=== PATIENT | male | born 1950 | race Caucasian/White ===

== ENCOUNTER 2024-12-27 21:32 | Inpatient (IN) | payer MEDICARE ==
--- NOTE | 2024-12-27 21:40 | ED ---
Recheck HPI - General Stated Complaint: NStemi Time Seen by Provider: 12/27/24 21:34 Source: RN notes reviewed, old records reviewed Mode of arrival: EMS Limitations: no limitations - History of Present Illness Initial Comments: This is a 74 male to the ER for evaluation patient presents today for evaluation of chest pain, hypertension with elevated troponin at prior facility. MD Complaint: other (0) -: days(s) Returns Today for: Called Because of Abnormal Lab/Test (Elevated troponin), persistent/worsening pain related to initial visit Symptoms Since Prior Visit: worsening pain (Denying current chest pain) Context: called for abnormal lab result Associated Symptoms: none - Related Data Home Medications Medication Instructions Recorded Confirmed Dapagliflozin Propanediol 10 mg PO DAILY 12/28/24 12/28/24 [Dapagliflozin] Famotidine 20 mg PO W/SUPPER 12/28/24 12/28/24 Fluticasone Nasal [place] [Flonase 1 spray EA NOSTRIL HS 12/28/24 12/28/24 Nasal [place]] Gabapentin [Neurontin] 900 mg PO HS 12/28/24 12/28/24 Insulin Aspart [NovoLOG Flexpen] 10 units SQ W/LUNCH PRN 12/28/24 12/28/24 Insulin Aspart [NovoLOG Flexpen] 25 units SQ BID-W/MEALS 12/28/24 12/28/24 Insulin Glargine,Hum.rec.anlog 35 units SQ DAILY 12/28/24 12/28/24 [Toujeo Solostar] Latanoprost [Latanoprost 0.005%] 1 drop BOTH EYES DAILY 12/28/24 12/29/24 Losartan [Cozaar] 25 mg PO DAILY 12/28/24 12/29/24 Metoclopramide HCl [Reglan] 5 mg PO TID PRN 12/28/24 12/28/24 Multivit-Mins/Iron/Folic/Lycop 1 tab PO DAILY 12/28/24 12/28/24 [Centrum Men's Tablet] Niacin (Inositol Niacinate) 500 mg PO HS 12/28/24 12/28/24 [Niacin 500 mg Capsule] [place]-3/Dha/Epa/Fish Oil [[place]-3 1 cap PO HS 12/28/24 12/28/24 Fish Oil 1,000 mg Sfgl] Omeprazole 20 mg PO BID 12/28/24 12/28/24 Turmeric Root Extract [Turmeric] 500 mg PO BID 12/28/24 12/28/24 metHOTREXate sodium [Methotrexate] 25 mg PO FR 12/28/24 12/28/24 rOPINIRole HCL [Requip] 0.5 mg PO DAILY 12/29/24 12/29/24 rOPINIRole HCL [Requip] 1.5 mg PO HS 12/29/24 12/29/24 traZODone HCL [Desyrel] 100 mg PO HS 12/29/24 12/29/24 Allergies Allergy/AdvReac Type Severity Reaction Status Date / Time No Known Allergies Allergy Verified 12/28/24 09:33 Review of Systems ROS Statement: Those systems with pertinent positive or pertinent negative responses have been documented in the HPI. ROS Other: All systems not noted in ROS Statement are negative. Past Medical History - Past Family History Mother Family Medical History: Dementia, Hypertension Father Family Medical History: Diabetes Mellitus, Hypertension General Exam General appearance: alert, in no apparent distress Head exam: Present: atraumatic, normocephalic, normal inspection Eye exam: Present: normal appearance, PERRL, EOMI. Absent: scleral icterus, co njunctival injection, periorbital swelling ENT exam: Present: normal exam, mucous membranes moist Neck exam: Present: normal inspection. Absent: tenderness, meningismus, lymphadenopathy Respiratory exam: Present: normal lung sounds bilaterally. Absent: respiratory distress, wheezes, rales, rhonchi, stridor Cardiovascular Exam: Present: regular rate, normal rhythm, normal heart sounds. Absent: systolic murmur, diastolic murmur, rubs, gallop, clicks GI/Abdominal exam: Present: soft, normal bowel sounds. Absent: distended, tenderness, guarding, rebound, rigid Extremities exam: Present: normal inspection, full ROM, normal capillary refill. Absent: tenderness, pedal edema, joint swelling, calf tenderness Back exam: Present: normal inspection Neurological exam: Present: alert, oriented X3, CN II-XII intact Psychiatric exam: Present: normal affect, normal mood Skin exam: Present: warm, dry, intact, normal color. Absent: rash Course Vital Signs 12/27/24 12/27/24 21:41 23:22 Temperature 98.2 F 98.1 F Pulse Rate 58 L 61 Respiratory 18 14 Rate Blood Pressure 218/98 168/83 O2 Sat by Pulse 97 94 L Oximetry - Reevaluation(s) Reevaluation #1: 12/27/24 21:48 Medical records reviewed Transferring paperwork reviewed including elevated troponin Reevaluation #2: 12/27/24 21:49 Patient denies current chest pain Blood pressure is improving Reevaluation #3: 12/27/24 21:49 Patient informed of results questions answered Reevaluation #4: Was pt. sent in by a medical professional or institution (, AFTAB, BATCH STILL OPERATOR, urgent care, hospital, or senior living...) When possible be specific @ -no Did you speak to anyone other than the patient for history (EMS, parent, family, police, friend...)? What history was obtained from this source @ -no Did you review nursing and triage notes (agree or disagree)? Why? @ -agree Are old charts reviewed (outside hosp., previous admission, EMS record, old EKG, old radiological studies, urgent care reports/EKG's, senior living records)? Report findings @ -yes Differential Diagnosis (chest pain, altered mental status, abdominal pain women, abdominal pain men, vaginal bleeding, weakness, fever, dyspnea, syncope, hea dache, dizziness, GI bleed, back pain, seizure, CVA, palpatations, mental health, musculoskeletal)? @ -prior EKG interpreted by me (3pts min.). @ -yes X-rays interpreted by me (1pt min.). @ -yes negative for acute disease CT interpreted by me (1pt min.). @ -no U/S interpreted by me (1pt. min.). @ -no What testing was considered but not performed or refused? (CT, X-rays, U/S, labs)? Why? @ -none What meds were considered but not given or refused? Why? @ -none Did you discuss the management of the patient with other professionals (professionals i.e. AFTAB Gutierrez, BATCH STILL OPERATOR, lab, RT, psych nurse, social work supervisor, construction rep, teacher, student officer, caseworker protective services)? Give summary @ -no Was smoking cessation discussed for >3mins.? @ -no Was critical care preformed (if so, how long)? @ -yes31 Were there social determinants of health that impacted care today? How? (Homelessness, low income, unemployed, alcoholism, drug addiction, transportation, low edu. Level, literacy, decrease access to med. care, long term, rehab)? @ -none Was there de-escalation of care discussed even if they declined (Discuss DNR or withdrawal of care, Hospice)? DNR status @ -no What co-morbidities impacted this encounter? (DM, HTN, Smoking, COPD, CAD, Cancer, CVA, ARF, Chemo, Hep., AIDS, mental health diagnosis, sleep apnea, morbid obesity)? @ -none Was patient admitted / discharged? Hospital course, mention meds given and route, prescriptions, significant lab abnormalities, going to OR and other pertinent info. @ - 74 male will be admitted for chest pain observation, elevated troponin non- ST elevated VA Admitted Undiagnosed new problem with uncertain prognosis? @ -no Drug Therapy requiring intensive monitoring for toxicity (Heparin, Nitro, Insulin, Cardizem)? @ -no Were any procedures done? @ -no Diagnosis/symptom? @ -Chest pain non-STEMI Acute, or Chronic, or Acute on Chronic? @ -Acute Uncomplicated (without systemic symptoms) or Complicated (systemic symptoms)? @ -Complicated Side effects of treatment? @ -no Exacerbation, Progression, or Severe Exacerbation? @ -exacerbation Poses a threat to life or bodily function? How? (Chest pain, USA, VA, pneumonia, PE, COPD, DKA, ARF, appy, cholecystitis, CVA, Diverticulitis, Homicidal, Suicidal, threat to staff... and all critical care pts) @ -yes with acute chest pain Reevaluation #5: Differential Chest Pain: Stable Angina, Unstable Angina, STEMI, NSTEMI Aortic Dissection, Pneumothorax, Musculoskeletal, Esophageal Spasm GERD, Cholecystitis, Pancreatitis, Zoster, this is not meant to be an all-inclusive list. - Consultations Consultation #1: With [facility] who agrees to admit this patient Medical Decision Making - Medical Decision Making 74 male will be admitted for chest pain observation, elevated troponin non-ST elevated VA - Lab Data Result diagrams: 01/05/25 04:53 01/05/25 04:53 - EKG Data -: EKG Interpreted by Me (EKG sinus bradycardia 56 MD 198 QRS 79 QTc 424) - Radiology Data Radiology results: report reviewed (Chest x-ray is negative for acute disease) Critical Care Time Critical Care Time: Yes Total Critical Care Time: 31 Disposition Clinical Impression: NSTEMI (non-ST elevated myocardial infarction), Chest pain Disposition: ADMITTED IP TO THIS HOSP Condition: Fair Is patient prescribed a controlled substance at d/c from ED?: No Time of Disposition: 22:00
[2024-12-27] MEDS ORDERED: NITROGLYCERIN SL TABS 0.4 MG TAB SUBLINGUAL PRN (21:41)
[2024-12-27] MEDS ORDERED: MORPHINE SULFATE 4 MG/ML SYRINGE IV PRN (21:41)
[2024-12-27] MEDS ORDERED: NALOXONE 0.4 MG/ML 1 ML VIAL IV PRN (21:41)
[2024-12-27] MEDS: MORPHINE SULFATE 4 MG/ML SYRINGE IV STA (22:00)
[2024-12-27] MEDS: ONDANSETRON 4 MG/2 ML VIAL IVP STA (22:00)
[2024-12-27] MEDS: SODIUM CHLORIDE 0.9% 1,000 ML IV SCH (22:03)
[2024-12-27] MEDS: LABETALOL 5 MG/ML VIAL MDV IVP STA (22:04)
[2024-12-27] MEDS: hydrALAZINE HCL 20 MG/ML 1 ML VIAL IVP STA (22:06)
[2024-12-27] MEDS: ATORVASTATIN 80 MG TAB PO SCH (22:07)
--- NOTE | 2024-12-27 22:08 | XR ---
EXAMINATION TYPE: XR chest 1V portable DATE OF EXAM: 12/27/2024 10:01 PM COMPARISON: None. CLINICAL INDICATION: Male, 74 years old with history of cp; H TECHNIQUE: XR chest 1V portable Frontal view of the chest. FINDINGS: Lungs/Pleura: There is no evidence of pleural effusion, focal consolidation, or pneumothorax. Pulmonary vascularity: Unremarkable. Heart/mediastinum: Cardiomegaly. Musculoskeletal: No acute osseous pathology. Old left-sided fracture deformities. Other findings: None IMPRESSION: No acute cardiopulmonary disease/process. [facility], , 12/27/2024 10:06 PM
[2024-12-27 22:26] LABS: Basophils # (A) 0.09 10*3/uL (0.00-0.10); Basophils % (A) 1.3 %; Eosinophils # (A) 0.18 10*3/uL (0.04-0.35); Eosinophils % (A) 2.5 %; HCT 49.5 % (39.6-50.0); HGB 16.4 g/dL (13.0-17.0); Lymphocytes # (A) 1.59 10*3/uL (0.90-5.00); Lymphocytes % (A) 22.1 %; MCH 30.9 pg (27.0-32.0); MCHC 33.1 g/dL (32.0-37.0); MCV 93.2 fL (80.0-97.0); Mean Platelet Volume 9.7 fL (9.5-12.2); Monocytes # (A) 0.75 10*3/uL (0.20-1.00); Monocytes % (A) 10.4 %; Neutrophils # (A) 4.57 10*3/uL (1.80-7.70); Neutrophils % (A) 63.4 %; Platelet Count 209 10*3/uL (140-440); RBC 5.31 10*6/uL (4.40-5.60); RDW 13.8 % (11.5-14.5)
[2024-12-27] MEDS: HEPARIN SOD,PORK IN 0.45% NACL 25,000 UNIT in 0.45% NACL 1 250ML.BAG IV SCH (22:26)
[2024-12-27 22:40] LABS: Prothrombin Time 11.5 sec (10.0-12.5)
[2024-12-27 23:00] LABS: ALT 105 U/L (4-49); AST 67 U/L (17-59); African American GFR (CKD) >90 (>60 ml/min/1.73 sqM); Albumin 4.4 g/dL (3.5-5.0); Alkaline Phosphatase 75 U/L (38-126); Anion Gap 8 mmol/L; Blood Urea Nitrogen 14 mg/dL (9-20); Calcium 9.7 mg/dL (8.4-10.2); Carbon Dioxide 31 mmol/L (22-30); Chloride 102 mmol/L (98-107); Glucose 265 mg/dL (74-99); Magnesium 2.3 mg/dL (1.6-2.3); Non-African American GFR(CKD) 89 (>60 ml/min/1.73 sqM); Phosphorus 3.3 mg/dL (2.5-4.5); Potassium 3.7 mmol/L (3.5-5.1); Sodium 141 mmol/L (137-145); Total Bilirubin 0.9 mg/dL (0.2-1.3)
[2024-12-28 03:51] LABS: Basophils # (A) 0.07 10*3/uL (0.00-0.10); Eosinophils # (A) 0.19 10*3/uL (0.04-0.35); Eosinophils % (A) 2.6 %; HCT 47.8 % (39.6-50.0); HGB 15.9 g/dL (13.0-17.0); Lymphocytes # (A) 1.57 10*3/uL (0.90-5.00); Lymphocytes % (A) 21.6 %; MCH 30.8 pg (27.0-32.0); MCHC 33.3 g/dL (32.0-37.0); MCV 92.6 fL (80.0-97.0); Mean Platelet Volume 9.6 fL (9.5-12.2); Monocytes # (A) 0.91 10*3/uL (0.20-1.00); Monocytes % (A) 12.5 %; Neutrophils # (A) 4.52 10*3/uL (1.80-7.70); Neutrophils % (A) 62.2 %; Platelet Count 191 10*3/uL (140-440); RBC 5.16 10*6/uL (4.40-5.60); RDW 13.8 % (11.5-14.5); WBC 7.27 10*3/uL (4.50-10.00)
[2024-12-28 04:08] LABS: ALT 90 U/L (4-49); AST 50 U/L (17-59); African American GFR (CKD) >90 (>60 ml/min/1.73 sqM); Alkaline Phosphatase 60 U/L (38-126); Anion Gap 7 mmol/L; Blood Urea Nitrogen 14 mg/dL (9-20); Calcium 9.5 mg/dL (8.4-10.2); Carbon Dioxide 27 mmol/L (22-30); Chloride 106 mmol/L (98-107); Glucose 84 mg/dL (74-99); Magnesium 2.2 mg/dL (1.6-2.3); Non-African American GFR(CKD) >90 (>60 ml/min/1.73 sqM); Phosphorus 3.3 mg/dL (2.5-4.5); Potassium 3.5 mmol/L (3.5-5.1); Sodium 140 mmol/L (137-145); Total Bilirubin 0.9 mg/dL (0.2-1.3); Total Protein 6.3 g/dL (6.3-8.2)
[2024-12-28] MEDS: ASPIRIN 325 MG TAB PO SCH (08:58)
[2024-12-28] MEDS: METOPROLOL TARTRATE 25 MG TAB PO SCH (08:59)
[2024-12-28] MEDS: HEPARIN SODIUM 1,000 UN/ML (10ML VL) IV PRN (09:57)
[2024-12-28] MEDS ORDERED: DEXTROSE 50% SYRINGE 50 ML IVP PRN ×2 (10:16)
[2024-12-28 10:18] LABS: Chol/HDL Ratio 5.53 Ratio; LDL Cholesterol,Calculated 113.7 mg/dL (0.0-131.0)
[2024-12-28 11:43] LABS: Glucose,Whole Blood 209 mg/dL (70-110)
[2024-12-28] MEDS ORDERED: ALPRAZolam 0.25 MG TAB PO PRN (11:44)
[2024-12-28] MEDS ORDERED: NITROGLYCERIN SL TABS 0.4 MG TAB SUBLINGUAL PRN (11:44)
[2024-12-28] MEDS ORDERED: ASPIRIN 325 MG TAB PO STA (11:44)
[2024-12-28] MEDS: INSULIN GLARGINE (LANTUS) 100 UNIT/ML SYR SQ SCH (12:05)
[2024-12-28] MEDS: carvediloL 6.25 MG TAB PO SCH (12:05)
[2024-12-28] MEDS: LOSARTAN 50 MG TAB PO SCH (12:05)
[2024-12-28] MEDS: INSULIN LISPRO (HumaLOG) 100 UNIT/ML 10 mL VL SQ SCH (12:05)
[2024-12-28] MEDS: ASPIRIN 81 MG PO SCH (12:05)
[2024-12-28] MEDS: LOSARTAN 25 MG TAB PO SCH (12:20)
[2024-12-28] MEDS: ATORVASTATIN 80 MG TAB PO STA (12:21)
--- NOTE | 2024-12-28 12:51 | P.CRDCN ---
History of Present Illness Consult date: 12/28/24 Consult reason: chest pain Chief complaint: chest pain History of present illness: History of present illness: Pleasant 74-year-old male with significant past medical history of diabetes type 2, psoriatic arthritis, restless leg syndrome, hypertension, hyperlipidemia who presented with elevated blood pressure. He does not follow with a senior information systems architect. He does not smoke, drinks rare alcohol, no drug use. He states he has been having high blood pressure and intermittent shortness of breath, worse over the past few weeks. Went to a walk-in clinic and BP was elevated 200's/80's. and referred to ER in [place] and ultimately transferred to [facility] for elevated trop 0.08. Troponins here 0.085, 0.081, 0.085, creat 0.69, D-dimer negative. BNP was 801. He did have the flu 1 month ago and was coughing more at that time. He states over the past few months he has been having more chest tightness with walking the dog and this is a change for him. He does not use salt. No prior cardiac work up. EKG does show sinus bradycardia with ST deviation and moderate T wave abnormalities. He is feeling better this morning. Denies any chest pain or pressure. No shortness of breath. REVIEW OF SYSTEMS: No fever or chills. No cough or expectoration. No diaphoresis. Patient denies headache, dizziness, blurred vision, double vision. Patient denies any stomach discomfort. No nausea, vomiting. No hematochezia. No hematemesis. Denies any black stools or blood in his stools. Denies dysuria or hematuria. No muscle weakness or numbness. No chest pain or pressure. PHYSICAL EXAMINATION: This is a 74-year-old male in no apparent distress at the time of my examination. HEENT: Head is atraumatic, normocephalic. Pupils are equal, round. Sclerae anicteric. Conjunctivae are clear. Mucous membranes of the mouth are moist. Neck is supple. There is no jugular venous distention. No carotid bruit is heard. CHEST EXAMINATION: Lungs are clear to auscultation. No chest wall tenderness is noted on palpation or with deep breathing. HEART EXAMINATION: Heart regular rate and rhythm. S1, S2 heard. No murmurs, gallops or rub. ABDOMEN: Soft, nontender. Bowel sounds are heard. No organomegaly noted. EXTREMITIES: 2+ peripheral pulses with no evidence of peripheral edema and no calf tenderness noted. NEUROLOGIC EXAMINATION: Patient is awake, alert and oriented x3. IMPRESSION AND PLAN: Hypertension Hyperlipidemia Diabetes type 2 Chest tightness with exertion Dyspnea NSTEMI Abnormal EKG PLAN: Blood pressure needs to be better controlled. We will increase losartan to 100 mg. He did not do well with metoprolol in the past, therefore, will attempt Coreg 6.25 mg twice daily. He also states he does not tolerate a full aspirin and therefore we will order aspirin 81 mg. We discussed stress testing versus left heart catheterization. Recommend proceeding with left heart cath and possible intervention once blood pressures better controlled, likely tomorrow. Check ECHO. Other recommendations pending clinical course. I am dictating on behalf of Dr. Stepan Dewey's history/physical and assessment/plan. 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 Past Psychological History: Depression Smoking Status: Never smoker Past Alcohol Use History: Rare Past Drug Use History: None Reported Medications and Allergies Home Medications Medication Instructions Recorded Confirmed Type Dapagliflozin Propanediol 10 mg PO DAILY 12/28/24 12/28/24 History [Dapagliflozin] Famotidine 20 mg PO W/SUPPER 12/28/24 12/28/24 History Fluticasone Nasal [place] [Flonase 1 spray EA NOSTRIL HS 12/28/24 12/28/24 History Nasal [place]] Gabapentin [Neurontin] 900 mg PO HS 12/28/24 12/28/24 History Insulin Aspart [NovoLOG Flexpen] 10 units SQ W/LUNCH PRN 12/28/24 12/28/24 History Insulin Aspart [NovoLOG Flexpen] 25 units SQ BID-W/MEALS 12/28/24 12/28/24 History Insulin Glargine,Hum.rec.anlog 35 units SQ DAILY 12/28/24 12/28/24 History [Lorri Choudhury] Latanoprost [Latanoprost 0.005%] 1 drop BOTH EYES DIRECTED 12/28/24 12/28/24 History Losartan [Cozaar] 25 mg PO DIRECTED 12/28/24 12/28/24 History Metoclopramide HCl [Reglan] 5 mg PO TID PRN 12/28/24 12/28/24 History Multivit-Mins/Iron/Folic/Lycop 1 tab PO DAILY 12/28/24 12/28/24 History [Centrum Men's Tablet] Niacin (Inositol Niacinate) 500 mg PO HS 12/28/24 12/28/24 History [Niacin 500 mg Capsule] [place]-3/Dha/Epa/Fish Oil [[place]-3 1 cap PO HS 12/28/24 12/28/24 History Fish Oil 1,000 mg Sfgl] Omeprazole 20 mg PO BID 12/28/24 12/28/24 History Turmeric Root Extract [Turmeric] 500 mg PO BID 12/28/24 12/28/24 History metHOTREXate sodium [Methotrexate] 25 mg PO FR 12/28/24 12/28/24 History rOPINIRole HCL [Requip] 1 dose PO DIRECTED 12/28/24 12/28/24 History traZODone HCL [Desyrel] 50 mg PO DIRECTED 12/28/24 12/28/24 History Allergies Allergy/AdvReac Type Severity Reaction Status Date / Time No Known Allergies Allergy Verified 12/28/24 09:33 Physical Exam Vitals: Vital Signs Temp Pulse Pulse Resp BP BP Pulse Ox 12/28/24 08:50 98 F 66 17 175/74 96 12/28/24 05:16 69 14 170/76 98 12/28/24 02:00 65 14 12/28/24 00:01 97.1 F L 62 14 194/89 96 12/27/24 23:22 98.1 F 61 14 168/83 94 L 12/27/24 21:41 98.2 F 58 L 18 218/98 97 Intake and Output 12/27/24 12/28/24 12/28/24 22:59 06:59 14:59 Intake Total 706.667 Output Total 500 Balance -500 706.667 Intake: Intake, IV Titration 106.667 Amount Heparin Sod,Pork in 0.45% 106.667 NaCl 25,000 unit In 0.45 % NaCl 1 250ml.bag @ 11. 665 UNITS/KG/HR 10 mls/hr IV .Q24H [facility] Rx#: [id number] Oral 600 Output: Urine 500 Other: Voiding Method Toilet Toilet Bedside Commode Urinal # Voids 1 Weight 85.729 kg 88.5 kg Results 12/28/24 03:32 12/28/24 03:32 Cardiac Enzymes 12/27/24 12/27/24 12/28/24 Range/Units 21:50 21:50 01:10 AST 67 H (17-59) U/L Troponin I 0.085 H* 0.081 H* (0.000-0.034) ng/mL 12/28/24 12/28/24 Range/Units 03:32 03:32 AST 50 (17-59) U/L Troponin I 0.085 H* (0.000-0.034) ng/mL Coagulation 12/27/24 12/28/24 Range/Units 21:50 07:17 PT 11.5 (10.0-12.5) sec APTT 47.0 H 33.1 H (22.0-30.0) sec Lipids 12/28/24 Range/Units 03:32 Triglycerides 181.00 H (0.00-149.00) mg/dL Cholesterol 183.00 (0.00-200.00) mg/dL HDL Cholesterol 33.10 L (40.00-60.00) mg/dL Cholesterol/HDL Ratio 5.53 Ratio CBC 12/27/24 12/28/24 Range/Units 21:50 03:32 WBC 7.20 7.27 (4.50-10.00) 10*3/uL RBC 5.31 5.16 (4.40-5.60) 10*6/uL Hgb 16.4 15.9 (13.0-17.0) g/dL Hct 49.5 47.8 (39.6-50.0) % Plt Count 209 191 (140-440) 10*3/uL Comprehensive Metabolic Panel 12/27/24 12/28/24 Range/Units 21:50 03:32 Sodium 141 140 (137-145) mmol/L Potassium 3.7 3.5 (3.5-5.1) mmol/L Chloride 102 106 (98-107) mmol/L Carbon Dioxide 31 H 27 (22-30) mmol/L BUN 14 14 (9-20) mg/dL Creatinine 0.75 0.69 (0.66-1.25) mg/dL Glucose 265 H 84 (74-99) mg/dL Calcium 9.7 9.5 (8.4-10.2) mg/dL AST 67 H 50 (17-59) U/L ALT 105 H 90 H (4-49) U/L Alkaline Phosphatase 75 60 (38-126) U/L Total Protein 7.0 6.3 (6.3-8.2) g/dL Albumin 4.4 4.0 (3.5-5.0) g/dL Current Medications Generic Name Dose Route Start Last Admin Trade Name Freq PRN Reason Stop Dose Admin Aspirin 325 mg 12/28/24 09:00 12/28/24 08:58 Aspirin 325 Mg Tab PO Not Given DAILY EZEQUIEL Atorvastatin Calcium 80 mg 12/27/24 21:45 12/28/24 08:59 Atorvastatin 80 Mg Tab PO Not Given DAILY [facility] Dapagliflozin 10 mg 12/29/24 09:00 Dapagliflozin Propanediol 10 Mg Tablet PO DAILY [facility] Dextrose/Water 25 ml 12/28/24 10:16 Dextrose 50% Syringe 50 Ml IVP PER PROTOCOL PRN Hypoglycemia Protocol Dextrose/Water 50 ml 12/28/24 10:16 Dextrose 50% Syringe 50 Ml IVP PER PROTOCOL PRN Hypoglycemia Protocol Fluticasone Propionate 1 spray 12/28/24 21:00 Fluticasone Nasal 50mcg/[place] 16gm Btl EA NOSTRIL HS [facility] Gabapentin 900 mg 12/28/24 21:00 Gabapentin 300 Mg Cap PO HS [facility] Heparin Sodium (Porcine) 0 unit 12/28/24 09:03 12/28/24 09:57 Heparin Sodium 1,000 Un/Ml (10ml Vl) IV 2,200 unit PER PROTOCOL PRN Administration Low PTT Protocol Sodium Chloride 1,000 mls @ 130 mls/hr 12/27/24 21:45 12/28/24 06:14 Saline 0.9% IV Not Given .Q7H42M [facility] Heparin Sodium/Sodium Chloride 250 mls @ 10 mls/hr 12/27/24 21:45 12/28/24 09:06 25,000 unit/ Sodium Chloride IV 13.665 units/kg/hr .Q24H E[facility] 11.715 mls/hr Titration Protocol 11.665 UNITS/KG/HR Insulin Glargine 35 unit 12/28/24 10:15 Insulin Glargine (Lantus) 100 Unit/Ml Syr SQ DAILY [facility] Insulin Human Lispro 0 unit 12/28/24 12:30 Insulin Lispro (Humalog) 100 Unit/Ml 10 Ml Vl SQ ACHS [facility] Protocol Losartan Potassium 25 mg 12/28/24 10:15 Losartan 25 Mg Tab PO DAILY [facility] Metoprolol Tartrate 25 mg 12/28/24 09:00 12/28/24 08:59 Metoprolol Tartrate 25 Mg Tab PO Not Given BID [facility] Morphine Sulfate 4 mg 12/27/24 21:41 Morphine Sulfate 4 Mg/Ml Syringe IV Q4HR PRN Chest Pain Naloxone HCl 0.2 mg 12/27/24 21:41 Naloxone 0.4 Mg/Ml 1 Ml Vial IV Q2M PRN Opioid Reversal Nitroglycerin 0.4 mg 12/27/24 21:41 Nitroglycerin Sl Tabs 0.4 Mg Tab SUBLINGUAL Q5M PRN Chest Pain Pantoprazole Sodium 40 mg 12/28/24 21:00 Pantoprazole 40 Mg Tablet PO HS [facility] Ropinirole HCl 1 mg 12/28/24 10:15 Ropinirole Hcl 1 Mg Tab PO DAILY [facility] Ropinirole HCl 3 mg 12/28/24 21:00 Ropinirole Hcl 1 Mg Tab PO HS [facility] Trazodone HCl 50 mg 12/28/24 21:00 Trazodone Hcl 50 Mg Tab PO HS [facility] Intake and Output 12/27/24 12/28/24 12/28/24 22:59 06:59 14:59 Intake Total 706.667 Output Total 500 Balance -500 706.667 Intake: Intake, IV Titration 106.667 Amount Heparin Sod,Pork in 0.45% 106.667 NaCl 25,000 unit In 0.45 % NaCl 1 250ml.bag @ 11. 665 UNITS/KG/HR 10 mls/hr IV .Q24H [facility] Rx#: [id number] Oral 600 Output: Urine 500 Other: Voiding Method Toilet Toilet Bedside Commode Urinal # Voids 1 Weight 85.729 kg 88.5 kg 12/28/24 03:32 12/28/24 03:32
--- NOTE | 2024-12-28 13:46 | P.HPIM ---
History of Present Illness H&P Date: 12/28/24 History of present illness; patient 74-year-old gentleman past medical history significant for diabetes mellitus, hypertension who presented to the ER as a transfer from hospital in [place] for chest pain. Patient stated he was all right couple of weeks back when he started having intermittent shortness of breath and chest pressure, chest pressure was central location, nonradiating, no aggravating or relieving factor associated with chest pressure. Patient went to urgent care and was found to have elevated blood pressure and was referred to [facility] and was later transferred to [facility]. There is no complaint of shortness of breath. Patient denies any palpitation. There is no complaint of orthopnea or PND. Denies any nausea, vomiting abdominal pain. Patient denies any complaint of dizziness. There is no complaint of headache. Initial lab work done in the ER showed WBC 7.20, hemoglobin 16.4, D-dimer 0.24, sodium 141, potassium 3.7, BUN 14, creatinine 0.75, glucose 265, AST 67, ALT 105, troponin 0.085 EKG done in the ER showed heart rate of 56 , no ST segment elevation or depression seen, no T-wave inversions seen. Chest x-ray done in the ER showed no acute cardiopulmonary process Patient admitted to internal medicine service REVIEW OF SYSTEMS: CONSTITUTIONAL: No fever, no malaise, no fatigue. HEENT: No recent visual problems or hearing problems. Denied any sore throat. CARDIOVASCULAR: As mentioned above PULMONARY: As mentioned GASTROINTESTINAL: No diarrhea, no nausea, no vomiting, no abdominal pain. NEUROLOGICAL: No headaches, no weakness, no numbness. HEMATOLOGICAL: Denies any bleeding or petechiae. GENITOURINARY: Denies any burning micturition, frequency, or urgency. MUSCULOSKELETAL/RHEUMATOLOGICAL: Denies any joint pain, swelling, or any muscle pain. ENDOCRINE: Denies any polyuria or polydipsia. The rest of the 14-point review of systems is negative. PHYSICAL EXAMINATION: GENERAL: The patient is alert and oriented x3, not in any acute distress. Well developed, well nourished. HEENT: Pupils are round and equally reacting to light. EOMI. No scleral icterus. No conjunctival pallor. Normocephalic, atraumatic. No pharyngeal erythema. No thyromegaly. CARDIOVASCULAR: S1 and S2 present. No murmurs, rubs, or gallops. PULMONARY: Chest is clear to auscultation, no wheezing or crackles. ABDOMEN: Soft, nontender, nondistended, normoactive bowel sounds. No palpable organomegaly. MUSCULOSKELETAL: No joint swelling or deformity. EXTREMITIES: No cyanosis, clubbing, or pedal edema. NEUROLOGICAL: Gross neurological examination did not reveal any focal deficits. SKIN: No rashes. Assessment and plan Acute coronary syndrome Hypertension Diabetes mellitus restless leg syndrome Monitor vital signs Monitor CBC Monitor CMP Continue telemetry monitoring Trend troponin Ordered 2D echo Start pharmacy dose heparin Start Lopressor Ordered HbA1c Order lipid panel Cardiology consulted Labs and medication were reviewed.. Continue same treatment. Continue with symptomatic treatment. Resume home medication. Monitor labs and vitals. DVT and GI prophylaxis. Further recommendations as per clinical course of the p atient Dictation was produced using [employer] dictation software. please excuse any grammatical, word or spelling errors. Wes, 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 Past Psychological History: Depression Smoking Status: Never smoker Past Alcohol Use History: Rare Past Drug Use History: None Reported Medications and Allergies Home Medications Medication Instructions Recorded Confirmed Type Dapagliflozin Propanediol 10 mg PO DAILY 12/28/24 12/28/24 History [Dapagliflozin] Famotidine 20 mg PO W/SUPPER 12/28/24 12/28/24 History Fluticasone Nasal [place] [Flonase 1 spray EA NOSTRIL HS 12/28/24 12/28/24 History Nasal [place]] Gabapentin [Neurontin] 900 mg PO HS 12/28/24 12/28/24 History Insulin Aspart [NovoLOG Flexpen] 10 units SQ W/LUNCH PRN 12/28/24 12/28/24 History Insulin Aspart [NovoLOG Flexpen] 25 units SQ BID-W/MEALS 12/28/24 12/28/24 History Insulin Glargine,Hum.rec.anlog 35 units SQ DAILY 12/28/24 12/28/24 History [Toukhris Solostar] Latanoprost [Latanoprost 0.005%] 1 drop BOTH EYES DIRECTED 12/28/24 12/28/24 History Losartan [Cozaar] 25 mg PO DIRECTED 12/28/24 12/28/24 History Metoclopramide HCl [Reglan] 5 mg PO TID PRN 12/28/24 12/28/24 History Multivit-Mins/Iron/Folic/Lycop 1 tab PO DAILY 12/28/24 12/28/24 History [Centrum Men's Tablet] Niacin (Inositol Niacinate) 500 mg PO HS 12/28/24 12/28/24 History [Niacin 500 mg Capsule] [place]-3/Dha/Epa/Fish Oil [[place]-3 1 cap PO HS 12/28/24 12/28/24 History Fish Oil 1,000 mg Sfgl] Omeprazole 20 mg PO BID 12/28/24 12/28/24 History Turmeric Root Extract [Turmeric] 500 mg PO BID 12/28/24 12/28/24 History metHOTREXate sodium [Methotrexate] 25 mg PO FR 12/28/24 12/28/24 History rOPINIRole HCL [Requip] 1 dose PO DIRECTED 12/28/24 12/28/24 History traZODone HCL [Desyrel] 50 mg PO DIRECTED 12/28/24 12/28/24 History Allergies Allergy/AdvReac Type Severity Reaction Status Date / Time No Known Allergies Allergy Verified 12/28/24 09:33 Physical Exam Vitals: Vital Signs Temp Pulse Pulse Resp BP BP Pulse Ox 12/28/24 08:50 98 F 66 17 175/74 96 12/28/24 05:16 69 14 170/76 98 12/28/24 02:00 65 14 12/28/24 00:01 97.1 F L 62 14 194/89 96 12/27/24 23:22 98.1 F 61 14 168/83 94 L 12/27/24 21:41 98.2 F 58 L 18 218/98 97 Intake and Output 12/27/24 12/28/24 12/28/24 22:59 06:59 14:59 Intake Total 706.667 Output Total 500 Balance -500 706.667 Intake: Intake, IV Titration 106.667 Amount Heparin Sod,Pork in 0.45% 106.667 NaCl 25,000 unit In 0.45 % NaCl 1 250ml.bag @ 11. 665 UNITS/KG/HR 10 mls/hr IV .Q24H [facility] Rx#: [id number] Oral 600 Output: Urine 500 Other: Voiding Method Toilet Bedside Commode # Voids 1 Weight 85.729 kg 88.5 kg Results CBC & Chem 7: 12/28/24 03:32 12/28/24 03:32 Labs: Abnormal Lab Results - Last 24 Hours (Table) 12/27/24 12/27/24 12/27/24 Range/Units 21:50 21:50 21:50 APTT 47.0 H (22.0-30.0) sec Carbon Dioxide 31 H (22-30) mmol/L Glucose 265 H (74-99) mg/dL AST 67 H (17-59) U/L ALT 105 H (4-49) U/L Troponin I 0.085 H* (0.000-0.034) ng/mL 12/28/24 12/28/24 12/28/24 Range/Units 01:10 03:32 03:32 APTT (22.0-30.0) sec Carbon Dioxide (22-30) mmol/L Glucose (74-99) mg/dL AST (17-59) U/L ALT 90 H (4-49) U/L Troponin I 0.081 H* 0.085 H* (0.000-0.034) ng/mL 12/28/24 Range/Units 07:17 APTT 33.1 H (22.0-30.0) sec Carbon Dioxide (22-30) mmol/L Glucose (74-99) mg/dL AST (17-59) U/L ALT (4-49) U/L Troponin I (0.000-0.034) ng/mL Thrombosis Risk Factor Assmnt - Choose All That Apply Any of the Below Risk Factors Present?: No Other Risk Factors: No Other congenital or acquired thrombophilia - If yes, enter type in comment: No Thrombosis Risk Factor Assessment Level: Very Low Risk
[2024-12-28 17:07] LABS: Glucose,Whole Blood 178 mg/dL (70-110)
[2024-12-28] MEDS: ACETAMINOPHEN TAB 325 MG TAB PO PRN (17:41)
[2024-12-28 20:09] LABS: Glucose,Whole Blood 160 mg/dL (70-110)
[2024-12-28] MEDS: GABAPENTIN 300 MG CAP PO SCH (20:35)
[2024-12-28] MEDS: PANTOPRAZOLE 40 MG TABLET PO SCH (20:35)
[2024-12-28] MEDS: ALPRAZolam 0.5 MG TAB PO PRN (20:35)
[2024-12-28] MEDS: traZODone HCL 50 MG TAB PO SCH (20:35)
[2024-12-28] MEDS: FLUTICASONE NASAL 50MCG/SPRAY 16GM BTL EA NOSTRIL SCH (20:38)
[2024-12-28] MEDS ORDERED: PANTOPRAZOLE 40 MG TABLET PO SCH (21:00)
[2024-12-29] MEDS: EMPTY BAG 1 BAG with SODIUM CHLORIDE 0.9% 1,000 ML IV ONE (00:15)
[2024-12-29] MEDS: ASPIRIN 325 MG TAB PO ONE (05:38)
[2024-12-29] MEDS: ATORVASTATIN 80 MG TAB PO ONE (05:38)
[2024-12-29] MEDS: ATORVASTATIN 80 MG TAB PO STA (08:16)
[2024-12-29] MEDS: ASPIRIN 325 MG TAB PO STA (08:16)
[2024-12-29] MEDS: DAPAGLIFLOZIN PROPANEDIOL 10 MG TABLET PO SCH (08:16)
[2024-12-29] MEDS: carvediloL 6.25 MG TAB PO STA (11:36)
[2024-12-29 11:57] LABS: Glucose,Whole Blood 89 mg/dL (70-110)
[2024-12-29] MEDS: MIDAZOLAM 2 MG/2 ML VIAL IVP ONE (12:55)
[2024-12-29] MEDS: fentaNYL (PF) 50 MCG/ML 2 ML AMP IVP ONE (12:55)
[2024-12-29] MEDS: IV FLUID CONTINUATION 1,000 ML IV ONE (12:55)
[2024-12-29] MEDS: LIDOCAINE 1% INJ 10MG/ML (20 ML MDV) SQ ONE (12:57)
[2024-12-29] MEDS: VERAPAMIL SYRINGE (5 MG/10 ML) INTRAARTER ONE (12:58)
[2024-12-29] MEDS: HEPARIN SODIUM 1,000 UN/ML (10ML VL) IV ONE (13:02)
--- NOTE | 2024-12-29 13:04 | CA ---
Transthoracic Echo Report Name: Marek Hill Age: 74 Gender: M : 1950 Exam Date: 12/29/2024 07:26 Exam Location: [facility] Ht (in): 71 Wt (lb): 182 Ordering Physician: Sammy Booker DO Attending/Referring Phys: [id number], Jhony Admitting Supervisor Darrel Villafana RDCS Procedure CPT: Indications: UA Cardiac Hx: Technical Quality: Contrast 1: Definity Total Dose (mL): 2 Contrast 2: Total Dose (mL): MEASUREMENTS (Male / Female) Normal Values 2D ECHO LV Diastolic Diameter PLAX 4.5 cm 4.2 - 5.9 / 3.9 - 5.3 cm LV Systolic Diameter PLAX 3.1 cm IVS Diastolic Thickness 1.1 cm 0.6 - 1.0 / 0.6 - 0.9 cm LVPW Diastolic Thickness 1.1 cm 0.6 - 1.0 / 0.6 - 0.9 cm LV Relative Wall Thickness 0.5 RV Internal Dim ED PLAX 3.1 cm LVOT Diameter 1.9 cm LA Systolic Diameter LX 2.6 cm 3.0 - 4.0 / 2.7 - 3.8 cm LV Diastolic Volume MOD BP 158.0 cm??? 67 - 155 / 56 - 104 cm??? LV Systolic Volume MOD BP 64.0 cm??? 22 - 58 / 19 - 49 cm??? LV Ejection Fraction MOD BP 59.5 % >= 55 % LV Diastolic Volume MOD 4C 159.3 cm??? LV Systolic Volume MOD 4C 60.1 cm??? LV Ejection Fraction MOD 4C 62.3 % LV Diastolic Length 4C 9.9 cm LV Systolic Length 4C 8.4 cm LV Diastolic Volume MOD 2C 149.2 cm??? LV Systolic Volume MOD 2C 66.5 cm??? LV Ejection Fraction MOD 2C 55.4 % LV Diastolic Length 2C 9.4 cm LV Systolic Length 2C 8.0 cm LA Volume 44.8 cm??? 18 - 58 / 22 - 52 cm??? LA Volume Index 21.9 cm???/m??? 16 - 28 cm???/m??? DOPPLER MV Area PHT 3.5 cm??? Mitral E Point Velocity 59.7 cm/s Mitral A Point Velocity 81.8 cm/s Mitral E to A Ratio 0.7 MV Deceleration Time 219.1 ms TR Peak Velocity 239.0 cm/s TR Peak Gradient 22.9 mmHg Right Atrial Pressure 5.0 mmHg Pulmonary Artery Systolic Pressu 27.9 mmHg Right Ventricular Systolic Press 27.9 mmHg FINDINGS Left Ventricle Left ventricular ejection fraction is estimated at 50-55 %. Mildly increased left ventricular diastolic volume. Mildly increased left ventricular systolic volume. Mild anteroapical hypokinesis Right Ventricle Normal right ventricular size and function. Right ventricular systolic pressure within normal limits. Right Atrium Normal right atrial size. Left Atrium Normal left atrial size. Mitral Valve Mitral annular calcification. Mild thickening/calcification of the anterior mitral valve leaflet. No mitral stenosis. No mitral regurgitation. Aortic Valve Trileaflet aortic valve. No aortic stenosis. No aortic regurgitation. Tricuspid Valve Structurally normal tricuspid valve. No tricuspid stenosis. Mild tricuspid regurgitation. Pulmonic Valve Structurally normal pulmonic valve. No pulmonic stenosis. Trace pulmonic regurgitation. Pericardium No pericardial effusion. Aorta Normal size aortic root and proximal ascending aorta. CONCLUSIONS 1. Left ventricular systolic function borderline normal with mild anteroapical hypokinesis 2. Mild tricuspid regurgitation with no evidence of pulmonary hypertension Previewed by: Dr. Anna Cheng MD (Electronically Signed) Final Date: 29 December 2024 13:03
[2024-12-29] MEDS: HEPARIN SODIUM,PORCINE 10,000 UNIT in SODIUM CHLORIDE 0.9% 1,000 ML IRRIGATION PRN (13:05)
[2024-12-29] MEDS: HEPARIN SODIUM,PORCINE (1 ML) 2,500 UNIT in SODIUM CHLORIDE 0.9% 250 ML IRRIGATION PRN (13:05)
[2024-12-29] MEDS: IOPAMIDOL-370 100ML BTL INJ ONE (13:14)
--- NOTE | 2024-12-29 13:30 | P.CARDCATH ---
Description of Procedure: PROCEDURES PERFORMED: Left heart catheterization, bilateral coronary angiography, ultrasound guided arterial access INDICATION: Non-STEMI CONSENT:I have discussed the risks, benefits and alternative therapies for the above-mentioned procedure and for both sedation/analgesia as well as necessary blood product administration, if indicated, as they pertain to this patient. The patient has indicated understanding and acceptance of the risks and procedures discussed. PROCEDURE: After the risks, benefits and alternatives of the above mentioned procedure explained in detail with the patient, informed consent was obtained. Patient was taken to the catheterization lab and prepped and draped in usual fashion. Ultrasound guidance was used to assess for arterial access. 1% lidocaine was used to anesthetize the right radial artery. A 6-[place] sheath was placed in the right radial artery using modified Seldinger technique and ul trasound guidance. Left coronary angiography was performed with a 5-[place] JL 3.5 catheter and right coronary angiography was performed with a 5-[place] FR5 catheter in various views. A 5-[place] FR5 catheter was inserted into the left ventricle and pressure measurements were obtained. The right radial sheath was removed and a TR band was placed with hemostasis achieved. The patient tolerated the procedure well. Patient was transported back to the post catheterization holding area in stable condition. Conscious Sedation: Patient was monitored under the direct supervision of myself for conscious sedation using Versed and fentanyl for a total duration of 19 minutes HEMODYNAMICS: Aorta: 131/71 LV: 130/8, LVEDP 18 SELECTIVE CORONARY ARTERIOGRAPHY: LEFT MAIN: The left main is a large caliber vessel which bifurcates into the LAD and circumflex. There is no significant stenosis. LEFT ANTERIOR DESCENDING CORONARY ARTERY: LAD is a large caliber vessel which wraps around to the apex. There is diffuse heavy calcification of the entire proximal to mid LAD. Proximal LAD has diffuse 30 to 50% stenosis. Diagonal 1 appears moderate caliber with subtotal 100% stenosis proximally and left to left collaterals. Diagonal 2 is small caliber and has a ostial 80% stenosis. Just after diagonal 2 there is diffuse disease however more focal mid LAD 95% stenosis. The mid to apical LAD has diffuse 30 to 40% stenosis. LEFT CIRCUMFLEX CORONARY ARTERY: Left circumflex is a large caliber vessel which gives off the PDA and is codominant. There is a small caliber OM1 branch which has mild disease. OM 2 is moderate caliber and has ostial 99% stenosis. OM 3 and PDA have mild disease. RIGHT CORONARY ARTERY: The right coronary artery is a small caliber vessel which gives off a right PDA and is a co-dominant vessel. There is proximal RCA 90% stenosis. There are right to left collaterals to the apical LAD. FINAL IMPRESSION: 1. Multivessel CAD as described above including heavily calcified 30 to 50% proximal LAD, mid LAD 95%, diagonal 1 100%, diagonal 280%, OM 2 moderate caliber 99%, small caliber RCA 90% stenosis. 2. Mildly elevated left sided filling pressures PLAN: 1. Aggressive risk factor modification per most recent ACC/AHA guidelines. 2. Evaluate for CABG given multivessel CAD, ostial OM 2 and diffuse heavy calcified LAD. If deemed higher risk proceed with PCI.
--- NOTE | 2024-12-29 16:14 | P.GSCN ---
History of Present Illness Consult date: 12/29/24 Reason for Consult: Multivessel coronary artery disease, non-ST elevated myocardial infarction this admission. Evaluation for myocardial vascularization surgery. Requesting physician: Stepan Dewey History of present illness: This is a 74-year-old gentleman who follows on an outpatient basis with Joanna Jackson nurse practitioner for his primary care. He has a past medical history significant for hypertension, hyperlipidemia, diabetes mellitus type 2, psoriatic arthritis, benign prostatic hypertrophy, GERD, balance issues, fatigue since having COVID-19 infection, restless leg syndrome, hard of hearing, and is a lifetime non-smoker. On Sunday, December 27, 2024 the patient reports he presented to an urgent care center in [place] with complaints of shortness of breath, and chest tightness. He reports he has been having the symptoms over the last 1 or 2 months with exertion. He reports that the urgent care transferred him to the hospital in [place] for further evaluation and treatment recommendations. While at the hospital in [place] he was found to have elevated troponins and was subsequently transferred here to [facility] emergency department. He denies any recent fever, chills, nausea, vomiting, hemoptysis, hematemesis, constipation, diarrhea, headache, bleeding, petechiae, presyncope or syncope. Initial laboratory results in the emergency department showed a WBC count of 7.20, hemoglobin 16.4, hematocrit 49.5, platelets 209, PT 11.5, INR 1.0, PTT 47.0, D-dimer 0.24, sodium 141, potassium 3.7, chloride 102, CO2 31, BUN 14, creatinine 0.75, glucose 265, calcium 9.7, magnesium 2.3, AST 67, ALT 105, and elevated serial troponins as high as 0.085 ruling him in for a non-ST elevated myocardial infarction. A twelve-lead EKG was completed which showed sinus bradycardia with a heart rate of 56 bpm and nonspecific T wave abnormality. A chest x-ray was completed which showed no acute cardiopulmonary disease/process. He underwent a transthoracic 2D echocardiogram on December 27, 2024 which showed his left ventricular ejection fraction to be estimated at 50 to 55%, mild tricuspid valve regurgitation, trace pulmonic valve regurgitation, no pericardial effusion and a normal size aortic root and proximal ascending aorta. Due to the patient's elevated troponins and presenting symptoms a consult was placed to cardiology and Dr. Dewey recommended the patient undergo a cardiac catheterization which was completed today December 29, 2024. The cardiac catheterization revealed multivessel coronary artery disease with a 30 to 50% stenosis to his proximal left anterior descending coronary artery, a 95% stenosis to his mid left anterior descending coronary artery, a 100% stenosis to his diagonal 1 coronary artery, and 80% stenosis to his diagonal 2 coronary artery, a 99% stenosis to his obtuse marginal 2 coronary artery, and a 90% stenosis to his right coronary artery. Subsequently due to the findings on the cardiac catheterization a consult was placed to Dr. Amari Palacios from cardiothoracic surgery for further evaluation and treat recommendations including myocardial vascularization surgery. Review of Systems A review of systems was completed was negative except as mentioned in the HPI. Past Medical History Past Medical History: Chest Pain / Angina, Diabetes Mellitus, GERD/Reflux, Hyperlipidemia, Hypertension, Prostate Disorder Additional Past Medical History / Comment(s): Possible gastroparesis, psoriatic arthritis History of Any Multi-Drug Resistant Organisms: None Reported Past Surgical History: Adenoidectomy, Orthopedic Surgery (Rotator cuff tear to his left side.), Tonsillectomy Additional Past Surgical History / Comment(s): 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, history of vasectomy Past Psychological History: Depression Smoking Status: Never smoker Past Alcohol Use History: Rare Past Drug Use History: None Reported - Past Family History Mother Family Medical History: Dementia, Hypertension Father Family Medical History: Diabetes Mellitus, Hypertension Medications and Allergies Home Medications Medication Instructions Recorded Confirmed Type Dapagliflozin Propanediol 10 mg PO DAILY 12/28/24 12/28/24 History [Dapagliflozin] Famotidine 20 mg PO W/SUPPER 12/28/24 12/28/24 History Fluticasone Nasal [place] [Flonase 1 spray EA NOSTRIL HS 12/28/24 12/28/24 History Nasal [place]] Gabapentin [Neurontin] 900 mg PO HS 12/28/24 12/28/24 History Insulin Aspart [NovoLOG Flexpen] 10 units SQ W/LUNCH PRN 12/28/24 12/28/24 History Insulin Aspart [NovoLOG Flexpen] 25 units SQ BID-W/MEALS 12/28/24 12/28/24 H istory Insulin Glargine,Hum.rec.anlog 35 units SQ DAILY 12/28/24 12/28/24 History [Toujeo Solostglenn] Latanoprost [Latanoprost 0.005%] 1 drop BOTH EYES DAILY 12/28/24 12/29/24 History Losartan [Cozaar] 25 mg PO DAILY 12/28/24 12/29/24 History Metoclopramide HCl [Reglan] 5 mg PO TID PRN 12/28/24 12/28/24 History Multivit-Mins/Iron/Folic/Lycop 1 tab PO DAILY 12/28/24 12/28/24 History [Centrum Men's Tablet] Niacin (Inositol Niacinate) 500 mg PO HS 12/28/24 12/28/24 History [Niacin 500 mg Capsule] [place]-3/Dha/Epa/Fish Oil [[place]-3 1 cap PO HS 12/28/24 12/28/24 History Fish Oil 1,000 mg Sfgl] Omeprazole 20 mg PO BID 12/28/24 12/28/24 History Turmeric Root Extract [Turmeric] 500 mg PO BID 12/28/24 12/28/24 History metHOTREXate sodium [Methotrexate] 25 mg PO FR 12/28/24 12/28/24 History rOPINIRole HCL [Requip] 0.5 mg PO DAILY 12/29/24 12/29/24 History rOPINIRole HCL [Requip] 1.5 mg PO HS 12/29/24 12/29/24 History traZODone HCL [Desyrel] 100 mg PO HS 12/29/24 12/29/24 History Allergies Allergy/AdvReac Type Severity Reaction Status Date / Time No Known Allergies Allergy Verified 12/28/24 09:33 Surgical - Exam Vital Signs Temp Pulse Resp BP Pulse Ox 98.2 F 58 L 18 218/98 97 12/27/24 21:41 12/27/24 21:41 12/27/24 21:41 12/27/24 21:41 12/27/24 21:41 - General well developed, well nourished, no distress, no pain, chronically ill - Eyes PERRL, normal ocular movement, no pale, no icteric - ENT normal pinna, normal nares, normal mucosa, no congestion, decreased hearing - Neck Neck is supple, no lymphadenopathy. no masses, no bruits, trachea midline, no venous distension - Respiratory Lung sounds essentially clear throughout. No wheezes, rhonchi or crackles. Respirations are symmetrical and nonlabored. - Cardiovascular Regular rhythm and rate. S1 and S2 present, negative for S3, gallop or murmur. - Abdomen Abdomen is soft, nontender and nondistended. Active bowel sounds present all 4 abdominal quadrants. No guarding or rigidity. No organomegaly appreciated. - Genitourinary Deferred - Rectum Deferred - Integumentary Skin is warm and dry. No clubbing or cyanosis is present. no rash, no growths, no abnormal pigmentation - Neurologic No focal deficit. - Musculoskeletal Moves all 4 extremities with equal strength bilateral. - Psychiatric oriented to time, oriented to person, oriented to place, speech is normal, memory intact Results - Labs 12/28/24 03:32 12/28/24 03:32 Abnormal Lab Results - Last 24 Hours (Table) 12/28/24 12/28/24 12/28/24 Range/Units 03:32 15:10 16:59 APTT 50.1 H (22.0-30.0) sec POC Glucose (mg/dL) 178 H (70-110) mg/dL Hemoglobin A1c 7.4 H (<=6.0) % 12/28/24 12/29/24 12/29/24 Range/Units 20:08 05:52 14:16 APTT 32.6 H 55.2 H (22.0-30.0) sec POC Glucose (mg/dL) 160 H (70-110) mg/dL Hemoglobin A1c (<=6.0) % Diabetes panel 12/28/24 Range/Units 03:32 Hemoglobin A1c 7.4 H (<=6.0) % - Imaging Chest x-ray: report reviewed, image reviewed EKG: image reviewed Additional studies: Transthoracic 2D echocardiogram results and cardiac catheterization results reviewed. Assessment and Plan Assessment: Multivessel coronary artery disease Non-ST elevated myocardial infarction this admission Hypertension Hyperlipidemia Diabetes mellitus type 2, current hemoglobin A1c 7.4% Restless leg syndrome Psoriatic arthritis, on methotrexate Benign prostatic hypertrophy GERD Lifetime non-smoker Plan: The patient was seen and examined at his bedside on the third floor cardiac stepdown unit. His is currently present at the his bedside. His chart and diagnostics were reviewed. Discussed with the patient the usual course of myocardial vascularization surgery. Preoperative testing has been initiated as well as preoperative teaching. Once the patient is able to ambulate we will obtain a 5 m walk test. A clinical frailty score was calculated which equals 2. Once the patient's preoperative testing has been completed and results obtained an STS risk were will be calculated and discussed with the patient. Further recommendations to follow once the patient's preoperative testing has been completed and he has been evaluated by the cardiothoracic surgeon. Dr. Dewey did discussed with Dr. Palacios the findings on the patient's cardiac catheterization films. Continue to optimize medical management with aspirin, statin and beta-kailash. Medical management of other comorbidities per internal medicine and cardiology recommendations. More recommendations to follow based on patient's clinical course and once he has been evaluated by the cardiothoracic surgeon. Thank you Dr. Dewey for this consult and we look forward to working with you in the care of this patient. I have personally seen and examined the patient, performed the documentation and the assessment and plan as written. Number of minutes spent on the visit: 30. MILI Hale
[2024-12-29] MEDS: carvediloL 12.5 MG TAB PO SCH (16:55)
[2024-12-29 17:07] LABS: Glucose,Whole Blood 103 mg/dL (70-110)
[2024-12-29 17:14] LABS: Basophils # (A) 0.06 10*3/uL (0.00-0.10); Basophils % (A) 0.8 %; Eosinophils # (A) 0.26 10*3/uL (0.04-0.35); Eosinophils % (A) 3.5 %; HCT 45.8 % (39.6-50.0); HGB 15.5 g/dL (13.0-17.0); Lymphocytes # (A) 1.34 10*3/uL (0.90-5.00); Lymphocytes % (A) 18.1 %; MCH 31.5 pg (27.0-32.0); MCHC 33.8 g/dL (32.0-37.0); MCV 93.1 fL (80.0-97.0); Mean Platelet Volume 9.8 fL (9.5-12.2); Monocytes # (A) 0.68 10*3/uL (0.20-1.00); Monocytes % (A) 9.2 %; Neutrophils # (A) 5.06 10*3/uL (1.80-7.70); Neutrophils % (A) 68.1 %; Platelet Count 202 10*3/uL (140-440); RBC 4.92 10*6/uL (4.40-5.60); RDW 13.6 % (11.5-14.5); WBC 7.42 10*3/uL (4.50-10.00)
--- NOTE | 2024-12-29 17:20 | US ---
EXAMINATION TYPE: US carotid duplex BILAT DATE OF EXAM: 12/29/2024 COMPARISON: NONE CLINICAL INDICATION: Male, 74 years old with history of Pre-Op Cardiac Surgery,Ankle Brachial Index ( CAMRON) ; Pre Op. Hx hypertension, hyperlipidemia. Additional History: .... TECHNIQUE: Grayscale, color Doppler and spectral Doppler evaluation of the bilateral carotid systems and vertebral arteries. Indirect Doppler criteria was utilized. FINDINGS: EXAM MEASUREMENTS: RIGHT: Peak Systolic Velocity (PSV) cm/sec ----- Right CCA: 80.1 ----- Right ICA: 176.6 ----- Right ECA: 176.6 ICA/CCA ratio: 2.2 RIGHT: End Diastole cm/sec ----- Right CCA: 0.0 ----- Right ICA: 17.0 ----- Right ECA: 0.0 LEFT: Peak Systolic Velocity (PSV) cm/sec ----- Left CCA: 130.2 ----- Left ICA: 104.0 ----- Left ECA: 160.8 ICA/CCA ratio: 0.8 LEFT: End Diastole cm/sec ----- Left CCA: 0.0 ----- Left ICA: 16.0 ----- Left ECA: 0.0 VERTEBRALS (direction of flow): Right Vertebral: Antegrade Left Vertebral: Antegrade Rhythm: Normal EDUCATIONAL AIDE NOTES: *Plaque seen within bilateral bulbs and left proximal ECA. *Elevated velocities wi thin right distal ICA and bilateral ECA. Color Doppler imaging shows patency with blood flow throughout the carotid artery. IMPRESSION: Right: 50-69% stenosis of the carotid bifurcation. Left: Less than 50% stenosis of the carotid bifurcation. Criteria for Assigning % of Stenosis / Diameter reduction (Estimation based on the indirect measurements of the internal carotid artery velocities (ICA PSV). 1. Normal (no stenosis)=ICA PSV < 180 cm/s: ratio < 2.0: ICA EDV<40 cm/s. 2. Less than 50% stenosis=ICA PSV < 180 cm/s: ratio < 2.0: ICA EDV<40 cm/s. 3. 50 to 69% stenosis=ICA PSV of 180 to 230 cm/s: ration 2.0 ? 4.0: ICA EDV 40-100 cm/s. PSV 125-180 cm/sec and ICA/CCA PSV Ratio ? 2.0 is also consistent with 50-69% stenosis 4. Greater than 70% stenosis to near occlusion= ICA PSV > 230 cm/s: ratio > 4.0: ICA EDV > 100 cm/s. 5. Near occlusion= ICA PSV velocities may be low or undetectable: variable ratio and ICA EDV. 6. Total occlusion=unable to detect flow. [facility], , 12/29/2024 5:17 PM
[2024-12-29 17:26] LABS: ALT 58 U/L (4-49); AST 29 U/L (17-59); African American GFR (CKD) >90 (>60 ml/min/1.73 sqM); Albumin 3.6 g/dL (3.5-5.0); Alkaline Phosphatase 56 U/L (38-126); Anion Gap 7 mmol/L; Blood Urea Nitrogen 18 mg/dL (9-20); Calcium 9.2 mg/dL (8.4-10.2); Carbon Dioxide 24 mmol/L (22-30); Chloride 105 mmol/L (98-107); Glucose 112 mg/dL (74-99); Non-African American GFR(CKD) >90 (>60 ml/min/1.73 sqM); Sodium 136 mmol/L (137-145); Total Protein 5.9 g/dL (6.3-8.2)
[2024-12-29 17:27] LABS: INR 1.1 (<1.2); Partial Thromboplastin Time 25.1 sec (22.0-30.0); Prothrombin Time 12.3 sec (10.0-12.5)
--- NOTE | 2024-12-29 17:28 | US ---
EXAMINATION TYPE: Pre-Operative Non-Invasive Evaluation of the hand for Potential Radial Artery Tamara , Measurements only DATE OF EXAM: 12/29/2024 4:42 PM CLINICAL INDICATION: Male, 74 years old with history of Pre-Op Cardiac Surgery; Pre Op, Preop- Cardia c Surgery TECHNIQUE:Grayscale and color Doppler imaging of the radial artery(s) SIDE PERFORMED: Left FINDINGS: Dominant hand: Pt states he is mostly right-handed Duplex Findings: Radial Artery: Color flow seen Measurements in mm, transverse view: Left Radial: Proximal: 3.0 x 2.9 mm Mid: 3.0 x 2.8 mm Distal: 3.3 x 2.6 mm IMPRESSION: 1. No evidence for occlusion. 2. Radial measurements as described above. [facility], , 12/29/2024 5:26 PM
--- NOTE | 2024-12-29 17:29 | US ---
EXAMINATION TYPE: US vein mapping BIL DATE OF EXAM: 12/29/2024 4:42 PM COMPARISON: NONE CLINICAL INDICATION: Male, 74 years old with history of PreOp Cardiac Surgery; Pre Op, Preop- Cardiac Surgery TECHNIQUE: Grayscale and color Doppler imaging of the lower extremity venous system. SIDE PERFORMED: Bilateral FINDINGS: PATIENT HISTORY: Smoker: No Heart Disease: No Previous DVT: No Vascular Surgery: No Discoloration: No Hypertension: Y Diabetes: N Paralysis: N Varicosities: N Edema: N DUPLEX FINDINGS: Greater Saphenous: Color flow seen Some color defect seen Left GSV below knee and mid calf levels. *Question intimal wall thickening versus some internal thrombus. Vessel does not fully compress at these 2 levels. Measurements in mm: Right Greater Saphenous: Groin: 5.6 x 4.1 mm High Thigh: 5.2 x 4.2 mm Mid Thigh: 5.4 x 4.1 mm Above Knee: 4.9 x 4.0 mm Knee: 3.9 x 3.2 mm Below Knee: 2.8 x 2.9 mm Mid Calf: 2.7 x 1.8 mm At Ankle: 5.4 x 2.6 mm Left Greater Saphenous: Groin: 6.8 x 6.7 mm High Thigh: 3.4 x 2.1 mm Mid Thigh: 3.6 x 2.9 mm Above Knee: 3.1 x 2.2 mm Knee: 4.0 x 2.6 mm Below Knee: 2.8 x 2.2 mm. ?Some thrombus versus very thick pratt. Vessel appears to compress incomple tely. Mid Calf: 3.6 x 2.3 mm. ?Some thrombus versus very thick pratt. Vessel appears to compress incomplet iza. At Ankle: 1.8 x 1.3 mm *Intimal wall thickening seen throughout bilateral GSV. IMPRESSION: 1. Intimal thickening of the left saphenous vein below the knee/mid calf 2. Measurements as described above. [facility], , 12/29/2024 5:27 PM
[2024-12-29 17:48] LABS: Appearance,Urine Clear (Clear); Bilirubin,Urine Negative (Negative); Blood,Urine Negative (Negative); Color,Urine Colorless; Glucose,Urine (UA) 4+ (Negative); Ketones,Urine 1+ (Negative); Leukocyte Esterase,Urine Negative (Negative); Nitrite,Urine Negative (Negative); PH, Urine 6.5 (5.0-8.0); Protein,Urine Negative (Negative); Specific Gravity,Urine 1.041 (1.001-1.035); Urobilinogen,Urine <2.0 mg/dL (<2.0)
--- NOTE | 2024-12-29 18:12 | CT ---
EXAMINATION TYPE: CT chest wo con DATE OF EXAM: 12/29/2024 5:24 PM COMPARISON: 12/27/2024 CLINICAL INDICATION: Male, 74 years old with history of Preop CABG, evaluate aorta; PHH, PRE-OP CABG, EVALUATE AORTA TECHNIQUE: Multiple axial images were obtained through the chest. Sagittal and coronal reformats were created for review. MIP was performed on a separate workstation. Contrast used: mL of (None if empty) Oral contrast used: (None if empty) CT DLP: 357.7 mGycm, Automated exposure control for dose reduction was used. FINDINGS: LUNGS/ PLEURA: No focal consolidation, pneumothorax or pleural effusion. No suspicious pulmonary nodu les. 2 mm of the lobe pulmonary nodule series 202 image 67. AIRWAY: Patent and unremarkable. HEART: Size within normal limits. Severe coronary artery calcifications present. MEDIASTINUM: No gross evidence of adenopathy. VASCULATURE: No aortic aneurysm. Mild atherosclerotic calcified plaque of the aortic arch just past the major vessels. No evidence for intramural hematoma on noncontrast images. MUSCULOSKELETAL: No acute osseous abnormalities SOFT TISSUES/LYMPH NODES: Unremarkable. LOWER NECK: No significant findings. UPPER ABDOMEN: No significant findings. IMPRESSION: 1. Mild to moderate atherosclerotic plaque involving the aortic arch just past the major vessels. 2. No evidence for aortic aneurysm. No evidence for intramural hematoma. Severe coronary artery athe rosclerosis. Follow up recommendations for incidental pulmonary nodules, if there are any, are per [employer] or [employer]. https://radiopaedia.org/articles/gzqmlxjokf-bifwwsb-dpjmyjdgo-xmejol-[email or web address]-[email or web address]?lang=us [facility], , 12/29/2024 6:09 PM
[2024-12-29 19:42] LABS: Glucose,Whole Blood 151 mg/dL (70-110)
[2024-12-29] MEDS: traZODone HCL 100 MG TAB PO SCH (21:26)
[2024-12-29] MEDS: MUPIROCIN 2% OINT 22 GM TUBE NASAL SCH (21:28)
[2024-12-30 02:59] LABS: Chol/HDL Ratio 4.59 Ratio; LDL Cholesterol,Calculated 86.3 mg/dL (0.0-131.0)
[2024-12-30 03:07] LABS: Hepatitis A Antibody IgM Nonreactive (Nonreactive); Hepatitis B Core IgM Nonreactive (Nonreactive); Hepatitis B Surface Antigen Nonreactive (Nonreactive); Hepatitis C IgG Antibody Nonreactive (Nonreactive)
--- NOTE | 2024-12-30 06:18 | P.PN ---
Subjective Progress Note Date: 12/29/24 History of present illness; patient 74-year-old gentleman past medical history significant for diabetes mellitus, hypertension who presented to the ER as a transfer from hospital in [place] for chest pain. Patient stated he was all right couple of weeks back when he started having intermittent shortness of breath and chest pressure, chest pressure was central location, nonradiating, no aggravating or relieving factor associated with chest pressure. Patient went to urgent care and was found to have elevated blood pressure and was referred to [facility] and was later transferred to [facility]. There is no complaint of shortness of breath. Patient denies any palpitation. There is no complaint of orthopnea or PND. Denies any nausea, vomiting abdominal pain. Patient denies any complaint of dizziness. There is no complaint of headache. Initial lab work done in the ER showed WBC 7.20, hemoglobin 16.4, D-dimer 0.24, sodium 141, potassium 3.7, BUN 14, creatinine 0.75, glucose 265, AST 67, ALT 105, troponin 0.085 EKG done in the ER showed heart rate of 56 , no ST segment elevation or depression seen, no T-wave inversions seen. Chest x-ray done in the ER showed no acute cardiopulmonary process Patient admitted to internal medicine service 12/29/2024 Patient is seen in follow-up this morning currently n.p.o. as patient is being evaluated by cardiology and will undergo cardiac catheterization today. Will await official report. Patient is afebrile with no reported chest pain at this time and denies shortness of breath. A.m. labs pending I will follow-up. Repla ce electrolytes per protocol Review of systems: Constitutional: No reports of fatigue, fever, or chills Cardiovascular: No reports of chest pain or palpitations Respiratory: No reports of shortness of breath or cough GI: No reports of nausea, vomiting, or diarrhea : No reports of dysuria or retention Neurovascular: No reports of weakness or numbness All medications have been reviewed PHYSICAL EXAMINATION: GENERAL: The patient is alert and oriented x3, not in any acute distress. Well developed, elderly appearing, thin built HEENT: Pupils are round and equally reacting to light. EOMI. No scleral icterus. No conjunctival pallor. Normocephalic, atraumatic. No pharyngeal erythema. No thyromegaly. CARDIOVASCULAR: S1 and S2 muffled PULMONARY: Chest is clear to auscultation, no wheezing or crackles. ABDOMEN: Soft, nontender, nondistended, normoactive bowel sounds. No palpable organomegaly. MUSCULOSKELETAL: No joint swelling or deformity. EXTREMITIES: No cyanosis, clubbing, or pedal edema. NEUROLOGICAL: Gross neurological examination did not reveal any focal deficits. SKIN: No rashes. Assessment: Acute coronary syndrome, scheduled to undergo cardiac catheterization today 12/10 Hypertension Diabetes mellitus restless leg syndrome GI prophylaxis DVT prophylaxis Full code Plan: Patient is seen and evaluated this morning being followed by cardiology scheduled to undergo cardiac catheterization which is pending at this time. Will follow-up on report and discuss further with cardiology regarding treatment plan moving forward Recommend repeat labs in the a.m. and replace electrolytes per protocol Continue monitoring Accu-Cheks AC and at bedtime and will adjust insulins accordingly Continue on heparin per cardiology Appropriate home medications have been reviewed and resumed The impression and plan of care has been dictated by Adry Hernandez, Nurse Practitioner as directed. Dr. Chaitanya MD I have performed a history and examination and MDM of this patient, discussed the same with the dictator, and agree with the dictator's assessment and plan as written ,documented as a scribe. Based on total visit time, I have performed more than 50% of the visit. Objective - Vital Signs Vital signs: Vital Signs Temp 97.5 F L 12/29/24 08:10 Pulse 58 L 12/29/24 08:10 Resp 17 12/29/24 08:10 BP 172/81 12/29/24 08:10 Pulse Ox 98 12/29/24 08:10 FiO2 Intake & Output 12/28/24 12/29/24 12/29/24 18:59 06:59 18:59 Intake Total 1407.611 170.258 Output Total 775 300 Balance 632.611 -300 170.258 Weight 82.8 kg Intake: Intake, IV Titration 207.611 170.258 Amount Heparin Sod,Pork in 0.45% 207.611 170.258 NaCl 25,000 unit In 0.45 % NaCl 1 250ml.bag @ 11. 665 UNITS/KG/HR 10 mls/hr IV .Q24H [facility] Rx#: [id number] Oral 1200 Output: Urine 775 300 Other: Voiding Method Toilet Toilet Urinal Bedside Commode - Labs CBC & Chem 7: 12/29/24 17:01 12/29/24 17:01 Labs: Abnormal Lab Results - Last 24 Hours (Table) 12/28/24 12/28/24 12/28/24 Range/Units 03:32 03:32 11:33 APTT (22.0-30.0) sec POC Glucose (mg/dL) 209 H (70-110) mg/dL Hemoglobin A1c 7.4 H (<=6.0) % Triglycerides 181.00 H (0.00-149.00) mg/dL HDL Cholesterol 33.10 L (40.00-60.00) mg/dL 12/28/24 12/28/24 12/28/24 Range/Units 15:10 16:59 20:08 APTT 50.1 H (22.0-30.0) sec POC Glucose (mg/dL) 178 H 160 H (70-110) mg/dL Hemoglobin A1c (<=6.0) % Triglycerides (0.00-149.00) mg/dL HDL Cholesterol (40.00-60.00) mg/dL 12/29/24 Range/Units 05:52 APTT 32.6 H (22.0-30.0) sec POC Glucose (mg/dL) (70-110) mg/dL Hemoglobin A1c (<=6.0) % Triglycerides (0.00-149.00) mg/dL HDL Cholesterol (40.00-60.00) mg/dL
[2024-12-30 06:28] LABS: Glucose,Whole Blood 107 mg/dL (70-110)
--- NOTE | 2024-12-30 09:25 | P.PN ---
Subjective Progress Note Date: 12/30/24 Principal diagnosis: Multivessel coronary artery disease, non-ST elevated myocardial infarction this admission. History of hypertension, hyperlipidemia, diabetes mellitus type 2, right internal carotid artery stenosis, restless leg syndrome, psoriatic arthritis on methotrexate, benign prostatic hypertrophy, GERD, lifelong non- smoker The patient was seen and examined this morning with Dr. Palacios sitting up in bed on the cardiac stepdown unit in no acute distress. Currently denies any chest pain or shortness of breath. Remains in sinus bradycardia with heart rate in the 50s, hemodynamically stable. Currently on room air with oxygen saturation in the mid 90s. Dr. Palacios discussed our recommendation for coronary artery bypass surgery, risks and benefits reviewed, all questions were answered. The patient does consent and we will plan for surgery on . Objective - Vital Signs Vital signs: Vital Signs Temp 98.2 F 12/30/24 07:35 Pulse 59 L 12/30/24 07:35 Resp 16 12/30/24 07:35 BP 161/68 12/30/24 07:35 Pulse Ox 97 12/30/24 07:35 FiO2 Intake & Output 12/29/24 12/30/24 12/30/24 18:59 06:59 18:59 Intake Total 2076.212 380 Output Total 1100 Balance 2076.212 -720 Weight 86.5 kg Intake: IV 110 20 Invasive Line 2 10 20 Intake, IV Titration 226.212 Amount Heparin Sod,Pork in 0.45% 226.212 NaCl 25,000 unit In 0.45 % NaCl 1 250ml.bag @ 11. 665 UNITS/KG/HR 10 mls/hr IV .Q24H [facility] Rx#: [id number] Oral 1740 360 Output: Urine 1100 Other: Voiding Method Toilet Toilet Bedside Commode Bedside Commode # Voids 1 2 - Exam CONSTITUTIONAL: Appears comfortable, cooperative, no acute distress RESPIRATORY: Lungs sounds diminished bilaterally. Respirations even, nonlabored. Currently on room air with oxygen saturation 94%. Strong cough. CARDIOVASCULAR: S1, S2 present. Regular rate and rhythm, sinus bradycardia on telemetry. Palpable peripheral pulses bilaterally. No edema present GASTROINTESTINAL: Abdomen soft, nontender, nondistended. Active bowel sounds present 4 quadrants. Tolerating diet GENITOURINARY: Continues to void INTEGUMENTARY: Skin is warm and dry NEUROLOGIC: Cranial nerves II through XII intact MUSKULOSKELETAL: Able to move all extremities, strength equal bilaterally, gait normal PSYCHIATRIC: Alert and oriented to person place and time, appropriate affect, i ntact judgment and insight - Allied health notes Allied health notes reviewed: nursing - Labs CBC & Chem 7: 12/29/24 17:01 12/29/24 17:01 Labs: Abnormal Lab Results - Last 24 Hours (Table) 12/28/24 12/29/24 12/29/24 Range/Units 03:32 14:16 17:01 APTT 55.2 H (22.0-30.0) sec Sodium 136 L (137-145) mmol/L Glucose 112 H (74-99) mg/dL POC Glucose (mg/dL) (70-110) mg/dL Hemoglobin A1c 7.4 H (<=6.0) % ALT 58 H (4-49) U/L Total Protein 5.9 L (6.3-8.2) g/dL Triglycerides 155.00 H (0.00-149.00) mg/dL HDL Cholesterol 32.70 L (40.00-60.00) mg/dL Ur Specific [place] (1.001-1.035) Urine Glucose (UA) (Negative) Urine Ketones (Negative) 12/29/24 12/29/24 12/30/24 Range/Units 17:26 19:41 01:05 APTT 45.1 H (22.0-30.0) sec Sodium (137-145) mmol/L Glucose (74-99) mg/dL POC Glucose (mg/dL) 151 H (70-110) mg/dL Hemoglobin A1c (<=6.0) % ALT (4-49) U/L Total Protein (6.3-8.2) g/dL Triglycerides (0.00-149.00) mg/dL HDL Cholesterol (40.00-60.00) mg/dL Ur Specific [place] 1.041 H (1.001-1.035) Urine Glucose (UA) 4+ H (Negative) Urine Ketones 1+ H (Negative) Assessment and Plan Assessment: Multivessel coronary artery disease Non-ST elevated myocardial infarction this admission Hypertension Hyperlipidemia, treated, cholesterol 150, LDL 86, triglycerides 115 Right internal carotid artery stenosis 50 to 69% Diabetes mellitus type 2, current hemoglobin A1c 7.4% Restless leg syndrome Psoriatic arthritis, on methotrexate Benign prostatic hypertrophy GERD Lifetime non-smoker Plan: Continue to maximize medical therapy with aspirin, statin, beta-kailash Recommend discontinuation of ARB to prevent intra/postoperative vasoplegia, kidney failure Farxiga discontinued to reduce risk of DKA intra/postoperative Our plan is for off-pump myocardial revascularization with left internal mammary artery, left radial artery harvest, possible endoscopic vein harvest, ligation of the left atrial appendage by Dr. Palacios on December Continue preoperative teaching Increase activity as tolerated Medical management of other comorbidities per internal medicine, cardiology More recommendations to follow
[2024-12-30] MEDS: INSULIN GLARGINE (LANTUS) 100 UNIT/ML SYR SQ SCH (09:48)
[2024-12-30 12:04] LABS: Glucose,Whole Blood 157 mg/dL (70-110)
--- NOTE | 2024-12-30 14:59 | P.PN ---
Subjective Progress Note Date: 12/30/24 Consult reason: chest pain Chief complaint: chest pain History of present illness: History of present illness: Pleasant 74-year-old male with significant past medical history of diabetes type 2, psoriatic arthritis, restless leg syndrome, hypertension, hyperlipidemia who presented with elevated blood pressure. 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 He does not smoke, drinks rare alcohol, no drug use. He states he has been having high blood pressure and intermittent shortness of breath, worse over the past few weeks. Went to a walk-in clinic and BP was elevated 200's/80's. and referred to ER in [place] and ultimately transferred to [facility] for elevated trop 0.08. Troponins here 0.085, 0.081, 0.085, creat 0.69, D-dimer negative. BNP was 801. He did have the flu 1 month ago and was coughing more at that time. He states over the past few months he has been having more chest tightness with walking the dog and this is a change for him. He does not use salt. No prior cardiac work up. EKG does show sinus bradycardia with ST deviation and moderate T wave abnormalities. He is feeling better this morning. Denies any chest pain or pressure. No shortness of breath. 12/30 Patient seen and examined. Yesterday patient underwent cardiac catheterization which revealed multivessel CAD with heavily calcified 30 to 50% proximal LAD, mid LAD 95%, diagonal 1 100%, diagonal to 80%, OM 2 moderate caliber 99%, small caliber RCA 90% stenosis. Patient has been evaluated by cardiothoracic surgery and is scheduled for CABG on . Patient remains on a heparin drip. Blood pressure 153/74, heart rate 60, pulse ox 96% on room air. Echocardiogram reveals EF of 50 to 55% with mild anterior apical hypokinesis. Mild tricuspid regurgitation with no evidence of pulmonary hypertension. PHYSICAL EXAMINATION: This is a 74-year-old male in no apparent distress at the time of my examination. HEENT: Head is atraumatic, normocephalic. Pupils are equal, round. Sclerae anicteric. Conjunctivae are clear. Mucous membranes of the mouth are moist. Neck is supple. There is no jugular venous distention. No carotid bruit is heard. CHEST EXAMINATION: Lungs are clear to auscultation. No chest wall tenderness is noted on palpation or with deep breathing. HEART EXAMINATION: Heart regular rate and rhythm. S1, S2 heard. No murmurs, gallops or rub. ABDOMEN: Soft, nontender. Bowel sounds are heard. No organomegaly noted. EXTREMITIES: 2+ peripheral pulses with no evidence of peripheral edema and no calf tenderness noted. NEUROLOGIC EXAMINATION: Patient is awake, alert and oriented x3. IMPRESSION AND PLAN: Hypertension Hyperlipidemia Diabetes type 2 Chest tightness with exertion Dyspnea NSTEMI with multivessel CAD on cardiac catheterization, scheduled for CABG on 01/01 Abnormal EKG PLAN: Continue current cardiac medications Continue plan for cardiothoracic surgery Continue heparin drip Monitor blood pressure Further recommendations as patient progresses. Nurse practitioner note has been reviewed, I agree with documented findings and plan of care. Patient was seen and examined. Objective - Vital Signs Vital signs: Vital Signs Temp 98.2 F 12/30/24 07:35 Pulse 59 L 12/30/24 07:40 Resp 16 12/30/24 07:35 BP 161/68 12/30/24 07:35 Pulse Ox 97 12/30/24 07:35 FiO2 Intake & Output 12/29/24 12/30/24 12/30/24 18:59 06:59 18:59 Intake Total 2076.212 380 128 Output Total 1100 Balance 2076.212 -720 128 Weight 86.5 kg Intake: IV 110 20 10 Invasive Line 2 10 20 10 Intake, IV Titration 226.212 Amount Heparin Sod,Pork in 0.45% 226.212 NaCl 25,000 unit In 0.45 % NaCl 1 250ml.bag @ 11. 665 UNITS/KG/HR 10 mls/hr IV .Q24H [facility] Rx#: [id number] Oral 1740 360 118 Output: Urine 1100 Other: Voiding Method Toilet Toilet Bedside Commode Bedside Commode # Voids 1 2 - Labs CBC & Chem 7: 12/29/24 17:01 12/29/24 17:01 Labs: Abnormal Lab Results - Last 24 Hours (Table) 12/29/24 12/29/24 12/29/24 Range/Units 14:16 17:01 17:26 APTT 55.2 H (22.0-30.0) sec Sodium 136 L (137-145) mmol/L Glucose 112 H (74-99) mg/dL POC Glucose (mg/dL) (70-110) mg/dL ALT 58 H (4-49) U/L Total Protein 5.9 L (6.3-8.2) g/dL Triglycerides 155.00 H (0.00-149.00) mg/dL HDL Cholesterol 32.70 L (40.00-60.00) mg/dL Ur Specific [place] 1.041 H (1.001-1.035) Urine Glucose (UA) 4+ H (Negative) Urine Ketones 1+ H (Negative) 12/29/24 12/30/24 12/30/24 Range/Units 19:41 01:05 07:24 APTT 45.1 H 52.2 H (22.0-30.0) sec Sodium (137-145) mmol/L Glucose (74-99) mg/dL POC Glucose (mg/dL) 151 H (70-110) mg/dL ALT (4-49) U/L Total Protein (6.3-8.2) g/dL Triglycerides (0.00-149.00) mg/dL HDL Cholesterol (40.00-60.00) mg/dL Ur Specific [place] (1.001-1.035) Urine Glucose (UA) (Negative) Urine Ketones (Negative)
--- NOTE | 2024-12-30 16:06 | P.CNPUL ---
History of Present Illness Consult date: 12/30/24 Chief complaint: chest pain History of present illness: This is a 74-year-old male patient who presented to the emergency department with symptoms of exertional dyspnea and the patient was found to have elevated troponins. The patient ruled in for an acute non-ST segment elevation myocardial infarction. EKG showed sinus bradycardia with a heart rate of 56 and the patient had nonspecific T wave abnormalities. Chest x-ray showed no acute cardiopulmonary abnormalities. 2D echocardiogram showed a preserved LV function with an EF of around 50 to 55% without any significant valvular abnormalities. The patient underwent cardiac catheterization patient had a cath on 12/29/2024 and the cath showed a 30 to 50% stenosis of the proximal LAD, 95% stenosis of the mid LAD and 100% diagnosis to diagonal and 80% stenosis in a diagonal #2 and 99% stenosis of the obtuse marginal and 90% stenosis of the RCA. Subsequently, the patient was seen by cardiothoracic surgery and the patient is going to undergo cardiac bypass surgery. The patient is currently on IV heparin. Free of any chest pain. Resting comfortably in bed. On room air oxygen. The patient is known to have diabetes mellitus type 2, hypertension hyperlipidemia and BPH along with acid reflux and psoriatic arthritis. He also has chronic restless leg syndrome. He is a lifetime non-smoker. He has a good performance and functional status. CAT scan of the chest was done on 12/29/2024 and it showed mild to moderate atherosclerotic plaques involving the aortic arch. No evidence of any aneurysm. EKG from this morning is showing sinus bradycardia with a heart rate of 57. T wave inversions are still present over the anterolateral and inferior leads. No ST segment elevations. The patient has a white cell count of 7.4 with a heme of 15.7 and platelet count of 202. Normal coagulation profile. Normal electrolytes. Normal renal function. Troponins peaked at 0.08. LFTs are normal. UA showing plus for glucose, hepatitis profile has been negative. Thyroid function tests were normal. Carotid ultrasound showed 50 to 69% stenosis on the right carotid bifurcation and less than 50% on the left. Review of Systems Constitutional: Reports as per HPI Eyes: denies as per HPI, denies blurred vision, denies bulging eye, denies decreased vision, denies diplopia, denies discharge, denies dry eye, denies irritation, denies itching, denies pain, denies photophobia, denies loss of peripheral vision, denies loss of vision, denies tunnel vision/blind spots Ears: deny: decreased hearing, ear discharge, earache, tinnitus Ears, nose, mouth and throat: Reports as per HPI Breasts: absent: as per HPI, gynecomastia Cardiovascular: Reports as per HPI, Reports decreased exercise tolerance Respiratory: Reports dyspnea Gastrointestinal: Reports as per HPI Genitourinary: Reports as per HPI Musculoskeletal: Reports as per HPI Musculoskeletal: absent: ankle pain, ankle stiffness, ankle swelling, as per HPI, elbow pain, elbow stiffness, elbow swelling, foot pain, foot stiffness, wen t swelling, hand pain, hand stiffness, hand swelling, hip pain, hip stiffness, hip swelling, knee pain, knee stiffness, knee swelling, shoulder pain, shoulder stiffness, shoulder swelling, wrist pain, wrist stiffness, wrist swelling Integumentary: Reports as per HPI Neurological: Reports as per HPI Psychiatric: Reports as per HPI Endocrine: Reports as per HPI Hematologic/Lymphatic: Reports as per HPI Allergic/Immunologic: Reports as per HPI Past Medical History Past Medical History: Chest Pain / Angina, Diabetes Mellitus, GERD/Reflux, Hyperlipidemia, Hypertension, Prostate Disorder Additional Past Medical History / Comment(s): Possible gastroparesis, psoriatic arthritis History of Any Multi-Drug Resistant Organisms: None Reported Past Surgical History: Adenoidectomy, Orthopedic Surgery (Rotator cuff tear to his left side.), Tonsillectomy Additional Past Surgical History / Comment(s): 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, history of vasectomy Past Psychological History: Depression Smoking Status: Never smoker Past Alcohol Use History: Rare Past Drug Use History: None Reported - Past Family History Mother Family Medical History: Dementia, Hypertension Father Family Medical History: Diabetes Mellitus, Hypertension Medications and Allergies Home Medications Medication Instructions Recorded Confirmed Type Dapagliflozin Propanediol 10 mg PO DAILY 12/28/24 12/28/24 History [Dapagliflozin] Famotidine 20 mg PO W/SUPPER 12/28/24 12/28/24 History Fluticasone Nasal [place] [Flonase 1 spray EA NOSTRIL HS 12/28/24 12/28/24 History Nasal [place]] Gabapentin [Neurontin] 900 mg PO HS 12/28/24 12/28/24 History Insulin Aspart [NovoLOG Flexpen] 10 units SQ W/LUNCH PRN 12/28/24 12/28/24 History Insulin Aspart [NovoLOG Flexpen] 25 units SQ BID-W/MEALS 12/28/24 12/28/24 History Insulin Glargine,Hum.rec.anlog 35 units SQ DAILY 12/28/24 12/28/24 History [Lorri Choudhury] Latanoprost [Latanoprost 0.005%] 1 drop BOTH EYES DAILY 12/28/24 12/29/24 History Losartan [Cozaar] 25 mg PO DAILY 12/28/24 12/29/24 History Metoclopramide HCl [Reglan] 5 mg PO TID PRN 12/28/24 12/28/24 History Multivit-Mins/Iron/Folic/Lycop 1 tab PO DAILY 12/28/24 12/28/24 History [Centrum Men's Tablet] Niacin (Inositol Niacinate) 500 mg PO HS 12/28/24 12/28/24 History [Niacin 500 mg Capsule] Carey-3/Dha/Epa/Fish Oil [Carey-3 1 cap PO HS 12/28/24 12/28/24 History Fish Oil 1,000 mg Sfgl] Omeprazole 20 mg PO BID 12/28/24 12/28/24 History Turmeric Root Extract [Turmeric] 500 mg PO BID 12/28/24 12/28/24 History metHOTREXate sodium [Methotrexate] 25 mg PO FR 12/28/24 12/28/24 History rOPINIRole HCL [Requip] 0.5 mg PO DAILY 12/29/24 12/29/24 History rOPINIRole HCL [Requip] 1.5 mg PO HS 12/29/24 12/29/24 History traZODone HCL [Desyrel] 100 mg PO HS 12/29/24 12/29/24 History Allergies Allergy/AdvReac Type Severity Reaction Status Date / Time No Known Allergies Allergy Verified 12/28/24 09:33 Physical Exam Vitals: Vital Signs Temp Pulse Pulse Pulse Resp BP BP 12/30/24 07:40 59 L 12/30/24 07:35 98.2 F 59 L 16 161/68 12/30/24 04:19 58 L 14 155/70 12/30/24 01:45 65 66 14 144/70 12/29/24 20:17 12/29/24 20:00 97.1 F L 65 60 14 148/72 12/29/24 15:00 97.8 F 59 L 16 172/79 12/29/24 13:39 139/80 12/29/24 11:32 98.3 F 60 16 164/79 Pulse Ox 12/30/24 07:40 12/30/24 07:35 97 12/30/24 04:19 94 L 12/30/24 01:45 95 12/29/24 20:17 97 12/29/24 20:00 97 12/29/24 15:00 95 12/29/24 13:39 12/29/24 11:32 95 Intake and Output 12/29/24 12/30/24 12/30/24 22:59 06:59 14:59 Intake Total 620 370 128 Output Total 1100 Balance 620 -730 128 Intake: IV 20 10 10 Invasive Line 2 20 10 10 Intake, IV Titration 0 Amount Heparin Sod,Pork in 0.45% 0 NaCl 25,000 unit In 0.45 % NaCl 1 250ml.bag @ 11. 665 UNITS/KG/HR 10 mls/hr IV .Q24H [facility] Rx#: [id number] Oral 600 360 118 Output: Urine 1100 Other: Voiding Method Toilet Toilet Toilet Bedside Commode Bedside Commode Bedside Commode # Voids 2 Weight 86.5 kg The patient appeared well nourished and normally developed. Vital signs as documented. Head exam is unremarkable. No scleral icterus or corneal arcus noted. Neck is without jugular venous distension, thyromegaly, or carotid bruits. Carotid upstrokes are brisk bilaterally. Lungs are clear to auscultation and percussion. Cardiac exam reveals the PMI to be normally sized and situated. Rhythm is regular. First and second heart sounds normal. No murmurs, rubs or gallops. Abdominal exam reveals normal bowel sounds, no masses, no organomegaly and no aortic enlargement. Extremities are nonedematous and both femoral and pedal pulses are normal. Examination of the skin revealed no evidence of significant rashes, suspicious appearing nevi or other concerning lesions. Neurologically, the patient is awake and alert and the patient does not have any focal neurological deficit. Cranial nerves are essentially intact. Results - Laboratory Findings CBC and BMP: 12/29/24 17:01 12/29/24 17:01 PT/INR, D-dimer PT 12.3 sec (10.0-12.5) 12/29/24 17:01 INR 1.1 (<1.2) 12/29/24 17:01 D-Dimer 0.24 mg/L FEU (<0.60) 12/27/24 21:50 Abnormal lab findings: Abnormal Labs 12/27/24 12/27/24 12/27/24 21:50 21:50 21:50 APTT 47.0 H Sodium Carbon Dioxide 31 H Glucose 265 H POC Glucose (mg/dL) Hemoglobin A1c AST 67 H ALT 105 H Troponin I 0.085 H* Total Protein Triglycerides HDL Cholesterol Ur Specific [place] Urine Glucose (UA) Urine Ketones 12/28/24 12/28/24 12/28/24 01:10 03:32 03:32 APTT Sodium Carbon Dioxide Glucose POC Glucose (mg/dL) Hemoglobin A1c AST ALT 90 H Troponin I 0.081 H* 0.085 H* Total Protein Triglycerides 181.00 H HDL Cholesterol 33.10 L Ur Specific [place] Urine Glucose (UA) Urine Ketones 12/28/24 12/28/24 12/28/24 03:32 07:17 11:33 APTT 33.1 H Sodium Carbon Dioxide Glucose POC Glucose (mg/dL) 209 H Hemoglobin A1c 7.4 H AST ALT Troponin I Total Protein Triglycerides HDL Cholesterol Ur Specific [place] Urine Glucose (UA) Urine Ketones 12/28/24 12/28/24 12/28/24 15:10 16:59 20:08 APTT 50.1 H Sodium Carbon Dioxide Glucose POC Glucose (mg/dL) 178 H 160 H Hemoglobin A1c AST ALT Troponin I Total Protein Triglycerides HDL Cholesterol Ur Specific [place] Urine Glucose (UA) Urine Ketones 12/29/24 12/29/24 12/29/24 05:52 14:16 17:01 APTT 32.6 H 55.2 H Sodium 136 L Carbon Dioxide Glucose 112 H POC Glucose (mg/dL) Hemoglobin A1c AST ALT 58 H Troponin I Total Protein 5.9 L Triglycerides 155.00 H HDL Cholesterol 32.70 L Ur Specific [place] Urine Glucose (UA) Urine Ketones 12/29/24 12/29/24 12/30/24 17:26 19:41 01:05 APTT 45.1 H Sodium Carbon Dioxide Glucose POC Glucose (mg/dL) 151 H Hemoglobin A1c AST ALT Troponin I Total Protein Triglycerides HDL Cholesterol Ur Specific [place] 1.041 H Urine Glucose (UA) 4+ H Urine Ketones 1+ H 12/30/24 07:24 APTT 52.2 H Sodium Carbon Dioxide Glucose POC Glucose (mg/dL) Hemoglobin A1c AST ALT Troponin I Total Protein Triglycerides HDL Cholesterol Ur Specific [place] Urine Glucose (UA) Urine Ketones - Diagnostic Findings Chest x-ray: image reviewed CT scan - chest: image reviewed Assessment and Plan Plan: Multivessel coronary artery disease (multivessel CAD with heavily calcified 30 to 50% proximal LAD, mid LAD 95%, diagonal 1 100%, diagonal to 80%, OM 2 moderate caliber 99%, small caliber RCA 90% stenosis), symptomatic, awaiting bypass surgery. The patient is post acute non-ST segment elevation myocardial infarction. Echocardiogram shows preserved LV function and the patient is currently free of any chest pain. Sinus bradycardia with diffuse T wave inversions, free of any chest pain currently on IV heparin. Status post acute non-ST elevated myocardial infarction this admission Carotid artery stenosis, bifurcation in the order of 50 to 69% on the right Hypertension Hyperlipidemia Diabetes mellitus type 2, current hemoglobin A1c 7.4% Restless leg syndrome Psoriatic arthritis, on methotrexate Benign prostatic hypertrophy GERD Lifetime non-smoker Plan: Patient is clinically stable. Free of any chest pain. Patient is on room air oxygen. Lifetime non-smoker and a CAT scan of the chest shows no acute pulmonary abnormalities Anticipate no major postoperative pulmonary complications and his overall respiratory status is stable. Will establish a bedside spirometry and FEV1. Continue aspirin Continue IV heparin Hold beta-blockers as the patient is currently bradycardic Provide incentive spirometer Coronary bypass surgery and will be involved in the postoperative pulmonary care. Time with Patient: Greater than 30
[2024-12-30 16:20] LABS: Glucose,Whole Blood 211 mg/dL (70-110)
[2024-12-30] MEDS: MD COMMUNICATION TO PHARMACY 1 EACH MISC PO ONE (16:26)
[2024-12-30 20:17] LABS: Glucose,Whole Blood 112 mg/dL (70-110)
--- NOTE | 2024-12-31 06:16 | P.PN ---
Subjective Progress Note Date: 12/30/24 History of present illness; patient 74-year-old gentleman past medical history significant for diabetes mellitus, hypertension who presented to the ER as a transfer from hospital in [place] for chest pain. Patient stated he was all right couple of weeks back when he started having intermittent shortness of breath and chest pressure, chest pressure was central location, nonradiating, no aggravating or relieving factor associated with chest pressure. Patient went to urgent care and was found to have elevated blood pressure and was referred to [facility] and was later transferred to [facility]. There is no complaint of shortness of breath. Patient denies any palpitation. There is no complaint of orthopnea or PND. Denies any nausea, vomiting abdominal pain. Patient denies any complaint of dizziness. There is no complaint of headache. Initial lab work done in the ER showed WBC 7.20, hemoglobin 16.4, D-dimer 0.24, sodium 141, potassium 3.7, BUN 14, creatinine 0.75, glucose 265, AST 67, ALT 105, troponin 0.085 EKG done in the ER showed heart rate of 56 , no ST segment elevation or depression seen, no T-wave inversions seen. Chest x-ray done in the ER showed no acute cardiopulmonary process Patient admitted to internal medicine service 12/29/2024 Patient is seen in follow-up this morning currently n.p.o. as patient is being evaluated by cardiology and will undergo cardiac catheterization today. Will await official report. Patient is afebrile with no reported chest pain at this time and denies shortness of breath. A.m. labs pending I will follow-up. Repla ce electrolytes per protocol 12/30/2024 Patient is seen in follow-up no acute overnight issues noted. 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 Patient is continued on heparin drip and is tentatively scheduled for CABG on 01/01/2025. Patient will be continued on telemetry monitoring. Review of systems: Constitutional: No reports of fatigue, fever, or chills Cardiovascular: No reports of chest pain or palpitations Respiratory: No reports of shortness of breath or cough GI: No reports of nausea, vomiting, or diarrhea : No reports of dysuria or retention Neurovascular: No reports of weakness or numbness All medications have been reviewed PHYSICAL EXAMINATION: GENERAL: The patient is alert and oriented x3, not in any acute distress. Well developed, elderly appearing, thin built HEENT: Pupils are round and equally reacting to light. EOMI. No scleral icterus. No conjunctival pallor. Normocephalic, atraumatic. No pharyngeal erythema. No thyromegaly. CARDIOVASCULAR: S1 and S2 muffled PULMONARY: Chest is clear to auscultation, no wheezing or crackles. ABDOMEN: Soft, nontender, nondistended, normoactive bowel sounds. No palpable organomegaly. MUSCULOSKELETAL: No joint swelling or deformity. EXTREMITIES: No cyanosis, clubbing, or pedal edema. NEUROLOGICAL: Gross neurological examination did not reveal any focal deficits. SKIN: No rashes. Assessment: Acute coronary syndrome, status post cardiac catheterization 12/29/2024 revealing multivessel disease and scheduled for CABG 01/01/[address] surgery Hypertension Diabetes mellitus restless leg syndrome GI prophylaxis DVT prophylaxis Full code Plan: Patient is seen and evaluated this morning being followed by cardiology and underwent cardiac catheterization which was noted to have triple-vessel disease being scheduled for CABG with CT surgery on , 01/01/2025 Recommend repeat labs in the a.m. and replace electrolytes per protocol Continue monitoring Accu-Cheks AC and at bedtime and will adjust insulins accordingly Continue on heparin per cardiology Appropriate home medications have been reviewed and resumed The impression and plan of care has been dictated by Adry Hernandez, Nurse Practitioner as directed. Dr. Chaitanya MD I have performed a history and examination and MDM of this patient, discussed the same with the dictator, and agree with the dictator's assessment and plan as written ,documented as a scribe. Based on total visit time, I have performed more than 50% of the visit. Objective - Vital Signs Vital signs: Vital Signs Temp 97.1 F L 12/30/24 20:00 Pulse 57 L 12/31/24 02:00 Resp 16 12/31/24 02:00 BP 153/69 12/31/24 02:00 Pulse Ox 97 12/31/24 02:00 FiO2 Intake & Output 12/30/24 12/30/24 12/31/24 06:59 18:59 06:59 Intake Total 380 725.094 260 Output Total 1100 700 Balance -720 725.094 -440 Weight 86.5 kg Intake: IV 20 20 20 Invasive Line 2 20 20 20 Intake, IV Titration 247.094 Amount Heparin Sod,Pork in 0.45% 247.094 NaCl 25,000 unit In 0.45 % NaCl 1 250ml.bag @ 11. 665 UNITS/KG/HR 10 mls/hr IV .Q24H [facility] Rx#: [id number] Oral 360 458 240 Output: Urine 1100 700 Other: Voiding Method Toilet Toilet Toilet Bedside Commode Bedside Commode Bedside Commode # Voids 2 2 1 - Labs CBC & Chem 7: 12/29/24 17:01 12/29/24 17:01 Labs: Abnormal Lab Results - Last 24 Hours (Table) 12/30/24 12/30/24 12/30/24 Range/Units 07:24 12:02 16:18 APTT 52.2 H (22.0-30.0) sec POC Glucose (mg/dL) 157 H 211 H (70-110) mg/dL 12/30/24 Range/Units 20:16 APTT (22.0-30.0) sec POC Glucose (mg/dL) 112 H (70-110) mg/dL
[2024-12-31 06:30] LABS: Glucose,Whole Blood 112 mg/dL (70-110)
[2024-12-31 06:48] LABS: Basophils # (A) 0.07 10*3/uL (0.00-0.10); Basophils % (A) 0.7 %; Eosinophils # (A) 0.25 10*3/uL (0.04-0.35); Eosinophils % (A) 2.6 %; HCT 46.2 % (39.6-50.0); HGB 15.4 g/dL (13.0-17.0); Lymphocytes # (A) 1.54 10*3/uL (0.90-5.00); Lymphocytes % (A) 16.1 %; MCH 30.9 pg (27.0-32.0); MCHC 33.3 g/dL (32.0-37.0); MCV 92.8 fL (80.0-97.0); Mean Platelet Volume 10.5 fL (9.5-12.2); Monocytes # (A) 1.09 10*3/uL (0.20-1.00); Monocytes % (A) 11.4 %; Neutrophils # (A) 6.59 10*3/uL (1.80-7.70); Neutrophils % (A) 68.7 %; Platelet Count 220 10*3/uL (140-440); RBC 4.98 10*6/uL (4.40-5.60); RDW 13.6 % (11.5-14.5); WBC 9.59 10*3/uL (4.50-10.00)
[2024-12-31 07:22] LABS: ALT 43 U/L (4-49); AST 24 U/L (17-59); African American GFR (CKD) >90 (>60 ml/min/1.73 sqM); Albumin 3.7 g/dL (3.5-5.0); Alkaline Phosphatase 68 U/L (38-126); Anion Gap 10 mmol/L; Blood Urea Nitrogen 19 mg/dL (9-20); Calcium 9.5 mg/dL (8.4-10.2); Carbon Dioxide 25 mmol/L (22-30); Chloride 103 mmol/L (98-107); Glucose 97 mg/dL (74-99); Magnesium 2.1 mg/dL (1.6-2.3); Non-African American GFR(CKD) 87 (>60 ml/min/1.73 sqM); Potassium 3.4 mmol/L (3.5-5.1); Sodium 138 mmol/L (137-145); Total Bilirubin 0.6 mg/dL (0.2-1.3); Total Protein 5.9 g/dL (6.3-8.2)
[2024-12-31 07:50] LABS: INR 1.1 (<1.2)
[2024-12-31 07:51] LABS: Partial Thromboplastin Time 43.2 sec (22.0-30.0); Prothrombin Time 11.7 sec (10.0-12.5)
[2024-12-31] MEDS: POTASSIUM CHLORIDE ER 20 MEQ TAB.ER PO SCH (09:25)
[2024-12-31 11:22] LABS: Glucose,Whole Blood 167 mg/dL (70-110)
[2024-12-31] MEDS: amLODIPine 5 MG TAB PO SCH (12:13)
--- NOTE | 2024-12-31 12:30 | P.PN ---
Subjective Progress Note Date: 12/31/24 Consult reason: chest pain Chief complaint: chest pain History of present illness: History of present illness: Pleasant 74-year-old male with significant past medical history of diabetes type 2, psoriatic arthritis, restless leg syndrome, hypertension, hyperlipidemia who presented with elevated blood pressure. 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 He does not smoke, drinks rare alcohol, no drug use. He states he has been having high blood pressure and intermittent shortness of breath, worse over the past few weeks. Went to a walk-in clinic and BP was elevated 200's/80's. and referred to ER in [place] and ultimately transferred to [facility] for elevated trop 0.08. Troponins here 0.085, 0.081, 0.085, creat 0.69, D-dimer negative. BNP was 801. He did have the flu 1 month ago and was coughing more at that time. He states over the past few months he has been having more chest tightness with walking the dog and this is a change for him. He does not use salt. No prior cardiac work up. EKG does show sinus bradycardia with ST deviation and moderate T wave abnormalities. He is feeling better this morning. Denies any chest pain or pressure. No shortness of breath. 12/30 Patient seen and examined. Yesterday patient underwent cardiac catheterization which revealed multivessel CAD with heavily calcified 30 to 50% proximal LAD, mid LAD 95%, diagonal 1 100%, diagonal to 80%, OM 2 moderate caliber 99%, small caliber RCA 90% stenosis. Patient has been evaluated by cardiothoracic surgery and is scheduled for CABG on . Patient remains on a heparin drip. Blood pressure 153/74, heart rate 60, pulse ox 96% on room air. Echocardiogram reveals EF of 50 to 55% with mild anterior apical hypokinesis. Mild tricuspid regurgitation with no evidence of pulmonary hypertension. 12/31 Patient is scheduled for CABG tomorrow. Blood pressure readings are elevated with with blood pressure 167/76, heart rate is running in the 50s and 60s, pulse ox 96% on room air. PHYSICAL EXAMINATION: This is a 74-year-old male in no apparent distress at the time of my examination. HEENT: Head is atraumatic, normocephalic. Pupils are equal, round. Sclerae anicteric. Conjunctivae are clear. Mucous membranes of the mouth are moist. Neck is supple. There is no jugular venous distention. No carotid bruit is heard. CHEST EXAMINATION: Lungs are clear to auscultation. No chest wall tenderness is noted on palpation or with deep breathing. HEART EXAMINATION: Heart regular rate and rhythm. S1, S2 heard. No murmurs, gallops or rub. ABDOMEN: Soft, nontender. Bowel sounds are heard. No organomegaly noted. EXTREMITIES: 2+ peripheral pulses with no evidence of peripheral edema and no calf tenderness noted. NEUROLOGIC EXAMINATION: Patient is awake, alert and oriented x3. IMPRESSION AND PLAN: Hypertension Hyperlipidemia Diabetes type 2 Chest tightness with exertion Dyspnea NSTEMI with multivessel CAD on cardiac catheterization, scheduled for CABG on 01/01 Abnormal EKG PLAN: Continue current cardiac medications Add amlodipine 5 mg daily starting now Continue plan for cardiothoracic surgery Continue heparin drip Monitor blood pressure Further recommendations as patient progresses. Nurse practitioner note has been reviewed, I agree with documented findings and plan of care. Patient was seen and examined. Objective - Vital Signs Vital signs: Vital Signs Temp 98.1 F 12/31/24 07:55 Pulse 64 12/31/24 07:55 Resp 16 12/31/24 07:55 BP 167/76 12/31/24 07:55 Pulse Ox 96 12/31/24 07:55 FiO2 Intake & Output 12/30/24 12/31/24 12/31/24 18:59 06:59 18:59 Intake Total 725.094 260 Output Total 700 Balance 725.094 -440 Intake: IV 20 20 Invasive Line 2 20 20 Intake, IV Titration 247.094 Amount Heparin Sod,Pork in 0.45% 247.094 NaCl 25,000 unit In 0.45 % NaCl 1 250ml.bag @ 11. 665 UNITS/KG/HR 10 mls/hr IV .Q24H [facility] Rx#: [id number] Oral 458 240 Output: Urine 700 Other: Voiding Method Toilet Toilet Bedside Commode Bedside Commode # Voids 2 1 - Labs CBC & Chem 7: 12/31/24 05:32 12/31/24 05:32 Labs: Abnormal Lab Results - Last 24 Hours (Table) 12/30/24 12/30/24 12/30/24 Range/Units 12:02 16:18 20:16 Immature Gran # (0.00-0.04) 10*3/uL Monocytes # (0.20-1.00) 10*3/uL APTT (22.0-30.0) sec Potassium (3.5-5.1) mmol/L POC Glucose (mg/dL) 157 H 211 H 112 H (70-110) mg/dL Total Protein (6.3-8.2) g/dL 12/31/24 12/31/24 12/31/24 Range/Units 05:32 05:32 05:32 Immature Gran # 0.05 H (0.00-0.04) 10*3/uL Monocytes # 1.09 H (0.20-1.00) 10*3/uL APTT 43.2 H (22.0-30.0) sec Potassium 3.4 L (3.5-5.1) mmol/L POC Glucose (mg/dL) (70-110) mg/dL Total Protein 5.9 L (6.3-8.2) g/dL 12/31/24 Range/Units 06:28 Immature Gran # (0.00-0.04) 10*3/uL Monocytes # (0.20-1.00) 10*3/uL APTT (22.0-30.0) sec Potassium (3.5-5.1) mmol/L POC Glucose (mg/dL) 112 H (70-110) mg/dL Total Protein (6.3-8.2) g/dL
[2024-12-31 16:22] LABS: Glucose,Whole Blood 182 mg/dL (70-110)
--- NOTE | 2024-12-31 16:39 | P.PN ---
Subjective Progress Note Date: 12/31/24 This is a 74-year-old male patient who presented to the emergency department with symptoms of exertional dyspnea and the patient was found to have elevated troponins. The patient ruled in for an acute non-ST segment elevation myocardial infarction. EKG showed sinus bradycardia with a heart rate of 56 and the patient had nonspecific T wave abnormalities. Chest x-ray showed no acute cardiopulmonary abnormalities. 2D echocardiogram showed a preserved LV function with an EF of around 50 to 55% without any significant valvular abnormalities. The patient underwent cardiac catheterization patient had a cath on 12/29/2024 and the cath showed a 30 to 50% stenosis of the proximal LAD, 95% stenosis of the mid LAD and 100% diagnosis to diagonal and 80% stenosis in a diagonal #2 and 99% stenosis of the obtuse marginal and 90% stenosis of the RCA. Subsequently, the patient was seen by cardiothoracic surgery and the patient is going to undergo cardiac bypass surgery. The patient is currently on IV heparin. Free of any chest pain. Resting comfortably in bed. On room air oxygen. The patient is known to have diabetes mellitus type 2, hypertension hyperlipidemia and BPH along with acid reflux and psoriatic arthritis. He also has chronic restless leg syndrome. He is a lifetime non-smoker. He has a good performance and functional status. CAT scan of the chest was done on 12/29/2024 and it showed mild to moderate atherosclerotic plaques involving the aortic arch. No evidence of any aneurysm. EKG from this morning is showing sinus bradycardia with a heart rate of 57. T wave inversions are still present over the anterolateral and inferior leads. No ST segment elevations. The patient has a white cell count of 7.4 with a heme of 15.7 and platelet count of 202. Normal coagulation profile. Normal electrolytes. Normal renal function. Troponins peaked at 0.08. LFTs are normal. UA showing plus for glucose, hepatitis profile has been negative. Thyroid function tests were normal. Carotid ultrasound showed 50 to 69% stenosis on the right carotid bifurcation and less than 50% on the left. On 12/31/2024, the patient is resting comfortably in bed. No new complaints. Remains free of any chest pain. The patient remains on IV heparin. Hemodynamically stable. The plan is to proceed with coronary bypass surgery tomorrow. White cell is not 0.5 with a hemoglobin 15.4 and platelet count of 220. Electrolytes are within normal limits. BUN is 19 with creatinine 0.8. He remains on room air oxygen the patient using incentive spirometry. Pulse ox 94% on room air oxygen. No other significant events otherwise. Objective - Vital Signs Vital signs: Vital Signs Temp 98.1 F 12/31/24 07:55 Pulse 56 L 12/31/24 10:00 Resp 16 12/31/24 10:00 BP 167/76 12/31/24 07:55 Pulse Ox 96 12/31/24 07:55 FiO2 Intake & Output 12/30/24 12/31/24 12/31/24 18:59 06:59 18:59 Intake Total 725.094 260 490 Output Total 700 Balance 725.094 -440 490 Intake: IV 20 20 Invasive Line 2 20 20 Intake, IV Titration 247.094 250 Amount Heparin Sod,Pork in 0.45% 247.094 250 NaCl 25,000 unit In 0.45 % NaCl 1 250ml.bag @ 11. 665 UNITS/KG/HR 10 mls/hr IV .Q24H [facility] Rx#: [id number] Oral 458 240 240 Output: Urine 700 Other: Voiding Method Toilet Toilet Toilet Bedside Commode Bedside Commode Bedside Commode # Voids 2 1 - Exam The patient appeared well nourished and normally developed. Vital signs as documented. Head exam is unremarkable. No scleral icterus or corneal arcus noted. Neck is without jugular venous distension, thyromegaly, or carotid bruits. Carotid upstrokes are brisk bilaterally. Lungs are clear to auscultation and percussion. Cardiac exam reveals the PMI to be normally sized and situated. Rhythm is regular. First and second heart sounds normal. No murmurs, rubs or gallops. Abdominal exam reveals normal bowel sounds, no masses, no organomegaly and no aortic enlargement. Extremities are nonedematous and both femoral and pedal pulses are normal. Examination of the skin revealed no evidence of significant rashes, suspicious appearing nevi or other concerning lesions. Neurologically, the patient is awake and alert and the patient does not have any focal neurological deficit. Cranial nerves are essentially intact. - Labs CBC & Chem 7: 12/31/24 05:32 12/31/24 05:32 Labs: Abnormal Lab Results - Last 24 Hours (Table) 12/30/24 12/30/24 12/30/24 Range/Units 12:02 16:18 20:16 Immature Gran # (0.00-0.04) 10*3/uL Monocytes # (0.20-1.00) 10*3/uL APTT (22.0-30.0) sec Potassium (3.5-5.1) mmol/L POC Glucose (mg/dL) 157 H 211 H 112 H (70-110) mg/dL Total Protein (6.3-8.2) g/dL 12/31/24 12/31/24 12/31/24 Range/Units 05:32 05:32 05:32 Immature Gran # 0.05 H (0.00-0.04) 10*3/uL Monocytes # 1.09 H (0.20-1.00) 10*3/uL APTT 43.2 H (22.0-30.0) sec Potassium 3.4 L (3.5-5.1) mmol/L POC Glucose (mg/dL) (70-110) mg/dL Total Protein 5.9 L (6.3-8.2) g/dL 12/31/24 Range/Units 06:28 Immature Gran # (0.00-0.04) 10*3/uL Monocytes # (0.20-1.00) 10*3/uL APTT (22.0-30.0) sec Potassium (3.5-5.1) mmol/L POC Glucose (mg/dL) 112 H (70-110) mg/dL Total Protein (6.3-8.2) g/dL Microbiology - Last 24 Hours (Table) 12/29/24 17:15 Nasal Screen MRSA/MSSA - Final Nasal Swab Assessment and Plan Plan: Multivessel coronary artery disease (multivessel CAD with heavily calcified 30 to 50% proximal LAD, mid LAD 95%, diagonal 1 100%, diagonal to 80%, OM 2 moderate caliber 99%, small caliber RCA 90% stenosis), symptomatic, awaiting bypass surgery. The patient is post acute non-ST segment elevation myocardial infarction. Echocardiogram shows preserved LV function and the patient is currently free of any chest pain. Sinus bradycardia with diffuse T wave inversions, free of any chest pain currently on IV heparin. Status post acute non-ST elevated myocardial infarction this admission Carotid artery stenosis, bifurcation in the order of 50 to 69% on the right Hypertension Hyperlipidemia Diabetes mellitus type 2, current hemoglobin A1c 7.4% Restless leg syndrome Psoriatic arthritis, on methotrexate Benign prostatic hypertrophy GERD Lifetime non-smoker Plan: The plan is for coronary bypass surgery in the morning. Patient is clinically stable. Free of any chest pain. Patient is on room air oxygen. Lifetime non-smoker and a CAT scan of the chest shows no acute pulmonary abnormalities Anticipate no major postoperative pulmonary complications and his overall respiratory status is stable. Will establish a bedside spirometry and FEV1. Continue aspirin Continue IV heparin Hold beta-blockers as the patient is currently bradycardic Provide incentive spirometer Coronary bypass surgery and will be involved in the postoperative pulmonary care.
[2024-12-31 20:19] LABS: Glucose,Whole Blood 328 mg/dL (70-110)
[2025-01-01] MEDS ORDERED: CHLORHEXIDINE GLUCONATE 15 ML CUP MUCOUS MEM ONE (06:00)
[2025-01-01] MEDS ORDERED: LACTATED RINGERS 1,000 ML IV SCH (06:00)
[2025-01-01] MEDS ORDERED: CLEVIDIPINE BUTYRATE 25 MG in EMPTY BAG 1 BAG IV SCH (06:00)
[2025-01-01] MEDS ORDERED: MAGNESIUM SULFATE 16.24 MEQ in EMPTY SYRINGE 1 SYR IV ONE (06:00)
[2025-01-01] MEDS ORDERED: HEPARIN SODIUM 1,000 UN/ML (10ML VL) IV ONE (06:00)
[2025-01-01] MEDS ORDERED: METOPROLOL TARTRATE 12.5 MG TAB PO ONE (06:00)
[2025-01-01] MEDS ORDERED: PROTAMINE SULFATE 250 MG in EMPTY BAG 1 BAG IV ONE (06:00)
[2025-01-01] MEDS ORDERED: ALBUMIN HUMAN 5% 500 ML in EMPTY BAG 1 BAG IVPB ONE ×6 (06:00)
[2025-01-01] MEDS ORDERED: HEPARIN SODIUM,PORCINE (1 ML) 5,000 UNIT in SODIUM CHLORIDE 0.9% 500 ML 500 ML IV ONE (06:00)
[2025-01-01] MEDS ORDERED: PHENYLEPHRINE 10 MG/ML VIAL IV ONE (06:00)
[2025-01-01] MEDS ORDERED: SODIUM BICARB 8.4% 50 ML SYR (1 MEQ/ML) IV ONE (06:00)
[2025-01-01] MEDS ORDERED: DILTIAZEM 125 MG in DEXTROSE 5% IN WATER 100 ML IV SCH (06:00)
[2025-01-01] MEDS ORDERED: INSULIN REGULAR 100 UNIT in SODIUM CHLORIDE 0.9% 100 ML IV SCH (06:00)
[2025-01-01] MEDS ORDERED: PAPAVERINE 360 MG in SODIUM CHLORIDE 0.9% 90 ML IV ONE (06:00)
[2025-01-01] MEDS ORDERED: PROTAMINE SULFATE 10 MG/ML 25 ML VIAL IV ONE (06:00)
[2025-01-01] MEDS ORDERED: ASPIRIN 325 MG TAB PO ONE (06:00)
[2025-01-01] MEDS ORDERED: CALCIUM CHLORIDE 100 MG/ML 10 ML SYRINGE IVP ONE (06:00)
[2025-01-01] MEDS ORDERED: NOREPINEPHRINE 4 MG in SODIUM CHLORIDE 0.9% 250 ML IV SCH (06:00)
[2025-01-01] MEDS ORDERED: PHENYLEPHRINE 40 MG in SODIUM CHLORIDE 0.9% 250 ML IV ONE (06:00)
[2025-01-01] MEDS ORDERED: NITROGLYCERIN-D5W PMX 25 MG/250 ML BTL IV ONE (06:00)
[2025-01-01] MEDS ORDERED: NITROGLYCERIN-D5W PMX 50 MG in DEXTROSE/WATER 1 250ML.BAG IV SCH (06:00)
[2025-01-01] MEDS ORDERED: ceFAZolin 1,000 MG in SODIUM CHLORIDE 0.9% IRRIGATIO 1,000 ML IRRIGATION ONE (06:00)
[2025-01-01] MEDS ORDERED: ATORVASTATIN 10 MG TAB PO ONE (06:00)
[2025-01-01] MEDS ORDERED: ALBUMIN HUMAN 25% 50 ML in EMPTY BAG 1 BAG IVPB ONE (06:00)
[2025-01-01] MEDS ORDERED: MANNITOL 25% 12.5 GM/50 ML VIAL IV ONE ×2 (06:00)
[2025-01-01] MEDS ORDERED: TRANEXAMIC ACID 2,000 MG in SODIUM CHLORIDE 0.9% 80 ML IV ONE (06:00)
[2025-01-01 06:11] LABS: Glucose,Whole Blood 174 mg/dL (70-110)
--- NOTE | 2025-01-01 09:06 | P.PN ---
Subjective Progress Note Date: 01/01/25 Principal diagnosis: Multivessel coronary artery disease, non-ST elevated myocardial infarction this admission. Medical history significant for hypertension, hyperlipidemia, diabe toni mellitus type 2, right internal carotid artery stenosis, restless leg syndrome, psoriatic arthritis on methotrexate, benign prostatic hypertrophy, GERD, and is a lifelong non-smoker. The patient was seen and examined today January 01, 2025 at his bedside on the third floor cardiac stepdown unit. The patient is currently sitting up in bed, is awake, alert, oriented x 3 and is in no acute apparent distress. He denies any complaints of shortness of breath, chest pain/pressure. He was scheduled for off-pump myocardial vascularization surgery this a.m., although due to unforeseen circumstances and surgeon availability his surgery has been postponed. This was discussed with the patient and the patient's present at his bedside. Oxygen saturation is 97% on room air and he is achieving 1500 mL on his incentive spirometry with encouragement. Remote telemetry showing sinus bradycardia with a first-degree heart block heart rate 54 bpm. Preoperative teaching has been reinforced with the patient. Discussed with the patient the importance of increasing his activity as tolerated. Objective - Vital Signs Vital signs: Vital Signs Temp 97.8 F 01/01/25 07:56 Pulse 59 L 01/01/25 07:56 Resp 18 01/01/25 07:56 BP 135/72 01/01/25 07:56 Pulse Ox 97 01/01/25 07:56 FiO2 Intake & Output 12/31/24 01/01/25 01/01/25 18:59 06:59 18:59 Intake Total 1710 240 Balance 1710 240 Intake: Intake, IV Titration 250 Amount Heparin Sod,Pork in 0.45% 250 NaCl 25,000 unit In 0.45 % NaCl 1 250ml.bag @ 11. 665 UNITS/KG/HR 10 mls/hr IV .Q24H [facility] Rx#: [id number] Oral 1460 240 Other: Voiding Method Toilet Toilet Bedside Commode Bedside Commode # Voids 3 - Exam CONSTITUTIONAL: Appears comfortable, cooperative, no acute distress RESPIRATORY: Lungs sounds essentially clear throughout. Respirations symmetrical, nonlabored. Currently on room air with oxygen saturation 96%, achieving 1500 mL on his incentive spirometry with encouragement. Strong cough. CARDIOVASCULAR: S1, S2 present. Regular rate and rhythm, sinus bradycardia with a first-degree heart block on telemetry, heart rate 54 bpm. Palpable peripheral pulses bilaterally. No edema present GASTROINTESTINAL: Abdomen soft, nontender, nondistended. Active bowel sounds present 4 quadrants. Tolerating diet GENITOURINARY: Continues to void. INTEGUMENTARY: Skin is warm and dry, no clubbing or cyanosis is present. NEUROLOGIC: Cranial nerves II through XII intact. No focal deficits. MUSKULOSKELETAL: Able to move all extremities, strength equal bilaterally, gait normal. PSYCHIATRIC: Alert and oriented to person place and time, appropriate affect, intact judgment and insight. - Allied health notes Allied health notes reviewed: nursing - Labs CBC & Chem 7: 12/31/24 05:32 01/01/25 05:10 Labs: Abnormal Lab Results - Last 24 Hours (Table) 12/31/24 12/31/24 12/31/24 Range/Units 05:32 11:21 16:20 APTT (22.0-30.0) sec POC Glucose (mg/dL) 167 H 182 H (70-110) mg/dL Crossmatch See Detail 12/31/24 01/01/25 01/01/25 Range/Units 20:17 05:10 06:09 APTT 30.4 H (22.0-30.0) sec POC Glucose (mg/dL) 328 H 174 H (70-110) mg/dL Crossmatch Microbiology - Last 24 Hours (Table) 12/29/24 17:15 Nasal Screen MRSA/MSSA - Final Nasal Swab Assessment and Plan Assessment: Multivessel coronary artery disease Non-ST elevated myocardial infarction this admission Hypertension Hyperlipidemia Diabetes mellitus type 2, current hemoglobin A1c 7.4% Restless leg syndrome Psoriatic arthritis, on methotrexate Benign prostatic hypertrophy GERD Lifetime non-smoker Plan: Continue to maximize medical therapy with aspirin, statin, beta-kailash. Waiting for a plan of rescheduling of surgery, will discuss with Dr. Dewey. Continue preoperative teaching. Increase activity as tolerated. Medical management of other comorbidities per internal medicine, and cardiology. More recommendations to follow based on patient's clinical course. Time with Patient: Greater than 30
[2025-01-01] MEDS: POTASSIUM CHLORIDE ER 20 MEQ TAB.ER PO SCH (09:47)
[2025-01-01 11:28] LABS: Glucose,Whole Blood 237 mg/dL (70-110)
--- NOTE | 2025-01-01 14:12 | P.PN ---
Subjective Progress Note Date: 01/01/25 This is a 74-year-old male patient who presented to the emergency department with symptoms of exertional dyspnea and the patient was found to have elevated troponins. The patient ruled in for an acute non-ST segment elevation myocardial infarction. EKG showed sinus bradycardia with a heart rate of 56 and the patient had nonspecific T wave abnormalities. Chest x-ray showed no acute cardiopulmonary abnormalities. 2D echocardiogram showed a preserved LV function with an EF of around 50 to 55% without any significant valvular abnormalities. The patient underwent cardiac catheterization patient had a cath on 12/29/2024 and the cath showed a 30 to 50% stenosis of the proximal LAD, 95% stenosis of the mid LAD and 100% diagnosis to diagonal and 80% stenosis in a diagonal #2 and 99% stenosis of the obtuse marginal and 90% stenosis of the RCA. Subsequently, the patient was seen by cardiothoracic surgery and the patient is going to undergo cardiac bypass surgery. The patient is currently on IV heparin. Free of any chest pain. Resting comfortably in bed. On room air oxygen. The patient is known to have diabetes mellitus type 2, hypertension hyperlipidemia and BPH along with acid reflux and psoriatic arthritis. He also has chronic restless leg syndrome. He is a lifetime non-smoker. He has a good performance and functional status. CAT scan of the chest was done on 12/29/2024 and it showed mild to moderate atherosclerotic plaques involving the aortic arch. No evidence of any aneurysm. EKG from this morning is showing sinus bradycardia with a heart rate of 57. T wave inversions are still present over the anterolateral and inferior leads. No ST segment elevations. The patient has a white cell count of 7.4 with a heme of 15.7 and platelet count of 202. Normal coagulation profile. Normal electrolytes. Normal renal function. Troponins peaked at 0.08. LFTs are normal. UA showing plus for glucose, hepatitis profile has been negative. Thyroid function tests were normal. Carotid ultrasound showed 50 to 69% stenosis on the right carotid bifurcation and less than 50% on the left. On 12/31/2024, the patient is resting comfortably in bed. No new complaints. Remains free of any chest pain. The patient remains on IV heparin. Hemodynamically stable. The plan is to proceed with coronary bypass surgery tomorrow. White cell is not 0.5 with a hemoglobin 15.4 and platelet count of 220. Electrolytes are within normal limits. BUN is 19 with creatinine 0.8. He remains on room air oxygen the patient using incentive spirometry. Pulse ox 94% on room air oxygen. No other significant events otherwise. On today's evaluation of 01/01/2025, the patient is on the stepdown cardiac unit. Sitting up in bed without any complaints. Alert and oriented x 3. Free of any chest pain. Awaiting coronary artery bypass surgery and this will be done by Dr. Shah tomorrow. Remains on room air oxygen using the incentive spirometer. He remains in a first-degree AV block and heart rate remains bradycardic. As such, the patient is not receiving any form of beta-blockers for now. The patient has no specific complaints. Remains on IV heparin. Objective - Vital Signs Vital signs: Vital Signs Temp 97.6 F 01/01/25 11:41 Pulse 57 L 01/01/25 11:41 Resp 18 01/01/25 11:41 BP 146/76 01/01/25 11:41 Pulse Ox 95 01/01/25 11:41 FiO2 Intake & Output 12/31/24 01/01/25 01/01/25 18:59 06:59 18:59 Intake Total 1710 360 Balance 1710 360 Intake: Intake, IV Titration 250 Amount Heparin Sod,Pork in 0.45% 250 NaCl 25,000 unit In 0.45 % NaCl 1 250ml.bag @ 11. 665 UNITS/KG/HR 10 mls/hr IV .Q24H [facility] Rx#: [id number] Oral 1460 360 Other: Voiding Method Toilet Toilet Bedside Commode Bedside Commode # Voids 3 3 - Exam The patient appeared well nourished and normally developed. Vital signs as documented. Head exam is unremarkable. No scleral icterus or corneal arcus noted. Neck is without jugular venous distension, thyromegaly, or carotid bruits. Carotid upstrokes are brisk bilaterally. Lungs are clear to auscultation and percussion. Cardiac exam reveals the PMI to be normally sized and situated. Rhythm is regular. First and second heart sounds normal. No murmurs, rubs or gallops. Abdominal exam reveals normal bowel sounds, no masses, no organomegaly and no aortic enlargement. Extremities are nonedematous and both femoral and pedal pulses are normal. Examination of the skin revealed no evidence of significant rashes, suspicious appearing nevi or other concerning lesions. Neurologically, the patient is awake and alert and the patient does not have any focal neurological deficit. Cranial nerves are essentially intact. - Labs CBC & Chem 7: 12/31/24 05:32 01/01/25 05:10 Labs: Abnormal Lab Results - Last 24 Hours (Table) 12/31/24 12/31/24 12/31/24 Range/Units 05:32 16:20 20:17 APTT (22.0-30.0) sec POC Glucose (mg/dL) 182 H 328 H (70-110) mg/dL Crossmatch See Detail 01/01/25 01/01/25 01/01/25 Range/Units 05:10 06:09 11:27 APTT 30.4 H (22.0-30.0) sec POC Glucose (mg/dL) 174 H 237 H (70-110) mg/dL Crossmatch Microbiology - Last 24 Hours (Table) 12/29/24 17:15 Nasal Screen MRSA/MSSA - Final Nasal Swab Assessment and Plan Plan: Multivessel coronary artery disease (multivessel CAD with heavily calcified 30 to 50% proximal LAD, mid LAD 95%, diagonal 1 100%, diagonal to 80%, OM 2 moderate caliber 99%, small caliber RCA 90% stenosis), symptomatic, awaiting bypass surgery. The patient is post acute non-ST segment elevation myocardial infarction. Echocardiogram shows preserved LV function and the patient is curre ntly free of any chest pain. Clinically stable and is scheduled to have coronary bypass surgery on 01/02/2025. Sinus bradycardia with diffuse T wave inversions, free of any chest pain currently on IV heparin. Status post acute non-ST elevated myocardial infarction this admission Carotid artery stenosis, bifurcation in the order of 50 to 69% on the right Hypertension Hyperlipidemia Diabetes mellitus type 2, current hemoglobin A1c 7.4% Restless leg syndrome Psoriatic arthritis, on methotrexate Benign prostatic hypertrophy GERD Lifetime non-smoker Plan: The plan is for coronary bypass surgery in the morning. Patient is clinically stable. Free of any chest pain. Patient is on room air oxygen. Lifetime non-smoker and a CAT scan of the chest shows no acute pulmonary abnormalities Anticipate no major postoperative pulmonary complications and his overall respiratory status is stable. Will establish a bedside spirometry and FEV1. Continue aspirin Continue IV heparin Hold beta-blockers as the patient is currently bradycardic Provide incentive spirometer Coronary bypass surgery and will be involved in the postoperative pulmonary care.
--- NOTE | 2025-01-01 14:24 | P.PN ---
Subjective Progress Note Date: 01/01/25 Consult reason: chest pain Chief complaint: chest pain History of present illness: History of present illness: Pleasant 74-year-old male with significant past medical history of diabetes type 2, psoriatic arthritis, restless leg syndrome, hypertension, hyperlipidemia who presented with elevated blood pressure. 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 He does not smoke, drinks rare alcohol, no drug use. He states he has been having high blood pressure and intermittent shortness of breath, worse over the past few weeks. Went to a walk-in clinic and BP was elevated 200's/80's. and referred to ER in [place] and ultimately transferred to [facility] for elevated trop 0.08. Troponins here 0.085, 0.081, 0.085, creat 0.69, D-dimer negative. BNP was 801. He did have the flu 1 month ago and was coughing more at that time. He states over the past few months he has been having more chest tightness with walking the dog and this is a change for him. He does not use salt. No prior cardiac work up. EKG does show sinus bradycardia with ST deviation and moderate T wave abnormalities. He is feeling better this morning. Denies any chest pain or pressure. No shortness of breath. 12/30 Patient seen and examined. Yesterday patient underwent cardiac catheterization which revealed multivessel CAD with heavily calcified 30 to 50% proximal LAD, mid LAD 95%, diagonal 1 100%, diagonal to 80%, OM 2 moderate caliber 99%, small caliber RCA 90% stenosis. Patient has been evaluated by cardiothoracic surgery and is scheduled for CABG on . Patient remains on a heparin drip. Blood pressure 153/74, heart rate 60, pulse ox 96% on room air. Echocardiogram reveals EF of 50 to 55% with mild anterior apical hypokinesis. Mild tricuspid regurgitation with no evidence of pulmonary hypertension. 12/31 Patient is scheduled for CABG tomorrow. Blood pressure readings are elevated with with blood pressure 167/76, heart rate is running in the 50s and 60s, pulse ox 96% on room air. 01/01 Patient seen and examined. Patient denies chest pain or pressure, no shortness of breath, no lightheadedness or dizziness. Blood pressure 146/76, heart rate in the 50s. Yesterday we added amlodipine. Patient's surgery has been delayed until Sunday. Heparin drip has been discontinued and we will leave this off. PHYSICAL EXAMINATION: This is a 74-year-old male in no apparent distress at the time of my examination. HEENT: Head is atraumatic, normocephalic. Pupils are equal, round. Sclerae anicteric. Conjunctivae are clear. Mucous membranes of the mouth are moist. Neck is supple. There is no jugular venous distention. No carotid bruit is heard. CHEST EXAMINATION: Lungs are clear to auscultation. No chest wall tenderness is noted on palpation or with deep breathing. HEART EXAMINATION: Heart regular rate and rhythm. S1, S2 heard. No murmurs, gallops or rub. ABDOMEN: Soft, nontender. Bowel sounds are heard. No organomegaly noted. EXTREMITIES: 2+ peripheral pulses with no evidence of peripheral edema and no calf tenderness noted. NEUROLOGIC EXAMINATION: Patient is awake, alert and oriented x3. IMPRESSION AND PLAN: Hypertension Hyperlipidemia Diabetes type 2 Chest tightness with exertion Dyspnea NSTEMI with multivessel CAD on cardiac catheterization, scheduled for CABG on 01/01 Abnormal EKG PLAN: Continue current cardiac medications Add amlodipine 5 mg daily starting now Continue plan for cardiothoracic surgery Discontinue heparin drip Monitor blood pressure Further recommendations as patient progresses. Nurse practitioner note has been reviewed, I agree with documented findings and plan of care. Patient was seen and examined. Objective - Vital Signs Vital signs: Vital Signs Temp 97.6 F 01/01/25 11:41 Pulse 57 L 01/01/25 11:41 Resp 18 01/01/25 11:41 BP 146/76 01/01/25 11:41 Pulse Ox 95 01/01/25 11:41 FiO2 Intake & Output 12/31/24 01/01/25 01/01/25 18:59 06:59 18:59 Intake Total 1710 240 Balance 1710 240 Intake: Intake, IV Titration 250 Amount Heparin Sod,Pork in 0.45% 250 NaCl 25,000 unit In 0.45 % NaCl 1 250ml.bag @ 11. 665 UNITS/KG/HR 10 mls/hr IV .Q24H [facility] Rx#: [id number] Oral 1460 240 Other: Voiding Method Toilet Toilet Bedside Commode Bedside Commode # Voids 3 3 - Labs CBC & Chem 7: 12/31/24 05:32 04/24/25 05:10 Labs: Abnormal Lab Results - Last 24 Hours (Table) 12/31/24 12/31/24 12/31/24 Range/Units 05:32 16:20 20:17 APTT (22.0-30.0) sec POC Glucose (mg/dL) 182 H 328 H (70-110) mg/dL Crossmatch See Detail 01/01/25 01/01/25 01/01/25 Range/Units 05:10 06:09 11:27 APTT 30.4 H (22.0-30.0) sec POC Glucose (mg/dL) 174 H 237 H (70-110) mg/dL Crossmatch Microbiology - Last 24 Hours (Table) 12/29/24 17:15 Nasal Screen MRSA/MSSA - Final Nasal Swab
--- NOTE | 2025-01-01 15:37 | P.PN ---
Subjective Progress Note Date: 01/01/25 History of present illness; patient 74-year-old gentleman past medical history significant for diabetes mellitus, hypertension who presented to the ER as a transfer from hospital in [place] for chest pain. Patient stated he was all right couple of weeks back when he started having intermittent shortness of breath and chest pressure, chest pressure was central location, nonradiating, no aggravating or relieving factor associated with chest pressure. Patient went to urgent care and was found to have elevated blood pressure and was referred to [facility] and was later transferred to [facility]. There is no complaint of shortness of breath. Patient denies any palpitation. There is no complaint of orthopnea or PND. Denies any nausea, vomiting abdominal pain. Patient denies any complaint of dizziness. There is no complaint of headache. Initial lab work done in the ER showed WBC 7.20, hemoglobin 16.4, D-dimer 0.24, sodium 141, potassium 3.7, BUN 14, creatinine 0.75, glucose 265, AST 67, ALT 105, troponin 0.085 EKG done in the ER showed heart rate of 56 , no ST segment elevation or depression seen, no T-wave inversions seen. Chest x-ray done in the ER showed no acute cardiopulmonary process Patient admitted to internal medicine service 12/29/2024 Patient is seen in follow-up this morning currently n.p.o. as patient is being evaluated by cardiology and will undergo cardiac catheterization today. Will await official report. Patient is afebrile with no reported chest pain at this time and denies shortness of breath. A.m. labs pending I will follow-up. Repla ce electrolytes per protocol 12/30/2024 Patient is seen in follow-up no acute overnight issues noted. 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 Patient is continued on heparin drip and is tentatively scheduled for CABG on 01/01/2025. Patient will be continued on telemetry monitoring. 01/01/2025 Patient is evaluated in follow-up in the medical floor. He is rescheduled to undergo coronary artery bypass grafting tomorrow on 01/02/2025. His blood glucose has been elevated and he is concerned that he has not been getting his [place], did let the patient know that we do not carry this medication and he has been getting Lantus 35 units in the morning and we will add a dose in the evening to improve his glycemic control before going for open heart surgery. Additonally patient has only been on sliding scale insulin and he does take 25 units of fast acting with breakfast and dinner and 10 units with lunch. He has no acute complaints at this time. He is evaluated ambulating in the room with family at the bedside. Potassium is better at 3.7. Review of systems: Constitutional: No reports of fatigue, fever, or chills Cardiovascular: No reports of chest pain or palpitations Respiratory: No reports of shortness of breath or cough GI: No reports of nausea, vomiting, or diarrhea : No reports of dysuria or retention Neurovascular: No reports of weakness or numbness All medications have been reviewed PHYSICAL EXAMINATION: GENERAL: The patient is alert and oriented x3, not in any acute distress. Well developed, elderly appearing, thin built HEENT: Pupils are round and equally reacting to light. EOMI. No scleral icterus. No conjunctival pallor. Normocephalic, atraumatic. No pharyngeal erythema. No thyromegaly. CARDIOVASCULAR: S1 and S2 muffled PULMONARY: Chest is clear to auscultation, no wheezing or crackles. ABDOMEN: Soft, nontender, nondistended, normoactive bowel sounds. No palpable organomegaly. MUSCULOSKELETAL: No joint swelling or deformity. EXTREMITIES: No cyanosis, clubbing, or pedal edema. NEUROLOGICAL: Gross neurological examination did not reveal any focal deficits. SKIN: No rashes. Assessment: Acute coronary syndrome, status post cardiac catheterization 12/29/2024 revealing multivessel disease and scheduled for CABG 01/01/[address] surgery Hypertension Diabetes mellitus type 2 with hyperglycemia restless leg syndrome Hyperlipidemia Psoriatic arthritis Gastroesophageal reflux disease GI prophylaxis DVT prophylaxis Full code Plan: Patient underwent cardiac catheterization which was noted to have triple-vessel disease being scheduled for CABG with CT surgery on , 01/02/2025 Recommend repeat labs in the a.m. and replace electrolytes per protocol Continue monitoring Accu-Cheks AC and at bedtime and will adjust insulins accordingly. Will be on an insulin drip following surgery tomorrow. Appropriate home medications have been reviewed and resumed The impression and plan of care has been dictated by Marsha Monsalve Nurse Practitioner as directed. Dr. Chaitanya MD I have performed a history and physical examination and medical decision making of this patient, discussed the same with the dictator, and agree with the dictators assessment and plan as written, documented as a scribe. Based on total visit time, I have performed more than 50% of this visit. Objective - Vital Signs Vital signs: Vital Signs Temp 97.6 F 01/01/25 11:41 Pulse 57 L 01/01/25 11:41 Resp 18 01/01/25 11:41 BP 146/76 01/01/25 11:41 Pulse Ox 95 01/01/25 11:41 FiO2 Intake & Output 12/31/24 01/01/25 01/01/25 18:59 06:59 18:59 Intake Total 1710 360 Balance 1710 360 Intake: Intake, IV Titration 250 Amount Heparin Sod,Pork in 0.45% 250 NaCl 25,000 unit In 0.45 % NaCl 1 250ml.bag @ 11. 665 UNITS/KG/HR 10 mls/hr IV .Q24H EZEQUIEL Rx#: [id number] Oral 1460 360 Other: Voiding Method Toilet Toilet Bedside Commode Bedside Commode # Voids 3 3 # Bowel Movements 0 - Labs CBC & Chem 7: 12/31/24 05:32 01/01/25 05:10 Labs: Abnormal Lab Results - Last 24 Hours (Table) 12/31/24 12/31/24 12/31/24 Range/Units 05:32 16:20 20:17 APTT (22.0-30.0) sec POC Glucose (mg/dL) 182 H 328 H (70-110) mg/dL Crossmatch See Detail 01/01/25 01/01/25 01/01/25 Range/Units 05:10 06:09 11:27 APTT 30.4 H (22.0-30.0) sec POC Glucose (mg/dL) 174 H 237 H (70-110) mg/dL Crossmatch Assessment and Plan Time with Patient: Less than 30
[2025-01-01 16:14] LABS: Glucose,Whole Blood 211 mg/dL (70-110)
[2025-01-01] MEDS ORDERED: ceFAZolin 2 GM in DEXTROSE 5% IN WATER 50 ML IVPB ONE (16:15)
[2025-01-01] MEDS: INSULIN LISPRO (HumaLOG) 100 UNIT/ML 10 mL VL SQ SCH ×2 (17:15→17:16)
[2025-01-01 20:03] LABS: Glucose,Whole Blood 271 mg/dL (70-110)
[2025-01-01] MEDS: INSULIN GLARGINE (LANTUS) 100 UNIT/ML SYR SQ SCH (20:33)
[2025-01-02 02:15] LABS: Glucose,Whole Blood 145 mg/dL (70-110)
[2025-01-02] MEDS ORDERED: NOREPINEPHRINE 4 MG in SODIUM CHLORIDE 0.9% 250 ML IV SCH (05:00)
[2025-01-02] MEDS ORDERED: INSULIN REGULAR 100 UNIT in SODIUM CHLORIDE 0.9% 100 ML IV SCH (05:00)
[2025-01-02] MEDS: ASPIRIN 325 MG TAB PO ONE (05:36)
[2025-01-02] MEDS: ATORVASTATIN 10 MG TAB PO ONE (05:36)
[2025-01-02] MEDS: METOPROLOL TARTRATE 12.5 MG TAB PO ONE (05:36)
[2025-01-02 05:56] LABS: Glucose,Whole Blood 187 mg/dL (70-110)
[2025-01-02] MEDS: LACTATED RINGERS 1,000 ML BAG IV STA (06:25)
[2025-01-02] MEDS: LACTATED RINGERS 1,000 ML IV ONE (06:33)
[2025-01-02 06:42] LABS: Glucose,Whole Blood 168 mg/dL (70-110)
[2025-01-02 07:11] LABS: African American GFR (CKD) >90 (>60 ml/min/1.73 sqM); Anion Gap 6 mmol/L; Blood Urea Nitrogen 21 mg/dL (9-20); Calcium 9.4 mg/dL (8.4-10.2); Carbon Dioxide 28 mmol/L (22-30); Chloride 106 mmol/L (98-107); Glucose 199 mg/dL (74-99); Non-African American GFR(CKD) 85 (>60 ml/min/1.73 sqM); Potassium 4.2 mmol/L (3.5-5.1); Sodium 140 mmol/L (137-145)
[2025-01-02 07:22] LABS: Basophils # (A) 0.06 10*3/uL (0.00-0.10); Basophils % (A) 0.6 %; Eosinophils % (A) 3.7 %; HCT 46.2 % (39.6-50.0); HGB 15.6 g/dL (13.0-17.0); Lymphocytes # (A) 1.68 10*3/uL (0.90-5.00); Lymphocytes % (A) 15.5 %; MCH 31.5 pg (27.0-32.0); MCHC 33.8 g/dL (32.0-37.0); MCV 93.1 fL (80.0-97.0); Mean Platelet Volume 10.5 fL (9.5-12.2); Neutrophils # (A) 7.46 10*3/uL (1.80-7.70); Neutrophils % (A) 68.6 %; Platelet Count 238 10*3/uL (140-440); RBC 4.96 10*6/uL (4.40-5.60); RDW 13.8 % (11.5-14.5); WBC 10.87 10*3/uL (4.50-10.00)
[2025-01-02] MEDS ORDERED: ALBUMIN HUMAN 5% (25gm) 500 ML VIAL IVPB ONE (07:39)
[2025-01-02] MEDS ORDERED: LIDOCAINE 2% SYG (PF) 100 MG/5 ML ONE (07:39)
[2025-01-02] MEDS ORDERED: fentaNYL (PF) 50 MCG/ML 50 ML VIAL ONE (07:39)
[2025-01-02] MEDS ORDERED: PHENYLEPHRINE 10 MG/ML VIAL ONE (07:39)
[2025-01-02] MEDS ORDERED: PROPOFOL 10 MG/ML 20 ML VIAL IV ONE (07:39)
[2025-01-02] MEDS ORDERED: VECURONIUM 10 MG VIAL IV ONE (07:39)
[2025-01-02] MEDS ORDERED: TRANEXAMIC 1,000 MG/100ML-NACL PREMIX BAG ONE (07:39)
[2025-01-02] MEDS ORDERED: MIDAZOLAM HCL 10 MG/10 ML VIAL ONE (07:39)
[2025-01-02 08:32] LABS: ABG Glucose Whole Blood 168 mg/dL (75-99); ABG HCO3 25 mmol/L (21-25); ABG Hematocrit 39 % (34.0-46.0); ABG Ionized Calcium 4.8 mg/dL (4.5-5.3); ABG Lactic Acid Whole Blood 1.6 mmol/L (0.5-1.6); ABG Oxygen Saturation 99.3 % (94-97); ABG PCO2 42 mmHg (35-45); ABG PH 7.38 (7.35-7.45); ABG PO2 387 mmHg (83-108); ABG Potassium Whole Blood 4.3 mmol/L (3.4-4.5); ABG Sodium Whole Blood 140 mmol/L (135-146); ABG TCO2 23 mmol/L (19-24); Allen Test Performed? Yes
[2025-01-02] MEDS: SODIUM CHLORIDE 0.9% 500 ML 500 ML with HEPARIN SODIUM,PORCINE (1 ML) 5,000 UNIT IV ONE (09:29)
[2025-01-02] MEDS: DILTIAZEM 125 MG in DEXTROSE 5% IN WATER 100 ML IV SCH (09:29)
[2025-01-02] MEDS: PAPAVERINE 360 MG in SODIUM CHLORIDE 0.9% 90 ML IV ONE (09:30)
[2025-01-02 09:49] LABS: ABG Glucose Whole Blood 164 mg/dL (75-99); ABG HCO3 26 mmol/L (21-25); ABG Hematocrit 38 % (34.0-46.0); ABG Ionized Calcium 4.7 mg/dL (4.5-5.3); ABG Lactic Acid Whole Blood 1.4 mmol/L (0.5-1.6); ABG Oxygen Saturation 98.1 % (94-97); ABG PCO2 46 mmHg (35-45); ABG PH 7.36 (7.35-7.45); ABG PO2 127 mmHg (83-108); ABG Potassium Whole Blood 4.3 mmol/L (3.4-4.5); ABG Sodium Whole Blood 139 mmol/L (135-146); ABG TCO2 24 mmol/L (19-24); Allen Test Performed? Yes
[2025-01-02] MEDS ORDERED: CALCIUM GLUCONATE IN NACL 2 GM in SALINE 1 100ML.BAG IVPB PRN (10:26)
[2025-01-02] MEDS ORDERED: Magnesium Replacement Protocol 1 EACH MISC MISCELLANE PRN (10:26)
[2025-01-02] MEDS ORDERED: IPRATROPIUM-ALBUTEROL 3 ML NEB INHALATION PRN (10:26)
[2025-01-02] MEDS ORDERED: Potassium Replacement Protocol 1 EACH MISC MISCELLANE PRN (10:26)
[2025-01-02] MEDS ORDERED: ALBUMIN HUMAN 5% 250 ML in EMPTY BAG 1 BAG IVPB PRN (10:26)
[2025-01-02] MEDS ORDERED: ONDANSETRON 4 MG/2 ML VIAL IVP PRN (10:34)
[2025-01-02] MEDS ORDERED: METOCLOPRAMIDE 5 MG/ML 2 ML VIAL IVP PRN (10:34)
[2025-01-02] MEDS ORDERED: hydrALAZINE HCL 20 MG/ML 1 ML VIAL IVP PRN (10:34)
[2025-01-02 10:36] LABS: ABG Base Excess 3.2 mmol/L; ABG Glucose Whole Blood 154 mg/dL (75-99); ABG HCO3 28 mmol/L (21-25); ABG Hematocrit 30 % (34.0-46.0); ABG Lactic Acid Whole Blood 0.8 mmol/L (0.5-1.6); ABG Oxygen Saturation >99.4 % (94-97); ABG PCO2 42 mmHg (35-45); ABG PH 7.43 (7.35-7.45); ABG PO2 394 mmHg (83-108); ABG Potassium Whole Blood 4.6 mmol/L (3.4-4.5); ABG Sodium Whole Blood 141 mmol/L (135-146); Allen Test Performed? Yes
[2025-01-02 11:12] LABS: ABG Base Excess 1.4 mmol/L; ABG Glucose Whole Blood 157 mg/dL (75-99); ABG HCO3 27 mmol/L (21-25); ABG Hematocrit 29 % (34.0-46.0); ABG Ionized Calcium 4.1 mg/dL (4.5-5.3); ABG Lactic Acid Whole Blood 0.6 mmol/L (0.5-1.6); ABG Oxygen Saturation 99.4 % (94-97); ABG PCO2 44 mmHg (35-45); ABG PH 7.39 (7.35-7.45); ABG PO2 324 mmHg (83-108); ABG Potassium Whole Blood 4.4 mmol/L (3.4-4.5); ABG Sodium Whole Blood 136 mmol/L (135-146); ABG TCO2 25 mmol/L (19-24); Allen Test Performed? Yes
[2025-01-02 11:32] LABS: ABG Base Excess 1.9 mmol/L; ABG Glucose Whole Blood 152 mg/dL (75-99); ABG HCO3 27 mmol/L (21-25); ABG Hematocrit 30 % (34.0-46.0); ABG Ionized Calcium 4.2 mg/dL (4.5-5.3); ABG Lactic Acid Whole Blood 0.8 mmol/L (0.5-1.6); ABG Oxygen Saturation >99.4 % (94-97); ABG PCO2 44 mmHg (35-45); ABG PO2 347 mmHg (83-108); ABG Potassium Whole Blood 4.5 mmol/L (3.4-4.5); ABG Sodium Whole Blood 140 mmol/L (135-146); Allen Test Performed? Yes
[2025-01-02 11:46] LABS: ABG Base Excess 2.5 mmol/L; ABG Glucose Whole Blood 144 mg/dL (75-99); ABG HCO3 28 mmol/L (21-25); ABG Hematocrit 30 % (34.0-46.0); ABG Lactic Acid Whole Blood 0.9 mmol/L (0.5-1.6); ABG Oxygen Saturation >99.4 % (94-97); ABG PCO2 46 mmHg (35-45); ABG PH 7.39 (7.35-7.45); ABG PO2 363 mmHg (83-108); ABG Sodium Whole Blood 140 mmol/L (135-146); Allen Test Performed? Yes
[2025-01-02 11:55] LABS: ABG Base Excess -1.1 mmol/L; ABG Glucose Whole Blood 122 mg/dL (75-99); ABG HCO3 24 mmol/L (21-25); ABG Hematocrit 27 % (34.0-46.0); ABG Ionized Calcium 3.6 mg/dL (4.5-5.3); ABG Lactic Acid Whole Blood 1.1 mmol/L (0.5-1.6); ABG Oxygen Saturation 99.4 % (94-97); ABG PCO2 42 mmHg (35-45); ABG PH 7.37 (7.35-7.45); ABG PO2 340 mmHg (83-108); ABG Potassium Whole Blood 5.9 mmol/L (3.4-4.5); ABG Sodium Whole Blood 141 mmol/L (135-146); ABG TCO2 23 mmol/L (19-24); Allen Test Performed? Yes
[2025-01-02 12:01] LABS: ABG Glucose Whole Blood 124 mg/dL (75-99); ABG HCO3 25 mmol/L (21-25); ABG Hematocrit 29 % (34.0-46.0); ABG Ionized Calcium 3.7 mg/dL (4.5-5.3); ABG Lactic Acid Whole Blood 1.3 mmol/L (0.5-1.6); ABG Oxygen Saturation >99.4 % (94-97); ABG PCO2 44 mmHg (35-45); ABG PH 7.36 (7.35-7.45); ABG PO2 344 mmHg (83-108); ABG Potassium Whole Blood 5.7 mmol/L (3.4-4.5); ABG Sodium Whole Blood 141 mmol/L (135-146); Allen Test Performed? Yes
[2025-01-02 12:09] LABS: ABG Glucose Whole Blood 137 mg/dL (75-99); ABG HCO3 23 mmol/L (21-25); ABG Hematocrit 29 % (34.0-46.0); ABG Ionized Calcium 3.6 mg/dL (4.5-5.3); ABG Lactic Acid Whole Blood 1.4 mmol/L (0.5-1.6); ABG Oxygen Saturation >99.4 % (94-97); ABG PCO2 38 mmHg (35-45); ABG PH 7.39 (7.35-7.45); ABG PO2 408 mmHg (83-108); ABG Potassium Whole Blood 5.3 mmol/L (3.4-4.5); ABG Sodium Whole Blood 141 mmol/L (135-146); Allen Test Performed? Yes
[2025-01-02 12:15] LABS: ABG Potassium Whole Blood 7.5 mmol/L (3.4-4.5)
[2025-01-02 13:01] LABS: ABG TCO2 22 mmol/L (19-24)
[2025-01-02] MEDS: ceFAZolin 2 GM in DEXTROSE 5% IN WATER 50 ML IVPB ONE ×2 (13:27)
--- NOTE | 2025-01-02 13:33 | P.ANPRN ---
Procedure Note - Anesthesia - Invasive Line Right Central Line Time Out Performed: Yes ([id number]) Date of Procedure: 01/02/25 Time of Procedure: 07:24 Location of Patient: Phase I Preparation: Sterile Prep, Sterile Dressing Central Line Location: Internal Jugular (right IJ) Ultrasound Used: Yes Purpose - Visualization and Identification of Vasculature: Yes Needle Guage: 18g Image Stored and Saved: Yes Narrative: Invasive line placement per sterile protocol utilized. Anesthesia note Procedure: Right internal jugular central venous catheter insertion: 8.5-[place] Cordis Sterile protocol followed. Right neck prepped. Ultrasound used. Lidocaine 1% used. Using ultrasound local anesthetic was instilled site over right Internal Jugular vein. Angiocath was used to gain access via ultrasound. Once free flow non-pulsatile blood flow was confirmed, 12 inch extension tubing was then placed on Angiocath. Once central venous pressure was confirmed, J-wire was then placed through Angiocath. Angiocath was then withdrawn. Local was instilled at J-wire site. Small skin nicolette was then made with provided sterile scalpel. 8.5- [place] Cordis was then inserted over the wire while maintaining control of wire at all times. Uneventful insertion with dilation. Free flow nonpulsatile blood flow through Cordis. Hooked up to IV tubing. Secured with suture. Dressings applied. Drapes Removed. Attempts x1.
--- NOTE | 2025-01-02 13:34 | P.ANPRN ---
Procedure Note - Anesthesia - Invasive Line Right [place] Time Out Performed: Yes (0 [id number]) Date of Procedure: 01/02/25 Time of Procedure: 07:32 Location of Patient: PreOp Preparation: Sterile Prep, Sterile Dressing [place] Line Location: Internal Jugular (Right) Ultrasound Used: No Purpose - Visualization and Identification of Vasculature: No Image Stored and Saved: No Narrative: Invasive line placement per sterile protocol utilized. Anesthesia note Procedure right [place] catheter placed through central venous catheter Sterile protocol maintained from previous procedure. [place] catheter sterilely placed in sheath and flushed prior to insertion. After advancing 15 cm [place] catheter was then slowly inserted with balloon up. Advanced through CVP, RV to PA waveform. [place] catheter wedged around 51 cm. Balloon down. Catheter withdrawn 5 cm. . No wedge. Proximal and distal sites locked on sheath. Attempts x1. Sterile drapes removed and dressings applied.
--- NOTE | 2025-01-02 13:36 | P.ANPRN ---
Procedure Note - Anesthesia - ROBIN Intraop Pre Bypass ROBIN Intraop - Anesthesia Indication: Coronary artery disease Date of Procedure: 01/02/25 Pre-operative Diagnosis: Coronary artery disease Post-operative Diagnosis: Same status post open heart Surgeon: Mathieu Shah Left Ventricle: Within normal limits Ejection Fraction: Normal Regional Wall Motion Abnormalities: None Left Ventricle Hypertrophy: No R. Ventricle Function: Normal Anatomy: Trileaflet Aortic Stenosis: None Aortic Regurgitation: None Mitral Stenosis: None Mitral Regurgitation: None Tricuspid Stenosis: None Tricuspid Regurgitation: Trace Pulmonic Stenosis: None Pulmonic Regurgitation: None R. Atrial Dilation: No R. Atrial PFO: No Left Atrium: [place] clear L. Atrial Dilation: No Aortic Dissection: No Aortic Calcification: None Plural Effusion: None
--- NOTE | 2025-01-02 13:36 | P.ANPRN ---
Procedure Note - Anesthesia - ROBIN Intraop Post Bypass ROBIN Intraop Post Bypass Procedure Performed: On pump bypass Left Ventricle: Within normal limits Ejection Fraction: Normal Regional Wall Motion Abnormalities: None R. Ventricle Function: Normal Aortic Valve: Unchanged Mitral Valve: Unchanged Tricuspid: Unchanged Pulmonic: Unchanged Aortic Dissection: No
[2025-01-02 13:42] LABS: Glucose,Whole Blood 135 mg/dL (70-110)
[2025-01-02] MEDS: INSULIN REGULAR 100 UNIT in SODIUM CHLORIDE 0.9% 100 ML IV SCH (13:44)
[2025-01-02] MEDS: NITROGLYCERIN-D5W PMX 50 MG in DEXTROSE/WATER 1 250ML.BAG IV SCH (13:46)
[2025-01-02] MEDS: MILRINONE-D5W PMX 20 MG in DEXTROSE/WATER 1 100ML.BAG IV SCH (13:47)
[2025-01-02] MEDS: SODIUM CHLORIDE 0.9% 1,000 ML IV SCH (13:48)
[2025-01-02] MEDS: CLEVIDIPINE BUTYRATE 25 MG in EMPTY BAG 1 BAG IV PRN (13:55)
[2025-01-02 13:59] LABS: Basophils # (A) 0.05 10*3/uL (0.00-0.10); Basophils % (A) 0.4 %; Eosinophils # (A) 0.22 10*3/uL (0.04-0.35); HCT 32.7 % (39.6-50.0); Lymphocytes # (A) 1.27 10*3/uL (0.90-5.00); Lymphocytes % (A) 11.3 %; MCH 31.4 pg (27.0-32.0); MCHC 33.6 g/dL (32.0-37.0); MCV 93.4 fL (80.0-97.0); Mean Platelet Volume 9.9 fL (9.5-12.2); Monocytes % (A) 8.9 %; Neutrophils # (A) 8.62 10*3/uL (1.80-7.70); Neutrophils % (A) 76.6 %; Platelet Count 138 10*3/uL (140-440); RDW 13.9 % (11.5-14.5); WBC 11.25 10*3/uL (4.50-10.00)
[2025-01-02 14:10] LABS: Ionized Calcium 4.8 mg/dL (4.5-5.3)
[2025-01-02 14:11] LABS: INR 1.2 (<1.2); Partial Thromboplastin Time 24.6 sec (22.0-30.0); Prothrombin Time 12.7 sec (10.0-12.5)
[2025-01-02 14:12] LABS: ABG Base Excess -0.5 mmol/L; ABG HCO3 23 mmol/L (21-25); ABG Oxygen Saturation 98.5 % (94-97); ABG PCO2 33 mmHg (35-45); ABG PH 7.45 (7.35-7.45); ABG PO2 94 mmHg (83-108); ABG TCO2 24 mmol/L (19-24)
[2025-01-02 14:14] LABS: Allen Test Performed? no
--- NOTE | 2025-01-02 14:22 | P.PN ---
Subjective Progress Note Date: 01/02/25 This is a 74-year-old male patient who presented to the emergency department with symptoms of exertional dyspnea and the patient was found to have elevated troponins. The patient ruled in for an acute non-ST segment elevation myocardial infarction. EKG showed sinus bradycardia with a heart rate of 56 and the patient had nonspecific T wave abnormalities. Chest x-ray showed no acute cardiopulmonary abnormalities. 2D echocardiogram showed a preserved LV function with an EF of around 50 to 55% without any significant valvular abnormalities. The patient underwent cardiac catheterization patient had a cath on 12/29/2024 and the cath showed a 30 to 50% stenosis of the proximal LAD, 95% stenosis of the mid LAD and 100% diagnosis to diagonal and 80% stenosis in a diagonal #2 and 99% stenosis of the obtuse marginal and 90% stenosis of the RCA. Subsequently, the patient was seen by cardiothoracic surgery and the patient is going to undergo cardiac bypass surgery. The patient is currently on IV heparin. Free of any chest pain. Resting comfortably in bed. On room air oxygen. The patient is known to have diabetes mellitus type 2, hypertension hyperlipidemia and BPH along with acid reflux and psoriatic arthritis. He also has chronic restless leg syndrome. He is a lifetime non-smoker. He has a good performance and functional status. CAT scan of the chest was done on 12/29/2024 and it showed mild to moderate atherosclerotic plaques involving the aortic arch. No evidence of any aneurysm. EKG from this morning is showing sinus bradycardia with a heart rate of 57. T wave inversions are still present over the anterolateral and inferior leads. No ST segment elevations. The patient has a white cell count of 7.4 with a heme of 15.7 and platelet count of 202. Normal coagulation profile. Normal electrolytes. Normal renal function. Troponins peaked at 0.08. LFTs are normal. UA showing plus for glucose, hepatitis profile has been negative. Thyroid function tests were normal. Carotid ultrasound showed 50 to 69% stenosis on the right carotid bifurcation and less than 50% on the left. On 12/31/2024, the patient is resting comfortably in bed. No new complaints. Remains free of any chest pain. The patient remains on IV heparin. Hemodynamically stable. The plan is to proceed with coronary bypass surgery tomorrow. White cell is not 0.5 with a hemoglobin 15.4 and platelet count of 220. Electrolytes are within normal limits. BUN is 19 with creatinine 0.8. He remains on room air oxygen the patient using incentive spirometry. Pulse ox 94% on room air oxygen. No other significant events otherwise. On today's evaluation of 01/01/2025, the patient is on the stepdown cardiac unit. Sitting up in bed without any complaints. Alert and oriented x 3. Free of any chest pain. Awaiting coronary artery bypass surgery and this will be done by Dr. Shah tomorrow. Remains on room air oxygen using the incentive spirometer. He remains in a first-degree AV block and heart rate remains bradycardic. As such, the patient is not receiving any form of beta-blockers for now. The patient has no specific complaints. Remains on IV heparin. on 01/02/2025, the patient is being seen in the intensive care unit as the patient underwent four-vessel bypass surgery. Postop, the patient was brought in to the intensive care unit intubated on the mechanical ventilator. The patient currently sedated on propofol and patient is currently on 30 mcg/kg/min. The patient is assist-control mode of mechanical ventilation at rate of 12, tidal volume of 550, FiO2 of 100% with a PEEP of 5. Chest x-ray and blood gas are still pending for now. Meanwhile, immediately postop, the patient was found to have a cardiac index of 1.7 and the patient was started on Primacor and the most recent cardiac output is at 5 with an index of 2.6. Primacor is running at 0.3 mc /kg/min and the PA pressures are 39/17. The patient is currently on Primacor infusion augmented cardiac output and and the patient is on nitroglycerin drip at 5 mcg/min. Urine output is adequate. The patient is producing good urine output. Awaiting chest x-ray and blood gases. For now, the patient has a mediastinal and the left pleural chest tube and output is minimal and there is no evidence of any air leak from the chest tubes. Objective - Vital Signs Vital signs: Vital Signs Temp 97.5 F L 01/02/25 06:18 Pulse 52 L 01/02/25 06:18 Resp 16 01/02/25 06:18 BP 158/72 01/02/25 06:18 Pulse Ox 93 L 01/02/25 06:18 FiO2 100 01/02/25 13:41 Intake & Output 01/01/25 01/02/25 01/02/25 18:59 06:59 18:59 Intake Total 480 100 3 Output Total 1640 Balance 480 100 -1637 Weight 82.8 kg Intake: IV 100 3 Oral 480 Output: Urine 640 Estimated Blood Loss 1000 Other: Voiding Method Toilet Bedside Commode # Voids 3 # Bowel Movements 0 - Exam The patient appeared well nourished and normally developed. The patient is Sedated on propofol., Comfortable. Orogastric and orotracheal tube are both in place. Head exam is unremarkable. No scleral icterus or corneal arcus noted. Neck is without jugular venous distension, thyromegaly, or carotid bruits. Carotid upstrokes are brisk bilaterally. The patient has a right IJ cordis and [place]-David catheter in place. Lungs are clear to auscultation and percussion. Thoracotomy scar is dry clean and intact and the patient has a left pleural mediastinal chest tube. Evidence of an air leak and output is minimal at this point in time. Cardiac exam reveals the PMI to be normally sized and situated. Rhythm is regular. First and second heart sounds normal. No murmurs, rubs or gallops. Abdominal exam reveals normal bowel sounds, no masses, no organomegaly and no aortic enlargement. Extremities are nonedematous and both femoral and pedal pulses are normal. Examination of the skin revealed no evidence of significant rashes, suspicious appearing nevi or other concerning lesions. Neurologically, the patient is sedated postop. - Labs CBC & Chem 7: 01/02/25 13:40 01/02/25 06:00 Labs: Abnormal Lab Results - Last 24 Hours (Table) 12/31/24 01/01/25 01/01/25 Range/Units 05:32 16:13 20:01 WBC (4.50-10.00) 10*3/uL RBC (4.40-5.60) 10*6/uL Hgb (13.0-17.0) g/dL Hct (39.6-50.0) % Plt Count (140-440) 10*3/uL Immature Gran # (0.00-0.04) 10*3/uL Neutrophils # (1.80-7.70) 10*3/uL Monocytes # (0.20-1.00) 10*3/uL Eosinophils # (0.04-0.35) 10*3/uL PT (10.0-12.5) sec INR (<1.2) ABG pCO2 (35-45) mmHg ABG pO2 (83-108) mmHg ABG HCO3 (21-25) mmol/L ABG Total CO2 (19-24) mmol/L ABG O2 Saturation (94-97) % ABG Hematocrit (34.0-46.0) % ABG Potassium (3.4-4.5) mmol/L ABG Ionized Calcium (4.5-5.3) mg/dL ABG Glucose (75-99) mg/dL Hemoglobin (13.0-17.5) gm/dL BUN (9-20) mg/dL Glucose (74-99) mg/dL POC Glucose (mg/dL) 211 H 271 H (70-110) mg/dL Arterial Blood Potassium (3.4-4.5) mmol/L Arterial Blood Glucose (75-99) mg/dL Crossmatch See Detail 01/02/25 01/02/25 01/02/25 Range/Units 02:09 05:54 06:00 WBC 10.87 H (4.50-10.00) 10*3/uL RBC (4.40-5.60) 10*6/uL Hgb (13.0-17.0) g/dL Hct (39.6-50.0) % Plt Count (140-440) 10*3/uL Immature Gran # 0.07 H (0.00-0.04) 10*3/uL Neutrophils # (1.80-7.70) 10*3/uL Monocytes # 1.20 H (0.20-1.00) 10*3/uL Eosinophils # 0.40 H (0.04-0.35) 10*3/uL PT (10.0-12.5) sec INR (<1.2) ABG pCO2 (35-45) mmHg ABG pO2 (83-108) mmHg ABG HCO3 (21-25) mmol/L ABG Total CO2 (19-24) mmol/L ABG O2 Saturation (94-97) % ABG Hematocrit (34.0-46.0) % ABG Potassium (3.4-4.5) mmol/L ABG Ionized Calcium (4.5-5.3) mg/dL ABG Glucose (75-99) mg/dL Hemoglobin (13.0-17.5) gm/dL BUN (9-20) mg/dL Glucose (74-99) mg/dL POC Glucose (mg/dL) 145 H 187 H (70-110) mg/dL Arterial Blood Potassium (3.4-4.5) mmol/L Arterial Blood Glucose (75-99) mg/dL Crossmatch 01/02/25 01/02/25 01/02/25 Range/Units 06:00 06:39 08:32 WBC (4.50-10.00) 10*3/uL RBC (4.40-5.60) 10*6/uL Hgb (13.0-17.0) g/dL Hct (39.6-50.0) % Plt Count (140-440) 10*3/uL Immature Gran # (0.00-0.04) 10*3/uL Neutrophils # (1.80-7.70) 10*3/uL Monocytes # (0.20-1.00) 10*3/uL Eosinophils # (0.04-0.35) 10*3/uL PT (10.0-12.5) sec INR (<1.2) ABG pCO2 (35-45) mmHg ABG pO2 387 H (83-108) mmHg ABG HCO3 (21-25) mmol/L ABG Total CO2 (19-24) mmol/L ABG O2 Saturation 99.3 H (94-97) % ABG Hematocrit (34.0-46.0) % ABG Potassium (3.4-4.5) mmol/L ABG Ionized Calcium (4.5-5.3) mg/dL ABG Glucose 168 H (75-99) mg/dL Hemoglobin 12.7 L (13.0-17.5) gm/dL BUN 21 H (9-20) mg/dL Glucose 199 H (74-99) mg/dL POC Glucose (mg/dL) 168 H (70-110) mg/dL Arterial Blood Potassium (3.4-4.5) mmol/L Arterial Blood Glucose 168 H (75-99) mg/dL Crossmatch 01/02/25 01/02/25 01/02/25 Range/Units 09:49 10:40 11:12 WBC (4.50-10.00) 10*3/uL RBC (4.40-5.60) 10*6/uL Hgb (13.0-17.0) g/dL Hct (39.6-50.0) % Plt Count (140-440) 10*3/uL Immature Gran # (0.00-0.04) 10*3/uL Neutrophils # (1.80-7.70) 10*3/uL Monocytes # (0.20-1.00) 10*3/uL Eosinophils # (0.04-0.35) 10*3/uL PT (10.0-12.5) sec INR (<1.2) ABG pCO2 46 H (35-45) mmHg ABG pO2 127 H 394 H 324 H (83-108) mmHg ABG HCO3 26 H 28 H 27 H (21-25) mmol/L ABG Total CO2 25 H (19-24) mmol/L ABG O2 Saturation 98.1 H >99.4 H 99.4 H (94-97) % ABG Hematocrit 30 L 29 L (34.0-46.0) % ABG Potassium 4.6 H (3.4-4.5) mmol/L ABG Ionized Calcium 4.0 L 4.1 L (4.5-5.3) mg/dL ABG Glucose 164 H 154 H 157 H (75-99) mg/dL Hemoglobin 12.3 L 9.7 L 9.5 L (13.0-17.5) gm/dL BUN (9-20) mg/dL Glucose (74-99) mg/dL POC Glucose (mg/dL) (70-110) mg/dL Arterial Blood Potassium 4.6 H (3.4-4.5) mmol/L Arterial Blood Glucose 164 H 154 H 157 H (75-99) mg/dL Crossmatch 01/02/25 01/02/25 01/02/25 Range/Units 11:32 11:46 11:55 WBC (4.50-10.00) 10*3/uL RBC (4.40-5.60) 10*6/uL Hgb (13.0-17.0) g/dL Hct (39.6-50.0) % Plt Count (140-440) 10*3/uL Immature Gran # (0.00-0.04) 10*3/uL Neutrophils # (1.80-7.70) 10*3/uL Monocytes # (0.20-1.00) 10*3/uL Eosinophils # (0.04-0.35) 10*3/uL PT (10.0-12.5) sec INR (<1.2) ABG pCO2 46 H (35-45) mmHg ABG pO2 347 H 363 H 340 H (83-108) mmHg ABG HCO3 27 H 28 H (21-25) mmol/L ABG Total CO2 (19-24) mmol/L ABG O2 Saturation >99.4 H >99.4 H 99.4 H (94-97) % ABG Hematocrit 30 L 30 L 27 L (34.0-46.0) % ABG Potassium 7.5 H* 5.9 H (3.4-4.5) mmol/L ABG Ionized Calcium 4.2 L 4.0 L 3.6 L (4.5-5.3) mg/dL ABG Glucose 152 H 144 H 122 H (75-99) mg/dL Hemoglobin 9.8 L 9.9 L 8.8 L (13.0-17.5) gm/dL BUN (9-20) mg/dL Glucose (74-99) mg/dL POC Glucose (mg/dL) (70-110) mg/dL Arterial Blood Potassium 7.5 H* 5.9 H (3.4-4.5) mmol/L Arterial Blood Glucose 152 H 144 H 122 H (75-99) mg/dL Crossmatch 01/02/25 01/02/25 01/02/25 Range/Units 12:01 12:09 13:40 WBC (4.50-10.00) 10*3/uL RBC (4.40-5.60) 10*6/uL Hgb (13.0-17.0) g/dL Hct (39.6-50.0) % Plt Count (140-440) 10*3/uL Immature Gran # (0.00-0.04) 10*3/uL Neutrophils # (1.80-7.70) 10*3/uL Monocytes # (0.20-1.00) 10*3/uL Eosinophils # (0.04-0.35) 10*3/uL PT (10.0-12.5) sec INR (<1.2) ABG pCO2 (35-45) mmHg ABG pO2 344 H 408 H (83-108) mmHg ABG HCO3 (21-25) mmol/L ABG Total CO2 (19-24) mmol/L ABG O2 Saturation >99.4 H >99.4 H (94-97) % ABG Hematocrit 29 L 29 L (34.0-46.0) % ABG Potassium 5.7 H 5.3 H (3.4-4.5) mmol/L ABG Ionized Calcium 3.7 L 3.6 L (4.5-5.3) mg/dL ABG Glucose 124 H 137 H (75-99) mg/dL Hemoglobin 9.4 L 9.4 L (13.0-17.5) gm/dL BUN (9-20) mg/dL Glucose (74-99) mg/dL POC Glucose (mg/dL) 135 H (70-110) mg/dL Arterial Blood Potassium 5.7 H 5.3 H (3.4-4.5) mmol/L Arterial Blood Glucose 124 H 137 H (75-99) mg/dL Crossmatch 01/02/25 01/02/25 01/02/25 Range/Units 13:40 13:40 14:07 WBC 11.25 H (4.50-10.00) 10*3/uL RBC 3.50 L (4.40-5.60) 10*6/uL Hgb 11.0 L D (13.0-17.0) g/dL Hct 32.7 L (39.6-50.0) % Plt Count 138 L (140-440) 10*3/uL Immature Gran # 0.09 H (0.00-0.04) 10*3/uL Neutrophils # 8.62 H (1.80-7.70) 10*3/uL Monocytes # (0.20-1.00) 10*3/uL Eosinophils # (0.04-0.35) 10*3/uL PT 12.7 H (10.0-12.5) sec INR 1.2 H (<1.2) ABG pCO2 33 L (35-45) mmHg ABG pO2 (83-108) mmHg ABG HCO3 (21-25) mmol/L ABG Total CO2 (19-24) mmol/L ABG O2 Saturation 98.5 H (94-97) % ABG Hematocrit (34.0-46.0) % ABG Potassium (3.4-4.5) mmol/L ABG Ionized Calcium (4.5-5.3) mg/dL ABG Glucose (75-99) mg/dL Hemoglobin 12.2 L (13.0-17.5) gm/dL BUN (9-20) mg/dL Glucose (74-99) mg/dL POC Glucose (mg/dL) (70-110) mg/dL Arterial Blood Potassium (3.4-4.5) mmol/L Arterial Blood Glucose (75-99) mg/dL Crossmatch Assessment and Plan Plan: Multivessel coronary artery disease (multivessel CAD with heavily calcified 30 to 50% proximal LAD, mid LAD 95%, diagonal 1 100%, diagonal to 80%, OM 2 moderate caliber 99%, small caliber RCA 90% stenosis), symptomatic, awaiting bypass surgery. The patient is post acute non-ST segment elevation myocardial infarction. Echocardiogram shows preserved LV function and the patient is currently free of any chest pain. The patient is status post four-vessel coronary artery bypass surgery and the patient is currently postop day #0. Hemodynamically running the lower cardiac output and the patient is currently on Primacor running at 0.3 mcg/kg/min. Also on nitroglycerin drip at 5 mcg/min. Adequate urine output. Adequate cardiac output and index. Postthoracotomy, currently intubated on mechanical ventilator. Awaiting chest x-ray and blood gases. Chest tubes are in place and the patient has a mediastinal left pleural chest tube and output is minimal at this point in time. Status post acute non-ST elevated myocardial infarction this admission Carotid artery stenosis, bifurcation in the order of 50 to 69% on the right Hypertension Hyperlipidemia Diabetes mellitus type 2, current hemoglobin A1c 7.4%, currently on insulin drip for blood sugar control Restless leg syndrome Psoriatic arthritis, on methotrexate Benign prostatic hypertrophy GERD Lifetime non-smoker Plan: Continue ventilator support Obtain a blood gas and a chest x-ray and perform the necessary ventilator changes accordingly. Continue Primacor Continue nitroglycerin drip Insulin drip for blood sugar control Monitor cardiac output and index Monitor urine output Monitor output from the chest tubes Keep the patient on propofol for now The patient will be monitored very closely. Anticipate extubation within the next 2 to 6 hours window. Critical care evaluation this is working progress and will continue to follow and make further recommendation based on the patient's progression in the intensive care unit. This evaluation was done 35 minutes. Time with Patient: Greater than 30
[2025-01-02 14:26] LABS: ALT 25 U/L (4-49); AST 30 U/L (17-59); African American GFR (CKD) >90 (>60 ml/min/1.73 sqM); Albumin 3.1 g/dL (3.5-5.0); Alkaline Phosphatase 35 U/L (38-126); Anion Gap 7 mmol/L; Blood Urea Nitrogen 15 mg/dL (9-20); Calcium 8.5 mg/dL (8.4-10.2); Carbon Dioxide 22 mmol/L (22-30); Chloride 111 mmol/L (98-107); Glucose 131 mg/dL (74-99); Magnesium 2.8 mg/dL (1.6-2.3); Non-African American GFR(CKD) >90 (>60 ml/min/1.73 sqM); Potassium 4.6 mmol/L (3.5-5.1); Sodium 140 mmol/L (137-145); Total Bilirubin 0.7 mg/dL (0.2-1.3); Total Protein 4.9 g/dL (6.3-8.2)
--- NOTE | 2025-01-02 14:48 | XR ---
EXAMINATION TYPE: XR chest 1V portable DATE OF EXAM: 01/02/2025 2:03 PM COMPARISON: None. CLINICAL INDICATION: Male, 74 years old with history of Post Operative Cardiac Surgery, TECHNIQUE: XR chest 1V portable view(s) obtained. FINDINGS: The heart size is normal. The pulmonary vasculature is upper limits for normal. Mild subsegmental atelectasis may be in the lateral left lung base. Endotracheal tube tip is 1.7 cm above the [place]. Nasogastric tube transverses the thorax. [place]-David catheter is present with tip in the main pulmonary artery region. Left-sided chest tube is present. N o pneumothorax is evident. Mediastinal tube is present. IMPRESSION: 1. Minimal subsegmental atelectasis lateral left lung base. 2. Mild vascular prominence. Correlate for volume overload. 3. Multiple lines and catheters discussed above [facility], Workstation: [facility], 01/02/2025 2:46 PM
[2025-01-02 15:04] LABS: Glucose,Whole Blood 170 mg/dL (70-110)
[2025-01-02] MEDS: DEXMEDETOMIDINE/0.9% NACL(PMX) 400 MCG in EMPTY BAG 1 BAG IV SCH (15:29)
[2025-01-02 16:02] LABS: Glucose,Whole Blood 167 mg/dL (70-110)
[2025-01-02] MEDS: HEPARIN SODIUM,PORCINE 5,000 UNIT/ML 1 ML VIAL SQ SCH (16:13)
[2025-01-02] MEDS: ceFAZolin 2 GM in DEXTROSE 5% IN WATER 50 ML IVPB SCH (16:14)
[2025-01-02 16:31] LABS: Basophils # (A) 0.05 10*3/uL (0.00-0.10); Basophils % (A) 0.4 %; Eosinophils # (A) 0.07 10*3/uL (0.04-0.35); Eosinophils % (A) 0.6 %; HGB 11.9 g/dL (13.0-17.0); Lymphocytes # (A) 0.91 10*3/uL (0.90-5.00); Lymphocytes % (A) 7.4 %; MCH 31.4 pg (27.0-32.0); MCV 92.3 fL (80.0-97.0); Mean Platelet Volume 9.8 fL (9.5-12.2); Monocytes % (A) 10.6 %; Neutrophils # (A) 9.91 10*3/uL (1.80-7.70); Neutrophils % (A) 80.4 %; Platelet Count 185 10*3/uL (140-440); RBC 3.79 10*6/uL (4.40-5.60); RDW 13.7 % (11.5-14.5); WBC 12.32 10*3/uL (4.50-10.00)
[2025-01-02] MEDS: IPRATROPIUM-ALBUTEROL 3 ML NEB INHALATION SCH (16:36)
[2025-01-02 17:03] LABS: Glucose,Whole Blood 167 mg/dL (70-110)
[2025-01-02 17:37] LABS: ABG Base Excess -1.8 mmol/L; ABG HCO3 24 mmol/L (21-25); ABG Oxygen Saturation 95.7 % (94-97); ABG PCO2 43 mmHg (35-45); ABG PH 7.35 (7.35-7.45); ABG PO2 77 mmHg (83-108); ABG TCO2 25 mmol/L (19-24)
[2025-01-02 17:44] LABS: Allen Test Performed? no
[2025-01-02 17:55] LABS: Glucose,Whole Blood 163 mg/dL (70-110)
[2025-01-02] MEDS: ACETAMINOPHEN IV (For NPO) 1,000 MG in EMPTY BAG 1 BAG IVPB SCH (18:00)
[2025-01-02] MEDS: fentaNYL (PF) 50 MCG/ML 2 ML AMP IVP PRN (18:19)
[2025-01-02 19:00] LABS: Glucose,Whole Blood 151 mg/dL (70-110)
[2025-01-02] MEDS ORDERED: AMIODARONE 450 MG in DEXTROSE 5% IN WATER 250 ML IV SCH (19:15)
[2025-01-02 19:50] LABS: Basophils # (A) 0.05 10*3/uL (0.00-0.10); Basophils % (A) 0.4 %; Eosinophils # (A) 0.02 10*3/uL (0.04-0.35); Eosinophils % (A) 0.2 %; HCT 34.7 % (39.6-50.0); HGB 11.7 g/dL (13.0-17.0); Lymphocytes # (A) 0.56 10*3/uL (0.90-5.00); Lymphocytes % (A) 4.8 %; MCH 31.4 pg (27.0-32.0); MCHC 33.7 g/dL (32.0-37.0); Mean Platelet Volume 9.6 fL (9.5-12.2); Monocytes # (A) 1.08 10*3/uL (0.20-1.00); Monocytes % (A) 9.2 %; Neutrophils # (A) 9.95 10*3/uL (1.80-7.70); Neutrophils % (A) 84.8 %; Platelet Count 177 10*3/uL (140-440); RBC 3.73 10*6/uL (4.40-5.60); RDW 13.8 % (11.5-14.5); WBC 11.73 10*3/uL (4.50-10.00)
[2025-01-02 20:21] LABS: Glucose,Whole Blood 130 mg/dL (70-110)
[2025-01-02] MEDS ORDERED: MUPIROCIN 2% OINT 22 GM TUBE NASAL SCH (21:00)
[2025-01-02] MEDS: SENNOSIDES-DOCUSATE SODIUM 1 EACH TAB PO SCH (21:41)
[2025-01-02 22:01] LABS: Glucose,Whole Blood 107 mg/dL (70-110)
[2025-01-02] MEDS ORDERED: ACETAMINOPHEN TAB 325 MG TAB PO PRN (22:35)
[2025-01-02 23:09] LABS: Glucose,Whole Blood 141 mg/dL (70-110)
[2025-01-03 00:43] LABS: Glucose,Whole Blood 136 mg/dL (70-110)
[2025-01-03 02:05] LABS: Glucose,Whole Blood 129 mg/dL (70-110)
--- NOTE | 2025-01-03 02:33 | P.PN ---
Subjective Progress Note Date: 12/31/24 History of present illness; patient 74-year-old gentleman past medical history significant for diabetes mellitus, hypertension who presented to the ER as a transfer from hospital in [place] for chest pain. Patient stated he was all right couple of weeks back when he started having intermittent shortness of breath and chest pressure, chest pressure was central location, nonradiating, no aggravating or relieving factor associated with chest pressure. Patient went to urgent care and was found to have elevated blood pressure and was referred to [facility] and was later transferred to [facility]. There is no complaint of shortness of breath. Patient denies any palpitation. There is no complaint of orthopnea or PND. Denies any nausea, vomiting abdominal pain. Patient denies any complaint of dizziness. There is no complaint of headache. Initial lab work done in the ER showed WBC 7.20, hemoglobin 16.4, D-dimer 0.24, sodium 141, potassium 3.7, BUN 14, creatinine 0.75, glucose 265, AST 67, ALT 105, troponin 0.085 EKG done in the ER showed heart rate of 56 , no ST segment elevation or depression seen, no T-wave inversions seen. Chest x-ray done in the ER showed no acute cardiopulmonary process Patient admitted to internal medicine service 12/29/2024 Patient is seen in follow-up this morning currently n.p.o. as patient is being evaluated by cardiology and will undergo cardiac catheterization today. Will await official report. Patient is afebrile with no reported chest pain at this time and denies shortness of breath. A.m. labs pending I will follow-up. Repla ce electrolytes per protocol 12/30/2024 Patient is seen in follow-up no acute overnight issues noted. 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 Patient is continued on heparin drip and is tentatively scheduled for CABG on 01/01/2025. Patient will be continued on telemetry monitoring. 12/31/2024 Patient is seen in follow-up today currently resting although easily arousable. Plan is for n.p.o. at midnight and tentatively scheduled for CABG on 01/01/2025. Patient will be brought to the ICU per cardio thoracic services postprocedure. Patient reports he takes Requip twice daily and requesting this to be resumed. Patient is afebrile denies chest pain or shortness of breath. Patient reports has been tolerating diet with no reported nausea or vomiting. Review of systems: Constitutional: reports of fatigue, no fever, or chills Cardiovascular: No reports of chest pain or palpitations Respiratory: No reports of shortness of breath or cough GI: No reports of nausea, vomiting, or diarrhea : No reports of dysuria or retention Neurovascular: No reports of weakness or numbness All medications have been reviewed PHYSICAL EXAMINATION: GENERAL: The patient is asleep although easily arousable, alert and oriented x3, not in any acute distress. Well developed, elderly appearing, thin built HEENT: Pupils are round and equally reacting to light. EOMI. No scleral icterus. No conjunctival pallor. Normocephalic, atraumatic. No pharyngeal erythema. No thyromegaly. CARDIOVASCULAR: S1 and S2 muffled PULMONARY: Chest is clear to auscultation, no wheezing or crackles. ABDOMEN: Soft, nontender, nondistended, normoactive bowel sounds. No palpable organomegaly. MUSCULOSKELETAL: No joint swelling or deformity. EXTREMITIES: No cyanosis, clubbing, or pedal edema. NEUROLOGICAL: Gross neurological examination did not reveal any focal deficits. SKIN: No rashes. Assessment: Acute coronary syndrome, status post cardiac catheterization 12/29/2024 revealing multivessel disease and scheduled for CABG 01/01/[address] surgery Hypertension Diabetes mellitus restless leg syndrome GI prophylaxis DVT prophylaxis Full code Plan: Patient is seen and evaluated this morning being followed by cardiology and underwent cardiac catheterization which was noted to have triple-vessel disease being scheduled for CABG with CT surgery on , 01/01/2025 Recommend repeat labs in the a.m. and replace electrolytes per protocol Continue monitoring Accu-Cheks AC and at bedtime and will adjust insulins accordingly Continue on heparin per cardiology Appropriate home medications have been reviewed and resumed The impression and plan of care has been dictated by Adry Hernandez, Nurse Practitioner as directed. Dr. Chaitanya MD I have performed a history and examination and MDM of this patient, discussed the same with the dictator, and agree with the dictator's assessment and plan as written ,documented as a scribe. Based on total visit time, I have performed more than 50% of the visit. Objective - Vital Signs Vital signs: Vital Signs Temp 98.1 F 12/31/24 07:55 Pulse 56 L 12/31/24 10:00 Resp 16 12/31/24 10:00 BP 167/76 12/31/24 07:55 Pulse Ox 96 12/31/24 07:55 FiO2 Intake & Output 12/30/24 12/31/24 12/31/24 18:59 06:59 18:59 Intake Total 725.094 260 490 Output Total 700 Balance 725.094 -440 490 Intake: IV 20 20 Invasive Line 2 20 20 Intake, IV Titration 247.094 250 Amount Heparin Sod,Pork in 0.45% 247.094 250 NaCl 25,000 unit In 0.45 % NaCl 1 250ml.bag @ 11. 665 UNITS/KG/HR 10 mls/hr IV .Q24H [facility] Rx#: [id number] Oral 458 240 240 Output: Urine 700 Other: Voiding Method Toilet Toilet Toilet Bedside Commode Bedside Commode Bedside Commode # Voids 2 1 - Labs CBC & Chem 7: 12/31/24 05:32 12/31/24 05:32 Labs: Abnormal Lab Results - Last 24 Hours (Table) 12/30/24 12/30/24 12/30/24 Range/Units 12:02 16:18 20:16 Immature Gran # (0.00-0.04) 10*3/uL Monocytes # (0.20-1.00) 10*3/uL APTT (22.0-30.0) sec Potassium (3.5-5.1) mmol/L POC Glucose (mg/dL) 157 H 211 H 112 H (70-110) mg/dL Total Protein (6.3-8.2) g/dL 12/31/24 12/31/24 12/31/24 Range/Units 05:32 05:32 05:32 Immature Gran # 0.05 H (0.00-0.04) 10*3/uL Monocytes # 1.09 H (0.20-1.00) 10*3/uL APTT 43.2 H (22.0-30.0) sec Potassium 3.4 L (3.5-5.1) mmol/L POC Glucose (mg/dL) (70-110) mg/dL Total Protein 5.9 L (6.3-8.2) g/dL 12/31/24 Range/Units 06:28 Immature Gran # (0.00-0.04) 10*3/uL Monocytes # (0.20-1.00) 10*3/uL APTT (22.0-30.0) sec Potassium (3.5-5.1) mmol/L POC Glucose (mg/dL) 112 H (70-110) mg/dL Total Protein (6.3-8.2) g/dL Microbiology - Last 24 Hours (Table) 12/29/24 17:15 Nasal Screen MRSA/MSSA - Final Nasal Swab
--- NOTE | 2025-01-03 02:33 | P.PN ---
Subjective Progress Note Date: 01/02/25 History of present illness; patient 74-year-old gentleman past medical history significant for diabetes mellitus, hypertension who presented to the ER as a transfer from hospital in [place] for chest pain. Patient stated he was all right couple of weeks back when he started having intermittent shortness of breath and chest pressure, chest pressure was central location, nonradiating, no aggravating or relieving factor associated with chest pressure. Patient went to urgent care and was found to have elevated blood pressure and was referred to [facility] and was later transferred to [facility]. There is no complaint of shortness of breath. Patient denies any palpitation. There is no complaint of orthopnea or PND. Denies any nausea, vomiting abdominal pain. Patient denies any complaint of dizziness. There is no complaint of headache. Initial lab work done in the ER showed WBC 7.20, hemoglobin 16.4, D-dimer 0.24, sodium 141, potassium 3.7, BUN 14, creatinine 0.75, glucose 265, AST 67, ALT 105, troponin 0.085 EKG done in the ER showed heart rate of 56 , no ST segment elevation or depression seen, no T-wave inversions seen. Chest x-ray done in the ER showed no acute cardiopulmonary process Patient admitted to internal medicine service 12/29/2024 Patient is seen in follow-up this morning currently n.p.o. as patient is being evaluated by cardiology and will undergo cardiac catheterization today. Will await official report. Patient is afebrile with no reported chest pain at this time and denies shortness of breath. A.m. labs pending I will follow-up. Repla ce electrolytes per protocol 12/30/2024 Patient is seen in follow-up no acute overnight issues noted. 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 Patient is continued on heparin drip and is tentatively scheduled for CABG on 01/01/2025. Patient will be continued on telemetry monitoring. 01/01/2025 Patient is evaluated in follow-up in the medical floor. He is rescheduled to undergo coronary artery bypass grafting tomorrow on 01/02/2025. His blood glucose has been elevated and he is concerned that he has not been getting his Tuojeo, did let the patient know that we do not carry this medication and he has been getting Lantus 35 units in the morning and we will add a dose in the evening to improve his glycemic control before going for open heart surgery. Additonally patient has only been on sliding scale insulin and he does take 25 units of fast acting with breakfast and dinner and 10 units with lunch. He has no acute complaints at this time. He is evaluated ambulating in the room with family at the bedside. Potassium is better at 3.7. 01/02/2025 Patient currently n.p.o. in OR awaiting to undergo CABG. Will await official report and follow-up with the patient. Review of systems: Constitutional: No reports of fatigue, fever, or chills Cardiovascular: No reports of chest pain or palpitations Respiratory: No reports of shortness of breath or cough GI: No reports of nausea, vomiting, or diarrhea : No reports of dysuria or retention Neurovascular: No reports of weakness or numbness All medications have been reviewed PHYSICAL EXAMINATION: GENERAL: The patient is alert and oriented x3, not in any acute distress. Well developed, elderly appearing, thin built HEENT: Pupils are round and equally reacting to light. EOMI. No scleral icterus. No conjunctival pallor. Normocephalic, atraumatic. No pharyngeal erythema. No th yromegaly. CARDIOVASCULAR: S1 and S2 muffled PULMONARY: Chest is clear to auscultation, no wheezing or crackles. ABDOMEN: Soft, nontender, nondistended, normoactive bowel sounds. No palpable organomegaly. MUSCULOSKELETAL: No joint swelling or deformity. EXTREMITIES: No cyanosis, clubbing, or pedal edema. NEUROLOGICAL: Gross neurological examination did not reveal any focal deficits. SKIN: No rashes. Assessment: Acute coronary syndrome, status post cardiac catheterization 12/29/2024 revealing multivessel disease and scheduled for CABG today 01/02/[address] surgery Hypertension Diabetes mellitus type 2 uncontrolled with hyperglycemia restless leg syndrome Hyperlipidemia Psoriatic arthritis Gastroesophageal reflux disease GI prophylaxis DVT prophylaxis Full code Plan: Patient underwent cardiac catheterization which was noted to have triple-vessel disease being scheduled for CABG with CT surgery today 01/02/2025 will await official report Recommend repeat labs in the a.m. and replace electrolytes per protocol Continue monitoring Accu-Cheks AC and at bedtime and will adjust insulins accordingly. Will be on an insulin drip following surgery tomorrow. Appropriate home medications have been reviewed and resumed We will continue to follow with CT surgery during hospitalization. The impression and plan of care has been dictated by Adry Hernandez, Nurse Practitioner as directed. Dr. Chaitanya MD I have performed a history and physical examination and medical decision making of this patient, discussed the same with the dictator, and agree with the dictators assessment and plan as written, documented as a scribe. Based on total visit time, I have performed more than 50% of this visit. Objective - Vital Signs Vital signs: Vital Signs Temp 97.5 F L 01/02/25 06:18 Pulse 52 L 01/02/25 06:18 Resp 16 01/02/25 06:18 BP 158/72 01/02/25 06:18 Pulse Ox 93 L 01/02/25 06:18 FiO2 Intake & Output 01/01/25 01/02/25 01/02/25 18:59 06:59 18:59 Intake Total 480 100 Balance 480 100 Weight 82.8 kg Intake: IV 100 Oral 480 Other: Voiding Method Toilet Bedside Commode # Voids 3 # Bowel Movements 0 - Labs CBC & Chem 7: 01/02/25 19:32 01/02/25 13:40 Labs: Abnormal Lab Results - Last 24 Hours (Table) 12/31/24 01/01/25 01/01/25 Range/Units 05:32 11:27 16:13 WBC (4.50-10.00) 10*3/uL Immature Gran # (0.00-0.04) 10*3/uL Monocytes # (0.20-1.00) 10*3/uL Eosinophils # (0.04-0.35) 10*3/uL BUN (9-20) mg/dL Glucose (74-99) mg/dL POC Glucose (mg/dL) 237 H 211 H (70-110) mg/dL Crossmatch See Detail 01/01/25 01/02/25 01/02/25 Range/Units 20:01 02:09 05:54 WBC (4.50-10.00) 10*3/uL Immature Gran # (0.00-0.04) 10*3/uL Monocytes # (0.20-1.00) 10*3/uL Eosinophils # (0.04-0.35) 10*3/uL BUN (9-20) mg/dL Glucose (74-99) mg/dL POC Glucose (mg/dL) 271 H 145 H 187 H (70-110) mg/dL Crossmatch 01/02/25 01/02/25 01/02/25 Range/Units 06:00 06:00 06:39 WBC 10.87 H (4.50-10.00) 10*3/uL Immature Gran # 0.07 H (0.00-0.04) 10*3/uL Monocytes # 1.20 H (0.20-1.00) 10*3/uL Eosinophils # 0.40 H (0.04-0.35) 10*3/uL BUN 21 H (9-20) mg/dL Glucose 199 H (74-99) mg/dL POC Glucose (mg/dL) 168 H (70-110) mg/dL Crossmatch
[2025-01-03 04:15] LABS: Glucose,Whole Blood 105 mg/dL (70-110)
[2025-01-03 04:35] LABS: Basophils # (A) 0.05 10*3/uL (0.00-0.10); Basophils % (A) 0.3 %; HCT 36.6 % (39.6-50.0); Lymphocytes # (A) 1.02 10*3/uL (0.90-5.00); Lymphocytes % (A) 6.9 %; MCH 30.7 pg (27.0-32.0); MCHC 32.8 g/dL (32.0-37.0); MCV 93.6 fL (80.0-97.0); Mean Platelet Volume 10.1 fL (9.5-12.2); Monocytes # (A) 1.38 10*3/uL (0.20-1.00); Monocytes % (A) 9.3 %; Neutrophils % (A) 83.1 %; Platelet Count 205 10*3/uL (140-440); RBC 3.91 10*6/uL (4.40-5.60); RDW 13.8 % (11.5-14.5); WBC 14.81 10*3/uL (4.50-10.00)
[2025-01-03 05:32] LABS: Ionized Calcium 4.7 mg/dL (4.5-5.3)
[2025-01-03 05:41] LABS: ALT 26 U/L (4-49); AST 42 U/L (17-59); African American GFR (CKD) >90 (>60 ml/min/1.73 sqM); Albumin 3.3 g/dL (3.5-5.0); Alkaline Phosphatase 41 U/L (38-126); Anion Gap 9 mmol/L; Blood Urea Nitrogen 15 mg/dL (9-20); Calcium 8.6 mg/dL (8.4-10.2); Carbon Dioxide 23 mmol/L (22-30); Chloride 106 mmol/L (98-107); Glucose 102 mg/dL (74-99); Magnesium 2.2 mg/dL (1.6-2.3); Non-African American GFR(CKD) >90 (>60 ml/min/1.73 sqM); Sodium 138 mmol/L (137-145); Total Bilirubin 0.6 mg/dL (0.2-1.3); Total Protein 5.3 g/dL (6.3-8.2)
[2025-01-03 06:09] LABS: Glucose,Whole Blood 144 mg/dL (70-110)
[2025-01-03] MEDS: IPRATROPIUM-ALBUTEROL 3 ML NEB INHALATION SCH (06:20)
[2025-01-03] MEDS: KETOROLAC 15 MG/ML 1 ML VIAL IVP SCH (06:36)
[2025-01-03 07:09] LABS: Glucose,Whole Blood 133 mg/dL (70-110)
--- NOTE | 2025-01-03 07:32 | P.PN ---
Subjective Progress Note Date: 01/03/25 Principal diagnosis: Multivessel coronary artery disease, non-ST elevated myocardial infarction this admission. History of hypertension, hyperlipidemia, diabetes mellitus type 2, right internal carotid artery stenosis, restless leg syndrome, psoriatic arthritis on methotrexate, benign prostatic hypertrophy, GERD, lifelong non- smoker POD #1 coronary artery bypass surgery, left internal mammary artery to the left anterior descending artery, left radial artery to the right coronary artery, saphenous vein graft to the first obtuse marginal branch, endoscopic left radial artery harvest, endoscopic right greater saphenous vein harvest, exclusion of the left atrial appendage with a 35 mm AtriClip, intraoperative transesophageal echocardiogram performed by anesthesia The patient was seen and examined this morning sitting up in recliner in the intensive care unit in no acute distress. He was successfully extubated yesterday 17:48. Remains in sinus rhythm, hemodynamically stable although a bit hypertensive. Currently on IV Cleviprex for hypertension, IV Primacor and nitro which were just shut off. Patient complains of expected postsurgical pain, denies shortness of breath, states he really needs to get sleep. Chest x-ray, labs reviewed. Right internal jugular [place]/Cordis, right radial arterial line, mediastinal/left/right pleural chest tubes all remain. No other new concerns. Objective - Vital Signs Vital signs: Vital Signs Temp 99.3 F 01/03/25 04:00 Pulse 72 01/03/25 07:00 Resp 21 01/03/25 07:00 BP 130/58 01/03/25 07:00 Pulse Ox 96 01/03/25 07:00 FiO2 50 01/02/25 16:39 Intake & Output 01/02/25 01/03/25 01/03/25 18:59 06:59 18:59 Intake Total 614.362 8300.084 75.385 Output Total 2695 1490 80 Balance -2001.648 218.084 -4.615 Weight 85.4 kg Intake: IV 598 968 59 ACETAMINOPHEN IV (For NPO 100 ) 1,000 mg In Empty Bag 1 bag @ 400 mls/hr IVPB Q6HR [facility] Rx#:[id number] Sodium Chloride 0.9% 1, 250 600 50 000 ml @ 30 mls/hr IV . Q24H EZEQUIEL Rx#:[id number] cardiac output 300 110 ceFAZolin 2 gm In 50 Dextrose 5% in Water 50 ml @ 100 mls/hr IVPB ONCE ONE Rx#:[id number] pressure bag 45 108 9 Intake, IV Titration 95.352 260.084 16.385 Amount Clevidipine Butyrate 25 30.867 147.833 11.167 mg In Empty Bag 1 bag @ 1 MG/HR 2 mls/hr IV .Q24H PRN Rx#:[id number] Dexmedetomidine/0.9% NaCl 10.074 (Pmx) 400 mcg In Empty Bag 1 bag @ Titrate IV . Q0M EZEQU[facility]EL Rx#:[id number] Insulin Regular 100 unit 11.934 37.800 5.218 In Sodium Chloride 0.9% 100 ml @ Per Protocol IV .Q0M E[facility]QU[facility]EL Rx#:[id number] Milrinone-D5w Pmx 20 mg 14.656 49.101 In Dextrose/Water 1 100ml .bag @ 0.3 MCG/KG/MIN 7. 452 mls/hr IV .[id number] E[facility]QU[facility] Rx#:[id number] Nitroglycerin-D5w Pmx 50 25.35 mg In Dextrose/Water 1 250ml.bag @ 5 MCG/MIN 1.5 mls/hr IV .Q24H EZEQU[facility]EL Rx#: [id number] propofoL 1,000 mg In 27.821 Empty Bag 1 bag @ Titrate IV .Q0M EZEQUIEL Rx#: [id number] Oral 480 Output: Chest Tube Drainage 320 470 10 Chest Tube Left Pleural 70 130 0 Chest Tube Mediastinal 110 320 10 Chest Tube Right Pleural 140 20 0 Urine 1375 1020 70 Estimated Blood Loss 1000 Other: Voiding Method Indwelling Catheter Indwelling Catheter ABP, PAP, CO, CI - Last Documented Arterial Blood Pressure 125/37 Pulmonary Artery Pressure 21/2 Cardiac Output 6.3 Cardiac Index 3.2 - Exam CONSTITUTIONAL: Appears mostly comfortable, cooperative, no acute distress RESPIRATORY: Lungs sounds diminished bilaterally. Respirations even, nonlabored. Currently on 3 L nasal cannula with oxygen saturation 96%. Able to achieve 2124-5774 mL on incentive spirometry. Strong cough. CARDIOVASCULAR: S1, S2 present. Regular rate and rhythm, sinus rhythm on telemetry. Sternum stable. Palpable peripheral pulses bilaterally. No edema present. No calf pain or tenderness noted. Heart hugger in place with patient demonstrating appropriate use. Antiembolism stockings, SCDs present. GASTROINTESTINAL: Abdomen soft, nontender, nondistended. Hypoactive bowel sounds present 4 quadrants. Tolerating minimal clear liquids. Denies flatus GENITOURINARY: Cole present draining clear, yellow urine. Output overnight 60-100 mL per hour INTEGUMENTARY: Skin is warm and dry with evidence of good perfusion. Anterior chest incision well approximated and covered with dry intact dressing. Left radial artery harvest site as well as right lower extremity EVH site well approximated without redness or drainage. NEUROLOGIC: Cranial nerves II through XII intact MUSKULOSKELETAL: Able to move all extremities, strength equal bilaterally, gait normal PSYCHIATRIC: Alert and oriented to person place and time, appropriate affect, intact judgment and insight INVASIVE LINES AND TUBES: Mediastinal/left/right pleural chest tubes present and connected to wall suction, no air leaks present. Mediastinal tube with 190 mL serosanguineous drainage overnight, 500 mL since surgery. Left pleural chest tube with 50 mL serosanguineous drainage overnight, 270 mL since surgery. Right pleural chest tube with 10 mL serosanguineous drainage overnight, 160 mL since surgery. A/V epicardial pacemaker wires present, connected to generator, backup rate 50 bpm. Right internal jugular [place]/Cordis, right radial arterial line present. Last CO/CI 6.3/3.2, PA 25/5, CVP 5. - Allied health notes Allied health notes reviewed: nursing - Labs CBC & Chem 7: 01/03/25 04:13 01/03/25 04:13 Labs: Abnormal Lab Results - Last 24 Hours (Table) 12/31/24 01/02/25 01/02/25 Range/Units 05:32 06:00 06:00 WBC 10.87 H (4.50-10.00) 10*3/uL RBC (4.40-5.60) 10*6/uL Hgb (13.0-17.0) g/dL Hct (39.6-50.0) % Plt Count (140-440) 10*3/uL Immature Gran # 0.07 H (0.00-0.04) 10*3/uL Neutrophils # (1.80-7.70) 10*3/uL Lymphocytes # (0.90-5.00) 10*3/uL Monocytes # 1.20 H (0.20-1.00) 10*3/uL Eosinophils # 0.40 H (0.04-0.35) 10*3/uL PT (10.0-12.5) sec INR (<1.2) ABG pCO2 (35-45) mmHg ABG pO2 (83-108) mmHg ABG HCO3 (21-25) mmol/L ABG Total CO2 (19-24) mmol/L ABG O2 Saturation (94-97) % ABG Hematocrit (34.0-46.0) % ABG Potassium (3.4-4.5) mmol/L ABG Ionized Calcium (4.5-5.3) mg/dL ABG Glucose (75-99) mg/dL Hemoglobin (13.0-17.5) gm/dL Chloride (98-107) mmol/L BUN 21 H (9-20) mg/dL Creatinine (0.66-1.25) mg/dL Glucose 199 H (74-99) mg/dL POC Glucose (mg/dL) (70-110) mg/dL Magnesium (1.6-2.3) mg/dL Alkaline Phosphatase (38-126) U/L Total Protein (6.3-8.2) g/dL Albumin (3.5-5.0) g/dL Arterial Blood Potassium (3.4-4.5) mmol/L Arterial Blood Glucose (75-99) mg/dL Crossmatch See Detail 01/02/25 01/02/25 01/02/25 Range/Units 08:32 09:49 10:40 WBC (4.50-10.00) 10*3/uL RBC (4.40-5.60) 10*6/uL Hgb (13.0-17.0) g/dL Hct (39.6-50.0) % Plt Count (140-440) 10*3/uL Immature Gran # (0.00-0.04) 10*3/uL Neutrophils # (1.80-7.70) 10*3/uL Lymphocytes # (0.90-5.00) 10*3/uL Monocytes # (0.20-1.00) 10*3/uL Eosinophils # (0.04-0.35) 10*3/uL PT (10.0-12.5) sec INR (<1.2) ABG pCO2 46 H (35-45) mmHg ABG pO2 387 H 127 H 394 H (83-108) mmHg ABG HCO3 26 H 28 H (21-25) mmol/L ABG Total CO2 (19-24) mmol/L ABG O2 Saturation 99.3 H 98.1 H >99.4 H (94-97) % ABG Hematocrit 30 L (34.0-46.0) % ABG Potassium 4.6 H (3.4-4.5) mmol/L ABG Ionized Calcium 4.0 L (4.5-5.3) mg/dL ABG Glucose 168 H 164 H 154 H (75-99) mg/dL Hemoglobin 12.7 L 12.3 L 9.7 L (13.0-17.5) gm/dL Chloride (98-107) mmol/L BUN (9-20) mg/dL Creatinine (0.66-1.25) mg/dL Glucose (74-99) mg/dL POC Glucose (mg/dL) (70-110) mg/dL Magnesium (1.6-2.3) mg/dL Alkaline Phosphatase (38-126) U/L Total Protein (6.3-8.2) g/dL Albumin (3.5-5.0) g/dL Arterial Blood Potassium 4.6 H (3.4-4.5) mmol/L Arterial Blood Glucose 168 H 164 H 154 H (75-99) mg/dL Crossmatch 01/02/25 01/02/25 01/02/25 Range/Units 11:12 11:32 11:46 WBC (4.50-10.00) 10*3/uL RBC (4.40-5.60) 10*6/uL Hgb (13.0-17.0) g/dL Hct (39.6-50.0) % Plt Count (140-440) 10*3/uL Immature Gran # (0.00-0.04) 10*3/uL Neutrophils # (1.80-7.70) 10*3/uL Lymphocytes # (0.90-5.00) 10*3/uL Monocytes # (0.20-1.00) 10*3/uL Eosinophils # (0.04-0.35) 10*3/uL PT (10.0-12.5) sec INR (<1.2) ABG pCO2 46 H (35-45) mmHg ABG pO2 324 H 347 H 363 H (83-108) mmHg ABG HCO3 27 H 27 H 28 H (21-25) mmol/L ABG Total CO2 25 H (19-24) mmol/L ABG O2 Saturation 99.4 H >99.4 H >99.4 H (94-97) % ABG Hematocrit 29 L 30 L 30 L (34.0-46.0) % ABG Potassium 7.5 H* (3.4-4.5) mmol/L ABG Ionized Calcium 4.1 L 4.2 L 4.0 L (4.5-5.3) mg/dL ABG Glucose 157 H 152 H 144 H (75-99) mg/dL Hemoglobin 9.5 L 9.8 L 9.9 L (13.0-17.5) gm/dL Chloride (98-107) mmol/L BUN (9-20) mg/dL Creatinine (0.66-1.25) mg/dL Glucose (74-99) mg/dL POC Glucose (mg/dL) (70-110) mg/dL Magnesium (1.6-2.3) mg/dL Alkaline Phosphatase (38-126) U/L Total Protein (6.3-8.2) g/dL Albumin (3.5-5.0) g/dL Arterial Blood Potassium 7.5 H* (3.4-4.5) mmol/L Arterial Blood Glucose 157 H 152 H 144 H (75-99) mg/dL Crossmatch 01/02/25 01/02/25 01/02/25 Range/Units 11:55 12:01 12:09 WBC (4.50-10.00) 10*3/uL RBC (4.40-5.60) 10*6/uL Hgb (13.0-17.0) g/dL Hct (39.6-50.0) % Plt Count (140-440) 10*3/uL Immature Gran # (0.00-0.04) 10*3/uL Neutrophils # (1.80-7.70) 10*3/uL Lymphocytes # (0.90-5.00) 10*3/uL Monocytes # (0.20-1.00) 10*3/uL Eosinophils # (0.04-0.35) 10*3/uL PT (10.0-12.5) sec INR (<1.2) ABG pCO2 (35-45) mmHg ABG pO2 340 H 344 H 408 H (83-108) mmHg ABG HCO3 (21-25) mmol/L ABG Total CO2 (19-24) mmol/L ABG O2 Saturation 99.4 H >99.4 H >99.4 H (94-97) % ABG Hematocrit 27 L 29 L 29 L (34.0-46.0) % ABG Potassium 5.9 H 5.7 H 5.3 H (3.4-4.5) mmol/L ABG Ionized Calcium 3.6 L 3.7 L 3.6 L (4.5-5.3) mg/dL ABG Glucose 122 H 124 H 137 H (75-99) mg/dL Hemoglobin 8.8 L 9.4 L 9.4 L (13.0-17.5) gm/dL Chloride (98-107) mmol/L BUN (9-20) mg/dL Creatinine (0.66-1.25) mg/dL Glucose (74-99) mg/dL POC Glucose (mg/dL) (70-110) mg/dL Magnesium (1.6-2.3) mg/dL Alkaline Phosphatase (38-126) U/L Total Protein (6.3-8.2) g/dL Albumin (3.5-5.0) g/dL Arterial Blood Potassium 5.9 H 5.7 H 5.3 H (3.4-4.5) mmol/L Arterial Blood Glucose 122 H 124 H 137 H (75-99) mg/dL Crossmatch 01/02/25 01/02/25 01/02/25 Range/Units 13:40 13:40 13:40 WBC 11.25 H (4.50-10.00) 10*3/uL RBC 3.50 L (4.40-5.60) 10*6/uL Hgb 11.0 L D (13.0-17.0) g/dL Hct 32.7 L (39.6-50.0) % Plt Count 138 L (140-440) 10*3/uL Immature Gran # 0.09 H (0.00-0.04) 10*3/uL Neutrophils # 8.62 H (1.80-7.70) 10*3/uL Lymphocytes # (0.90-5.00) 10*3/uL Monocytes # (0.20-1.00) 10*3/uL Eosinophils # (0.04-0.35) 10*3/uL PT 12.7 H (10.0-12.5) sec INR 1.2 H (<1.2) ABG pCO2 (35-45) mmHg ABG pO2 (83-108) mmHg ABG HCO3 (21-25) mmol/L ABG Total CO2 (19-24) mmol/L ABG O2 Saturation (94-97) % ABG Hematocrit (34.0-46.0) % ABG Potassium (3.4-4.5) mmol/L ABG Ionized Calcium (4.5-5.3) mg/dL ABG Glucose (75-99) mg/dL Hemoglobin (13.0-17.5) gm/dL Chloride (98-107) mmol/L BUN (9-20) mg/dL Creatinine (0.66-1.25) mg/dL Glucose (74-99) mg/dL POC Glucose (mg/dL) 135 H (70-110) mg/dL Magnesium (1.6-2.3) mg/dL Alkaline Phosphatase (38-126) U/L Total Protein (6.3-8.2) g/dL Albumin (3.5-5.0) g/dL Arterial Blood Potassium (3.4-4.5) mmol/L Arterial Blood Glucose (75-99) mg/dL Crossmatch 01/02/25 01/02/25 01/02/25 Range/Units 13:40 14:07 15:02 WBC (4.50-10.00) 10*3/uL RBC (4.40-5.60) 10*6/uL Hgb (13.0-17.0) g/dL Hct (39.6-50.0) % Plt Count (140-440) 10*3/uL Immature Gran # (0.00-0.04) 10*3/uL Neutrophils # (1.80-7.70) 10*3/uL Lymphocytes # (0.90-5.00) 10*3/uL Monocytes # (0.20-1.00) 10*3/uL Eosinophils # (0.04-0.35) 10*3/uL PT (10.0-12.5) sec INR (<1.2) ABG pCO2 33 L (35-45) mmHg ABG pO2 (83-108) mmHg ABG HCO3 (21-25) mmol/L ABG Total CO2 (19-24) mmol/L ABG O2 Saturation 98.5 H (94-97) % ABG Hematocrit (34.0-46.0) % ABG Potassium (3.4-4.5) mmol/L ABG Ionized Calcium (4.5-5.3) mg/dL ABG Glucose (75-99) mg/dL Hemoglobin 12.2 L (13.0-17.5) gm/dL Chloride 111 H (98-107) mmol/L BUN (9-20) mg/dL Creatinine 0.64 L (0.66-1.25) mg/dL Glucose 131 H (74-99) mg/dL POC Glucose (mg/dL) 170 H (70-110) mg/dL Magnesium 2.8 H (1.6-2.3) mg/dL Alkaline Phosphatase 35 L (38-126) U/L Total Protein 4.9 L (6.3-8.2) g/dL Albumin 3.1 L (3.5-5.0) g/dL Arterial Blood Potassium (3.4-4.5) mmol/L Arterial Blood Glucose (75-99) mg/dL Crossmatch 01/02/25 01/02/25 01/02/25 Range/Units 16:00 16:20 17:02 WBC 12.32 H (4.50-10.00) 10*3/uL RBC 3.79 L (4.40-5.60) 10*6/uL Hgb 11.9 L (13.0-17.0) g/dL Hct 35.0 L (39.6-50.0) % Plt Count (140-440) 10*3/uL Immature Gran # 0.08 H (0.00-0.04) 10*3/uL Neutrophils # 9.91 H (1.80-7.70) 10*3/uL Lymphocytes # (0.90-5.00) 10*3/uL Monocytes # 1.30 H (0.20-1.00) 10*3/uL Eosinophils # (0.04-0.35) 10*3/uL PT (10.0-12.5) sec INR (<1.2) ABG pCO2 (35-45) mmHg ABG pO2 (83-108) mmHg ABG HCO3 (21-25) mmol/L ABG Total CO2 (19-24) mmol/L ABG O2 Saturation (94-97) % ABG Hematocrit (34.0-46.0) % ABG Potassium (3.4-4.5) mmol/L ABG Ionized Calcium (4.5-5.3) mg/dL ABG Glucose (75-99) mg/dL Hemoglobin (13.0-17.5) gm/dL Chloride (98-107) mmol/L BUN (9-20) mg/dL Creatinine (0.66-1.25) mg/dL Glucose (74-99) mg/dL POC Glucose (mg/dL) 167 H 167 H (70-110) mg/dL Magnesium (1.6-2.3) mg/dL Alkaline Phosphatase (38-126) U/L Total Protein (6.3-8.2) g/dL Albumin (3.5-5.0) g/dL Arterial Blood Potassium (3.4-4.5) mmol/L Arterial Blood Glucose (75-99) mg/dL Crossmatch 01/02/25 01/02/25 01/02/25 Range/Units 17:36 17:53 18:58 WBC (4.50-10.00) 10*3/uL RBC (4.40-5.60) 10*6/uL Hgb (13.0-17.0) g/dL Hct (39.6-50.0) % Plt Count (140-440) 10*3/uL Immature Gran # (0.00-0.04) 10*3/uL Neutrophils # (1.80-7.70) 10*3/uL Lymphocytes # (0.90-5.00) 10*3/uL Monocytes # (0.20-1.00) 10*3/uL Eosinophils # (0.04-0.35) 10*3/uL PT (10.0-12.5) sec INR (<1.2) ABG pCO2 (35-45) mmHg ABG pO2 77 L (83-108) mmHg ABG HCO3 (21-25) mmol/L ABG Total CO2 25 H (19-24) mmol/L ABG O2 Saturation (94-97) % ABG Hematocrit (34.0-46.0) % ABG Potassium (3.4-4.5) mmol/L ABG Ionized Calcium (4.5-5.3) mg/dL ABG Glucose (75-99) mg/dL Hemoglobin 12.6 L (13.0-17.5) gm/dL Chloride (98-107) mmol/L BUN (9-20) mg/dL Creatinine (0.66-1.25) mg/dL Glucose (74-99) mg/dL POC Glucose (mg/dL) 163 H 151 H (70-110) mg/dL Magnesium (1.6-2.3) mg/dL Alkaline Phosphatase (38-126) U/L Total Protein (6.3-8.2) g/dL Albumin (3.5-5.0) g/dL Arterial Blood Potassium (3.4-4.5) mmol/L Arterial Blood Glucose (75-99) mg/dL Crossmatch 01/02/25 01/02/25 01/02/25 Range/Units 19:32 20:19 23:08 WBC 11.73 H (4.50-10.00) 10*3/uL RBC 3.73 L (4.40-5.60) 10*6/uL Hgb 11.7 L (13.0-17.0) g/dL Hct 34.7 L (39.6-50.0) % Plt Count (140-440) 10*3/uL Immature Gran # 0.07 H (0.00-0.04) 10*3/uL Neutrophils # 9.95 H (1.80-7.70) 10*3/uL Lymphocytes # 0.56 L (0.90-5.00) 10*3/uL Monocytes # 1.08 H (0.20-1.00) 10*3/uL Eosinophils # 0.02 L (0.04-0.35) 10*3/uL PT (10.0-12.5) sec INR (<1.2) ABG pCO2 (35-45) mmHg ABG pO2 (83-108) mmHg ABG HCO3 (21-25) mmol/L ABG Total CO2 (19-24) mmol/L ABG O2 Saturation (94-97) % ABG Hematocrit (34.0-46.0) % ABG Potassium (3.4-4.5) mmol/L ABG Ionized Calcium (4.5-5.3) mg/dL ABG Glucose (75-99) mg/dL Hemoglobin (13.0-17.5) gm/dL Chloride (98-107) mmol/L BUN (9-20) mg/dL Creatinine (0.66-1.25) mg/dL Glucose (74-99) mg/dL POC Glucose (mg/dL) 130 H 141 H (70-110) mg/dL Magnesium (1.6-2.3) mg/dL Alkaline Phosphatase (38-126) U/L Total Protein (6.3-8.2) g/dL Albumin (3.5-5.0) g/dL Arterial Blood Potassium (3.4-4.5) mmol/L Arterial Blood Glucose (75-99) mg/dL Crossmatch 01/03/25 01/03/25 01/03/25 Range/Units 00:41 02:03 04:13 WBC 14.81 H (4.50-10.00) 10*3/uL RBC 3.91 L (4.40-5.60) 10*6/uL Hgb 12.0 L (13.0-17.0) g/dL Hct 36.6 L (39.6-50.0) % Plt Count (140-440) 10*3/uL Immature Gran # 0.06 H (0.00-0.04) 10*3/uL Neutrophils # 12.30 H (1.80-7.70) 10*3/uL Lymphocytes # (0.90-5.00) 10*3/uL Monocytes # 1.38 H (0.20-1.00) 10*3/uL Eosinophils # 0.00 L (0.04-0.35) 10*3/uL PT (10.0-12.5) sec INR (<1.2) ABG pCO2 (35-45) mmHg ABG pO2 (83-108) mmHg ABG HCO3 (21-25) mmol/L ABG Total CO2 (19-24) mmol/L ABG O2 Saturation (94-97) % ABG Hematocrit (34.0-46.0) % ABG Potassium (3.4-4.5) mmol/L ABG Ionized Calcium (4.5-5.3) mg/dL ABG Glucose (75-99) mg/dL Hemoglobin (13.0-17.5) gm/dL Chloride (98-107) mmol/L BUN (9-20) mg/dL Creatinine (0.66-1.25) mg/dL Glucose (74-99) mg/dL POC Glucose (mg/dL) 136 H 129 H (70-110) mg/dL Magnesium (1.6-2.3) mg/dL Alkaline Phosphatase (38-126) U/L Total Protein (6.3-8.2) g/dL Albumin (3.5-5.0) g/dL Arterial Blood Potassium (3.4-4.5) mmol/L Arterial Blood Glucose (75-99) mg/dL Crossmatch 01/03/25 01/03/25 01/03/25 Range/Units 04:13 06:08 07:07 WBC (4.50-10.00) 10*3/uL RBC (4.40-5.60) 10*6/uL Hgb (13.0-17.0) g/dL Hct (39.6-50.0) % Plt Count (140-440) 10*3/uL Immature Gran # (0.00-0.04) 10*3/uL Neutrophils # (1.80-7.70) 10*3/uL Lymphocytes # (0.90-5.00) 10*3/uL Monocytes # (0.20-1.00) 10*3/uL Eosinophils # (0.04-0.35) 10*3/uL PT (10.0-12.5) sec INR (<1.2) ABG pCO2 (35-45) mmHg ABG pO2 (83-108) mmHg ABG HCO3 (21-25) mmol/L ABG Total CO2 (19-24) mmol/L ABG O2 Saturation (94-97) % ABG Hematocrit (34.0-46.0) % ABG Potassium (3.4-4.5) mmol/L ABG Ionized Calcium (4.5-5.3) mg/dL ABG Glucose (75-99) mg/dL Hemoglobin (13.0-17.5) gm/dL Chloride (98-107) mmol/L BUN (9-20) mg/dL Creatinine (0.66-1.25) mg/dL Glucose 102 H (74-99) mg/dL POC Glucose (mg/dL) 144 H 133 H (70-110) mg/dL Magnesium (1.6-2.3) mg/dL Alkaline Phosphatase (38-126) U/L Total Protein 5.3 L (6.3-8.2) g/dL Albumin 3.3 L (3.5-5.0) g/dL Arterial Blood Potassium (3.4-4.5) mmol/L Arterial Blood Glucose (75-99) mg/dL Crossmatch - Imaging and Cardiology Chest x-ray: image reviewed Assessment and Plan Assessment: Multivessel coronary artery disease, status post three-vessel CABG Non-ST elevated myocardial infarction this admission Hypertension Hyperlipidemia, treated, cholesterol 150, LDL 86, triglycerides 115 Right internal carotid artery stenosis 50 to 69% Diabetes mellitus type 2, current hemoglobin A1c 7.4% Restless leg syndrome Psoriatic arthritis, on methotrexate Benign prostatic hypertrophy GERD Lifetime non-smoker Plan: Continue to maximize medical therapy with aspirin, statin, Plavix, beta-kailash. Will increase beta-kailash therapy as tolerated IV nitro and Primacor discontinued Will add oral calcium channel kailash for radial artery spasm prophylaxis, wean Cleviprex as tolerated Wean oxygen as tolerated. Encourage incentive spirometry use 10 times every hour while awake. Bronchodilators per pulmonology Will monitor daily labs and x-rays. Electrolyte replacement per protocol. No Lasix today Increase activity, ambulate as tolerated. PT/OT/cardiac rehab consulted GI/DVT prophylaxis Pain control per current medication regimen. Toradol and Robaxin added for better pain control Insulin management per internal medicine. Patient needs to remain on continuous IV insulin for 48 hours, then may transition to subcutaneous per protocol, may restart Farxiga at that point Discontinue [place], connect Cordis to continuous CVP monitoring Continue chest tubes for another 24 hours, monitor and record output Continue Cole catheter for another 24 hours. Continue to monitor and record strict accurate intake and output Will add back in trazodone for sleep although at half dose per patient's request More recommendations to follow
[2025-01-03 08:09] LABS: Glucose,Whole Blood 119 mg/dL (70-110)
[2025-01-03] MEDS: amLODIPine 5 MG TAB PO SCH (08:23)
[2025-01-03] MEDS: METOPROLOL TARTRATE 25 MG TAB PO SCH (08:23)
[2025-01-03] MEDS: ASPIRIN 325 MG TAB PO SCH (08:23)
[2025-01-03] MEDS: CLOPIDOGREL 75 MG TAB PO SCH (08:23)
[2025-01-03] MEDS: ATORVASTATIN 40 MG TAB PO SCH (08:23)
[2025-01-03] MEDS: methocarbamoL 500 MG TAB PO SCH (08:24)
[2025-01-03] MEDS: PANTOPRAZOLE 40 MG/10 ML VIAL IVP SCH (08:24)
--- NOTE | 2025-01-03 08:44 | XR ---
EXAMINATION TYPE: XR chest 1V portable DATE OF EXAM: 01/03/2025 5:35 AM COMPARISON: Chest radiographs from 01/02/2025 TECHNIQUE: XR chest 1V portable Portable AP radiograph of the chest. CLINICAL INDICATION:Male, 74 years old with history of Post Operative Cardiac Surgery; FINDINGS: Lungs/Pleura: There is no evidence of pleural effusion, focal consolidation, or pneumothorax. Pulmonary vascularity: Unremarkable. Heart/mediastinum: Cardiomediastinal silhouette is enlarged and stable. Postoperative changes are pr esent in the mediastinum. Left atrial appendage occlusion devices present. Musculoskeletal: No acute osseous pathology. Other findings: None Lines/Tubes: Bilateral thoracotomy tubes are in stable position. Right IJ approach [place] catheter is in stable position. Interval removal NG and enteric tubes. Stable position of mediastinal drainage catheter. IMPRESSION: Postoperative cardiac surgical changes with interval removal of NG and enteric tubes. Remaining suppo rt lines and tubes are stable. No discrete pneumothorax. [facility], , 01/03/2025 8:42 AM
[2025-01-03] MEDS ORDERED: METOPROLOL TARTRATE 12.5 MG TAB PO SCH (09:00)
[2025-01-03] MEDS ORDERED: MAGNESIUM HYDROXIDE 2,400 MG/30 ML CUP PO PRN (09:00)
[2025-01-03 09:32] LABS: Glucose,Whole Blood 97 mg/dL (70-110)
--- NOTE | 2025-01-03 09:46 | P.PN ---
Subjective Progress Note Date: 01/03/25 patient 74-year-old gentleman past medical history significant for diabetes mellitus, hypertension who presented to the ER as a transfer from hospital in [place] for chest pain. Patient stated he was all right couple of weeks back when he started having intermittent shortness of breath and chest pressure, chest pressure was central location, nonradiating, no aggravating or relieving factor associated with chest pressure. Patient went to urgent care and was found to have elevated blood pressure and was referred to [facility] and was later transferred to [facility]. There is no complaint of shortness of breath. Patient denies any palpitation. There is no complaint of orthopnea or PND. Denies any nausea, vomiting abdominal pain. Patient denies any complaint of dizziness. There is no complaint of headache. Initial lab work done in the ER showed WBC 7.20, hemoglobin 16.4, D-dimer 0.24, sodium 141, potassium 3.7, BUN 14, creatinine 0.75, glucose 265, AST 67, ALT 105, troponin 0.085 EKG done in the ER showed heart rate of 56 , no ST segment elevation or depression seen, no T-wave inversions seen. Chest x-ray done in the ER showed no acute cardiopulmonary process Patient admitted to internal medicine service 12/29/2024 Patient is seen in follow-up this morning currently n.p.o. as patient is being evaluated by cardiology and will undergo cardiac catheterization today. Will await official report. Patient is afebrile with no reported chest pain at this time and denies shortness of breath. A.m. labs pending I will follow-up. Replace electrolytes per protocol 12/30/2024 Patient is seen in follow-up no acute overnight issues noted. 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 Patient is continued on heparin drip and is tentatively scheduled for CABG on 01/01/2025. Patient will be continued on telemetry mo nitoring. 01/01/2025 Patient is evaluated in follow-up in the medical floor. He is rescheduled to undergo coronary artery bypass grafting tomorrow on 01/02/2025. His blood glucose has been elevated and he is concerned that he has not been getting his Tuojeo, did let the patient know that we do not carry this medication and he has been getting Lantus 35 units in the morning and we will add a dose in the evening to improve his glycemic control before going for open heart surgery. Additonally patient has only been on sliding scale insulin and he does take 25 units of fast acting with breakfast and dinner and 10 units with lunch. He has no acute complaints at this time. He is evaluated ambulating in the room with family at the bedside. Potassium is better at 3.7. 01/02/2025 Patient currently n.p.o. in OR awaiting to undergo CABG. Will await official report and follow-up with the patient. 01/03. Patient seen and examined. Sitting upright in the chair. Patient still has chest tubes in. Stated he feels better. REVIEW OF SYSTEMS: CONSTITUTIONAL: No fever, no malaise,. CARDIOVASCULAR: No chest pain, no palpitations, no syncope. PULMONARY: No shortness of breath, no cough, GASTROINTESTINAL: No diarrhea, no nausea, no vomiting, no abdominal pain. NEUROLOGICAL: No headaches, no weakness, PHYSICAL EXAMINATION: GENERAL: The patient is alert and oriented x3, not in any acute distress. Well developed, well nourished. HEENT: Pupils are round and equally reacting to light. EOMI. CARDIOVASCULAR: S1 and S2 present. No murmurs, rubs, or gallops. Sternotomy surgical incision seen, chest tubes in place PULMONARY: Chest is clear to auscultation, no wheezing or crackles. ABDOMEN: Soft, nontender, nondistended, normoactive bowel sounds. No palpable organomegaly. MUSCULOSKELETAL: No joint swelling or deformity. EXTREMITIES: No cyanosis, clubbing, or pedal edema. NEUROLOGICAL: Gross neurological examination did not reveal any focal deficits. SKIN: No rashes. Assessment and plan Acute coronary syndrome, status post cardiac catheterization 12/29/2024 revealing multivessel disease and scheduled for CABG today 01/02/[address] surgery Hypertension Diabetes mellitus type 2 uncontrolled with hyperglycemia restless leg syndrome Hyperlipidemia Psoriatic arthritis Gastroesophageal reflux disease Monitor vital signs Monitor CBC Monitor CMP Continue telemetry monitoring status post four-vessel coronary artery bypass surgery Continue oxygen supplementation Aggressive bronchopulmonary hygiene continue chest tube management per CT surgery Continue insulin drip Continue Primacor Continue Amio drip Cardiac surgery following Pulmonology following Labs and medication were reviewed.. Continue same treatment. Continue with symptomatic treatment. Resume home medication. Monitor labs and vitals. DVT and GI prophylaxis. Further recommendations as per clinical course of the patient Dictation was produced using [employer] dictation software. please excuse any gramm atical, word or spelling errors. Objective - Vital Signs Vital signs: Vital Signs Temp 99.3 F 01/03/25 04:00 Pulse 74 01/03/25 06:00 Resp 37 H 01/03/25 06:00 BP 139/60 01/03/25 06:00 Pulse Ox 96 01/03/25 06:00 FiO2 50 01/02/25 16:39 Intake & Output 01/02/25 01/02/25 01/03/25 06:59 18:59 06:59 Intake Total 100 859.052 0327.901 Output Total 2695 1490 Balance 100 -2001.648 155.901 Weight 82.8 kg 85.4 kg Intake: IV 100 598 948 ACETAMINOPHEN IV (For NPO 100 ) 1,000 mg In Empty Bag 1 bag @ 400 mls/hr IVPB Q6HR EZEQUIEL Rx#:[id number] Sodium Chloride 0.9% 1, 250 600 000 ml @ 50 mls/hr IV . Q20H EZEQIUEL Rx#:[id number] cardiac output 300 90 ceFAZolin 2 gm In 50 Dextrose 5% in Water 50 ml @ 100 mls/hr IVPB ONCE ONE Rx#:[id number] pressure bag 45 108 Intake, IV Titration 95.352 217.901 Amount Clevidipine Butyrate 25 30.867 131.000 mg In Empty Bag 1 bag @ 1 MG/HR 2 mls/hr IV .Q24H PRN Rx#:[id number] Dexmedetomidine/0.9% NaCl 10.074 (Pmx) 400 mcg In Empty Bag 1 bag @ Titrate IV . Q0M EZEQUIEL Rx#:[id number] Insulin Regular 100 unit 11.934 37.800 In Sodium Chloride 0.9% 100 ml @ Per Protocol IV .Q0M EZEQUIEL Rx#:[id number] Milrinone-D5w Pmx 20 mg 14.656 49.101 In Dextrose/Water 1 100ml .bag @ 0.3 MCG/KG/MIN 7. 452 mls/hr IV .[id number] EZEQUIEL Rx#:[id number] propofoL 1,000 mg In 27.821 Empty Bag 1 bag @ Titrate IV .Q0M EZEQUIEL Rx#: [id number] Oral 480 Output: Chest Tube Drainage 320 470 Chest Tube Left Pleural 70 130 Chest Tube Mediastinal 110 320 Chest Tube Right Pleural 140 20 Urine 1375 1020 Estimated Blood Loss 1000 Other: Voiding Method Toilet Indwelling Catheter Indwelling Catheter Bedside Commode ABP, PAP, CO, CI - Last Documented Arterial Blood Pressure 132/30 Pulmonary Artery Pressure 31/10 Cardiac Output 5.8 Cardiac Index 3 - Labs CBC & Chem 7: 01/03/25 04:13 01/03/25 04:13 Labs: Abnormal Lab Results - Last 24 Hours (Table) 12/31/24 01/02/25 01/02/25 Range/Units 05:32 06:00 06:00 WBC 10.87 H (4.50-10.00) 10*3/uL RBC (4.40-5.60) 10*6/uL Hgb (13.0-17.0) g/dL Hct (39.6-50.0) % Plt Count (140-440) 10*3/uL Immature Gran # 0.07 H (0.00-0.04) 10*3/uL Neutrophils # (1.80-7.70) 10*3/uL Lymphocytes # (0.90-5.00) 10*3/uL Monocytes # 1.20 H (0.20-1.00) 10*3/uL Eosinophils # 0.40 H (0.04-0.35) 10*3/uL PT (10.0-12.5) sec INR (<1.2) ABG pCO2 (35-45) mmHg ABG pO2 (83-108) mmHg ABG HCO3 (21-25) mmol/L ABG Total CO2 (19-24) mmol/L ABG O2 Saturation (94-97) % ABG Hematocrit (34.0-46.0) % ABG Potassium (3.4-4.5) mmol/L ABG Ionized Calcium (4.5-5.3) mg/dL ABG Glucose (75-99) mg/dL Hemoglobin (13.0-17.5) gm/dL Chloride (98-107) mmol/L BUN 21 H (9-20) mg/dL Creatinine (0.66-1.25) mg/dL Glucose 199 H (74-99) mg/dL POC Glucose (mg/dL) (70-110) mg/dL Magnesium (1.6-2.3) mg/dL Alkaline Phosphatase (38-126) U/L Total Protein (6.3-8.2) g/dL Albumin (3.5-5.0) g/dL Arterial Blood Potassium (3.4-4.5) mmol/L Arterial Blood Glucose (75-99) mg/dL Crossmatch See Detail 01/02/25 01/02/25 01/02/25 Range/Units 06:39 08:32 09:49 WBC (4.50-10.00) 10*3/uL RBC (4.40-5.60) 10*6/uL Hgb (13.0-17.0) g/dL Hct (39.6-50.0) % Plt Count (140-440) 10*3/uL Immature Gran # (0.00-0.04) 10*3/uL Neutrophils # (1.80-7.70) 10*3/uL Lymphocytes # (0.90-5.00) 10*3/uL Monocytes # (0.20-1.00) 10*3/uL Eosinophils # (0.04-0.35) 10*3/uL PT (10.0-12.5) sec INR (<1.2) ABG pCO2 46 H (35-45) mmHg ABG pO2 387 H 127 H (83-108) mmHg ABG HCO3 26 H (21-25) mmol/L ABG Total CO2 (19-24) mmol/L ABG O2 Saturation 99.3 H 98.1 H (94-97) % ABG Hematocrit (34.0-46.0) % ABG Potassium (3.4-4.5) mmol/L ABG Ionized Calcium (4.5-5.3) mg/dL ABG Glucose 168 H 164 H (75-99) mg/dL Hemoglobin 12.7 L 12.3 L (13.0-17.5) gm/dL Chloride (98-107) mmol/L BUN (9-20) mg/dL Creatinine (0.66-1.25) mg/dL Glucose (74-99) mg/dL POC Glucose (mg/dL) 168 H (70-110) mg/dL Magnesium (1.6-2.3) mg/dL Alkaline Phosphatase (38-126) U/L Total Protein (6.3-8.2) g/dL Albumin (3.5-5.0) g/dL Arterial Blood Potassium (3.4-4.5) mmol/L Arterial Blood Glucose 168 H 164 H (75-99) mg/dL Crossmatch 01/02/25 01/02/25 01/02/25 Range/Units 10:40 11:12 11:32 WBC (4.50-10.00) 10*3/uL RBC (4.40-5.60) 10*6/uL Hgb (13.0-17.0) g/dL Hct (39.6-50.0) % Plt Count (140-440) 10*3/uL Immature Gran # (0.00-0.04) 10*3/uL Neutrophils # (1.80-7.70) 10*3/uL Lymphocytes # (0.90-5.00) 10*3/uL Monocytes # (0.20-1.00) 10*3/uL Eosinophils # (0.04-0.35) 10*3/uL PT (10.0-12.5) sec INR (<1.2) ABG pCO2 (35-45) mmHg ABG pO2 394 H 324 H 347 H (83-108) mmHg ABG HCO3 28 H 27 H 27 H (21-25) mmol/L ABG Total CO2 25 H (19-24) mmol/L ABG O2 Saturation >99.4 H 99.4 H >99.4 H (94-97) % ABG Hematocrit 30 L 29 L 30 L (34.0-46.0) % ABG Potassium 4.6 H (3.4-4.5) mmol/L ABG Ionized Calcium 4.0 L 4.1 L 4.2 L (4.5-5.3) mg/dL ABG Glucose 154 H 157 H 152 H (75-99) mg/dL Hemoglobin 9.7 L 9.5 L 9.8 L (13.0-17.5) gm/dL Chloride (98-107) mmol/L BUN (9-20) mg/dL Creatinine (0.66-1.25) mg/dL Glucose (74-99) mg/dL POC Glucose (mg/dL) (70-110) mg/dL Magnesium (1.6-2.3) mg/dL Alkaline Phosphatase (38-126) U/L Total Protein (6.3-8.2) g/dL Albumin (3.5-5.0) g/dL Arterial Blood Potassium 4.6 H (3.4-4.5) mmol/L Arterial Blood Glucose 154 H 157 H 152 H (75-99) mg/dL Crossmatch 01/02/25 01/02/25 01/02/25 Range/Units 11:46 11:55 12:01 WBC (4.50-10.00) 10*3/uL RBC (4.40-5.60) 10*6/uL Hgb (13.0-17.0) g/dL Hct (39.6-50.0) % Plt Count (140-440) 10*3/uL Immature Gran # (0.00-0.04) 10*3/uL Neutrophils # (1.80-7.70) 10*3/uL Lymphocytes # (0.90-5.00) 10*3/uL Monocytes # (0.20-1.00) 10*3/uL Eosinophils # (0.04-0.35) 10*3/uL PT (10.0-12.5) sec INR (<1.2) ABG pCO2 46 H (35-45) mmHg ABG pO2 363 H 340 H 344 H (83-108) mmHg ABG HCO3 28 H (21-25) mmol/L ABG Total CO2 (19-24) mmol/L ABG O2 Saturation >99.4 H 99.4 H >99.4 H (94-97) % ABG Hematocrit 30 L 27 L 29 L (34.0-46.0) % ABG Potassium 7.5 H* 5.9 H 5.7 H (3.4-4.5) mmol/L ABG Ionized Calcium 4.0 L 3.6 L 3.7 L (4.5-5.3) mg/dL ABG Glucose 144 H 122 H 124 H (75-99) mg/dL Hemoglobin 9.9 L 8.8 L 9.4 L (13.0-17.5) gm/dL Chloride (98-107) mmol/L BUN (9-20) mg/dL Creatinine (0.66-1.25) mg/dL Glucose (74-99) mg/dL POC Glucose (mg/dL) (70-110) mg/dL Magnesium (1.6-2.3) mg/dL Alkaline Phosphatase (38-126) U/L Total Protein (6.3-8.2) g/dL Albumin (3.5-5.0) g/dL Arterial Blood Potassium 7.5 H* 5.9 H 5.7 H (3.4-4.5) mmol/L Arterial Blood Glucose 144 H 122 H 124 H (75-99) mg/dL Crossmatch 01/02/25 01/02/25 01/02/25 Range/Units 12:09 13:40 13:40 WBC 11.25 H (4.50-10.00) 10*3/uL RBC 3.50 L (4.40-5.60) 10*6/uL Hgb 11.0 L D (13.0-17.0) g/dL Hct 32.7 L (39.6-50.0) % Plt Count 138 L (140-440) 10*3/uL Immature Gran # 0.09 H (0.00-0.04) 10*3/uL Neutrophils # 8.62 H (1.80-7.70) 10*3/uL Lymphocytes # (0.90-5.00) 10*3/uL Monocytes # (0.20-1.00) 10*3/uL Eosinophils # (0.04-0.35) 10*3/uL PT (10.0-12.5) sec INR (<1.2) ABG pCO2 (35-45) mmHg ABG pO2 408 H (83-108) mmHg ABG HCO3 (21-25) mmol/L ABG Total CO2 (19-24) mmol/L ABG O2 Saturation >99.4 H (94-97) % ABG Hematocrit 29 L (34.0-46.0) % ABG Potassium 5.3 H (3.4-4.5) mmol/L ABG Ionized Calcium 3.6 L (4.5-5.3) mg/dL ABG Glucose 137 H (75-99) mg/dL Hemoglobin 9.4 L (13.0-17.5) gm/dL Chloride (98-107) mmol/L BUN (9-20) mg/dL Creatinine (0.66-1.25) mg/dL Glucose (74-99) mg/dL POC Glucose (mg/dL) 135 H (70-110) mg/dL Magnesium (1.6-2.3) mg/dL Alkaline Phosphatase (38-126) U/L Total Protein (6.3-8.2) g/dL Albumin (3.5-5.0) g/dL Arterial Blood Potassium 5.3 H (3.4-4.5) mmol/L Arterial Blood Glucose 137 H (75-99) mg/dL Crossmatch 01/02/25 01/02/25 01/02/25 Range/Units 13:40 13:40 14:07 WBC (4.50-10.00) 10*3/uL RBC (4.40-5.60) 10*6/uL Hgb (13.0-17.0) g/dL Hct (39.6-50.0) % Plt Count (140-440) 10*3/uL Immature Gran # (0.00-0.04) 10*3/uL Neutrophils # (1.80-7.70) 10*3/uL Lymphocytes # (0.90-5.00) 10*3/uL Monocytes # (0.20-1.00) 10*3/uL Eosinophils # (0.04-0.35) 10*3/uL PT 12.7 H (10.0-12.5) sec INR 1.2 H (<1.2) ABG pCO2 33 L (35-45) mmHg ABG pO2 (83-108) mmHg ABG HCO3 (21-25) mmol/L ABG Total CO2 (19-24) mmol/L ABG O2 Saturation 98.5 H (94-97) % ABG Hematocrit (34.0-46.0) % ABG Potassium (3.4-4.5) mmol/L ABG Ionized Calcium (4.5-5.3) mg/dL ABG Glucose (75-99) mg/dL Hemoglobin 12.2 L (13.0-17.5) gm/dL Chloride 111 H (98-107) mmol/L BUN (9-20) mg/dL Creatinine 0.64 L (0.66-1.25) mg/dL Glucose 131 H (74-99) mg/dL POC Glucose (mg/dL) (70-110) mg/dL Magnesium 2.8 H (1.6-2.3) mg/dL Alkaline Phosphatase 35 L (38-126) U/L Total Protein 4.9 L (6.3-8.2) g/dL Albumin 3.1 L (3.5-5.0) g/dL Arterial Blood Potassium (3.4-4.5) mmol/L Arterial Blood Glucose (75-99) mg/dL Crossmatch 01/02/25 01/02/25 01/02/25 Range/Units 15:02 16:00 16:20 WBC 12.32 H (4.50-10.00) 10*3/uL RBC 3.79 L (4.40-5.60) 10*6/uL Hgb 11.9 L (13.0-17.0) g/dL Hct 35.0 L (39.6-50.0) % Plt Count (140-440) 10*3/uL Immature Gran # 0.08 H (0.00-0.04) 10*3/uL Neutrophils # 9.91 H (1.80-7.70) 10*3/uL Lymphocytes # (0.90-5.00) 10*3/uL Monocytes # 1.30 H (0.20-1.00) 10*3/uL Eosinophils # (0.04-0.35) 10*3/uL PT (10.0-12.5) sec INR (<1.2) ABG pCO2 (35-45) mmHg ABG pO2 (83-108) mmHg ABG HCO3 (21-25) mmol/L ABG Total CO2 (19-24) mmol/L ABG O2 Saturation (94-97) % ABG Hematocrit (34.0-46.0) % ABG Potassium (3.4-4.5) mmol/L ABG Ionized Calcium (4.5-5.3) mg/dL ABG Glucose (75-99) mg/dL Hemoglobin (13.0-17.5) gm/dL Chloride (98-107) mmol/L BUN (9-20) mg/dL Creatinine (0.66-1.25) mg/dL Glucose (74-99) mg/dL POC Glucose (mg/dL) 170 H 167 H (70-110) mg/dL Magnesium (1.6-2.3) mg/dL Alkaline Phosphatase (38-126) U/L Total Protein (6.3-8.2) g/dL Albumin (3.5-5.0) g/dL Arterial Blood Potassium (3.4-4.5) mmol/L Arterial Blood Glucose (75-99) mg/dL Crossmatch 01/02/25 01/02/25 01/02/25 Range/Units 17:02 17:36 17:53 WBC (4.50-10.00) 10*3/uL RBC (4.40-5.60) 10*6/uL Hgb (13.0-17.0) g/dL Hct (39.6-50.0) % Plt Count (140-440) 10*3/uL Immature Gran # (0.00-0.04) 10*3/uL Neutrophils # (1.80-7.70) 10*3/uL Lymphocytes # (0.90-5.00) 10*3/uL Monocytes # (0.20-1.00) 10*3/uL Eosinophils # (0.04-0.35) 10*3/uL PT (10.0-12.5) sec INR (<1.2) ABG pCO2 (35-45) mmHg ABG pO2 77 L (83-108) mmHg ABG HCO3 (21-25) mmol/L ABG Total CO2 25 H (19-24) mmol/L ABG O2 Saturation (94-97) % ABG Hematocrit (34.0-46.0) % ABG Potassium (3.4-4.5) mmol/L ABG Ionized Calcium (4.5-5.3) mg/dL ABG Glucose (75-99) mg/dL Hemoglobin 12.6 L (13.0-17.5) gm/dL Chloride (98-107) mmol/L BUN (9-20) mg/dL Creatinine (0.66-1.25) mg/dL Glucose (74-99) mg/dL POC Glucose (mg/dL) 167 H 163 H (70-110) mg/dL Magnesium (1.6-2.3) mg/dL Alkaline Phosphatase (38-126) U/L Total Protein (6.3-8.2) g/dL Albumin (3.5-5.0) g/dL Arterial Blood Potassium (3.4-4.5) mmol/L Arterial Blood Glucose (75-99) mg/dL Crossmatch 01/02/25 01/02/25 01/02/25 Range/Units 18:58 19:32 20:19 WBC 11.73 H (4.50-10.00) 10*3/uL RBC 3.73 L (4.40-5.60) 10*6/uL Hgb 11.7 L (13.0-17.0) g/dL Hct 34.7 L (39.6-50.0) % Plt Count (140-440) 10*3/uL Immature Gran # 0.07 H (0.00-0.04) 10*3/uL Neutrophils # 9.95 H (1.80-7.70) 10*3/uL Lymphocytes # 0.56 L (0.90-5.00) 10*3/uL Monocytes # 1.08 H (0.20-1.00) 10*3/uL Eosinophils # 0.02 L (0.04-0.35) 10*3/uL PT (10.0-12.5) sec INR (<1.2) ABG pCO2 (35-45) mmHg ABG pO2 (83-108) mmHg ABG HCO3 (21-25) mmol/L ABG Total CO2 (19-24) mmol/L ABG O2 Saturation (94-97) % ABG Hematocrit (34.0-46.0) % ABG Potassium (3.4-4.5) mmol/L ABG Ionized Calcium (4.5-5.3) mg/dL ABG Glucose (75-99) mg/dL Hemoglobin (13.0-17.5) gm/dL Chloride (98-107) mmol/L BUN (9-20) mg/dL Creatinine (0.66-1.25) mg/dL Glucose (74-99) mg/dL POC Glucose (mg/dL) 151 H 130 H (70-110) mg/dL Magnesium (1.6-2.3) mg/dL Alkaline Phosphatase (38-126) U/L Total Protein (6.3-8.2) g/dL Albumin (3.5-5.0) g/dL Arterial Blood Potassium (3.4-4.5) mmol/L Arterial Blood Glucose (75-99) mg/dL Crossmatch 01/02/25 01/03/25 01/03/25 Range/Units 23:08 00:41 02:03 WBC (4.50-10.00) 10*3/uL RBC (4.40-5.60) 10*6/uL Hgb (13.0-17.0) g/dL Hct (39.6-50.0) % Plt Count (140-440) 10*3/uL Immature Gran # (0.00-0.04) 10*3/uL Neutrophils # (1.80-7.70) 10*3/uL Lymphocytes # (0.90-5.00) 10*3/uL Monocytes # (0.20-1.00) 10*3/uL Eosinophils # (0.04-0.35) 10*3/uL PT (10.0-12.5) sec INR (<1.2) ABG pCO2 (35-45) mmHg ABG pO2 (83-108) mmHg ABG HCO3 (21-25) mmol/L ABG Total CO2 (19-24) mmol/L ABG O2 Saturation (94-97) % ABG Hematocrit (34.0-46.0) % ABG Potassium (3.4-4.5) mmol/L ABG Ionized Calcium (4.5-5.3) mg/dL ABG Glucose (75-99) mg/dL Hemoglobin (13.0-17.5) gm/dL Chloride (98-107) mmol/L BUN (9-20) mg/dL Creatinine (0.66-1.25) mg/dL Glucose (74-99) mg/dL POC Glucose (mg/dL) 141 H 136 H 129 H (70-110) mg/dL Magnesium (1.6-2.3) mg/dL Alkaline Phosphatase (38-126) U/L Total Protein (6.3-8.2) g/dL Albumin (3.5-5.0) g/dL Arterial Blood Potassium (3.4-4.5) mmol/L Arterial Blood Glucose (75-99) mg/dL Crossmatch 01/03/25 01/03/25 01/03/25 Range/Units 04:13 04:13 06:08 WBC 14.81 H (4.50-10.00) 10*3/uL RBC 3.91 L (4.40-5.60) 10*6/uL Hgb 12.0 L (13.0-17.0) g/dL Hct 36.6 L (39.6-50.0) % Plt Count (140-440) 10*3/uL Immature Gran # 0.06 H (0.00-0.04) 10*3/uL Neutrophils # 12.30 H (1.80-7.70) 10*3/uL Lymphocytes # (0.90-5.00) 10*3/uL Monocytes # 1.38 H (0.20-1.00) 10*3/uL Eosinophils # 0.00 L (0.04-0.35) 10*3/uL PT (10.0-12.5) sec INR (<1.2) ABG pCO2 (35-45) mmHg ABG pO2 (83-108) mmHg ABG HCO3 (21-25) mmol/L ABG Total CO2 (19-24) mmol/L ABG O2 Saturation (94-97) % ABG Hematocrit (34.0-46.0) % ABG Potassium (3.4-4.5) mmol/L ABG Ionized Calcium (4.5-5.3) mg/dL ABG Glucose (75-99) mg/dL Hemoglobin (13.0-17.5) gm/dL Chloride (98-107) mmol/L BUN (9-20) mg/dL Creatinine (0.66-1.25) mg/dL Glucose 102 H (74-99) mg/dL POC Glucose (mg/dL) 144 H (70-110) mg/dL Magnesium (1.6-2.3) mg/dL Alkaline Phosphatase (38-126) U/L Total Protein 5.3 L (6.3-8.2) g/dL Albumin 3.3 L (3.5-5.0) g/dL Arterial Blood Potassium (3.4-4.5) mmol/L Arterial Blood Glucose (75-99) mg/dL Crossmatch
[2025-01-03 10:10] LABS: Glucose,Whole Blood 114 mg/dL (70-110)
[2025-01-03 11:17] LABS: Glucose,Whole Blood 126 mg/dL (70-110)
[2025-01-03] MEDS: METOPROLOL TARTRATE 25 MG TAB PO STA (11:42)
[2025-01-03 12:10] LABS: Glucose,Whole Blood 150 mg/dL (70-110)
[2025-01-03 13:11] LABS: Glucose,Whole Blood 138 mg/dL (70-110)
--- NOTE | 2025-01-03 13:38 | P.PN ---
Subjective Progress Note Date: 01/03/25 This is a 74-year-old male patient who presented to the emergency department with symptoms of exertional dyspnea and the patient was found to have elevated troponins. The patient ruled in for an acute non-ST segment elevation myocardial infarction. EKG showed sinus bradycardia with a heart rate of 56 and the patient had nonspecific T wave abnormalities. Chest x-ray showed no acute cardiopulmonary abnormalities. 2D echocardiogram showed a preserved LV function with an EF of around 50 to 55% without any significant valvular abnormalities. The patient underwent cardiac catheterization patient had a cath on 12/29/2024 and the cath showed a 30 to 50% stenosis of the proximal LAD, 95% stenosis of the mid LAD and 100% diagnosis to diagonal and 80% stenosis in a diagonal #2 and 99% stenosis of the obtuse marginal and 90% stenosis of the RCA. Subsequently, the patient was seen by cardiothoracic surgery and the patient is going to undergo cardiac bypass surgery. The patient is currently on IV heparin. Free of any chest pain. Resting comfortably in bed. On room air oxygen. The patient is known to have diabetes mellitus type 2, hypertension hyperlipidemia and BPH along with acid reflux and psoriatic arthritis. He also has chronic restless leg syndrome. He is a lifetime non-smoker. He has a good performance and functional status. CAT scan of the chest was done on 12/29/2024 and it showed mild to moderate atherosclerotic plaques involving the aortic arch. No evidence of any aneurysm. EKG from this morning is showing sinus bradycardia with a heart rate of 57. T wave inversions are still present over the anterolateral and inferior leads. No ST segment elevations. The patient has a white cell count of 7.4 with a heme of 15.7 and platelet count of 202. Normal coagulation profile. Normal electrolytes. Normal renal function. Troponins peaked at 0.08. LFTs are normal. UA showing plus for glucose, hepatitis profile has been negative. Thyroid function tests were normal. Carotid ultrasound showed 50 to 69% stenosis on the right carotid bifurcation and less than 50% on the left. On 12/31/2024, the patient is resting comfortably in bed. No new complaints. Remains free of any chest pain. The patient remains on IV heparin. Hemodynamically stable. The plan is to proceed with coronary bypass surgery tomorrow. White cell is not 0.5 with a hemoglobin 15.4 and platelet count of 220. Electrolytes are within normal limits. BUN is 19 with creatinine 0.8. He remains on room air oxygen the patient using incentive spirometry. Pulse ox 94% on room air oxygen. No other significant events otherwise. On today's evaluation of 01/01/2025, the patient is on the stepdown cardiac unit. Sitting up in bed without any complaints. Alert and oriented x 3. Free of any chest pain. Awaiting coronary artery bypass surgery and this will be done by Dr. Shah tomorrow. Remains on room air oxygen using the incentive spirometer. He remains in a first-degree AV block and heart rate remains bradycardic. As such, the patient is not receiving any form of beta-blockers for now. The patient has no specific complaints. Remains on IV heparin. on 01/02/2025, the patient is being seen in the intensive care unit as the patient underwent four-vessel bypass surgery. Postop, the patient was brought in to the intensive care unit intubated on the mechanical ventilator. The patient currently sedated on propofol and patient is currently on 30 mcg/kg/min. The patient is assist-control mode of mechanical ventilation at rate of 12, tidal volume of 550, FiO2 of 100% with a PEEP of 5. Chest x-ray and blood gas are still pending for now. Meanwhile, immediately postop, the patient was found to have a cardiac index of 1.7 and the patient was started on Primacor and the most recent cardiac output is at 5 with an index of 2.6. Primacor is running at 0.3 mc /kg/min and the PA pressures are 39/17. The patient is currently on Primacor infusion augmented cardiac output and and the patient is on nitroglycerin drip at 5 mcg/min. Urine output is adequate. The patient is producing good urine output. Awaiting chest x-ray and blood gases. For now, the patient has a mediastinal and the left pleural chest tube and output is minimal and there is no evidence of any air leak from the chest tubes. 01/03/2025, the patient is postop day #1. The patient was weaned off the mechanical ventilator and the patient was extubated without any major difficulties. The patient was also taken off the Primacor and nitroglycerin drip. The patient is doing well for now. Hemodynamically stable. Urine output is being monitored. Using incentive spirometer. Chest x-ray shows no acute abnormalities. The patient continues to have a right pleural, mediastinal left pleural chest tube. Chest x-ray shows some atelectatic changes in the lung bases. NG tube has been removed. Orotracheal tubes were removed. [place] catheter has been removed. Blood work shows a white cell count of 14 with a hemoglobin of 12 and a platelet count of 205. The sodium is at 138, potassium is at 4, BUN is 50 with a creatinine of 0.66. LFTs are normal. Awake alert and communicating. No other significant events overnight. No focal neurological deficits. Objective - Vital Signs Vital signs: Vital Signs Temp 99.3 F 01/03/25 08:00 Pulse 73 01/03/25 09:15 Resp 21 01/03/25 09:15 BP 130/58 01/03/25 07:00 Pulse Ox 99 01/03/25 09:15 FiO2 50 01/02/25 16:39 Intake & Output 01/02/25 01/03/25 01/03/25 18:59 06:59 18:59 Intake Total 277.293 5122.084 183.368 Output Total 2695 1490 135 Balance -2001.648 218.084 48.368 Weight 85.4 kg Intake: IV 598 968 157 ACETAMINOPHEN IV (For NPO 100 ) 1,000 mg In Empty Bag 1 bag @ 400 mls/hr IVPB Q6HR [facility] Rx#:[id number] Sodium Chloride 0.9% 1, 250 600 110 000 ml @ 30 mls/hr IV . Q24H E[facility]QU[facility] Rx#:[id number] cardiac output 300 110 20 ceFAZolin 2 gm In 50 Dextrose 5% in Water 50 ml @ 100 mls/hr IVPB ONCE ONE Rx#:[id number] pressure bag 45 108 27 Intake, IV Titration 95.352 260.084 26.368 Amount Clevidipine Butyrate 25 30.867 147.833 11.167 mg In Empty Bag 1 bag @ 1 MG/HR 2 mls/hr IV .Q24H PRN Rx#:[id number] Dexmedetomidine/0.9% NaCl 10.074 (Pmx) 400 mcg In Empty Bag 1 bag @ Titrate IV . Q0M [facility] Rx#:[id number] Insulin Regular 100 unit 11.934 37.800 15.201 In Sodium Chloride 0.9% 100 ml @ Per Protocol IV .Q0M [facility] Rx#:[id number] Milrinone-D5w Pmx 20 mg 14.656 49.101 In Dextrose/Water 1 100ml .bag @ 0.3 MCG/KG/MIN 7. 452 mls/hr IV .[id number] [facility] Rx#:[id number] Nitroglycerin-D5w Pmx 50 25.35 mg In Dextrose/Water 1 250ml.bag @ 5 MCG/MIN 1.5 mls/hr IV .Q24H [facility] Rx#: [id number] propofoL 1,000 mg In 27.821 Empty Bag 1 bag @ Titrate IV .Q0M E[facility]QU[facility]EL Rx#: [id number] Oral 480 Output: Chest Tube Drainage 320 470 40 Chest Tube Left Pleural 70 130 20 Chest Tube Mediastinal 110 320 20 Chest Tube Right Pleural 140 20 0 Urine 1375 1020 95 Estimated Blood Loss 1000 Other: Voiding Method Indwelling Catheter Indwelling Catheter Indwelling Catheter ABP, PAP, CO, CI - Last Documented Arterial Blood Pressure 148/52 Pulmonary Artery Pressure 33/13 Cardiac Output 4.2 Cardiac Index 2.2 - Exam CONSTITUTIONAL: Appears mostly comfortable, cooperative, no acute distress RESPIRATORY: Lungs sounds diminished bilaterally. Respirations even, nonlabored. Currently on 3 L nasal cannula with oxygen saturation 96%. Able to achieve 5451-9733 mL on incentive spirometry. Strong cough. CARDIOVASCULAR: S1, S2 present. Regular rate and rhythm, sinus rhythm on telemetry. Sternum stable. Palpable peripheral pulses bilaterally. No edema present. No calf pain or tenderness noted. Heart hugger in place with patient demonstrating appropriate use. Antiembolism stockings, SCDs present. GASTROINTESTINAL: Abdomen soft, nontender, nondistended. Hypoactive bowel sounds present 4 quadrants. Tolerating minimal clear liquids. Denies flatus GENITOURINARY: Cole present draining clear, yellow urine. Output overnight 60-100 mL per hour INTEGUMENTARY: Skin is warm and dry with evidence of good perfusion. Anterior chest incision well approximated and covered with dry intact dressing. Left radial artery harvest site as well as right lower extremity EVH site well approximated without redness or drainage. NEUROLOGIC: Cranial nerves II through XII intact MUSKULOSKELETAL: Able to move all extremities, strength equal bilaterally, gait normal PSYCHIATRIC: Alert and oriented to person place and time, appropriate affect, intact judgment and insight INVASIVE LINES AND TUBES: Mediastinal/left/right pleural chest tubes present and connected to wall suction, no air leaks present. Mediastinal tube with 190 mL serosanguineous drainage overnight, 500 mL since surgery. Left pleural chest tube with 50 mL serosanguineous drainage overnight, 270 mL since surgery. Right pleural chest tube with 10 mL serosanguineous drainage overnight, 160 mL since surgery. A/V epicardial pacemaker wires present, connected to generator, backup rate 50 bpm. Right internal jugular [place], right radial arterial line present. Last CO/CI 6.3/3.2, PA 25/5, CVP 5. - Labs CBC & Chem 7: 01/03/25 04:13 01/03/25 04:13 Labs: Abnormal Lab Results - Last 24 Hours (Table) 12/31/24 01/02/25 01/02/25 Range/Units 05:32 08:32 09:49 WBC (4.50-10.00) 10*3/uL RBC (4.40-5.60) 10*6/uL Hgb (13.0-17.0) g/dL Hct (39.6-50.0) % Plt Count (140-440) 10*3/uL Immature Gran # (0.00-0.04) 10*3/uL Neutrophils # (1.80-7.70) 10*3/uL Lymphocytes # (0.90-5.00) 10*3/uL Monocytes # (0.20-1.00) 10*3/uL Eosinophils # (0.04-0.35) 10*3/uL PT (10.0-12.5) sec INR (<1.2) ABG pCO2 46 H (35-45) mmHg ABG pO2 387 H 127 H (83-108) mmHg ABG HCO3 26 H (21-25) mmol/L ABG Total CO2 (19-24) mmol/L ABG O2 Saturation 99.3 H 98.1 H (94-97) % ABG Hematocrit (34.0-46.0) % ABG Potassium (3.4-4.5) mmol/L ABG Ionized Calcium (4.5-5.3) mg/dL ABG Glucose 168 H 164 H (75-99) mg/dL Hemoglobin 12.7 L 12.3 L (13.0-17.5) gm/dL Chloride (98-107) mmol/L Creatinine (0.66-1.25) mg/dL Glucose (74-99) mg/dL POC Glucose (mg/dL) (70-110) mg/dL Magnesium (1.6-2.3) mg/dL Alkaline Phosphatase (38-126) U/L Total Protein (6.3-8.2) g/dL Albumin (3.5-5.0) g/dL Arterial Blood Potassium (3.4-4.5) mmol/L Arterial Blood Glucose 168 H 164 H (75-99) mg/dL Crossmatch See Detail 01/02/25 01/02/25 01/02/25 Range/Units 10:40 11:12 11:32 WBC (4.50-10.00) 10*3/uL RBC (4.40-5.60) 10*6/uL Hgb (13.0-17.0) g/dL Hct (39.6-50.0) % Plt Count (140-440) 10*3/uL Immature Gran # (0.00-0.04) 10*3/uL Neutrophils # (1.80-7.70) 10*3/uL Lymphocytes # (0.90-5.00) 10*3/uL Monocytes # (0.20-1.00) 10*3/uL Eosinophils # (0.04-0.35) 10*3/uL PT (10.0-12.5) sec INR (<1.2) ABG pCO2 (35-45) mmHg ABG pO2 394 H 324 H 347 H (83-108) mmHg ABG HCO3 28 H 27 H 27 H (21-25) mmol/L ABG Total CO2 25 H (19-24) mmol/L ABG O2 Saturation >99.4 H 99.4 H >99.4 H (94-97) % ABG Hematocrit 30 L 29 L 30 L (34.0-46.0) % ABG Potassium 4.6 H (3.4-4.5) mmol/L ABG Ionized Calcium 4.0 L 4.1 L 4.2 L (4.5-5.3) mg/dL ABG Glucose 154 H 157 H 152 H (75-99) mg/dL Hemoglobin 9.7 L 9.5 L 9.8 L (13.0-17.5) gm/dL Chloride (98-107) mmol/L Creatinine (0.66-1.25) mg/dL Glucose (74-99) mg/dL POC Glucose (mg/dL) (70-110) mg/dL Magnesium (1.6-2.3) mg/dL Alkaline Phosphatase (38-126) U/L Total Protein (6.3-8.2) g/dL Albumin (3.5-5.0) g/dL Arterial Blood Potassium 4.6 H (3.4-4.5) mmol/L Arterial Blood Glucose 154 H 157 H 152 H (75-99) mg/dL Crossmatch 01/02/25 01/02/25 01/02/25 Range/Units 11:46 11:55 12:01 WBC (4.50-10.00) 10*3/uL RBC (4.40-5.60) 10*6/uL Hgb (13.0-17.0) g/dL Hct (39.6-50.0) % Plt Count (140-440) 10*3/uL Immature Gran # (0.00-0.04) 10*3/uL Neutrophils # (1.80-7.70) 10*3/uL Lymphocytes # (0.90-5.00) 10*3/uL Monocytes # (0.20-1.00) 10*3/uL Eosinophils # (0.04-0.35) 10*3/uL PT (10.0-12.5) sec INR (<1.2) ABG pCO2 46 H (35-45) mmHg ABG pO2 363 H 340 H 344 H (83-108) mmHg ABG HCO3 28 H (21-25) mmol/L ABG Total CO2 (19-24) mmol/L ABG O2 Saturation >99.4 H 99.4 H >99.4 H (94-97) % ABG Hematocrit 30 L 27 L 29 L (34.0-46.0) % ABG Potassium 7.5 H* 5.9 H 5.7 H (3.4-4.5) mmol/L ABG Ionized Calcium 4.0 L 3.6 L 3.7 L (4.5-5.3) mg/dL ABG Glucose 144 H 122 H 124 H (75-99) mg/dL Hemoglobin 9.9 L 8.8 L 9.4 L (13.0-17.5) gm/dL Chloride (98-107) mmol/L Creatinine (0.66-1.25) mg/dL Glucose (74-99) mg/dL POC Glucose (mg/dL) (70-110) mg/dL Magnesium (1.6-2.3) mg/dL Alkaline Phosphatase (38-126) U/L Total Protein (6.3-8.2) g/dL Albumin (3.5-5.0) g/dL Arterial Blood Potassium 7.5 H* 5.9 H 5.7 H (3.4-4.5) mmol/L Arterial Blood Glucose 144 H 122 H 124 H (75-99) mg/dL Crossmatch 01/02/25 01/02/25 01/02/25 Range/Units 12:09 13:40 13:40 WBC 11.25 H (4.50-10.00) 10*3/uL RBC 3.50 L (4.40-5.60) 10*6/uL Hgb 11.0 L D (13.0-17.0) g/dL Hct 32.7 L (39.6-50.0) % Plt Count 138 L (140-440) 10*3/uL Immature Gran # 0.09 H (0.00-0.04) 10*3/uL Neutrophils # 8.62 H (1.80-7.70) 10*3/uL Lymphocytes # (0.90-5.00) 10*3/uL Monocytes # (0.20-1.00) 10*3/uL Eosinophils # (0.04-0.35) 10*3/uL PT (10.0-12.5) sec INR (<1.2) ABG pCO2 (35-45) mmHg ABG pO2 408 H (83-108) mmHg ABG HCO3 (21-25) mmol/L ABG Total CO2 (19-24) mmol/L ABG O2 Saturation >99.4 H (94-97) % ABG Hematocrit 29 L (34.0-46.0) % ABG Potassium 5.3 H (3.4-4.5) mmol/L ABG Ionized Calcium 3.6 L (4.5-5.3) mg/dL ABG Glucose 137 H (75-99) mg/dL Hemoglobin 9.4 L (13.0-17.5) gm/dL Chloride (98-107) mmol/L Creatinine (0.66-1.25) mg/dL Glucose (74-99) mg/dL POC Glucose (mg/dL) 135 H (70-110) mg/dL Magnesium (1.6-2.3) mg/dL Alkaline Phosphatase (38-126) U/L Total Protein (6.3-8.2) g/dL Albumin (3.5-5.0) g/dL Arterial Blood Potassium 5.3 H (3.4-4.5) mmol/L Arterial Blood Glucose 137 H (75-99) mg/dL Crossmatch 01/02/25 01/02/25 01/02/25 Range/Units 13:40 13:40 14:07 WBC (4.50-10.00) 10*3/uL RBC (4.40-5.60) 10*6/uL Hgb (13.0-17.0) g/dL Hct (39.6-50.0) % Plt Count (140-440) 10*3/uL Immature Gran # (0.00-0.04) 10*3/uL Neutrophils # (1.80-7.70) 10*3/uL Lymphocytes # (0.90-5.00) 10*3/uL Monocytes # (0.20-1.00) 10*3/uL Eosinophils # (0.04-0.35) 10*3/uL PT 12.7 H (10.0-12.5) sec INR 1.2 H (<1.2) ABG pCO2 33 L (35-45) mmHg ABG pO2 (83-108) mmHg ABG HCO3 (21-25) mmol/L ABG Total CO2 (19-24) mmol/L ABG O2 Saturation 98.5 H (94-97) % ABG Hematocrit (34.0-46.0) % ABG Potassium (3.4-4.5) mmol/L ABG Ionized Calcium (4.5-5.3) mg/dL ABG Glucose (75-99) mg/dL Hemoglobin 12.2 L (13.0-17.5) gm/dL Chloride 111 H (98-107) mmol/L Creatinine 0.64 L (0.66-1.25) mg/dL Glucose 131 H (74-99) mg/dL POC Glucose (mg/dL) (70-110) mg/dL Magnesium 2.8 H (1.6-2.3) mg/dL Alkaline Phosphatase 35 L (38-126) U/L Total Protein 4.9 L (6.3-8.2) g/dL Albumin 3.1 L (3.5-5.0) g/dL Arterial Blood Potassium (3.4-4.5) mmol/L Arterial Blood Glucose (75-99) mg/dL Crossmatch 01/02/25 01/02/25 01/02/25 Range/Units 15:02 16:00 16:20 WBC 12.32 H (4.50-10.00) 10*3/uL RBC 3.79 L (4.40-5.60) 10*6/uL Hgb 11.9 L (13.0-17.0) g/dL Hct 35.0 L (39.6-50.0) % Plt Count (140-440) 10*3/uL Immature Gran # 0.08 H (0.00-0.04) 10*3/uL Neutrophils # 9.91 H (1.80-7.70) 10*3/uL Lymphocytes # (0.90-5.00) 10*3/uL Monocytes # 1.30 H (0.20-1.00) 10*3/uL Eosinophils # (0.04-0.35) 10*3/uL PT (10.0-12.5) sec INR (<1.2) ABG pCO2 (35-45) mmHg ABG pO2 (83-108) mmHg ABG HCO3 (21-25) mmol/L ABG Total CO2 (19-24) mmol/L ABG O2 Saturation (94-97) % ABG Hematocrit (34.0-46.0) % ABG Potassium (3.4-4.5) mmol/L ABG Ionized Calcium (4.5-5.3) mg/dL ABG Glucose (75-99) mg/dL Hemoglobin (13.0-17.5) gm/dL Chloride (98-107) mmol/L Creatinine (0.66-1.25) mg/dL Glucose (74-99) mg/dL POC Glucose (mg/dL) 170 H 167 H (70-110) mg/dL Magnesium (1.6-2.3) mg/dL Alkaline Phosphatase (38-126) U/L Total Protein (6.3-8.2) g/dL Albumin (3.5-5.0) g/dL Arterial Blood Potassium (3.4-4.5) mmol/L Arterial Blood Glucose (75-99) mg/dL Crossmatch 01/02/25 01/02/25 01/02/25 Range/Units 17:02 17:36 17:53 WBC (4.50-10.00) 10*3/uL RBC (4.40-5.60) 10*6/uL Hgb (13.0-17.0) g/dL Hct (39.6-50.0) % Plt Count (140-440) 10*3/uL Immature Gran # (0.00-0.04) 10*3/uL Neutrophils # (1.80-7.70) 10*3/uL Lymphocytes # (0.90-5.00) 10*3/uL Monocytes # (0.20-1.00) 10*3/uL Eosinophils # (0.04-0.35) 10*3/uL PT (10.0-12.5) sec INR (<1.2) ABG pCO2 (35-45) mmHg ABG pO2 77 L (83-108) mmHg ABG HCO3 (21-25) mmol/L ABG Total CO2 25 H (19-24) mmol/L ABG O2 Saturation (94-97) % ABG Hematocrit (34.0-46.0) % ABG Potassium (3.4-4.5) mmol/L ABG Ionized Calcium (4.5-5.3) mg/dL ABG Glucose (75-99) mg/dL Hemoglobin 12.6 L (13.0-17.5) gm/dL Chloride (98-107) mmol/L Creatinine (0.66-1.25) mg/dL Glucose (74-99) mg/dL POC Glucose (mg/dL) 167 H 163 H (70-110) mg/dL Magnesium (1.6-2.3) mg/dL Alkaline Phosphatase (38-126) U/L Total Protein (6.3-8.2) g/dL Albumin (3.5-5.0) g/dL Arterial Blood Potassium (3.4-4.5) mmol/L Arterial Blood Glucose (75-99) mg/dL Crossmatch 01/02/25 01/02/25 01/02/25 Range/Units 18:58 19:32 20:19 WBC 11.73 H (4.50-10.00) 10*3/uL RBC 3.73 L (4.40-5.60) 10*6/uL Hgb 11.7 L (13.0-17.0) g/dL Hct 34.7 L (39.6-50.0) % Plt Count (140-440) 10*3/uL Immature Gran # 0.07 H (0.00-0.04) 10*3/uL Neutrophils # 9.95 H (1.80-7.70) 10*3/uL Lymphocytes # 0.56 L (0.90-5.00) 10*3/uL Monocytes # 1.08 H (0.20-1.00) 10*3/uL Eosinophils # 0.02 L (0.04-0.35) 10*3/uL PT (10.0-12.5) sec INR (<1.2) ABG pCO2 (35-45) mmHg ABG pO2 (83-108) mmHg ABG HCO3 (21-25) mmol/L ABG Total CO2 (19-24) mmol/L ABG O2 Saturation (94-97) % ABG Hematocrit (34.0-46.0) % ABG Potassium (3.4-4.5) mmol/L ABG Ionized Calcium (4.5-5.3) mg/dL ABG Glucose (75-99) mg/dL Hemoglobin (13.0-17.5) gm/dL Chloride (98-107) mmol/L Creatinine (0.66-1.25) mg/dL Glucose (74-99) mg/dL POC Glucose (mg/dL) 151 H 130 H (70-110) mg/dL Magnesium (1.6-2.3) mg/dL Alkaline Phosphatase (38-126) U/L Total Protein (6.3-8.2) g/dL Albumin (3.5-5.0) g/dL Arterial Blood Potassium (3.4-4.5) mmol/L Arterial Blood Glucose (75-99) mg/dL Crossmatch 01/02/25 01/03/25 01/03/25 Range/Units 23:08 00:41 02:03 WBC (4.50-10.00) 10*3/uL RBC (4.40-5.60) 10*6/uL Hgb (13.0-17.0) g/dL Hct (39.6-50.0) % Plt Count (140-440) 10*3/uL Immature Gran # (0.00-0.04) 10*3/uL Neutrophils # (1.80-7.70) 10*3/uL Lymphocytes # (0.90-5.00) 10*3/uL Monocytes # (0.20-1.00) 10*3/uL Eosinophils # (0.04-0.35) 10*3/uL PT (10.0-12.5) sec INR (<1.2) ABG pCO2 (35-45) mmHg ABG pO2 (83-108) mmHg ABG HCO3 (21-25) mmol/L ABG Total CO2 (19-24) mmol/L ABG O2 Saturation (94-97) % ABG Hematocrit (34.0-46.0) % ABG Potassium (3.4-4.5) mmol/L ABG Ionized Calcium (4.5-5.3) mg/dL ABG Glucose (75-99) mg/dL Hemoglobin (13.0-17.5) gm/dL Chloride (98-107) mmol/L Creatinine (0.66-1.25) mg/dL Glucose (74-99) mg/dL POC Glucose (mg/dL) 141 H 136 H 129 H (70-110) mg/dL Magnesium (1.6-2.3) mg/dL Alkaline Phosphatase (38-126) U/L Total Protein (6.3-8.2) g/dL Albumin (3.5-5.0) g/dL Arterial Blood Potassium (3.4-4.5) mmol/L Arterial Blood Glucose (75-99) mg/dL Crossmatch 01/03/25 01/03/25 01/03/25 Range/Units 04:13 04:13 06:08 WBC 14.81 H (4.50-10.00) 10*3/uL RBC 3.91 L (4.40-5.60) 10*6/uL Hgb 12.0 L (13.0-17.0) g/dL Hct 36.6 L (39.6-50.0) % Plt Count (140-440) 10*3/uL Immature Gran # 0.06 H (0.00-0.04) 10*3/uL Neutrophils # 12.30 H (1.80-7.70) 10*3/uL Lymphocytes # (0.90-5.00) 10*3/uL Monocytes # 1.38 H (0.20-1.00) 10*3/uL Eosinophils # 0.00 L (0.04-0.35) 10*3/uL PT (10.0-12.5) sec INR (<1.2) ABG pCO2 (35-45) mmHg ABG pO2 (83-108) mmHg ABG HCO3 (21-25) mmol/L ABG Total CO2 (19-24) mmol/L ABG O2 Saturation (94-97) % ABG Hematocrit (34.0-46.0) % ABG Potassium (3.4-4.5) mmol/L ABG Ionized Calcium (4.5-5.3) mg/dL ABG Glucose (75-99) mg/dL Hemoglobin (13.0-17.5) gm/dL Chloride (98-107) mmol/L Creatinine (0.66-1.25) mg/dL Glucose 102 H (74-99) mg/dL POC Glucose (mg/dL) 144 H (70-110) mg/dL Magnesium (1.6-2.3) mg/dL Alkaline Phosphatase (38-126) U/L Total Protein 5.3 L (6.3-8.2) g/dL Albumin 3.3 L (3.5-5.0) g/dL Arterial Blood Potassium (3.4-4.5) mmol/L Arterial Blood Glucose (75-99) mg/dL Crossmatch 04/26/25 04/26/25 Range/Units 07:07 08:08 WBC (4.50-10.00) 10*3/uL RBC (4.40-5.60) 10*6/uL Hgb (13.0-17.0) g/dL Hct (39.6-50.0) % Plt Count (140-440) 10*3/uL Immature Gran # (0.00-0.04) 10*3/uL Neutrophils # (1.80-7.70) 10*3/uL Lymphocytes # (0.90-5.00) 10*3/uL Monocytes # (0.20-1.00) 10*3/uL Eosinophils # (0.04-0.35) 10*3/uL PT (10.0-12.5) sec INR (<1.2) ABG pCO2 (35-45) mmHg ABG pO2 (83-108) mmHg ABG HCO3 (21-25) mmol/L ABG Total CO2 (19-24) mmol/L ABG O2 Saturation (94-97) % ABG Hematocrit (34.0-46.0) % ABG Potassium (3.4-4.5) mmol/L ABG Ionized Calcium (4.5-5.3) mg/dL ABG Glucose (75-99) mg/dL Hemoglobin (13.0-17.5) gm/dL Chloride (98-107) mmol/L Creatinine (0.66-1.25) mg/dL Glucose (74-99) mg/dL POC Glucose (mg/dL) 133 H 119 H (70-110) mg/dL Magnesium (1.6-2.3) mg/dL Alkaline Phosphatase (38-126) U/L Total Protein (6.3-8.2) g/dL Albumin (3.5-5.0) g/dL Arterial Blood Potassium (3.4-4.5) mmol/L Arterial Blood Glucose (75-99) mg/dL Crossmatch Assessment and Plan Plan: Multivessel coronary artery disease (multivessel CAD with heavily calcified 30 to 50% proximal LAD, mid LAD 95%, diagonal 1 100%, diagonal to 80%, OM 2 moderate caliber 99%, small caliber RCA 90% stenosis), symptomatic, awaiting bypass surgery. The patient is post acute non-ST segment elevation myocardial infarction. Echocardiogram shows preserved LV function and the patient is currently free of any chest pain. The patient is status post four-vessel coronary artery bypass surgery and the patient is currently postop day # 1. Hemodynamically stable and the patient is currently off Primacor and the patient is also off nitroglycerin drip. Postthoracotomy, extubated to nasal cannula the patient has a right pleural, left pleural and mediastinal chest tube. Status post acute non-ST elevated myocardial infarction this admission Carotid artery stenosis, bifurcation in the order of 50 to 69% on the right Hypertension Hyperlipidemia Diabetes mellitus type 2, current hemoglobin A1c 7.4%, currently off insulin drip Restless leg syndrome Psoriatic arthritis, on methotrexate Benign prostatic hypertrophy GERD Lifetime non-smoker Plan: Incentive spirometer Monitor oxygenation and the patient is currently on 2 L of O2 nasal cannula Primacor and nitroglycerin drip has been discontinued Insulin drip has been discontinued and the patient is on sliding scale insulin coverage Monitor urine output Monitor output from the chest tubes Continue aspirin and Plavix Continue metoprolol Continue Lipitor Continue Norvasc Ambulate Keep the patient ICU for another 24 hours. Cardiac rhythm is sinus. Monitor output from the chest tube. [place] catheter has been removed Keep the chest tube for another 24 hours Will continue to follow in the ICU for another 24 hours. Time with Patient: Greater than 30
[2025-01-03 14:09] VITALS: BMI 26.2
--- NOTE | 2025-01-03 14:52 | P.PN ---
Subjective Progress Note Date: 01/03/25 History of present illness: Pleasant 74-year-old male with significant past medical history of diabetes type 2, psoriatic arthritis, restless leg syndrome, hypertension, hyperlipidemia who presented with elevated blood pressure. He does not follow with a evaluation manager. He does not smoke, drinks rare alcohol, no drug use. He states he has been having high blood pressure and intermittent shortness of breath, worse over the past few weeks. Went to a walk-in clinic and BP was elevated 200's/80's. and r eferred to ER in [place] and ultimately transferred to [facility] for elevated trop 0.08. Troponins here 0.085, 0.081, 0.085, creat 0.69, D-dimer negative. BNP was 801. He did have the flu 1 month ago and was coughing more at that time. He states over the past few months he has been having more chest tightness with walking the dog and this is a change for him. He does not use salt. No prior cardiac work up. EKG does show sinus bradycardia with ST deviation and moderate T wave abnormalities. He is feeling better this morning. Denies any chest pain or pressure. No shortness of breath. 12/30 Patient seen and examined. Yesterday patient underwent cardiac catheterization which revealed multivessel CAD with heavily calcified 30 to 50% proximal LAD, mid LAD 95%, diagonal 1 100%, diagonal to 80%, OM 2 moderate caliber 99%, small caliber RCA 90% stenosis. Patient has been evaluated by cardiothoracic surgery and is scheduled for CABG on . Patient remains on a heparin drip. B lood pressure 153/74, heart rate 60, pulse ox 96% on room air. Echocardiogram reveals EF of 50 to 55% with mild anterior apical hypokinesis. Mild tricuspid regurgitation with no evidence of pulmonary hypertension. 12/31 Patient is scheduled for CABG tomorrow. Blood pressure readings are elevated w ith with blood pressure 167/76, heart rate is running in the 50s and 60s, pulse ox 96% on room air. 01/01 Patient seen and examined. Patient denies chest pain or pressure, no shortness of breath, no lightheadedness or dizziness. Blood pressure 146/76, heart rate in the 50s. Yesterday we added amlodipine. Patient's surgery has been delayed until Sunday. Heparin drip has been discontinued and we will leave this off. 01/03/2025 Patient underwent CABG yesterday. Uneventful postoperative course so far., Doing well, coming along well, blood pressure borderline elevated, telemetry shows sinus rhythm no concerns of any arrhythmias at this time, continue to be on IV insulin drip On exam S1-S2 is audible, no significant murmurs appreciated, surgical dressing in place, chest tube in place Lungs are clear to auscultate Minimal swelling about the lower extremity Alert oriented, no focal neurological deficits, detailed neuroexam not performed IMPRESSION AND PLAN: NSTEMI status post three-vessel CABG Atrial clip ligation Hypertension Hyperlipidemia Diabetes type 2 PLAN: Continue aspirin Plavix statin beta-kailash Wean down Cleviprex and start p.o. amlodipine Continue to monitor [place]-David catheter was discontinued, chest tube is in place. Monitor urine output electrolytes telemetry Supportive care, we will continue to monitor Objective - Vital Signs Vital signs: Vital Signs Temp 99.0 F 01/03/25 12:00 Pulse 76 01/03/25 14:00 Resp 19 01/03/25 14:00 BP 130/59 01/03/25 11:45 Pulse Ox 98 01/03/25 14:00 FiO2 50 01/02/25 16:39 Intake & Output 01/02/25 01/03/25 01/03/25 18:59 06:59 18:59 Intake Total 647.258 6655.084 445.199 Output Total 2695 1490 330 Balance -2001.648 218.084 115.199 Weight 85.4 kg 85.4 kg Intake: IV 598 968 390 ACETAMINOPHEN IV (For NPO 100 ) 1,000 mg In Empty Bag 1 bag @ 400 mls/hr IVPB Q6HR [facility] Rx#:[id number] Sodium Chloride 0.9% 1, 250 600 260 000 ml @ 30 mls/hr IV . Q24H [facility] Rx#:[id number] cardiac output 300 110 20 ceFAZolin 2 gm In 50 Dextrose 5% in Water 50 ml @ 100 mls/hr IVPB ONCE ONE Rx#:[id number] ceFAZolin 2 gm In 50 Dextrose 5% in Water 50 ml @ 100 mls/hr IVPB Q8HR [facility] Rx#:[id number] pressure bag 45 108 60 Intake, IV Titration 95.352 260.084 55.199 Amount Clevidipine Butyrate 25 30.867 147.833 30.335 mg In Empty Bag 1 bag @ 1 MG/HR 2 mls/hr IV .Q24H [facility] Rx#:[id number] Dexmedetomidine/0.9% NaCl 10.074 (Pmx) 400 mcg In Empty Bag 1 bag @ Titrate IV . Q0M [facility] Rx#:[id number] Insulin Regular 100 unit 11.934 37.800 24.864 In Sodium Chloride 0.9% 100 ml @ Per Protocol IV .Q0M [facility] Rx#:[id number] Milrinone-D5w Pmx 20 mg 14.656 49.101 In Dextrose/Water 1 100ml .bag @ 0.3 MCG/KG/MIN 7. 452 mls/hr IV .[id number] [facility] Rx#:[id number] Nitroglycerin-D5w Pmx 50 25.35 mg In Dextrose/Water 1 250ml.bag @ 5 MCG/MIN 1.5 mls/hr IV .Q24H [facility] Rx#: [id number] propofoL 1,000 mg In 27.821 Empty Bag 1 bag @ Titrate IV .Q0M [facility] Rx#: [id number] Oral 480 Output: Chest Tube Drainage 320 470 90 Chest Tube Left Pleural 70 130 50 Chest Tube Mediastinal 110 320 40 Chest Tube Right Pleural 140 20 0 Urine 1375 1020 240 Estimated Blood Loss 1000 Other: Voiding Method Indwelling Catheter Indwelling Catheter Indwelling Catheter ABP, PAP, CO, CI - Last Documented Arterial Blood Pressure 154/53 Pulmonary Artery Pressure 33/13 Cardiac Output 4.2 Cardiac Index 2.2 - Labs CBC & Chem 7: 01/03/25 04:13 01/03/25 04:13 Labs: Abnormal Lab Results - Last 24 Hours (Table) 12/31/24 01/02/25 01/02/25 Range/Units 05:32 15:02 16:00 WBC (4.50-10.00) 10*3/uL RBC (4.40-5.60) 10*6/uL Hgb (13.0-17.0) g/dL Hct (39.6-50.0) % Immature Gran # (0.00-0.04) 10*3/uL Neutrophils # (1.80-7.70) 10*3/uL Lymphocytes # (0.90-5.00) 10*3/uL Monocytes # (0.20-1.00) 10*3/uL Eosinophils # (0.04-0.35) 10*3/uL ABG pO2 (83-108) mmHg ABG Total CO2 (19-24) mmol/L Hemoglobin (13.0-17.5) gm/dL Glucose (74-99) mg/dL POC Glucose (mg/dL) 170 H 167 H (70-110) mg/dL Total Protein (6.3-8.2) g/dL Albumin (3.5-5.0) g/dL Crossmatch See Detail 01/02/25 01/02/25 01/02/25 Range/Units 16:20 17:02 17:36 WBC 12.32 H (4.50-10.00) 10*3/uL RBC 3.79 L (4.40-5.60) 10*6/uL Hgb 11.9 L (13.0-17.0) g/dL Hct 35.0 L (39.6-50.0) % Immature Gran # 0.08 H (0.00-0.04) 10*3/uL Neutrophils # 9.91 H (1.80-7.70) 10*3/uL Lymphocytes # (0.90-5.00) 10*3/uL Monocytes # 1.30 H (0.20-1.00) 10*3/uL Eosinophils # (0.04-0.35) 10*3/uL ABG pO2 77 L (83-108) mmHg ABG Total CO2 25 H (19-24) mmol/L Hemoglobin 12.6 L (13.0-17.5) gm/dL Glucose (74-99) mg/dL POC Glucose (mg/dL) 167 H (70-110) mg/dL Total Protein (6.3-8.2) g/dL Albumin (3.5-5.0) g/dL Crossmatch 01/02/25 01/02/25 01/02/25 Range/Units 17:53 18:58 19:32 WBC 11.73 H (4.50-10.00) 10*3/uL RBC 3.73 L (4.40-5.60) 10*6/uL Hgb 11.7 L (13.0-17.0) g/dL Hct 34.7 L (39.6-50.0) % Immature Gran # 0.07 H (0.00-0.04) 10*3/uL Neutrophils # 9.95 H (1.80-7.70) 10*3/uL Lymphocytes # 0.56 L (0.90-5.00) 10*3/uL Monocytes # 1.08 H (0.20-1.00) 10*3/uL Eosinophils # 0.02 L (0.04-0.35) 10*3/uL ABG pO2 (83-108) mmHg ABG Total CO2 (19-24) mmol/L Hemoglobin (13.0-17.5) gm/dL Glucose (74-99) mg/dL POC Glucose (mg/dL) 163 H 151 H (70-110) mg/dL Total Protein (6.3-8.2) g/dL Albumin (3.5-5.0) g/dL Crossmatch 01/02/25 01/02/25 01/03/25 Range/Units 20:19 23:08 00:41 WBC (4.50-10.00) 10*3/uL RBC (4.40-5.60) 10*6/uL Hgb (13.0-17.0) g/dL Hct (39.6-50.0) % Immature Gran # (0.00-0.04) 10*3/uL Neutrophils # (1.80-7.70) 10*3/uL Lymphocytes # (0.90-5.00) 10*3/uL Monocytes # (0.20-1.00) 10*3/uL Eosinophils # (0.04-0.35) 10*3/uL ABG pO2 (83-108) mmHg ABG Total CO2 (19-24) mmol/L Hemoglobin (13.0-17.5) gm/dL Glucose (74-99) mg/dL POC Glucose (mg/dL) 130 H 141 H 136 H (70-110) mg/dL Total Protein (6.3-8.2) g/dL Albumin (3.5-5.0) g/dL Crossmatch 01/03/25 01/03/25 01/03/25 Range/Units 02:03 04:13 04:13 WBC 14.81 H (4.50-10.00) 10*3/uL RBC 3.91 L (4.40-5.60) 10*6/uL Hgb 12.0 L (13.0-17.0) g/dL Hct 36.6 L (39.6-50.0) % Immature Gran # 0.06 H (0.00-0.04) 10*3/uL Neutrophils # 12.30 H (1.80-7.70) 10*3/uL Lymphocytes # (0.90-5.00) 10*3/uL Monocytes # 1.38 H (0.20-1.00) 10*3/uL Eosinophils # 0.00 L (0.04-0.35) 10*3/uL ABG pO2 (83-108) mmHg ABG Total CO2 (19-24) mmol/L Hemoglobin (13.0-17.5) gm/dL Glucose 102 H (74-99) mg/dL POC Glucose (mg/dL) 129 H (70-110) mg/dL Total Protein 5.3 L (6.3-8.2) g/dL Albumin 3.3 L (3.5-5.0) g/dL Crossmatch 01/03/25 01/03/25 01/03/25 Range/Units 06:08 07:07 08:08 WBC (4.50-10.00) 10*3/uL RBC (4.40-5.60) 10*6/uL Hgb (13.0-17.0) g/dL Hct (39.6-50.0) % Immature Gran # (0.00-0.04) 10*3/uL Neutrophils # (1.80-7.70) 10*3/uL Lymphocytes # (0.90-5.00) 10*3/uL Monocytes # (0.20-1.00) 10*3/uL Eosinophils # (0.04-0.35) 10*3/uL ABG pO2 (83-108) mmHg ABG Total CO2 (19-24) mmol/L Hemoglobin (13.0-17.5) gm/dL Glucose (74-99) mg/dL POC Glucose (mg/dL) 144 H 133 H 119 H (70-110) mg/dL Total Protein (6.3-8.2) g/dL Albumin (3.5-5.0) g/dL Crossmatch 01/03/25 01/03/25 01/03/25 Range/Units 10:08 11:16 12:08 WBC (4.50-10.00) 10*3/uL RBC (4.40-5.60) 10*6/uL Hgb (13.0-17.0) g/dL Hct (39.6-50.0) % Immature Gran # (0.00-0.04) 10*3/uL Neutrophils # (1.80-7.70) 10*3/uL Lymphocytes # (0.90-5.00) 10*3/uL Monocytes # (0.20-1.00) 10*3/uL Eosinophils # (0.04-0.35) 10*3/uL ABG pO2 (83-108) mmHg ABG Total CO2 (19-24) mmol/L Hemoglobin (13.0-17.5) gm/dL Glucose (74-99) mg/dL POC Glucose (mg/dL) 114 H 126 H 150 H (70-110) mg/dL Total Protein (6.3-8.2) g/dL Albumin (3.5-5.0) g/dL Crossmatch 01/03/25 Range/Units 13:09 WBC (4.50-10.00) 10*3/uL RBC (4.40-5.60) 10*6/uL Hgb (13.0-17.0) g/dL Hct (39.6-50.0) % Immature Gran # (0.00-0.04) 10*3/uL Neutrophils # (1.80-7.70) 10*3/uL Lymphocytes # (0.90-5.00) 10*3/uL Monocytes # (0.20-1.00) 10*3/uL Eosinophils # (0.04-0.35) 10*3/uL ABG pO2 (83-108) mmHg ABG Total CO2 (19-24) mmol/L Hemoglobin (13.0-17.5) gm/dL Glucose (74-99) mg/dL POC Glucose (mg/dL) 138 H (70-110) mg/dL Total Protein (6.3-8.2) g/dL Albumin (3.5-5.0) g/dL Crossmatch
[2025-01-03 15:19] LABS: Glucose,Whole Blood 114 mg/dL (70-110)
[2025-01-03 16:39] LABS: Glucose,Whole Blood 137 mg/dL (70-110)
[2025-01-03 18:11] LABS: Glucose,Whole Blood 198 mg/dL (70-110)
[2025-01-03 19:02] LABS: Glucose,Whole Blood 191 mg/dL (70-110)
[2025-01-03 20:09] LABS: Glucose,Whole Blood 203 mg/dL (70-110)
[2025-01-03] MEDS: METOPROLOL TARTRATE 50 MG TAB PO SCH (20:44)
[2025-01-03] MEDS ORDERED: SENNOSIDES-DOCUSATE SODIUM 1 EACH TAB PO SCH (21:00)
[2025-01-03] MEDS ORDERED: AMIODARONE 200 MG TAB PO SCH (21:00)
[2025-01-03 21:13] LABS: Glucose,Whole Blood 159 mg/dL (70-110)
[2025-01-03] MEDS: traZODone HCL 50 MG TAB PO SCH (21:23)
[2025-01-03 22:34] LABS: Glucose,Whole Blood 113 mg/dL (70-110)
[2025-01-04 00:12] LABS: Glucose,Whole Blood 125 mg/dL (70-110)
[2025-01-04 01:11] LABS: Glucose,Whole Blood 137 mg/dL (70-110)
[2025-01-04 02:03] LABS: Glucose,Whole Blood 137 mg/dL (70-110)
[2025-01-04 04:00] LABS: Glucose,Whole Blood 110 mg/dL (70-110)
[2025-01-04 04:19] LABS: Basophils # (A) 0.07 10*3/uL (0.00-0.10); Basophils % (A) 0.4 %; Eosinophils # (A) 0.09 10*3/uL (0.04-0.35); Eosinophils % (A) 0.5 %; HCT 34.2 % (39.6-50.0); HGB 11.5 g/dL (13.0-17.0); Lymphocytes # (A) 1.16 10*3/uL (0.90-5.00); Lymphocytes % (A) 6.9 %; MCH 31.4 pg (27.0-32.0); MCHC 33.6 g/dL (32.0-37.0); MCV 93.4 fL (80.0-97.0); Mean Platelet Volume 10.2 fL (9.5-12.2); Monocytes # (A) 1.67 10*3/uL (0.20-1.00); Neutrophils # (A) 13.63 10*3/uL (1.80-7.70); Neutrophils % (A) 81.6 %; Platelet Count 203 10*3/uL (140-440); RBC 3.66 10*6/uL (4.40-5.60); RDW 13.9 % (11.5-14.5); WBC 16.72 10*3/uL (4.50-10.00)
[2025-01-04 04:23] LABS: Ionized Calcium 4.8 mg/dL (4.5-5.3)
[2025-01-04 04:31] LABS: ALT 19 U/L (4-49); AST 27 U/L (17-59); African American GFR (CKD) >90 (>60 ml/min/1.73 sqM); Alkaline Phosphatase 47 U/L (38-126); Anion Gap 8 mmol/L; Blood Urea Nitrogen 20 mg/dL (9-20); Carbon Dioxide 24 mmol/L (22-30); Chloride 105 mmol/L (98-107); Glucose 102 mg/dL (74-99); Non-African American GFR(CKD) 90 (>60 ml/min/1.73 sqM); Potassium 3.9 mmol/L (3.5-5.1); Sodium 137 mmol/L (137-145); Total Bilirubin 0.9 mg/dL (0.2-1.3)
[2025-01-04 05:09] LABS: Glucose,Whole Blood 116 mg/dL (70-110)
[2025-01-04 06:49] LABS: Glucose,Whole Blood 134 mg/dL (70-110)
[2025-01-04] MEDS: POTASSIUM CHLORIDE ER 20 MEQ TAB.ER PO SCH (07:25)
[2025-01-04] MEDS: PANTOPRAZOLE 40 MG TABLET PO SCH (07:25)
--- NOTE | 2025-01-04 07:41 | P.PN ---
Subjective Progress Note Date: 01/04/25 Principal diagnosis: Multivessel coronary artery disease, non-ST elevated myocardial infarction this admission. History of hypertension, hyperlipidemia, diabetes mellitus type 2, right internal carotid artery stenosis, restless leg syndrome, psoriatic arthritis on methotrexate, benign prostatic hypertrophy, GERD, lifelong non- smoker POD #2 coronary artery bypass surgery, left internal mammary artery to the left anterior descending artery, left radial artery to the right coronary artery, saphenous vein graft to the first obtuse marginal branch, endoscopic left radial artery harvest, endoscopic right greater saphenous vein harvest, exclusion of the left atrial appendage with a 35 mm AtriClip, intraoperative transesophageal echocardiogram performed by anesthesia The patient was seen and examined this morning sitting up in recliner in the intensive care unit in no acute distress. Remains in sinus rhythm, hemodynamically stable. Patient complains of expected postsurgical pain, denies shortness of breath. Chest x-ray, labs reviewed. Right internal jugular cordis, right radial arterial line, mediastinal/left/right pleural chest tubes all remain. Patient was a bit loopy this morning per nursing, required multiple reminders 1 getting up to ambulate, did reorient well and ambulated all the way around the ICU hallway. No other new concerns. Objective - Vital Signs Vital signs: Vital Signs Temp 98.4 F 01/04/25 04:00 Pulse 76 01/04/25 06:00 Resp 34 H 01/04/25 06:00 BP 124/54 01/04/25 06:00 Pulse Ox 95 01/04/25 05:00 FiO2 50 01/02/25 16:39 Intake & Output 01/03/25 01/04/25 01/04/25 18:59 06:59 18:59 Intake Total 602.464 479.571 36 Output Total 530 720 70 Balance 72.464 -240.429 -34 Weight 85.4 kg 87.9 kg Intake: IV 534 432 36 Sodium Chloride 0.9% 1, 380 360 30 000 ml @ 30 mls/hr IV . Q24H [facility] Rx#:[id number] cardiac output 20 ceFAZolin 2 gm In 50 Dextrose 5% in Water 50 ml @ 100 mls/hr IVPB Q8HR [facility] Rx#:[id number] pressure bag 84 72 6 Intake, IV Titration 68.464 47.571 Amount Clevidipine Butyrate 25 30.335 mg In Empty Bag 1 bag @ 1 MG/HR 2 mls/hr IV .Q24H PRN Rx#:[id number] Insulin Regular 100 unit 38.129 47.571 In Sodium Chloride 0.9% 100 ml @ Per Protocol IV .Q0M [facility] Rx#:[id number] Output: Chest Tube Drainage 150 270 40 Chest Tube Left Pleural 80 150 20 Chest Tube Mediastinal 40 120 20 Chest Tube Right Pleural 30 0 0 Urine 380 450 30 Other: Voiding Method Indwelling Catheter Indwelling Catheter ABP, PAP, CO, CI - Last Documented Arterial Blood Pressure 145/40 Pulmonary Artery Pressure 33/13 Cardiac Output 4.2 Cardiac Index 2.2 - Exam CONSTITUTIONAL: Appears comfortable, cooperative, no acute distress RESPIRATORY: Lungs sounds diminished bilaterally. Respirations even, nonl abored. Currently on 2 L nasal cannula with oxygen saturation 93%. Able to achieve 1250 mL on incentive spirometry. Strong cough. CARDIOVASCULAR: S1, S2 present. Regular rate and rhythm, sinus rhythm on telemetry. Sternum stable. Palpable peripheral pulses bilaterally. No edema present. No calf pain or tenderness noted. Heart hugger in place with patient demonstrating appropriate use. Antiembolism stockings, SCDs present. GASTROINTESTINAL: Abdomen soft, nontender, nondistended. Active bowel sounds present 4 quadrants. Tolerating diet. Positive flatus GENITOURINARY: Cole present draining clear, yellow urine. Output overnight 30-60 mL per hour, 830 mL in the last 24 hours INTEGUMENTARY: Skin is warm and dry with evidence of good perfusion. Anterior chest incision well approximated and covered with dry intact dressing. Left radial artery harvest site as well as right lower extremity EVH site well approximated without redness or drainage. NEUROLOGIC: Cranial nerves II through XII intact MUSKULOSKELETAL: Able to move all extremities, strength equal bilaterally, gait normal PSYCHIATRIC: Alert and oriented to person place and time, appropriate affect, intact judgment and insight INVASIVE LINES AND TUBES: Mediastinal/left/right pleural chest tubes present and connected to wall suction, no air leaks present. Mediastinal tube with 50 mL serosanguineous drainage overnight, 150 mL in the last 24 hours. Left pleural chest tube with 120 mL serosanguineous drainage overnight, 150 mL in the last 24 hours. Right pleural chest tube with 10 mL serosanguineous drainage in the last 24 hours. A/V epicardial pacemaker wires present, connected to generator, backup rate 50 bpm. Right internal jugular cordis, right radial arterial line present. CVP 12 - Allied health notes Allied health notes reviewed: nursing - Labs CBC & Chem 7: 01/04/25 03:55 01/04/25 03:55 Labs: Abnormal Lab Results - Last 24 Hours (Table) 01/03/25 01/03/25 01/03/25 Range/Units 08:08 10:08 11:16 WBC (4.50-10.00) 10*3/uL RBC (4.40-5.60) 10*6/uL Hgb (13.0-17.0) g/dL Hct (39.6-50.0) % Immature Gran # (0.00-0.04) 10*3/uL Neutrophils # (1.80-7.70) 10*3/uL Monocytes # (0.20-1.00) 10*3/uL Glucose (74-99) mg/dL POC Glucose (mg/dL) 119 H 114 H 126 H (70-110) mg/dL Total Protein (6.3-8.2) g/dL Albumin (3.5-5.0) g/dL 01/03/25 01/03/25 01/03/25 Range/Units 12:08 13:09 15:17 WBC (4.50-10.00) 10*3/uL RBC (4.40-5.60) 10*6/uL Hgb (13.0-17.0) g/dL Hct (39.6-50.0) % Immature Gran # (0.00-0.04) 10*3/uL Neutrophils # (1.80-7.70) 10*3/uL Monocytes # (0.20-1.00) 10*3/uL Glucose (74-99) mg/dL POC Glucose (mg/dL) 150 H 138 H 114 H (70-110) mg/dL Total Protein (6.3-8.2) g/dL Albumin (3.5-5.0) g/dL 01/03/25 01/03/25 01/03/25 Range/Units 16:39 18:10 19:01 WBC (4.50-10.00) 10*3/uL RBC (4.40-5.60) 10*6/uL Hgb (13.0-17.0) g/dL Hct (39.6-50.0) % Immature Gran # (0.00-0.04) 10*3/uL Neutrophils # (1.80-7.70) 10*3/uL Monocytes # (0.20-1.00) 10*3/uL Glucose (74-99) mg/dL POC Glucose (mg/dL) 137 H 198 H 191 H (70-110) mg/dL Total Protein (6.3-8.2) g/dL Albumin (3.5-5.0) g/dL 01/03/25 01/03/25 01/03/25 Range/Units 20:08 21:12 22:33 WBC (4.50-10.00) 10*3/uL RBC (4.40-5.60) 10*6/uL Hgb (13.0-17.0) g/dL Hct (39.6-50.0) % Immature Gran # (0.00-0.04) 10*3/uL Neutrophils # (1.80-7.70) 10*3/uL Monocytes # (0.20-1.00) 10*3/uL Glucose (74-99) mg/dL POC Glucose (mg/dL) 203 H 159 H 113 H (70-110) mg/dL Total Protein (6.3-8.2) g/dL Albumin (3.5-5.0) g/dL 01/04/25 01/04/25 01/04/25 Range/Units 00:10 01:09 02:01 WBC (4.50-10.00) 10*3/uL RBC (4.40-5.60) 10*6/uL Hgb (13.0-17.0) g/dL Hct (39.6-50.0) % Immature Gran # (0.00-0.04) 10*3/uL Neutrophils # (1.80-7.70) 10*3/uL Monocytes # (0.20-1.00) 10*3/uL Glucose (74-99) mg/dL POC Glucose (mg/dL) 125 H 137 H 137 H (70-110) mg/dL Total Protein (6.3-8.2) g/dL Albumin (3.5-5.0) g/dL 01/04/25 01/04/25 01/04/25 Range/Units 03:55 03:55 05:06 WBC 16.72 H (4.50-10.00) 10*3/uL RBC 3.66 L (4.40-5.60) 10*6/uL Hgb 11.5 L (13.0-17.0) g/dL Hct 34.2 L (39.6-50.0) % Immature Gran # 0.10 H (0.00-0.04) 10*3/uL Neutrophils # 13.63 H (1.80-7.70) 10*3/uL Monocytes # 1.67 H (0.20-1.00) 10*3/uL Glucose 102 H (74-99) mg/dL POC Glucose (mg/dL) 116 H (70-110) mg/dL Total Protein 5.0 L (6.3-8.2) g/dL Albumin 3.0 L (3.5-5.0) g/dL 01/04/25 Range/Units 06:47 WBC (4.50-10.00) 10*3/uL RBC (4.40-5.60) 10*6/uL Hgb (13.0-17.0) g/dL Hct (39.6-50.0) % Immature Gran # (0.00-0.04) 10*3/uL Neutrophils # (1.80-7.70) 10*3/uL Monocytes # (0.20-1.00) 10*3/uL Glucose (74-99) mg/dL POC Glucose (mg/dL) 134 H (70-110) mg/dL Total Protein (6.3-8.2) g/dL Albumin (3.5-5.0) g/dL - Imaging and Cardiology Chest x-ray: image reviewed Assessment and Plan Assessment: Multivessel coronary artery disease, status post three-vessel CABG Non-ST elevated myocardial infarction this admission Hypertension Hyperlipidemia, treated, cholesterol 150, LDL 86, triglycerides 115 Right internal carotid artery stenosis 50 to 69% Diabetes mellitus type 2, current hemoglobin A1c 7.4% Restless leg syndrome Psoriatic arthritis, on methotrexate Benign prostatic hypertrophy GERD Lifetime non-smoker Plan: Continue to maximize medical therapy with aspirin, statin, Plavix, beta-kailash. Will increase beta-kailash therapy as tolerated, increased to 50 mg twice daily yesterday Continue oral calcium channel kailash for radial artery spasm prophylaxis Wean oxygen as tolerated. Encourage incentive spirometry use 10 times every hour while awake. Bronchodilators per pulmonology Will monitor daily labs and x-rays. Electrolyte replacement per protocol. Will give 20 mg IV push Lasix today Increase activity, ambulate as tolerated. PT/OT/cardiac rehab consulted GI/DVT prophylaxis Pain control per current medication regimen. Discontinue IV fentanyl Insulin management per internal medicine Discontinue cordis, arterial line Will discontinue mediastinal and right chest tubes, continue left chest tube for another 24 hours, monitor and record output Discontinue Cole catheter after diuresis from Lasix, may bladder scan and straight cath for greater than 300 mL residual Continue to monitor and record strict accurate intake and output Daily weights Will place transfer orders for 3 S. cardiac stepdown unit, may transfer when bed available More recommendations to follow
[2025-01-04 08:09] LABS: Glucose,Whole Blood 141 mg/dL (70-110)
--- NOTE | 2025-01-04 08:14 | XR ---
EXAMINATION TYPE: XR chest 1V portable DATE OF EXAM: 01/04/2025 5:58 AM COMPARISON: Chest radiographs from 01/03/2025 TECHNIQUE: XR chest 1V portable Portable AP radiograph of the chest. CLINICAL INDICATION:Male, 74 years old with history of Post Operative Cardiac Surgery; FINDINGS: Lungs/Pleura: Trace bilateral pleural effusions. No pneumothorax. Increased bibasilar patchy airspace opacities. Heart/mediastinum: Cardiomediastinal silhouette is enlarged and stable. Postsurgical changes. Left a trial appendage occlusion devices present. Musculoskeletal: No acute osseous pathology. Midline sternotomy wires are noted and stable. Other findings: None Lines/Tubes: Right thoracotomy tube is now directed more towards the right perihilum. Stable position of left thoracotomy tube. Stable mediastinal drainage catheter. Interval removal of right IJ approach [place]-David catheter with sheath in place. IMPRESSION: 1. Increasing bibasilar opacities suggesting pulmonary edema versus infiltrates with trace bilateral pleural effusions. 2. Postsurgical cardiac surgical changes. 3. Support lines and tubes as described above. [facility], , 01/04/2025 8:12 AM
[2025-01-04 09:03] LABS: Glucose,Whole Blood 218 mg/dL (70-110)
[2025-01-04] MEDS: FUROSEMIDE 10 MG/ML 2 ML VIAL IV ONE (09:10)
[2025-01-04 10:07] LABS: Glucose,Whole Blood 212 mg/dL (70-110)
[2025-01-04] MEDS: INSULIN GLARGINE (LANTUS) 100 UNIT/ML SYR SQ SCH (10:58)
[2025-01-04 12:14] LABS: Glucose,Whole Blood 226 mg/dL (70-110)
[2025-01-04] MEDS: INSULIN LISPRO (HumaLOG) 100 UNIT/ML 10 mL VL SQ SCH (12:55)
--- NOTE | 2025-01-04 14:06 | P.PN ---
Subjective Progress Note Date: 01/04/25 patient 74-year-old gentleman past medical history significant for diabetes mellitus, hypertension who presented to the ER as a transfer from hospital in [place] for chest pain. Patient stated he was all right couple of weeks back when he started having intermittent shortness of breath and chest pressure, chest pressure was central location, nonradiating, no aggravating or relieving factor associated with chest pressure. Patient went to urgent care and was found to have elevated blood pressure and was referred to [facility] and was later transferred to [facility]. There is no complaint of shortness of breath. Patient denies any palpitation. There is no complaint of orthopnea or PND. Denies any nausea, vomiting abdominal pain. Patient denies any complaint of dizziness. There is no complaint of headache. Initial lab work done in the ER showed WBC 7.20, hemoglobin 16.4, D-dimer 0.24, sodium 141, potassium 3.7, BUN 14, creatinine 0.75, glucose 265, AST 67, ALT 105, troponin 0.085 EKG done in the ER showed heart rate of 56 , no ST segment elevation or depression seen, no T-wave inversions seen. Chest x-ray done in the ER showed no acute cardiopulmonary process Patient admitted to internal medicine service 12/29/2024 Patient is seen in follow-up this morning currently n.p.o. as patient is being evaluated by cardiology and will undergo cardiac catheterization today. Will await official report. Patient is afebrile with no reported chest pain at this time and denies shortness of breath. A.m. labs pending I will follow-up. Replace electrolytes per protocol 12/30/2024 Patient is seen in follow-up no acute overnight issues noted. 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 Patient is continued on heparin drip and is tentatively scheduled for CABG on 01/01/2025. Patient will be continued on telemetry mo nitoring. 01/01/2025 Patient is evaluated in follow-up in the medical floor. He is rescheduled to undergo coronary artery bypass grafting tomorrow on 01/02/2025. His blood glucose has been elevated and he is concerned that he has not been getting his Tuojeo, did let the patient know that we do not carry this medication and he has been getting Lantus 35 units in the morning and we will add a dose in the evening to improve his glycemic control before going for open heart surgery. Additonally patient has only been on sliding scale insulin and he does take 25 units of fast acting with breakfast and dinner and 10 units with lunch. He has no acute complaints at this time. He is evaluated ambulating in the room with family at the bedside. Potassium is better at 3.7. 01/02/2025 Patient currently n.p.o. in OR awaiting to undergo CABG. Will await official report and follow-up with the patient. 01/03. Patient seen and examined. Sitting upright in the chair. Patient still has chest tubes in. Stated he feels better. 01/04. Patient seen and examined. Patient had 2 chest tubes removed, still has 1 chest tube remaining. Blood sugars range between 100s to 200s. Patient still has some postsurgical pain at the surgery site REVIEW OF SYSTEMS: CONSTITUTIONAL: No fever, no malaise,. CARDIOVASCULAR: No chest pain, no palpitations, no syncope. PULMONARY: No shortness of breath, no cough, GASTROINTESTINAL: No diarrhea, no nausea, no vomiting, no abdominal pain. NEUROLOGICAL: No headaches, no weakness, PHYSICAL EXAMINATION: GENERAL: The patient is alert and oriented x3, not in any acute distress. Well developed, well nourished. HEENT: Pupils are round and equally reacting to light. EOMI. CARDIOVASCULAR: S1 and S2 present. No murmurs, rubs, or gallops. Sternotomy surgical incision seen, chest tubes in place PULMONARY: Chest is clear to auscultation, no wheezing or crackles. ABDOMEN: Soft, nontender, nondistended, normoactive bowel sounds. No palpable organomegaly. MUSCULOSKELETAL: No joint swelling or deformity. EXTREMITIES: No cyanosis, clubbing, or pedal edema. NEUROLOGICAL: Gross neurological examination did not reveal any focal deficits. SKIN: No rashes. Assessment and plan Acute coronary syndrome, status post cardiac catheterization 12/29/2024 revealing multivessel disease and scheduled for CABG today 01/02/[address] surgery Hypertension Diabetes mellitus type 2 uncontrolled with hyperglycemia restless leg syndrome Hyperlipidemia Psoriatic arthritis Gastroesophageal reflux disease Monitor vital signs Monitor CBC Monitor CMP Continue telemetry monitoring status post four-vessel coronary artery bypass surgery Continue oxygen supplementation Aggressive bronchopulmonary hygiene continue chest tube management per CT surgery Continue aspirin, Plavix, Lipitor Monitor blood sugar levels, start Lantus 15 units, continue sliding scale insulin Continue Primacor Continue Amio drip Cardiac surgery following Pulmonology following Labs and medication were reviewed.. Continue same treatment. Continue with symptomatic treatment. Resume home medication. Monitor labs and vitals. DVT and GI prophylaxis. Further recommendations as per clinical course of the patient Dictation was produced using [employer] dictation software. please excuse any gra mmatical, word or spelling errors. Objective - Vital Signs Vital signs: Vital Signs Temp 98.0 F 01/04/25 08:00 Pulse 64 01/04/25 11:00 Resp 13 01/04/25 11:00 BP 121/62 01/04/25 11:00 Pulse Ox 93 L 01/04/25 11:00 FiO2 50 01/02/25 16:39 Intake & Output 01/03/25 01/04/25 01/04/25 18:59 06:59 18:59 Intake Total 602.464 479.571 588.945 Output Total 530 720 725 Balance 72.464 -240.429 -136.055 Weight 85.4 kg 87.9 kg Intake: IV 534 432 216 Sodium Chloride 0.9% 1, 380 360 180 000 ml @ 30 mls/hr IV . Q24H EZEQUIEL Rx#:[id number] cardiac output 20 ceFAZolin 2 gm In 50 Dextrose 5% in Water 50 ml @ 100 mls/hr IVPB Q8HR EZEQUIEL Rx#:[id number] pressure bag 84 72 36 Intake, IV Titration 68.464 47.571 12.945 Amount Clevidipine Butyrate 25 30.335 mg In Empty Bag 1 bag @ 1 MG/HR 2 mls/hr IV .Q24H PRN Rx#:[id number] Insulin Regular 100 unit 38.129 47.571 12.945 In Sodium Chloride 0.9% 100 ml @ Per Protocol IV .Q0M EZEQUIEL Rx#:[id number] Oral 360 Output: Chest Tube Drainage 150 270 100 Chest Tube Left Pleural 80 150 70 Chest Tube Mediastinal 40 120 30 Chest Tube Right Pleural 30 0 0 Urine 380 450 625 Other: Voiding Method Indwelling Catheter Indwelling Catheter Indwelling Catheter ABP, PAP, CO, CI - Last Documented Arterial Blood Pressure 129/40 Pulmonary Artery Pressure 33/13 Cardiac Output 4.2 Cardiac Index 2.2 - Labs CBC & Chem 7: 01/04/25 03:55 01/04/25 03:55 Labs: Abnormal Lab Results - Last 24 Hours (Table) 01/03/25 01/03/25 01/03/25 Range/Units 15:17 16:39 18:10 WBC (4.50-10.00) 10*3/uL RBC (4.40-5.60) 10*6/uL Hgb (13.0-17.0) g/dL Hct (39.6-50.0) % Immature Gran # (0.00-0.04) 10*3/uL Neutrophils # (1.80-7.70) 10*3/uL Monocytes # (0.20-1.00) 10*3/uL Glucose (74-99) mg/dL POC Glucose (mg/dL) 114 H 137 H 198 H (70-110) mg/dL Total Protein (6.3-8.2) g/dL Albumin (3.5-5.0) g/dL 01/03/25 01/03/25 01/03/25 Range/Units 19:01 20:08 21:12 WBC (4.50-10.00) 10*3/uL RBC (4.40-5.60) 10*6/uL Hgb (13.0-17.0) g/dL Hct (39.6-50.0) % Immature Gran # (0.00-0.04) 10*3/uL Neutrophils # (1.80-7.70) 10*3/uL Monocytes # (0.20-1.00) 10*3/uL Glucose (74-99) mg/dL POC Glucose (mg/dL) 191 H 203 H 159 H (70-110) mg/dL Total Protein (6.3-8.2) g/dL Albumin (3.5-5.0) g/dL 01/03/25 01/04/25 01/04/25 Range/Units 22:33 00:10 01:09 WBC (4.50-10.00) 10*3/uL RBC (4.40-5.60) 10*6/uL Hgb (13.0-17.0) g/dL Hct (39.6-50.0) % Immature Gran # (0.00-0.04) 10*3/uL Neutrophils # (1.80-7.70) 10*3/uL Monocytes # (0.20-1.00) 10*3/uL Glucose (74-99) mg/dL POC Glucose (mg/dL) 113 H 125 H 137 H (70-110) mg/dL Total Protein (6.3-8.2) g/dL Albumin (3.5-5.0) g/dL 01/04/25 01/04/25 01/04/25 Range/Units 02:01 03:55 03:55 WBC 16.72 H (4.50-10.00) 10*3/uL RBC 3.66 L (4.40-5.60) 10*6/uL Hgb 11.5 L (13.0-17.0) g/dL Hct 34.2 L (39.6-50.0) % Immature Gran # 0.10 H (0.00-0.04) 10*3/uL Neutrophils # 13.63 H (1.80-7.70) 10*3/uL Monocytes # 1.67 H (0.20-1.00) 10*3/uL Glucose 102 H (74-99) mg/dL POC Glucose (mg/dL) 137 H (70-110) mg/dL Total Protein 5.0 L (6.3-8.2) g/dL Albumin 3.0 L (3.5-5.0) g/dL 01/04/25 01/04/25 01/04/25 Range/Units 05:06 06:47 08:04 WBC (4.50-10.00) 10*3/uL RBC (4.40-5.60) 10*6/uL Hgb (13.0-17.0) g/dL Hct (39.6-50.0) % Immature Gran # (0.00-0.04) 10*3/uL Neutrophils # (1.80-7.70) 10*3/uL Monocytes # (0.20-1.00) 10*3/uL Glucose (74-99) mg/dL POC Glucose (mg/dL) 116 H 134 H 141 H (70-110) mg/dL Total Protein (6.3-8.2) g/dL Albumin (3.5-5.0) g/dL 01/04/25 01/04/25 01/04/25 Range/Units 09:01 10:05 12:12 WBC (4.50-10.00) 10*3/uL RBC (4.40-5.60) 10*6/uL Hgb (13.0-17.0) g/dL Hct (39.6-50.0) % Immature Gran # (0.00-0.04) 10*3/uL Neutrophils # (1.80-7.70) 10*3/uL Monocytes # (0.20-1.00) 10*3/uL Glucose (74-99) mg/dL POC Glucose (mg/dL) 218 H 212 H 226 H (70-110) mg/dL Total Protein (6.3-8.2) g/dL Albumin (3.5-5.0) g/dL
--- NOTE | 2025-01-04 16:40 | P.PN ---
Subjective Progress Note Date: 01/04/25 History of present illness: Pleasant 74-year-old male with significant past medical history of diabetes type 2, psoriatic arthritis, restless leg syndrome, hypertension, hyperlipidemia who presented with elevated blood pressure. 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 He does not smoke, drinks rare alcohol, no drug use. He states he has been having high blood pressure and intermittent shortness of breath, worse over the past few weeks. Went to a walk-in clinic and BP was elevated 200's/80's. and r eferred to ER in [place] and ultimately transferred to [facility] for elevated trop 0.08. Troponins here 0.085, 0.081, 0.085, creat 0.69, D-dimer negative. BNP was 801. He did have the flu 1 month ago and was coughing more at that time. He states over the past few months he has been having more chest tightness with walking the dog and this is a change for him. He does not use salt. No prior cardiac work up. EKG does show sinus bradycardia with ST deviation and moderate T wave abnormalities. He is feeling better this morning. Denies any chest pain or pressure. No shortness of breath. 12/30 Patient seen and examined. Yesterday patient underwent cardiac catheterization which revealed multivessel CAD with heavily calcified 30 to 50% proximal LAD, mid LAD 95%, diagonal 1 100%, diagonal to 80%, OM 2 moderate caliber 99%, small caliber RCA 90% stenosis. Patient has been evaluated by cardiothoracic surgery and is scheduled for CABG on . Patient remains on a heparin drip. B lood pressure 153/74, heart rate 60, pulse ox 96% on room air. Echocardiogram reveals EF of 50 to 55% with mild anterior apical hypokinesis. Mild tricuspid regurgitation with no evidence of pulmonary hypertension. 12/31 Patient is scheduled for CABG tomorrow. Blood pressure readings are elevated w ith with blood pressure 167/76, heart rate is running in the 50s and 60s, pulse ox 96% on room air. 01/01 Patient seen and examined. Patient denies chest pain or pressure, no shortness of breath, no lightheadedness or dizziness. Blood pressure 146/76, heart rate in the 50s. Yesterday we added amlodipine. Patient's surgery has been delayed until Sunday. Heparin drip has been discontinued and we will leave this off. 01/03/2025 Patient underwent CABG yesterday. Uneventful postoperative course so far., Doing well, coming along well, blood pressure borderline elevated, telemetry shows sinus rhythm no concerns of any arrhythmias at this time, continue to be on IV insulin drip 01/04/2025 Patient is seen and examined at bedside. He is coming along well Hemodynamically stable Appears euvolemic [place] catheter is out, chest tubes are out, ambulating in the unit, sinus rhythm telemetry, no reported arrhythmias. On exam S1-S2 is audible, no significant murmurs appreciated, surgical dressing in place, chest tube in place Lungs are clear to auscultate Minimal swelling about the lower extremity Alert oriented, no focal neurological deficits, detailed neuroexam not performed IMPRESSION AND PLAN: NSTEMI status post three-vessel CABG Atrial clip ligation Hypertension Hyperlipidemia Diabetes type 2 PLAN: Continue aspirin Plavix statin beta-kailash Wean down Cleviprex and start p.o. amlodipine Continue to monitor [place] catheter was discontinued, chest tube is in place. Monitor urine output electrolytes telemetry Supportive care, we will continue to monitor Objective - Vital Signs Vital signs: Vital Signs Temp 98.7 F 01/04/25 12:00 Pulse 64 01/04/25 15:00 Resp 13 01/04/25 11:00 BP 125/62 01/04/25 15:00 Pulse Ox 96 01/04/25 15:00 FiO2 50 01/02/25 16:39 Intake & Output 01/03/25 01/04/25 01/04/25 18:59 06:59 18:59 Intake Total 602.464 479.571 594.945 Output Total 530 720 805 Balance 72.464 -240.429 -210.055 Weight 85.4 kg 87.9 kg Intake: IV 534 432 222 Sodium Chloride 0.9% 1, 380 360 180 000 ml @ 30 mls/hr IV . Q24H EZEQUIEL Rx#:[id number] cardiac output 20 ceFAZolin 2 gm In 50 Dextrose 5% in Water 50 ml @ 100 mls/hr IVPB Q8HR EZEQUIEL Rx#:[id number] pressure bag 84 72 42 Intake, IV Titration 68.464 47.571 12.945 Amount Clevidipine Butyrate 25 30.335 mg In Empty Bag 1 bag @ 1 MG/HR 2 mls/hr IV .Q24H PRN Rx#:[id number] Insulin Regular 100 unit 38.129 47.571 12.945 In Sodium Chloride 0.9% 100 ml @ Per Protocol IV .Q0M EZEQUIEL Rx#:[id number] Oral 360 Output: Chest Tube Drainage 150 270 100 Chest Tube Left Pleural 80 150 70 Chest Tube Mediastinal 40 120 30 Chest Tube Right Pleural 30 0 0 Urine 380 450 705 Other: Voiding Method Indwelling Catheter Indwelling Catheter Indwelling Catheter ABP, PAP, CO, CI - Last Documented Arterial Blood Pressure 129/40 Pulmonary Artery Pressure 33/13 Cardiac Output 4.2 Cardiac Index 2.2 - Labs CBC & Chem 7: 01/04/25 03:55 01/04/25 03:55 Labs: Abnormal Lab Results - Last 24 Hours (Table) 01/03/25 01/03/25 01/03/25 Range/Units 18:10 19:01 20:08 WBC (4.50-10.00) 10*3/uL RBC (4.40-5.60) 10*6/uL Hgb (13.0-17.0) g/dL Hct (39.6-50.0) % Immature Gran # (0.00-0.04) 10*3/uL Neutrophils # (1.80-7.70) 10*3/uL Monocytes # (0.20-1.00) 10*3/uL Glucose (74-99) mg/dL POC Glucose (mg/dL) 198 H 191 H 203 H (70-110) mg/dL Total Protein (6.3-8.2) g/dL Albumin (3.5-5.0) g/dL 01/03/25 01/03/25 01/04/25 Range/Units 21:12 22:33 00:10 WBC (4.50-10.00) 10*3/uL RBC (4.40-5.60) 10*6/uL Hgb (13.0-17.0) g/dL Hct (39.6-50.0) % Immature Gran # (0.00-0.04) 10*3/uL Neutrophils # (1.80-7.70) 10*3/uL Monocytes # (0.20-1.00) 10*3/uL Glucose (74-99) mg/dL POC Glucose (mg/dL) 159 H 113 H 125 H (70-110) mg/dL Total Protein (6.3-8.2) g/dL Albumin (3.5-5.0) g/dL 01/04/25 01/04/25 01/04/25 Range/Units 01:09 02:01 03:55 WBC 16.72 H (4.50-10.00) 10*3/uL RBC 3.66 L (4.40-5.60) 10*6/uL Hgb 11.5 L (13.0-17.0) g/dL Hct 34.2 L (39.6-50.0) % Immature Gran # 0.10 H (0.00-0.04) 10*3/uL Neutrophils # 13.63 H (1.80-7.70) 10*3/uL Monocytes # 1.67 H (0.20-1.00) 10*3/uL Glucose (74-99) mg/dL POC Glucose (mg/dL) 137 H 137 H (70-110) mg/dL Total Protein (6.3-8.2) g/dL Albumin (3.5-5.0) g/dL 01/04/25 01/04/25 01/04/25 Range/Units 03:55 05:06 06:47 WBC (4.50-10.00) 10*3/uL RBC (4.40-5.60) 10*6/uL Hgb (13.0-17.0) g/dL Hct (39.6-50.0) % Immature Gran # (0.00-0.04) 10*3/uL Neutrophils # (1.80-7.70) 10*3/uL Monocytes # (0.20-1.00) 10*3/uL Glucose 102 H (74-99) mg/dL POC Glucose (mg/dL) 116 H 134 H (70-110) mg/dL Total Protein 5.0 L (6.3-8.2) g/dL Albumin 3.0 L (3.5-5.0) g/dL 01/04/25 01/04/25 01/04/25 Range/Units 08:04 09:01 10:05 WBC (4.50-10.00) 10*3/uL RBC (4.40-5.60) 10*6/uL Hgb (13.0-17.0) g/dL Hct (39.6-50.0) % Immature Gran # (0.00-0.04) 10*3/uL Neutrophils # (1.80-7.70) 10*3/uL Monocytes # (0.20-1.00) 10*3/uL Glucose (74-99) mg/dL POC Glucose (mg/dL) 141 H 218 H 212 H (70-110) mg/dL Total Protein (6.3-8.2) g/dL Albumin (3.5-5.0) g/dL 01/04/25 Range/Units 12:12 WBC (4.50-10.00) 10*3/uL RBC (4.40-5.60) 10*6/uL Hgb (13.0-17.0) g/dL Hct (39.6-50.0) % Immature Gran # (0.00-0.04) 10*3/uL Neutrophils # (1.80-7.70) 10*3/uL Monocytes # (0.20-1.00) 10*3/uL Glucose (74-99) mg/dL POC Glucose (mg/dL) 226 H (70-110) mg/dL Total Protein (6.3-8.2) g/dL Albumin (3.5-5.0) g/dL
[2025-01-04 17:28] LABS: Glucose,Whole Blood 336 mg/dL (70-110)
--- NOTE | 2025-01-04 18:42 | P.PN ---
Subjective Progress Note Date: 01/04/25 This is a 74-year-old male patient who presented to the emergency department with symptoms of exertional dyspnea and the patient was found to have elevated troponins. The patient ruled in for an acute non-ST segment elevation myocardial infarction. EKG showed sinus bradycardia with a heart rate of 56 and the patient had nonspecific T wave abnormalities. Chest x-ray showed no acute cardiopulmonary abnormalities. 2D echocardiogram showed a preserved LV function with an EF of around 50 to 55% without any significant valvular abnormalities. The patient underwent cardiac catheterization patient had a cath on 12/29/2024 and the cath showed a 30 to 50% stenosis of the proximal LAD, 95% stenosis of the mid LAD and 100% diagnosis to diagonal and 80% stenosis in a diagonal #2 and 99% stenosis of the obtuse marginal and 90% stenosis of the RCA. Subsequently, the patient was seen by cardiothoracic surgery and the patient is going to undergo cardiac bypass surgery. The patient is currently on IV heparin. Free of any chest pain. Resting comfortably in bed. On room air oxygen. The patient is known to have diabetes mellitus type 2, hypertension hyperlipidemia and BPH along with acid reflux and psoriatic arthritis. He also has chronic restless leg syndrome. He is a lifetime non-smoker. He has a good performance and functional status. CAT scan of the chest was done on 12/29/2024 and it showed mild to moderate atherosclerotic plaques involving the aortic arch. No evidence of any aneurysm. EKG from this morning is showing sinus bradycardia with a heart rate of 57. T wave inversions are still present over the anterolateral and inferior leads. No ST segment elevations. The patient has a white cell count of 7.4 with a heme of 15.7 and platelet count of 202. Normal coagulation profile. Normal electrolytes. Normal renal function. Troponins peaked at 0.08. LFTs are normal. UA showing plus for glucose, hepatitis profile has been negative. Thyroid function tests were normal. Carotid ultrasound showed 50 to 69% stenosis on the right carotid bifurcation and less than 50% on the left. On 12/31/2024, the patient is resting comfortably in bed. No new complaints. Remains free of any chest pain. The patient remains on IV heparin. Hemodynamically stable. The plan is to proceed with coronary bypass surgery tomorrow. White cell is not 0.5 with a hemoglobin 15.4 and platelet count of 220. Electrolytes are within normal limits. BUN is 19 with creatinine 0.8. He remains on room air oxygen the patient using incentive spirometry. Pulse ox 94% on room air oxygen. No other significant events otherwise. On today's evaluation of 01/01/2025, the patient is on the stepdown cardiac unit. Sitting up in bed without any complaints. Alert and oriented x 3. Free of any chest pain. Awaiting coronary artery bypass surgery and this will be done by Dr. Shah tomorrow. Remains on room air oxygen using the incentive spirometer. He remains in a first-degree AV block and heart rate remains bradycardic. As such, the patient is not receiving any form of beta-blockers for now. The patient has no specific complaints. Remains on IV heparin. on 01/02/2025, the patient is being seen in the intensive care unit as the patient underwent four-vessel bypass surgery. Postop, the patient was brought in to the intensive care unit intubated on the mechanical ventilator. The patient currently sedated on propofol and patient is currently on 30 mcg/kg/min. The patient is assist-control mode of mechanical ventilation at rate of 12, tidal volume of 550, FiO2 of 100% with a PEEP of 5. Chest x-ray and blood gas are still pending for now. Meanwhile, immediately postop, the patient was found to have a cardiac index of 1.7 and the patient was started on Primacor and the most recent cardiac output is at 5 with an index of 2.6. Primacor is running at 0.3 mc /kg/min and the PA pressures are 39/17. The patient is currently on Primacor infusion augmented cardiac output and and the patient is on nitroglycerin drip at 5 mcg/min. Urine output is adequate. The patient is producing good urine output. Awaiting chest x-ray and blood gases. For now, the patient has a mediastinal and the left pleural chest tube and output is minimal and there is no evidence of any air leak from the chest tubes. 01/03/2025, the patient is postop day #1. The patient was weaned off the mechanical ventilator and the patient was extubated without any major difficulties. The patient was also taken off the Primacor and nitroglycerin drip. The patient is doing well for now. Hemodynamically stable. Urine output is being monitored. Using incentive spirometer. Chest x-ray shows no acute abnormalities. The patient continues to have a right pleural, mediastinal left pleural chest tube. Chest x-ray shows some atelectatic changes in the lung bases. NG tube has been removed. Orotracheal tubes were removed. Chiloquin-David catheter has been removed. Blood work shows a white cell count of 14 with a hemoglobin of 12 and a platelet count of 205. The sodium is at 138, potassium is at 4, BUN is 50 with a creatinine of 0.66. LFTs are normal. Awake alert and communicating. No other significant events overnight. No focal neurological deficits. On 01/04/2025, the patient is being seen for a follow-up. The patient is sitting up in a chair and the patient is calm and comfortable. Cardiac rhythm remains sinus. Hemodynamically stable. Denies having any chest pain. The mediastinal and the right pleural chest tube removed. Left chest tube chest tube is still in place. Chest x-ray shows no evidence of any pneumothorax and shows postoperative atelectatic changes bilaterally. The patient remains on aspirin and Plavix. The patient is also on Lopressor 50 mg p.o. twice daily, and Norvasc 5 mg p.o. daily. The patient remains on insulin drip and the patient will be transitioned to long-acting insulin utilizing Lantus. The blood work from today shows a white cell count of 16.7, hemoglobin of 11.5 and a platelet count of 203. The sodium is at 137, potassium 3.9, BUN is 20 with a creatinine of 0.7. LFTs are within normal limits. Blood sugars are being monitored. The patient is postop day #2. Objective - Vital Signs Vital signs: Vital Signs Temp 98.0 F 01/04/25 08:00 Pulse 70 01/04/25 09:00 Resp 22 01/04/25 09:00 BP 137/62 01/04/25 09:00 Pulse Ox 93 L 01/04/25 07:00 FiO2 50 01/02/25 16:39 Intake & Output 01/03/25 01/04/25 01/04/25 18:59 06:59 18:59 Intake Total 602.464 479.571 480.945 Output Total 530 720 115 Balance 72.464 -240.429 365.945 Weight 85.4 kg 87.9 kg Intake: IV 534 432 108 Sodium Chloride 0.9% 1, 380 360 90 000 ml @ 30 mls/hr IV . Q24H [facility] Rx#:[id number] cardiac output 20 ceFAZolin 2 gm In 50 Dextrose 5% in Water 50 ml @ 100 mls/hr IVPB Q8HR [facility] Rx#:[id number] pressure bag 84 72 18 Intake, IV Titration 68.464 47.571 12.945 Amount Clevidipine Butyrate 25 30.335 mg In Empty Bag 1 bag @ 1 MG/HR 2 mls/hr IV .Q24H PRN Rx#:[id number] Insulin Regular 100 unit 38.129 47.571 12.945 In Sodium Chloride 0.9% 100 ml @ Per Protocol IV .Q0M [facility] Rx#:[id number] Oral 360 Output: Chest Tube Drainage 150 270 50 Chest Tube Left Pleural 80 150 20 Chest Tube Mediastinal 40 120 30 Chest Tube Right Pleural 30 0 0 Urine 380 450 65 Other: Voiding Method Indwelling Catheter Indwelling Catheter ABP, PAP, CO, CI - Last Documented Arterial Blood Pressure 141/43 Pulmonary Artery Pressure 33/13 Cardiac Output 4.2 Cardiac Index 2.2 - Exam CONSTITUTIONAL: Appears comfortable, cooperative, no acute distress RESPIRATORY: Lungs sounds diminished bilaterally. Respirations even, nonlabored. Currently on 2 L nasal cannula with oxygen saturation 93%. Able to achieve 1250 mL on incentive spirometry. Strong cough. CARDIOVASCULAR: S1, S2 present. Regular rate and rhythm, sinus rhythm on telemetry. Sternum stable. Palpable peripheral pulses bilaterally. No edema present. No calf pain or tenderness noted. Heart hugger in place with patient demonstrating appropriate use. Antiembolism stockings, SCDs present. GASTROINTESTINAL: Abdomen soft, nontender, nondistended. Active bowel sounds present 4 quadrants. Tolerating diet. Positive flatus GENITOURINARY: Cole present draining clear, yellow urine. Output overnight 30-60 mL per hour, 830 mL in the last 24 hours INTEGUMENTARY: Skin is warm and dry with evidence of good perfusion. Anterior chest incision well approximated and covered with dry intact dressing. Left radial artery harvest site as well as right lower extremity EVH site well approximated without redness or drainage. NEUROLOGIC: Cranial nerves II through XII intact MUSKULOSKELETAL: Able to move all extremities, strength equal bilaterally, gait normal PSYCHIATRIC: Alert and oriented to person place and time, appropriate affect, intact judgment and insight INVASIVE LINES AND TUBES: Mediastinal/left/right pleural chest tubes present and connected to wall suction, no air leaks present. Mediastinal tube with 50 mL serosanguineous drainage overnight, 150 mL in the last 24 hours. Left pleural chest tube with 120 mL serosanguineous drainage overnight, 150 mL in the last 24 hours. Right pleural chest tube with 10 mL serosanguineous drainage in the last 24 hours. A/V epicardial pacemaker wires present, connected to generator, backup rate 50 bpm. Right internal jugular cordis, right radial arterial line present. CVP 12 - Labs CBC & Chem 7: 01/04/25 03:55 01/04/25 03:55 Labs: Abnormal Lab Results - Last 24 Hours (Table) 01/03/25 01/03/25 01/03/25 Range/Units 11:16 12:08 13:09 WBC (4.50-10.00) 10*3/uL RBC (4.40-5.60) 10*6/uL Hgb (13.0-17.0) g/dL Hct (39.6-50.0) % Immature Gran # (0.00-0.04) 10*3/uL Neutrophils # (1.80-7.70) 10*3/uL Monocytes # (0.20-1.00) 10*3/uL Glucose (74-99) mg/dL POC Glucose (mg/dL) 126 H 150 H 138 H (70-110) mg/dL Total Protein (6.3-8.2) g/dL Albumin (3.5-5.0) g/dL 01/03/25 01/03/25 01/03/25 Range/Units 15:17 16:39 18:10 WBC (4.50-10.00) 10*3/uL RBC (4.40-5.60) 10*6/uL Hgb (13.0-17.0) g/dL Hct (39.6-50.0) % Immature Gran # (0.00-0.04) 10*3/uL Neutrophils # (1.80-7.70) 10*3/uL Monocytes # (0.20-1.00) 10*3/uL Glucose (74-99) mg/dL POC Glucose (mg/dL) 114 H 137 H 198 H (70-110) mg/dL Total Protein (6.3-8.2) g/dL Albumin (3.5-5.0) g/dL 01/03/25 01/03/25 01/03/25 Range/Units 19:01 20:08 21:12 WBC (4.50-10.00) 10*3/uL RBC (4.40-5.60) 10*6/uL Hgb (13.0-17.0) g/dL Hct (39.6-50.0) % Immature Gran # (0.00-0.04) 10*3/uL Neutrophils # (1.80-7.70) 10*3/uL Monocytes # (0.20-1.00) 10*3/uL Glucose (74-99) mg/dL POC Glucose (mg/dL) 191 H 203 H 159 H (70-110) mg/dL Total Protein (6.3-8.2) g/dL Albumin (3.5-5.0) g/dL 01/03/25 01/04/25 01/04/25 Range/Units 22:33 00:10 01:09 WBC (4.50-10.00) 10*3/uL RBC (4.40-5.60) 10*6/uL Hgb (13.0-17.0) g/dL Hct (39.6-50.0) % Immature Gran # (0.00-0.04) 10*3/uL Neutrophils # (1.80-7.70) 10*3/uL Monocytes # (0.20-1.00) 10*3/uL Glucose (74-99) mg/dL POC Glucose (mg/dL) 113 H 125 H 137 H (70-110) mg/dL Total Protein (6.3-8.2) g/dL Albumin (3.5-5.0) g/dL 01/04/25 01/04/25 01/04/25 Range/Units 02:01 03:55 03:55 WBC 16.72 H (4.50-10.00) 10*3/uL RBC 3.66 L (4.40-5.60) 10*6/uL Hgb 11.5 L (13.0-17.0) g/dL Hct 34.2 L (39.6-50.0) % Immature Gran # 0.10 H (0.00-0.04) 10*3/uL Neutrophils # 13.63 H (1.80-7.70) 10*3/uL Monocytes # 1.67 H (0.20-1.00) 10*3/uL Glucose 102 H (74-99) mg/dL POC Glucose (mg/dL) 137 H (70-110) mg/dL Total Protein 5.0 L (6.3-8.2) g/dL Albumin 3.0 L (3.5-5.0) g/dL 01/04/25 01/04/25 01/04/25 Range/Units 05:06 06:47 08:04 WBC (4.50-10.00) 10*3/uL RBC (4.40-5.60) 10*6/uL Hgb (13.0-17.0) g/dL Hct (39.6-50.0) % Immature Gran # (0.00-0.04) 10*3/uL Neutrophils # (1.80-7.70) 10*3/uL Monocytes # (0.20-1.00) 10*3/uL Glucose (74-99) mg/dL POC Glucose (mg/dL) 116 H 134 H 141 H (70-110) mg/dL Total Protein (6.3-8.2) g/dL Albumin (3.5-5.0) g/dL 01/04/25 01/04/25 Range/Units 09:01 10:05 WBC (4.50-10.00) 10*3/uL RBC (4.40-5.60) 10*6/uL Hgb (13.0-17.0) g/dL Hct (39.6-50.0) % Immature Gran # (0.00-0.04) 10*3/uL Neutrophils # (1.80-7.70) 10*3/uL Monocytes # (0.20-1.00) 10*3/uL Glucose (74-99) mg/dL POC Glucose (mg/dL) 218 H 212 H (70-110) mg/dL Total Protein (6.3-8.2) g/dL Albumin (3.5-5.0) g/dL Assessment and Plan Plan: Multivessel coronary artery disease (multivessel CAD with heavily calcified 30 to 50% proximal LAD, mid LAD 95%, diagonal 1 100%, diagonal to 80%, OM 2 moderate caliber 99%, small caliber RCA 90% stenosis), symptomatic, awaiting bypass surgery. The patient is post acute non-ST segment elevation myocardial infarction. Echocardiogram shows preserved LV function and the patient is currently free of any chest pain. The patient is status post four-vessel coronary artery bypass surgery and the patient is currently postop day # 2. Hemodynamically stable and the patient is currently off Primacor and the patient is also off nitroglycerin drip. Postthoracotomy, extubated to nasal cannula the patient has a right pleural, left pleural and mediastinal chest tube. The patient's chest x-ray shows no evidence of pneumothorax. Output from the chest tube has been noted in the patient's right pleural and recent chest result to be removed and we will maintain the left sided chest tube in place. The patient remains on nasal cannula at 2 L/min. Status post acute non-ST elevated myocardial infarction this admission Carotid artery stenosis, bifurcation in the order of 50 to 69% on the right Hypertension Hyperlipidemia Diabetes mellitus type 2, current hemoglobin A1c 7.4%, currently on insulin drip. Restless leg syndrome Psoriatic arthritis, on methotrexate Benign prostatic hypertrophy GERD Lifetime non-smoker Plan: Incentive spirometer Monitor oxygenation and the patient is currently on 2 L of O2 nasal cannula Insulin drip has been discontinued and the patient is on sliding scale insulin coverage in addition to Lantus insulinDoes will be at 15 units in addition to her//coverage. Monitor urine output Monitor output from the chest tubes, the right pleural and mediastinal chest is virtually removed. Will keep the left pleural catheter in place for another 24 hours. Continue aspirin and Plavix Continue metoprolol Continue Lipitor Continue Norvasc Ambulate Keep the patient ICU for another 24 hours. Cardiac rhythm is sinus. Monitor output from the chest tube on the left Chiloquin-David catheter has been removed Keep the chest tube for another 24 hours Will continue to follow in the ICU for another 24 hours.
[2025-01-04] MEDS: ALBUMIN HUMAN 25% 50 ML in EMPTY BAG 1 BAG IVPB ONE ×2 (20:06→20:07)
[2025-01-04] MEDS: ALBUMIN HUMAN 5% 500 ML in EMPTY BAG 1 BAG IVPB ONE ×6 (20:07→20:08)
[2025-01-04] MEDS: ceFAZolin 1,000 MG in SODIUM CHLORIDE 0.9% IRRIGATIO 1,000 ML IRRIGATION ONE (20:08)
[2025-01-04] MEDS: ELECTROLYTE-A SOLUTION 1,000 ML with POTASSIUM CHLORIDE 40 MEQ, MAGNESIUM SULFATE 16 ME... IV ONE (20:08)
[2025-01-04] MEDS: ELECTROLYTE-A SOLUTION 1,000 ML with POTASSIUM CHLORIDE 100 MEQ, MAGNESIUM SULFATE 16 M... IV ONE (20:08)
[2025-01-04] MEDS: CHLORHEXIDINE GLUCONATE 15 ML CUP MUCOUS MEM ONE (20:08)
[2025-01-04] MEDS: CLEVIDIPINE BUTYRATE 25 MG in EMPTY BAG 1 BAG IV SCH ×2 (20:08→20:12)
[2025-01-04] MEDS: CALCIUM CHLORIDE 100 MG/ML 10 ML SYRINGE IVP ONE (20:08)
[2025-01-04] MEDS: HEPARIN SODIUM 1,000 UN/ML (10ML VL) IV ONE (20:09)
[2025-01-04] MEDS: HEPARIN SODIUM,PORCINE (1 ML) 5,000 UNIT in SODIUM CHLORIDE 0.9% 500 ML 500 ML IV ONE (20:09)
[2025-01-04] MEDS: NITROGLYCERIN-D5W PMX 50 MG in DEXTROSE/WATER 1 250ML.BAG IV SCH (20:10)
[2025-01-04] MEDS: PAPAVERINE 360 MG in SODIUM CHLORIDE 0.9% 90 ML IV ONE (20:10)
[2025-01-04] MEDS: NITROGLYCERIN-D5W PMX 25 MG/250 ML BTL IV ONE (20:10)
[2025-01-04] MEDS: MANNITOL 25% 12.5 GM/50 ML VIAL IV ONE ×2 (20:10)
[2025-01-04] MEDS: MAGNESIUM SULFATE 16.24 MEQ in EMPTY SYRINGE 1 SYR IV ONE (20:10)
[2025-01-04] MEDS: PHENYLEPHRINE 10 MG/ML VIAL IV ONE (20:10)
[2025-01-04] MEDS: SODIUM BICARB 8.4% 50 ML SYR (1 MEQ/ML) IV ONE (20:11)
[2025-01-04] MEDS: PROTAMINE SULFATE 10 MG/ML 25 ML VIAL IV ONE (20:11)
[2025-01-04] MEDS: TRANEXAMIC ACID 2,000 MG in SODIUM CHLORIDE 0.9% 80 ML IV ONE (20:11)
[2025-01-04] MEDS: PHENYLEPHRINE 40 MG in SODIUM CHLORIDE 0.9% 250 ML IV ONE (20:11)
[2025-01-04] MEDS: PROTAMINE SULFATE 250 MG in EMPTY BAG 1 BAG IV ONE (20:11)
[2025-01-04] MEDS: AMIODARONE 360 MG in DEXTROSE 5% IN WATER 200 ML IV ONE (20:12)
[2025-01-04] MEDS: DILTIAZEM 125 MG in SODIUM CHLORIDE 0.9% 100 ML IV SCH (20:12)
[2025-01-04] MEDS: MD COMMUNICATION TO PHARMACY 1 EACH MISC PO ONE ×4 (20:13)
[2025-01-04 20:19] LABS: Glucose,Whole Blood 322 mg/dL (70-110)
[2025-01-05 05:09] LABS: Basophils # (A) 0.05 10*3/uL (0.00-0.10); Basophils % (A) 0.4 %; Eosinophils # (A) 0.33 10*3/uL (0.04-0.35); Eosinophils % (A) 2.4 %; HCT 34.9 % (39.6-50.0); HGB 11.5 g/dL (13.0-17.0); Lymphocytes # (A) 1.19 10*3/uL (0.90-5.00); Lymphocytes % (A) 8.6 %; MCH 31.3 pg (27.0-32.0); MCV 94.8 fL (80.0-97.0); Mean Platelet Volume 10.6 fL (9.5-12.2); Monocytes # (A) 1.22 10*3/uL (0.20-1.00); Monocytes % (A) 8.8 %; Neutrophils # (A) 11.03 10*3/uL (1.80-7.70); Neutrophils % (A) 79.4 %; Platelet Count 201 10*3/uL (140-440); RBC 3.68 10*6/uL (4.40-5.60); RDW 13.7 % (11.5-14.5); WBC 13.88 10*3/uL (4.50-10.00)
--- NOTE | 2025-01-05 05:25 | OP ---
OPERATIVE REPORT DATE OF SERVICE : 01/02/2025 PREOPERATIVE DIAGNOSIS: Coronary artery disease. POSTOPERATIVE DIAGNOSIS: Coronary artery disease. PROCEDURES: 1. Coronary artery bypass surgery x3 vessels (left internal mammary artery to left anterior descending artery, radial artery to right coronary artery, saphenous vein graft to obtuse marginal artery). 2. Endoscopic vein harvest, right greater saphenous vein. 3. Endoscopic harvest, left radial artery. 4. Ligation of left atrial appendage using a 35 mm AtriClip. 5. Epiaortic ultrasound. 6. Transesophageal echocardiogram. 7. Graft flow measurements using [employer] system. ASSISTANTS: 1. . 2. AMELIA Patricio. ANESTHESIA: General (Dr. Brown). SPECIMEN: None. COMPLICATION: None. INDICATION: The patient is a 74-year-old male with a past medical history significant for diabetes mellitus, GERD, hyperlipidemia, hypertension, and benign prostatic hypertrophy, who presented to an urgent care center several days ago with shortness of breath and chest tightness which has been present for the past 1 to 2 months. He was transferred to the hospital in [place] for further evaluation. He was noted to have elevated troponins and was then transferred to [facility]. Workup revealed a non-ST elevation myocardial infarction. Cardiac catheterization revealed multivessel coronary artery disease. Coronary artery bypass was recommended. The risks, benefits, alternatives of procedure were discussed with the patient. All his questions were answered. Consent was obtained. FINDINGS: The left internal mammary artery was a good conduit with brisk flow. The saphenous vein was good conduit. The radial artery was good conduit. The LAD was heavily calcified and measured 1.3 mm. The obtuse marginal artery measured 1.3 mm. The PDA was extremely small and not amenable for bypass. The distal right coronary artery measured 1.3 mm. PROCEDURE IN DETAIL: The patient was taken to the operating room and placed supine on the operating table. After the induction of general anesthesia, he was prepped and draped in the usual sterile fashion. Preoperative transesophageal echocardiogram confirmed preserved ejection fraction with no significant valvular pathology. A median sternotomy was performed. The left internal mammary artery was harvested in a standard fashion taking care to clip all branches. Intravenous heparin was administered. The vessel was transected distally revealing brisk flow. Simultaneously, greater saphenous vein was harvested from the right lower extremity using endoscopic technique. All branches were tied. In addition, radial artery was harvested from the left upper extremity, again using endoscopic technique. A pericardial cradle was created. The ascending aorta was palpated. There was no significant calcific plaque noted. Epiaortic ultrasound was then performed on the ascending aorta. Again, no calcific plaque or atheromatous disease was identified. An arterial cannula was placed in the distal ascending aorta. A venous cannula was placed through the right atrial appendage directed into the IVC. Both antegrade and retrograde catheters were placed as well. The patient was then placed on cardiopulmonary bypass with good decompression of the heart. The aortic cross-clamp was applied. Cold blood potassium cardioplegia was delivered in both antegrade and retrograde fashion to achieve arrest of the heart. Of note, cardioplegia was delivered every 15 to 20 minutes with the patient remaining under cross-clamp. We began by identifying the left atrial appendage. A 35 mm AtriClip was placed across its base to ensure ligation. Next, attention was turned to the inferior wall. The posterior descending artery was identified, dissected free. It was extremely small in diameter and not amenable for bypass. I traced it back proximally and the distal right coronary artery was then dissected free. A small arteriotomy was created in this location. Using the radial artery, an end-to-side anastomosis was created. This was performed using running 7-0 Prolene suture. The graft was hemostatic and had great flow. Next, the proximal anastomosis was performed on the ascending aorta using a running 6-0 Prolene suture. The radial graft was without tension. Attention was then turned to the lateral wall. There were multiple obtuse marginal artery branches identified. These were dissected free. An arteriotomy was then created in the largest of the 3. Using greater saphenous vein in a reverse fashion, an end-to-side anastomosis was created. This was performed using a running 7-0 Prolene suture. The graft was hemostatic and had great flow. Finally, attention was turned to the anterior wall. The left anterior descending was identified. It was heavily calcified throughout its course. A relative soft spot was noted in its mid to distal region. A small arteriotomy was created. Using the left internal mammary artery, an end-to-side anastomosis was created. This was performed using running 8-0 Prolene suture. The graft was hemostatic. The mammary pedicle was then tacked down to the anterior surface of the heart. The remaining proximal anastomosis was then performed to the ascending aorta in an end- to-side fashion using running 6-0 Prolene suture. 1 L of warm blood was delivered in retrograde fashion. Both lidocaine and magnesium were administered as well. Of note, I elected to place a radial artery to the right coronary artery because I did not think it would reach the distal obtuse marginal artery branch. Again it was without tension at all. The vein graft was de-aired in the standard fashion. Distal anastomoses were inspected and appeared to be hemostatic. Temporary atrial and ventricular pacing wires were placed and brought through skin. The patient was then weaned off cardiopulmonary bypass. He was supplemented with addition of low-dose Levophed . Followup transesophageal echocardiogram confirmed good left ventricular ejection fraction with good movement of all pratt. There was no change in valvular pathology. Graft flow measurements were then performed using the [employer] system. The MCMILLAN to LAD graft had a flow of . The vein graft to the obtuse marginal artery had a flow of . The radial artery to RCA had a flow of . Protamine was administered. There were no adverse reactions. The remaining cannulas were removed. The mediastinum was copiously irrigated with warm saline solution. Again, all surgical sites were inspected. They appeared to be hemostatic. Soft tissues reapproximated over the ascending aorta as well as over the majority of the heart. Chest tubes were placed in both the left pleural space and mediastinum. A Cameron drain was placed into the right pleural space. These were all secured to the skin using sutures. The wound was then reapproximated using the [employer] cable system. The cables were placed in a figure-of- eight fashion. At the completion of the closure, the sternum was well aligned. The remainder of the wound was closed in layers. A sterile dressing was applied. The patient appeared to tolerate the procedure well. There were no immediate complications. He returned to the ICU in critical but stable condition. He did not receive any blood transfusions. Epiaortic ultrasound had been performed on the ascending aorta at the beginning of the case. There was no evidence of calcific plaque or atheromatous disease. MMODL / IJN: [id number] /
[2025-01-05 05:48] LABS: Glucose,Whole Blood 278 mg/dL (70-110)
[2025-01-05 05:57] LABS: ALT 24 U/L (4-49); AST 31 U/L (17-59); African American GFR (CKD) >90 (>60 ml/min/1.73 sqM); Albumin 2.8 g/dL (3.5-5.0); Alkaline Phosphatase 76 U/L (38-126); Anion Gap 7 mmol/L; Blood Urea Nitrogen 26 mg/dL (9-20); Calcium 8.6 mg/dL (8.4-10.2); Carbon Dioxide 26 mmol/L (22-30); Chloride 102 mmol/L (98-107); Glucose 220 mg/dL (74-99); Non-African American GFR(CKD) 89 (>60 ml/min/1.73 sqM); Potassium 4.3 mmol/L (3.5-5.1); Sodium 135 mmol/L (137-145); Total Bilirubin 0.9 mg/dL (0.2-1.3); Total Protein 5.1 g/dL (6.3-8.2)
[2025-01-05] MEDS: bisacodyL 10 MG SUPP RECTAL PRN (06:49)
--- NOTE | 2025-01-05 07:19 | XR ---
EXAMINATION TYPE: XR chest 1V portable DATE OF EXAM: 01/05/2025 5:28 AM COMPARISON: 01/04/2025 CLINICAL INDICATION: Male, 74 years old with history of Postcardiac surgery, TECHNIQUE: XR chest 1V portable views of the chest are obtained. FINDINGS: Demonstrated are scattered senescent parenchymal change. Left-sided chest tube remains in place. No sizable pneumothorax present. Right-sided chest tube and mediastinal drains have been removed. Scattered pleural parenchymal opacities persist throughout both lung amador. Postsurgical changes of CABG. Cardiomegaly. Hilar and mediastinal structures are within normal limits. Degenerative changes are seen of the dorsal spine. IMPRESSION: 1. Post cardiac surgery changes. [facility], , 01/05/2025 7:17 AM
--- NOTE | 2025-01-05 07:58 | P.PN ---
Subjective Progress Note Date: 01/05/25 Principal diagnosis: Multivessel coronary artery disease, non-ST elevated myocardial infarction this admission. Medical history significant for hypertension, hyperlipidemia, diabe toni mellitus type 2, right internal carotid artery stenosis, restless leg syndrome, psoriatic arthritis on methotrexate, hard of hearing, benign prostatic hypertrophy, GERD, and is a lifelong non-smoker. POD #3 coronary artery bypass surgery, left internal mammary artery to the left anterior descending artery, left radial artery to the right coronary artery, saphenous vein graft to the first obtuse marginal branch, endoscopic left radial artery harvest, endoscopic right greater saphenous vein harvest, exclusion of the left atrial appendage with a 35 mm AtriClip, intraoperative transesophageal echocardiogram performed by anesthesia The patient was seen and examined in follow-up this morning January 05, 2025 at his bedside in the intensive care unit. He is currently sitting up to the bedside chair, is awake, alert, oriented x 3 and is in no acute apparent distress. He denies any complaints of pain or shortness of breath at this time. Oxygen saturations are 98% on 2 L nasal cannula and he is achieving 1850 mL on his incentive spirometry with encouragement. Bedside telemetry is showing normal sinus rhythm heart rate 69 bpm. He remains afebrile in the last 24 hours. He remains hemodynamically stable and is on no inotropic or pressor support. Left pleural chest tube remains in place to low continuous wall suction -20 cm H2O. No airleak is present. Draining thin serosanguineous drainage. 40 mL output of the left pleural chest tube in the last 8 hours and 150 mL output in the last 24 hours. Laboratory and chest x-ray results reviewed. The patient reports he has been up ambulating in the intensive care unit [facility] with standby assistance from nursing and therapy staff and tolerating well. Objective - Vital Signs Vital signs: Vital Signs Temp 98.3 F 01/05/25 04:00 Pulse 68 01/05/25 04:00 Resp 22 01/05/25 04:00 BP 150/68 01/05/25 04:00 Pulse Ox 98 01/05/25 04:00 FiO2 50 01/02/25 16:39 Intake & Output 01/04/25 01/05/25 01/05/25 18:59 06:59 18:59 Intake Total 594.945 200 Output Total 1000 620 Balance -405.055 -420 Weight 86.3 kg Intake: IV 222 Sodium Chloride 0.9% 1, 180 000 ml @ 30 mls/hr IV . Q24H EZEQUIEL Rx#:[id number] pressure bag 42 Intake, IV Titration 12.945 Amount Insulin Regular 100 unit 12.945 In Sodium Chloride 0.9% 100 ml @ Per Protocol IV .Q0M EZEQUIEL Rx#:[id number] Oral 360 200 Output: Chest Tube Drainage 120 70 Chest Tube Left Pleural 90 70 Chest Tube Mediastinal 30 Chest Tube Right Pleural 0 Urine 880 550 Other: Voiding Method Urinal ABP, PAP, CO, CI - Last Documented Arterial Blood Pressure 129/40 Pulmonary Artery Pressure 33/13 Cardiac Output 4.2 Cardiac Index 2.2 - Exam CONSTITUTIONAL: Appears comfortable, cooperative, no acute distress RESPIRATORY: Lungs sounds diminished bilaterally. Respirations symmetrical, nonlabored. Currently on 2 L nasal cannula with oxygen saturation 98%. Able to achieve 1850 mL on his incentive spirometry. Strong cough. CARDIOVASCULAR: S1, S2 present. Regular rate and rhythm, sinus rhythm on telemetry, heart rate 69 bpm. Sternum stable. Palpable peripheral pulses bilaterally. No edema present. No calf pain or tenderness noted. Heart hugger in place with patient demonstrating appropriate use. Antiembolism stockings, SCDs present. GASTROINTESTINAL: Abdomen soft, nontender, nondistended. Active bowel sounds present 4 quadrants. Tolerating diet. Passing flatus. GENITOURINARY: Continues to void. Urine output 550 mL in the last 8 hours. INTEGUMENTARY: Skin is warm and dry with no clubbing or cyanosis present. Midline sternal incision well approximated and covered with dry intact dressing. Left radial artery harvest site as well as right lower extremity EVH sites well approximated without redness or drainage. NEUROLOGIC: Cranial nerves II through XII intact. No focal deficits. MUSKULOSKELETAL: Able to move all extremities, strength equal bilaterally, gait normal. PSYCHIATRIC: Alert and oriented to person place and time, appropriate affect, intact judgment and insight. INVASIVE LINES AND TUBES: Left pleural chest tube present and connected to low continuous wall suction, no air leak present. Left pleural chest tube with 150 mL serosanguineous drainage in the last 24 hours. A/V epicardial pacemaker wires present, connected to backup bedside pacemaker generator, backup rate 50 bpm. - Allied health notes Allied health notes reviewed: nursing - Labs CBC & Chem 7: 01/05/25 04:53 01/05/25 04:53 Labs: Abnormal Lab Results - Last 24 Hours (Table) 01/04/25 01/04/25 01/04/25 Range/Units 08:04 09:01 10:05 WBC (4.50-10.00) 10*3/uL RBC (4.40-5.60) 10*6/uL Hgb (13.0-17.0) g/dL Hct (39.6-50.0) % Immature Gran # (0.00-0.04) 10*3/uL Neutrophils # (1.80-7.70) 10*3/uL Monocytes # (0.20-1.00) 10*3/uL Sodium (137-145) mmol/L BUN (9-20) mg/dL Glucose (74-99) mg/dL POC Glucose (mg/dL) 141 H 218 H 212 H (70-110) mg/dL Total Protein (6.3-8.2) g/dL Albumin (3.5-5.0) g/dL 01/04/25 01/04/25 01/04/25 Range/Units 12:12 17:27 20:18 WBC (4.50-10.00) 10*3/uL RBC (4.40-5.60) 10*6/uL Hgb (13.0-17.0) g/dL Hct (39.6-50.0) % Immature Gran # (0.00-0.04) 10*3/uL Neutrophils # (1.80-7.70) 10*3/uL Monocytes # (0.20-1.00) 10*3/uL Sodium (137-145) mmol/L BUN (9-20) mg/dL Glucose (74-99) mg/dL POC Glucose (mg/dL) 226 H 336 H 322 H (70-110) mg/dL Total Protein (6.3-8.2) g/dL Albumin (3.5-5.0) g/dL 01/05/25 01/05/25 01/05/25 Range/Units 04:53 04:53 05:47 WBC 13.88 H (4.50-10.00) 10*3/uL RBC 3.68 L (4.40-5.60) 10*6/uL Hgb 11.5 L (13.0-17.0) g/dL Hct 34.9 L (39.6-50.0) % Immature Gran # 0.06 H (0.00-0.04) 10*3/uL Neutrophils # 11.03 H (1.80-7.70) 10*3/uL Monocytes # 1.22 H (0.20-1.00) 10*3/uL Sodium 135 L (137-145) mmol/L BUN 26 H (9-20) mg/dL Glucose 220 H (74-99) mg/dL POC Glucose (mg/dL) 278 H (70-110) mg/dL Total Protein 5.1 L (6.3-8.2) g/dL Albumin 2.8 L (3.5-5.0) g/dL - Imaging and Cardiology Chest x-ray: report reviewed, image reviewed Assessment and Plan Assessment: Multivessel coronary artery disease, status post three-vessel CABG Non-ST elevated myocardial infarction this admission Hypertension Hyperlipidemia, treated, cholesterol 150, LDL 86, triglycerides 115 Right internal carotid artery stenosis 50 to 69% Diabetes mellitus type 2, current hemoglobin A1c 7.4% Restless leg syndrome Psoriatic arthritis, on methotrexate Benign prostatic hypertrophy GERD Lifetime non-smoker Plan: Continue to maximize medical therapy with aspirin, statin, Plavix, and beta- kailash. Will increase beta-kailash as tolerated. Continue oral amlodipine 5 mg p.o. daily for radial artery spasm prophylaxis. Wean oxygen as tolerated. Encourage incentive spirometry use 10 times every hour while awake. Bronchodilators per pulmonology. Lasix 20 mg IV x 1 now. Will monitor daily labs and chest x-rays. Electrolyte replacement per protocol. Increase activity, ambulate as tolerated. PT/OT/cardiac rehab following. GI/DVT prophylaxis. Pain control per current medication regimen. Insulin management per internal medicine. Preoperative hemoglobin A1c 7.4%. Will discontinue left pleural chest tube. May bladder scan and straight cath for greater than 300 mL residual. Continue to monitor and record strict accurate intake and output. Daily weights. Shower daily starting tomorrow January 06, 2025. Transfer orders for 3 S. cardiac stepdown unit, may transfer when bed available. More recommendations to follow based on patient's clinical course. Time with Patient: Greater than 30
[2025-01-05] MEDS: FUROSEMIDE 10 MG/ML 2 ML VIAL IV ONE (09:25)
--- NOTE | 2025-01-05 11:29 | P.PN ---
Subjective Progress Note Date: 01/05/25 Principal diagnosis: Hospital course: Pleasant 74-year-old male with significant past medical history of diabetes type 2, psoriatic arthritis, restless leg syndrome, hypertension, hyperlipidemia who presented with elevated blood pressure. 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 He does not smoke, drinks rare alcohol, no drug use. He states he has been having high blood pressure and intermittent shortness of breath, worse over the past few weeks. Went to a walk-in clinic and BP was elevated 200's/80's. and referred to ER in [place] and ultimately transferred to [facility] for elevated trop 0.08. Troponins here 0.085, 0.081, 0.085, creat 0.69, D-dimer negative. BNP was 801. He did have the flu 1 month ago and was coughing more at that time. He states over the past few months he has been having more chest tightness with walking the dog and this is a change for him. He does not use salt. No prior cardiac work up. EKG does show sinus bradycardia with ST deviation and moderate T wave abnormalities. He is feeling better this morning. Denies any chest pain or pressure. No shortness of breath. 12/30 Patient seen and examined. Yesterday patient underwent cardiac catheterization which revealed multivessel CAD with heavily calcified 30 to 50% proximal LAD, mid LAD 95%, diagonal 1 100%, diagonal to 80%, OM 2 moderate caliber 99%, small caliber RCA 90% stenosis. Patient has been evaluated by cardiothoracic surgery and is scheduled for CABG on . Patient remains on a heparin drip. Blood pressure 153/74, heart rate 60, pulse ox 96% on room air. Echocardiogram reveals EF of 50 to 55% with mild anterior apical hypokinesis. Mild tricuspid regurgitation with no evidence of pulmonary hypertension. 12/31 Patient is scheduled for CABG tomorrow. Blood pressure readings are elevated with with blood pressure 167/76, heart rate is running in the 50s and 60s, pulse ox 96% on room air. 01/01 Patient seen and examined. Patient denies chest pain or pressure, no shortness of breath, no lightheadedness or dizziness. Blood pressure 146/76, heart rate in the 50s. Yesterday we added amlodipine. Patient's surgery has been delayed until [place]. Heparin drip has been discontinued and we will leave this off. 01/03/2025 Patient underwent CABG yesterday. Uneventful postoperative course so far., Doing well, coming along well, blood pressure borderline elevated, telemetry shows sinus rhythm no concerns of any arrhythmias at this time, continue to be on IV insulin drip 01/04/2025 Patient is seen and examined at bedside. He is coming along well Hemodynamically stable Appears euvolemic Eldred-David catheter is out, chest tubes are out, ambulating in the unit, sinus rhythm telemetry, no reported arrhythmias. 01/05/25: Patient seen and examined at bedside today. He continues to be in the ICU. No new complaints today. Pulse 68 bpm, BP 150/68, SpO2 98% on 2 L oxygen via nasal cannula WBC 13.88, hemoglobin 11.5, sodium 135, potassium 4.3, BUN 26, creatinine 0.75 Chest x-ray obtained today shows scattered pleural-parenchymal opacities present throughout both lung amador, postsurgical changes of CABG, cardiomegaly Review of systems: Pertinent positives and negatives as discussed in HPI, a complete review of systems was performed and all other systems are negative. Physical examination: Vital signs reviewed GENERAL: This is a 74-year-old male, not in acute distress HEENT: Head is atraumatic, normocephalic. LUNGS: CTA bilaterally, no wheezes, no rhonchi, chest tube in place HEART: S1-S2 audible ABDOMEN: Soft, nontender EXTREMITIES: Trace edema Neuro: Alert, oritented, no focal deficits. Detailed neuro exam was not performed. Assessment: NSTEMI status post three-vessel CABG Atrial clip ligation Hypertension Hyperlipidemia Diabetes type 2 Plan: Continue aspirin Plavix statin beta-kailash Continue p.o. amlodipine Chest tube is in place. Monitor urine output electrolytes telemetry Supportive care, we will continue to monitor Dictation was produced using [employer] dictation software. please excuse any grammatical, word or spelling errors. Traci Calderon MD PGY-1 IM Objective - Vital Signs Vital signs: Vital Signs Temp 98.3 F 01/05/25 04:00 Pulse 68 01/05/25 04:00 Resp 22 01/05/25 04:00 BP 150/68 01/05/25 04:00 Pulse Ox 98 01/05/25 04:00 FiO2 50 01/02/25 16:39 Intake & Output 01/04/25 01/05/25 01/05/25 18:59 06:59 18:59 Intake Total 594.945 200 Output Total 1000 620 Balance -405.055 -420 Weight 86.3 kg Intake: IV 222 Sodium Chloride 0.9% 1, 180 000 ml @ 30 mls/hr IV . Q24H EZEQUIEL Rx#:[id number] pressure bag 42 Intake, IV Titration 12.945 Amount Insulin Regular 100 unit 12.945 In Sodium Chloride 0.9% 100 ml @ Per Protocol IV .Q0M EZEQUIEL Rx#:[id number] Oral 360 200 Output: Chest Tube Drainage 120 70 Chest Tube Left Pleural 90 70 Chest Tube Mediastinal 30 Chest Tube Right Pleural 0 Urine 880 550 Other: Voiding Method Urinal ABP, PAP, CO, CI - Last Documented Arterial Blood Pressure 129/40 Pulmonary Artery Pressure 33/13 Cardiac Output 4.2 Cardiac Index 2.2 - Labs CBC & Chem 7: 01/05/25 04:53 01/05/25 04:53 Labs: Abnormal Lab Results - Last 24 Hours (Table) 01/04/25 01/04/25 01/04/25 Range/Units 12:12 17:27 20:18 WBC (4.50-10.00) 10*3/uL RBC (4.40-5.60) 10*6/uL Hgb (13.0-17.0) g/dL Hct (39.6-50.0) % Immature Gran # (0.00-0.04) 10*3/uL Neutrophils # (1.80-7.70) 10*3/uL Monocytes # (0.20-1.00) 10*3/uL Sodium (137-145) mmol/L BUN (9-20) mg/dL Glucose (74-99) mg/dL POC Glucose (mg/dL) 226 H 336 H 322 H (70-110) mg/dL Total Protein (6.3-8.2) g/dL Albumin (3.5-5.0) g/dL 01/05/25 01/05/25 01/05/25 Range/Units 04:53 04:53 05:47 WBC 13.88 H (4.50-10.00) 10*3/uL RBC 3.68 L (4.40-5.60) 10*6/uL Hgb 11.5 L (13.0-17.0) g/dL Hct 34.9 L (39.6-50.0) % Immature Gran # 0.06 H (0.00-0.04) 10*3/uL Neutrophils # 11.03 H (1.80-7.70) 10*3/uL Monocytes # 1.22 H (0.20-1.00) 10*3/uL Sodium 135 L (137-145) mmol/L BUN 26 H (9-20) mg/dL Glucose 220 H (74-99) mg/dL POC Glucose (mg/dL) 278 H (70-110) mg/dL Total Protein 5.1 L (6.3-8.2) g/dL Albumin 2.8 L (3.5-5.0) g/dL
[2025-01-05 11:30] LABS: Glucose,Whole Blood 340 mg/dL (70-110)
[2025-01-05] MEDS: AMIODARONE 360 MG in DEXTROSE 5% IN WATER 200 ML IV PRN (11:50)
[2025-01-05] MEDS: DEXTROSE 5% IN WATER 100 ML with AMIODARONE 150 MG IV PRN (12:00)
--- NOTE | 2025-01-05 13:04 | P.PN ---
Subjective Progress Note Date: 01/05/25 patient 74-year-old gentleman past medical history significant for diabetes mellitus, hypertension who presented to the ER as a transfer from hospital in [place] for chest pain. Patient stated he was all right couple of weeks back when he started having intermittent shortness of breath and chest pressure, chest pressure was central location, nonradiating, no aggravating or relieving factor associated with chest pressure. Patient went to urgent care and was found to have elevated blood pressure and was referred to [facility] and was later transferred to [facility]. There is no complaint of shortness of breath. Patient denies any palpitation. There is no complaint of orthopnea or PND. Denies any nausea, vomiting abdominal pain. Patient denies any complaint of dizziness. There is no complaint of headache. Initial lab work done in the ER showed WBC 7.20, hemoglobin 16.4, D-dimer 0.24, sodium 141, potassium 3.7, BUN 14, creatinine 0.75, glucose 265, AST 67, ALT 105, troponin 0.085 EKG done in the ER showed heart rate of 56 , no ST segment elevation or depression seen, no T-wave inversions seen. Chest x-ray done in the ER showed no acute cardiopulmonary process Patient admitted to internal medicine service 12/29/2024 Patient is seen in follow-up this morning currently n.p.o. as patient is being evaluated by cardiology and will undergo cardiac catheterization today. Will await official report. Patient is afebrile with no reported chest pain at this time and denies shortness of breath. A.m. labs pending I will follow-up. Replace electrolytes per protocol 12/30/2024 Patient is seen in follow-up no acute overnight issues noted. 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 Patient is continued on heparin drip and is tentatively scheduled for CABG on 01/01/2025. Patient will be continued on telemetry mo nitoring. 01/01/2025 Patient is evaluated in follow-up in the medical floor. He is rescheduled to undergo coronary artery bypass grafting tomorrow on 01/02/2025. His blood glucose has been elevated and he is concerned that he has not been getting his Tuojeo, did let the patient know that we do not carry this medication and he has been getting Lantus 35 units in the morning and we will add a dose in the evening to improve his glycemic control before going for open heart surgery. Additonally patient has only been on sliding scale insulin and he does take 25 units of fast acting with breakfast and dinner and 10 units with lunch. He has no acute complaints at this time. He is evaluated ambulating in the room with family at the bedside. Potassium is better at 3.7. 01/02/2025 Patient currently n.p.o. in OR awaiting to undergo CABG. Will await official report and follow-up with the patient. 01/03. Patient seen and examined. Sitting upright in the chair. Patient still has chest tubes in. Stated he feels better. 01/04. Patient seen and examined. Patient had 2 chest tubes removed, still has 1 chest tube remaining. Blood sugars range between 100s to 200s. Patient still has some postsurgical pain at the surgery site 01/05. Patient seen and examined. Labs reviewed WBC 13.88, hemoglobin 9.5, platelet count 201, sodium 135, potassium 4.3, BUN 20, creatinine 0.75. Blood sugars elevated, switch Lantus to [address] surgery discontinued a left chest tube today. REVIEW OF SYSTEMS: CONSTITUTIONAL: No fever, no malaise,. CARDIOVASCULAR: No chest pain, no palpitations, no syncope. PULMONARY: No shortness of breath, no cough, GASTROINTESTINAL: No diarrhea, no nausea, no vomiting, no abdominal pain. NEUROLOGICAL: No headaches, no weakness, PHYSICAL EXAMINATION: GENERAL: The patient is alert and oriented x3, not in any acute distress. Well developed, well nourished. HEENT: Pupils are round and equally reacting to light. EOMI. CARDIOVASCULAR: S1 and S2 present. No murmurs, rubs, or gallops. Sternotomy surgical incision seen, PULMONARY: Chest is clear to auscultation, no wheezing or crackles. ABDOMEN: Soft, nontender, nondistended, normoactive bowel sounds. No palpable organomegaly. MUSCULOSKELETAL: No joint swelling or deformity. EXTREMITIES: No cyanosis, clubbing, or pedal edema. NEUROLOGICAL: Gross neurological examination did not reveal any focal deficits. SKIN: No rashes. Assessment and plan Acute coronary syndrome, status post cardiac catheterization 12/29/2024 revealing multivessel disease and scheduled for CABG today 01/02/[address] surgery Hypertension Diabetes mellitus type 2 uncontrolled with hyperglycemia, preop hemoglobin was 7.4 restless leg syndrome Hyperlipidemia Psoriatic arthritis Gastroesophageal reflux disease Monitor vital signs Monitor CBC Monitor CMP Continue telemetry monitoring status post four-vessel coronary artery bypass surgery Continue oxygen supplementation Aggressive bronchopulmonary hygiene continue chest tube management per CT surgery Continue aspirin, Plavix, Lipitor Monitor blood sugar levels, switch Lantus to 12 units twice daily, continue sliding scale insulin Continue Amio drip Cardiac surgery following Pulmonology following Labs and medication were reviewed.. Continue same treatment. Continue with symptomatic treatment. Resume home medication. Monitor labs and vitals. DVT and GI prophylaxis. Further recommendations as per clinical course of the patient Dictation was produced using [employer] dictation software. please excuse any grammatical, word or spelling errors. Objective - Vital Signs Vital signs: Vital Signs Temp 98.3 F 01/05/25 04:00 Pulse 68 01/05/25 04:00 Resp 22 01/05/25 04:00 BP 150/68 01/05/25 04:00 Pulse Ox 98 01/05/25 04:00 FiO2 50 01/02/25 16:39 Intake & Output 01/04/25 01/05/25 01/05/25 18:59 06:59 18:59 Intake Total 594.945 200 Output Total 1000 620 Balance -405.055 -420 Weight 86.3 kg Intake: IV 222 Sodium Chloride 0.9% 1, 180 000 ml @ 30 mls/hr IV . Q24H EZEQUIEL Rx#:[id number] pressure bag 42 Intake, IV Titration 12.945 Amount Insulin Regular 100 unit 12.945 In Sodium Chloride 0.9% 100 ml @ Per Protocol IV .Q0M EZEQUIEL Rx#:[id number] Oral 360 200 Output: Chest Tube Drainage 120 70 Chest Tube Left Pleural 90 70 Chest Tube Mediastinal 30 Chest Tube Right Pleural 0 Urine 880 550 Other: Voiding Method Urinal ABP, PAP, CO, CI - Last Documented Arterial Blood Pressure 129/40 Pulmonary Artery Pressure 33/13 Cardiac Output 4.2 Cardiac Index 2.2 - Labs CBC & Chem 7: 01/05/25 04:53 01/05/25 04:53 Labs: Abnormal Lab Results - Last 24 Hours (Table) 01/04/25 01/04/25 01/04/25 Range/Units 12:12 17:27 20:18 WBC (4.50-10.00) 10*3/uL RBC (4.40-5.60) 10*6/uL Hgb (13.0-17.0) g/dL Hct (39.6-50.0) % Immature Gran # (0.00-0.04) 10*3/uL Neutrophils # (1.80-7.70) 10*3/uL Monocytes # (0.20-1.00) 10*3/uL Sodium (137-145) mmol/L BUN (9-20) mg/dL Glucose (74-99) mg/dL POC Glucose (mg/dL) 226 H 336 H 322 H (70-110) mg/dL Total Protein (6.3-8.2) g/dL Albumin (3.5-5.0) g/dL 01/05/25 01/05/25 01/05/25 Range/Units 04:53 04:53 05:47 WBC 13.88 H (4.50-10.00) 10*3/uL RBC 3.68 L (4.40-5.60) 10*6/uL Hgb 11.5 L (13.0-17.0) g/dL Hct 34.9 L (39.6-50.0) % Immature Gran # 0.06 H (0.00-0.04) 10*3/uL Neutrophils # 11.03 H (1.80-7.70) 10*3/uL Monocytes # 1.22 H (0.20-1.00) 10*3/uL Sodium 135 L (137-145) mmol/L BUN 26 H (9-20) mg/dL Glucose 220 H (74-99) mg/dL POC Glucose (mg/dL) 278 H (70-110) mg/dL Total Protein 5.1 L (6.3-8.2) g/dL Albumin 2.8 L (3.5-5.0) g/dL
[2025-01-05] MEDS ORDERED: ACETAMINOPHEN TAB 500 MG TAB PO PRN (13:51)
--- NOTE | 2025-01-05 14:41 | P.PN ---
Subjective Progress Note Date: 01/05/25 Principal diagnosis: POD #3 coronary artery bypass surgery, left internal mammary artery to the left anterior descending artery, left radial artery to the right coronary artery, s aphenous vein graft to the first obtuse marginal branch, endoscopic left radial artery harvest, endoscopic right greater saphenous vein harvest, exclusion of the left atrial appendage with a 35 mm AtriClip, intraoperative transesophageal echocardiogram performed by anesthesia This is a 74-year-old male patient who presented to the emergency department with symptoms of exertional dyspnea and the patient was found to have elevated troponins. The patient ruled in for an acute non-ST segment elevation myocardial infarction. EKG showed sinus bradycardia with a heart rate of 56 and the patient had nonspecific T wave abnormalities. Chest x-ray showed no acute cardiopulmonary abnormalities. 2D echocardiogram showed a preserved LV function with an EF of around 50 to 55% without any significant valvular abnormalities. The patient underwent cardiac catheterization patient had a cath on 12/29/2024 and the cath showed a 30 to 50% stenosis of the proximal LAD, 95% stenosis of the mid LAD and 100% diagnosis to diagonal and 80% stenosis in a diagonal #2 and 99% stenosis of the obtuse marginal and 90% stenosis of the RCA. Subsequently, the patient was seen by cardiothoracic surgery and the patient is going to undergo cardiac bypass surgery. The patient is currently on IV heparin. Free o f any chest pain. Resting comfortably in bed. On room air oxygen. The patient is known to have diabetes mellitus type 2, hypertension hyperlipidemia and BPH along with acid reflux and psoriatic arthritis. He also has chronic restless leg syndrome. He is a lifetime non-smoker. He has a good performance and functional status. CAT scan of the chest was done on 12/29/2024 and it showed mild to moderate atherosclerotic plaques involving the aortic arch. No evidence of any aneurysm. EKG from this morning is showing sinus bradycardia with a heart rate of 57. T wave inversions are still present over the anterolateral and inferior leads. No ST segment elevations. The patient has a white cell count of 7.4 with a heme of 15.7 and platelet count of 202. Normal coagulation profile. Normal electrolytes. Normal renal function. Troponins peaked at 0.08. LFTs are normal. UA showing plus for glucose, hepatitis profile has been negative. Thyroid function tests were normal. Carotid ultrasound showed 50 to 69% stenosis on the right carotid bifurcation and less than 50% on the left. On 12/31/2024, the patient is resting comfortably in bed. No new complaints. Remains free of any chest pain. The patient remains on IV heparin. Hemodynamically stable. The plan is to proceed with coronary bypass surgery tomorrow. White cell is not 0.5 with a hemoglobin 15.4 and platelet count of 220. Electrolytes are within normal limits. BUN is 19 with creatinine 0.8. He remains on room air oxygen the patient using incentive spirometry. Pulse ox 94% on room air oxygen. No other significant events otherwise. On today's evaluation of 01/01/2025, the patient is on the stepdown cardiac unit. Sitting up in bed without any complaints. Alert and oriented x 3. Free of any chest pain. Awaiting coronary artery bypass surgery and this will be done by Dr. Shah tomorrow. Remains on room air oxygen using the incentive spirometer. He remains in a first-degree AV block and heart rate remains bradycardic. As such, the patient is not receiving any form of beta-blockers for now. The pa tient has no specific complaints. Remains on IV heparin. on 01/02/2025, the patient is being seen in the intensive care unit as the patient underwent four-vessel bypass surgery. Postop, the patient was brought in to the intensive care unit intubated on the mechanical ventilator. The patient currently sedated on propofol and patient is currently on 30 mcg/kg/min. The patient is assist-control mode of mechanical ventilation at rate of 12, tidal volume of 550, FiO2 of 100% with a PEEP of 5. Chest x-ray and blood gas are still pending for now. Meanwhile, immediately postop, the patient was found to have a cardiac index of 1.7 and the patient was started on Primacor and the most recent cardiac output is at 5 with an index of 2.6. Primacor is running at 0.3 mc /kg/min and the PA pressures are 39/17. The patient is currently on Primacor infusion augmented cardiac output and and the patient is on nitroglycerin drip at 5 mcg/min. Urine output is adequate. The patient is producing good urine output. Awaiting chest x-ray and blood gases. For now, the patient has a mediastinal and the left pleural chest tube and output is minimal and there is no evidence of any air leak from the chest tubes. 01/03/2025, the patient is postop day #1. The patient was weaned off the mechanical ventilator and the patient was extubated without any major difficulties. The patient was also taken off the Primacor and nitroglycerin drip. The patient is doing well for now. Hemodynamically stable. Urine output is being monitored. Using incentive spirometer. Chest x-ray shows no acute abnormalities. The patient continues to have a right pleural, mediastinal left pleural chest tube. Chest x-ray shows some atelectatic changes in the lung bases. NG tube has been removed. Orotracheal tubes were removed. [place]-David catheter has been removed. Blood work shows a white cell count of 14 with a hemoglobin of 12 and a platelet count of 205. The sodium is at 138, potassium is at 4, BUN is 50 with a creatinine of 0.66. LFTs are normal. Awake alert and communicating. No other significant events overnight. No focal neurological deficits. On 01/04/2025, the patient is being seen for a follow-up. The patient is sitting up in a chair and the patient is calm and comfortable. Cardiac rhythm remains sinus. Hemodynamically stable. Denies having any chest pain. The mediastinal and the right pleural chest tube removed. Left chest tube chest tube is still in place. Chest x-ray shows no evidence of any pneumothorax and shows postoperative atelectatic changes bilaterally. The patient remains on aspirin and Plavix. The patient is also on Lopressor 50 mg p.o. twice daily, and Norvas c 5 mg p.o. daily. The patient remains on insulin drip and the patient will be transitioned to long-acting insulin utilizing Lantus. The blood work from today shows a white cell count of 16.7, hemoglobin of 11.5 and a platelet count of 203. The sodium is at 137, potassium 3.9, BUN is 20 with a creatinine of 0.7. LFTs are within normal limits. Blood sugars are being monitored. The patient is postop day #2. Patient was seen today on 01/05/2027, patient is now postoperative day #3, patient is doing well, his CABG x 3 was on 01/02, he is on 2 L nasal cannula, and does not seem to be in any distress. Patient is achieving about 1500 cc on his incentive spirometry. Chest x-ray showed mostly postoperative changes with cardiomegaly, WBC count is 13.8 hemoglobin is 11.5 electrolytes are normal renal profile is normal Objective - Vital Signs Vital signs: Vital Signs Temp 98.3 F 01/05/25 12:00 Pulse 89 01/05/25 12:00 Resp 17 01/05/25 12:00 BP 124/75 01/05/25 12:00 Pulse Ox 95 01/05/25 12:00 FiO2 50 01/02/25 16:39 Intake & Output 01/04/25 01/05/25 01/05/25 18:59 06:59 18:59 Intake Total 594.945 200 Output Total 1000 620 Balance -405.055 -420 Weight 86.3 kg Intake: IV 222 Sodium Chloride 0.9% 1, 180 000 ml @ 30 mls/hr IV . Q24H EZEQUIEL Rx#:[id number] pressure bag 42 Intake, IV Titration 12.945 Amount Insulin Regular 100 unit 12.945 In Sodium Chloride 0.9% 100 ml @ Per Protocol IV .Q0M EZEQUIEL Rx#:[id number] Oral 360 200 Output: Chest Tube Drainage 120 70 Chest Tube Left Pleural 90 70 Chest Tube Mediastinal 30 Chest Tube Right Pleural 0 Urine 880 550 Other: Voiding Method Urinal ABP, PAP, CO, CI - Last Documented Arterial Blood Pressure 129/40 Pulmonary Artery Pressure 33/13 Cardiac Output 4.2 Cardiac Index 2.2 - Exam CONSTITUTIONAL: Revealed 74-year-old white male in no distress RESPIRATORY: Diminished breath sounds at the bases with minimal crackles no rhonchi no wheezes CARDIOVASCULAR: Distant S1-S2, no S3 gallop, no murmur Abdomen: Soft nontender No rebound no guarding Skin: No rashes Neurologic: Alert oriented x 3 no gross focal deficit Psychiatric: Normal mood affect and no mental status examination Musculoskeletal: No deformities no limitation range of motion Skin: No rashes - Labs CBC & Chem 7: 01/05/25 04:53 01/05/25 04:53 Labs: Abnormal Lab Results - Last 24 Hours (Table) 01/04/25 01/04/25 01/05/25 Range/Units 17:27 20:18 04:53 WBC 13.88 H (4.50-10.00) 10*3/uL RBC 3.68 L (4.40-5.60) 10*6/uL Hgb 11.5 L (13.0-17.0) g/dL Hct 34.9 L (39.6-50.0) % Immature Gran # 0.06 H (0.00-0.04) 10*3/uL Neutrophils # 11.03 H (1.80-7.70) 10*3/uL Monocytes # 1.22 H (0.20-1.00) 10*3/uL Sodium (137-145) mmol/L BUN (9-20) mg/dL Glucose (74-99) mg/dL POC Glucose (mg/dL) 336 H 322 H (70-110) mg/dL Total Protein (6.3-8.2) g/dL Albumin (3.5-5.0) g/dL 01/05/25 01/05/25 01/05/25 Range/Units 04:53 05:47 11:29 WBC (4.50-10.00) 10*3/uL RBC (4.40-5.60) 10*6/uL Hgb (13.0-17.0) g/dL Hct (39.6-50.0) % Immature Gran # (0.00-0.04) 10*3/uL Neutrophils # (1.80-7.70) 10*3/uL Monocytes # (0.20-1.00) 10*3/uL Sodium 135 L (137-145) mmol/L BUN 26 H (9-20) mg/dL Glucose 220 H (74-99) mg/dL POC Glucose (mg/dL) 278 H 340 H (70-110) mg/dL Total Protein 5.1 L (6.3-8.2) g/dL Albumin 2.8 L (3.5-5.0) g/dL Assessment and Plan Assessment: Impression: Multivessel coronary artery disease, status post three-vessel CABG Non-ST elevated myocardial infarction this admission History of psoriatic arthritis, on methotrexate Lifetime non-smoker History of restless leg syndrome Psoriatic arthritis, on methotrexate Benign prostatic hypertrophy GERD Lifetime non-smoker recommendation: Continue maximal medical therapy including beta-kailash. Aspirin Plavix and aspirin Continue Lasix as needed GI DVT prophylaxis Continue insulin Continue incentive spirometry Continue ambulation Continue daily x-rays of the chest Transferred to a monitored bed and selective sometime later today. Will continue to follow Time with Patient: Less than 30
[2025-01-05 17:34] LABS: Glucose,Whole Blood 377 mg/dL (70-110)
[2025-01-05] MEDS: AMIODARONE 450 MG in DEXTROSE 5% IN WATER 250 ML IV PRN (18:15)
[2025-01-05 20:21] LABS: Glucose,Whole Blood 354 mg/dL (70-110)
[2025-01-05] MEDS: INSULIN GLARGINE (LANTUS) 100 UNIT/ML SYR SQ SCH (21:16)
[2025-01-06 05:15] LABS: Basophils # (A) 0.05 10*3/uL (0.00-0.10); Basophils % (A) 0.4 %; Eosinophils % (A) 3.5 %; HCT 34.4 % (39.6-50.0); HGB 11.4 g/dL (13.0-17.0); Lymphocytes # (A) 1.16 10*3/uL (0.90-5.00); Lymphocytes % (A) 10.2 %; MCH 31.1 pg (27.0-32.0); MCHC 33.1 g/dL (32.0-37.0); MCV 93.7 fL (80.0-97.0); Mean Platelet Volume 9.9 fL (9.5-12.2); Monocytes # (A) 1.14 10*3/uL (0.20-1.00); Neutrophils # (A) 8.54 10*3/uL (1.80-7.70); Neutrophils % (A) 75.3 %; Platelet Count 270 10*3/uL (140-440); RBC 3.67 10*6/uL (4.40-5.60); RDW 13.3 % (11.5-14.5); WBC 11.36 10*3/uL (4.50-10.00)
[2025-01-06 05:52] LABS: African American GFR (CKD) >90 (>60 ml/min/1.73 sqM); Anion Gap 11 mmol/L; Blood Urea Nitrogen 29 mg/dL (9-20); Carbon Dioxide 25 mmol/L (22-30); Chloride 100 mmol/L (98-107); Glucose 222 mg/dL (74-99); Magnesium 2.1 mg/dL (1.6-2.3); Non-African American GFR(CKD) >90 (>60 ml/min/1.73 sqM); Potassium 3.6 mmol/L (3.5-5.1); Sodium 136 mmol/L (137-145)
[2025-01-06 06:21] LABS: Glucose,Whole Blood 244 mg/dL (70-110)
--- NOTE | 2025-01-06 06:34 | XR ---
EXAMINATION TYPE: XR chest 2V DATE OF EXAM: 01/06/2025 5:43 AM COMPARISON: 01/05/2025 CLINICAL INDICATION: Male, 74 years old with history of Postop CABG: Shortness of breath TECHNIQUE: XR chest 2V views of the chest are obtained. FINDINGS: Noted are postoperative changes of CABG. Left-sided chest tube has been removed without sizable pneum othorax. Left atrial clip is in place. Sternotomy wires and mediastinal clips noted. Scattered pleura l parenchymal opacity seen. No evidence for infiltrate. No evidence for atelectasis. Heart size is stable. Mediastinal structures are stable and grossly unremarkable. No evidence for hilar prominence. Degenerative changes dorsal spine. IMPRESSION: 1. Postoperative changes of CABG. [facility], , 01/06/2025 6:31 AM
[2025-01-06] MEDS: INSULIN LISPRO (HumaLOG) 100 UNIT/ML 10 mL VL SQ SCH (06:49)
[2025-01-06] MEDS: POTASSIUM CHLORIDE ER 20 MEQ TAB.ER PO SCH (06:49)
[2025-01-06] MEDS ORDERED: SENNOSIDES-DOCUSATE SODIUM 1 EACH TAB PO PRN (07:02)
--- NOTE | 2025-01-06 07:16 | P.PN ---
Subjective Progress Note Date: 01/06/25 Principal diagnosis: Multivessel coronary artery disease, non-ST elevated myocardial infarction this admission. History of hypertension, hyperlipidemia, diabetes mellitus type 2, right internal carotid artery stenosis, restless leg syndrome, psoriatic arthritis on methotrexate, benign prostatic hypertrophy, GERD, lifelong non- smoker POD #4 coronary artery bypass surgery, left internal mammary artery to the left anterior descending artery, left radial artery to the right coronary artery, saphenous vein graft to the first obtuse marginal branch, endoscopic left radial artery harvest, endoscopic right greater saphenous vein harvest, exclusion of the left atrial appendage with a 35 mm AtriClip, intraoperative transesophageal echocardiogram performed by anesthesia Paroxysmal atrial fibrillation, known common occurrence after open heart surgery The patient was seen and examined this morning sitting up in recliner in the intensive care unit in no acute distress. Currently in controlled atrial fibrillation, hemodynamically stable. Patient was loaded with IV amiodarone yesterday, remains on amiodarone drip scheduled to start oral amiodarone this morning. Patient complains of expected postsurgical pain which is controlled on current medication regimen, denies shortness of breath. Chest x-ray, labs reviewed. Grounded epicardial wires remain. Patient has been ambulating in the hallway without difficulty. Transfer orders were placed 2 days ago for 3 S. cardiac stepdown unit, no bed available. No other new concerns. Objective - Vital Signs Vital signs: Vital Signs Temp 98.1 F 01/06/25 04:00 Pulse 82 01/06/25 04:00 Resp 8 L 01/06/25 04:00 BP 127/71 01/06/25 04:00 Pulse Ox 95 01/06/25 04:00 FiO2 50 01/02/25 16:39 Intake & Output 01/05/25 01/06/25 01/06/25 18:59 06:59 18:59 Intake Total 250 Output Total 1149 700 Balance -899 -700 Intake: Oral 250 Output: Urine 1075 700 Post Void Residual 74 Other: Voiding Method Urinal Urinal # Voids 1 # Bowel Movements 1 ABP, PAP, CO, CI - Last Documented Arterial Blood Pressure 129/40 Pulmonary Artery Pressure 33/13 Cardiac Output 4.2 Cardiac Index 2.2 - Exam CONSTITUTIONAL: Appears comfortable, cooperative, no acute distress RESPIRATORY: Lungs sounds diminished bilaterally. Respirations even, nonlabored. Currently on 2 L nasal cannula with oxygen saturation 99%. Able to achieve 1500 mL on incentive spirometry. Strong cough. CARDIOVASCULAR: S1, S2 present. Irregular rate and rhythm, controlled atrial fibrillation on telemetry. Sternum stable. Palpable peripheral pulses bilaterally. No edema present. No calf pain or tenderness noted. Heart hugger in place with patient demonstrating appropriate use. Antiembolism stockings, SCDs present. GASTROINTESTINAL: Abdomen soft, nontender, nondistended. Active bowel sounds present 4 quadrants. Tolerating diet. Positive home movement 01/05 GENITOURINARY: Continues to void clear, yellow urine, output 1775 mL in the last 24 hours INTEGUMENTARY: Skin is warm and dry with evidence of good perfusion. Anterior chest incision well approximated and covered with dry intact dressing. Left radial artery harvest site as well as right lower extremity EVH site well approximated without redness or drainage. NEUROLOGIC: Cranial nerves II through XII intact MUSKULOSKELETAL: Able to move all extremities, strength equal bilaterally, gait normal PSYCHIATRIC: Alert and oriented to person place and time, appropriate affect, intact judgment and insight INVASIVE LINES AND TUBES: A/V epicardial pacemaker wires present, grounded - Allied health notes Allied health notes reviewed: nursing - Labs CBC & Chem 7: 01/06/25 04:46 01/06/25 04:46 Labs: Abnormal Lab Results - Last 24 Hours (Table) 01/05/25 01/05/25 01/05/25 Range/Units 11:29 17:32 20:20 WBC (4.50-10.00) 10*3/uL RBC (4.40-5.60) 10*6/uL Hgb (13.0-17.0) g/dL Hct (39.6-50.0) % Immature Gran # (0.00-0.04) 10*3/uL Neutrophils # (1.80-7.70) 10*3/uL Monocytes # (0.20-1.00) 10*3/uL Eosinophils # (0.04-0.35) 10*3/uL Sodium (137-145) mmol/L BUN (9-20) mg/dL Glucose (74-99) mg/dL POC Glucose (mg/dL) 340 H 377 H 354 H (70-110) mg/dL 01/06/25 01/06/25 01/06/25 Range/Units 04:46 04:46 06:19 WBC 11.36 H (4.50-10.00) 10*3/uL RBC 3.67 L (4.40-5.60) 10*6/uL Hgb 11.4 L (13.0-17.0) g/dL Hct 34.4 L (39.6-50.0) % Immature Gran # 0.07 H (0.00-0.04) 10*3/uL Neutrophils # 8.54 H (1.80-7.70) 10*3/uL Monocytes # 1.14 H (0.20-1.00) 10*3/uL Eosinophils # 0.40 H (0.04-0.35) 10*3/uL Sodium 136 L (137-145) mmol/L BUN 29 H (9-20) mg/dL Glucose 222 H (74-99) mg/dL POC Glucose (mg/dL) 244 H (70-110) mg/dL - Imaging and Cardiology Chest x-ray: report reviewed, image reviewed Assessment and Plan Assessment: Multivessel coronary artery disease, status post three-vessel CABG Non-ST elevated myocardial infarction this admission Paroxysmal atrial fibrillation, status post ligation of the left atrial laine endage Hypertension Hyperlipidemia, treated, cholesterol 150, LDL 86, triglycerides 115 Right internal carotid artery stenosis 50 to 69% Diabetes mellitus type 2, current hemoglobin A1c 7.4% Restless leg syndrome Psoriatic arthritis, on methotrexate Benign prostatic hypertrophy GERD Lifetime non-smoker Plan: Continue to maximize medical therapy with low dose aspirin, statin, beta- kailash. Will increase beta-kailash therapy as tolerated, increased to 75 mg BID today. Plavix stopped Continue amiodarone, will transition to oral. Will start Eliquis for anticoagulation Continue oral calcium channel kailash for radial artery spasm prophylaxis Wean oxygen as tolerated. Encourage incentive spirometry use 10 times every hour while awake. Bronchodilators per pulmonology Will monitor daily labs and x-rays. Electrolyte replacement per protocol. No lasix today Increase activity, ambulate as tolerated. PT/OT/cardiac rehab following GI/DVT prophylaxis Pain control per current medication regimen Insulin management per internal medicine, patient needs tighter blood sugar control as his blood sugars remain greater than 200, scheduled NovoLog and Farxiga readded per patient's home dose Continue to monitor and record strict accurate intake and output Daily weights Will cut epicardial pacer wires Transfer orders placed for 3 S. cardiac stepdown unit, may transfer when bed available More recommendations to follow
[2025-01-06] MEDS: AMIODARONE 200 MG TAB PO SCH (09:55)
[2025-01-06] MEDS: DAPAGLIFLOZIN PROPANEDIOL 10 MG TABLET PO SCH (09:55)
[2025-01-06] MEDS: ASPIRIN 81 MG PO SCH (09:55)
[2025-01-06] MEDS: APIXABAN 5 MG TAB PO SCH (09:55)
[2025-01-06] MEDS: METOPROLOL TARTRATE 25 MG TAB PO SCH (09:55)
[2025-01-06 11:20] LABS: Glucose,Whole Blood 298 mg/dL (70-110)
--- NOTE | 2025-01-06 11:34 | P.PN ---
Subjective Progress Note Date: 01/06/25 Principal diagnosis: Hospital course: Pleasant 74-year-old male with significant past medical history of diabetes type 2, psoriatic arthritis, restless leg syndrome, hypertension, hyperlipidemia who presented with elevated blood pressure. He does not follow with a clinical pharmacy specialist. He does not smoke, drinks rare alcohol, no drug use. He states he has been having high blood pressure and intermittent shortness of breath, worse over the past few weeks. Went to a walk-in clinic and BP was elevated 200's/80's. and referred to ER in [place] and ultimately transferred to [facility] for elevated trop 0.08. Troponins here 0.085, 0.081, 0.085, creat 0.69, D-dimer negative. BNP was 801. He did have the flu 1 month ago and was coughing more at that time. He states over the past few months he has been having more chest tightness with walking the dog and this is a change for him. He does not use salt. No prior cardiac work up. EKG does show sinus bradycardia with ST deviation and moderate T wave abnormalities. He is feeling better this morning. Denies any chest pain or pressure. No shortness of breath. 12/30 Patient seen and examined. Yesterday patient underwent cardiac catheterization which revealed multivessel CAD with heavily calcified 30 to 50% proximal LAD, mid LAD 95%, diagonal 1 100%, diagonal to 80%, OM 2 moderate caliber 99%, small caliber RCA 90% stenosis. Patient has been evaluated by cardiothoracic surgery and is scheduled for CABG on . Patient remains on a heparin drip. Blood pressure 153/74, heart rate 60, pulse ox 96% on room air. Echocardiogram reveals EF of 50 to 55% with mild anterior apical hypokinesis. Mild tricuspid regurgitation with no evidence of pulmonary hypertension. 12/31 Patient is scheduled for CABG tomorrow. Blood pressure readings are elevated with with blood pressure 167/76, heart rate is running in the 50s and 60s, pulse ox 96% on room air. 01/01 Patient seen and examined. Patient denies chest pain or pressure, no shortness of breath, no lightheadedness or dizziness. Blood pressure 146/76, heart rate in the 50s. Yesterday we added amlodipine. Patient's surgery has been delayed until [place]. Heparin drip has been discontinued and we will leave this off. 01/03/2025 Patient underwent CABG yesterday. Uneventful postoperative course so far., Doing well, coming along well, blood pressure borderline elevated, telemetry shows sinus rhythm no concerns of any arrhythmias at this time, continue to be on IV insulin drip 01/04/2025 Patient is seen and examined at bedside. He is coming along well Hemodynamically stable Appears euvolemic [place]-David catheter is out, chest tubes are out, ambulating in the unit, sinus rhythm telemetry, no reported arrhythmias. 01/05/25: Patient seen and examined at bedside today. He continues to be in the ICU. No new complaints today. Pulse 68 bpm, BP 150/68, SpO2 98% on 2 L oxygen via nasal cannula WBC 13.88, hemoglobin 11.5, sodium 135, potassium 4.3, BUN 26, creatinine 0.75 Chest x-ray obtained today shows scattered pleural-parenchymal opacities present throughout both lung amador, postsurgical changes of CABG, cardiomegaly 01/06/25: Patient evaluated at bedside today. Patient is doing well and denies any new complaints. Chest tube is removed. BP 127/71, P 82 bpm WBC 11.36, Hb 11, Creatinine 0.66, K 3.6 Chest x-ray shows scattered milligram, opacity, left-sided chest tube has been removed without sizable pneumothorax, postop changes of CABG, sternotomy wires and mediastinal clips noted, left atrial clip in place Review of systems: Pertinent positives and negatives as discussed in HPI, a complete review of systems was performed and all other systems are negative. Physical examination: Vital signs reviewed GENERAL: This is a 74-year-old male, not in acute distress HEENT: Head is atraumatic, normocephalic. LUNGS: CTA bilaterally, no wheezes, no rhonchi HEART: S1-S2 audible ABDOMEN: Soft, nontender EXTREMITIES: Trace edema Neuro: Alert, oritented, no focal deficits. Detailed neuro exam was not performed. Assessment: NSTEMI status post three-vessel CABG Atrial clip ligation Persistent post-op Atrial fibrillation Hypertension Hyperlipidemia Diabetes type 2 Plan: Continue aspirin statin beta-kailash Plavix discontinued Continue p.o. amlodipine Started on oral amiodarone 400 mg PO BID, and Metoprolol increased to 75 mg BID Resumed home [employer] Monitor urine output electrolytes telemetry Supportive care, we will continue to monitor Dictation was produced using [employer] dictation software. please excuse any grammatical, word or spelling errors. Traci Calderon MD PGY-1 IM I performed history physical exam and medical decision making on this patient Objective - Vital Signs Vital signs: Vital Signs Temp 98.1 F 01/06/25 04:00 Pulse 82 01/06/25 04:00 Resp 8 L 01/06/25 04:00 BP 127/71 01/06/25 04:00 Pulse Ox 95 01/06/25 04:00 FiO2 50 01/02/25 16:39 Intake & Output 01/05/25 01/06/25 01/06/25 18:59 06:59 18:59 Intake Total 250 Output Total 1149 700 Balance -899 -700 Intake: Oral 250 Output: Urine 1075 700 Post Void Residual 74 Other: Voiding Method Urinal Urinal # Voids 1 # Bowel Movements 1 ABP, PAP, CO, CI - Last Documented Arterial Blood Pressure 129/40 Pulmonary Artery Pressure 33/13 Cardiac Output 4.2 Cardiac Index 2.2 - Labs CBC & Chem 7: 01/07/25 06:15 01/07/25 06:15 Labs: Abnormal Lab Results - Last 24 Hours (Table) 01/05/25 01/05/25 01/05/25 Range/Units 11:29 17:32 20:20 WBC (4.50-10.00) 10*3/uL RBC (4.40-5.60) 10*6/uL Hgb (13.0-17.0) g/dL Hct (39.6-50.0) % Immature Gran # (0.00-0.04) 10*3/uL Neutrophils # (1.80-7.70) 10*3/uL Monocytes # (0.20-1.00) 10*3/uL Eosinophils # (0.04-0.35) 10*3/uL Sodium (137-145) mmol/L BUN (9-20) mg/dL Glucose (74-99) mg/dL POC Glucose (mg/dL) 340 H 377 H 354 H (70-110) mg/dL 01/06/25 01/06/25 01/06/25 Range/Units 04:46 04:46 06:19 WBC 11.36 H (4.50-10.00) 10*3/uL RBC 3.67 L (4.40-5.60) 10*6/uL Hgb 11.4 L (13.0-17.0) g/dL Hct 34.4 L (39.6-50.0) % Immature Gran # 0.07 H (0.00-0.04) 10*3/uL Neutrophils # 8.54 H (1.80-7.70) 10*3/uL Monocytes # 1.14 H (0.20-1.00) 10*3/uL Eosinophils # 0.40 H (0.04-0.35) 10*3/uL Sodium 136 L (137-145) mmol/L BUN 29 H (9-20) mg/dL Glucose 222 H (74-99) mg/dL POC Glucose (mg/dL) 244 H (70-110) mg/dL
--- NOTE | 2025-01-06 12:15 | P.PN ---
Subjective Progress Note Date: 01/06/25 Principal diagnosis: POD #4 coronary artery bypass surgery, left internal mammary artery to the left anterior descending artery, left radial artery to the right coronary artery, s aphenous vein graft to the first obtuse marginal branch, endoscopic left radial artery harvest, endoscopic right greater saphenous vein harvest, exclusion of the left atrial appendage with a 35 mm AtriClip, intraoperative transesophageal echocardiogram performed by anesthesia This is a 74-year-old male patient who presented to the emergency department with symptoms of exertional dyspnea and the patient was found to have elevated troponins. The patient ruled in for an acute non-ST segment elevation myocardial infarction. EKG showed sinus bradycardia with a heart rate of 56 and the patient had nonspecific T wave abnormalities. Chest x-ray showed no acute cardiopulmonary abnormalities. 2D echocardiogram showed a preserved LV function with an EF of around 50 to 55% without any significant valvular abnormalities. The patient underwent cardiac catheterization patient had a cath on 12/29/2024 and the cath showed a 30 to 50% stenosis of the proximal LAD, 95% stenosis of the mid LAD and 100% diagnosis to diagonal and 80% stenosis in a diagonal #2 and 99% stenosis of the obtuse marginal and 90% stenosis of the RCA. Subsequently, the patient was seen by cardiothoracic surgery and the patient is going to undergo cardiac bypass surgery. The patient is currently on IV heparin. Free o f any chest pain. Resting comfortably in bed. On room air oxygen. The patient is known to have diabetes mellitus type 2, hypertension hyperlipidemia and BPH along with acid reflux and psoriatic arthritis. He also has chronic restless leg syndrome. He is a lifetime non-smoker. He has a good performance and functional status. CAT scan of the chest was done on 12/29/2024 and it showed mild to moderate atherosclerotic plaques involving the aortic arch. No evidence of any aneurysm. EKG from this morning is showing sinus bradycardia with a heart rate of 57. T wave inversions are still present over the anterolateral and inferior leads. No ST segment elevations. The patient has a white cell count of 7.4 with a heme of 15.7 and platelet count of 202. Normal coagulation profile. Normal electrolytes. Normal renal function. Troponins peaked at 0.08. LFTs are normal. UA showing plus for glucose, hepatitis profile has been negative. Thyroid function tests were normal. Carotid ultrasound showed 50 to 69% stenosis on the right carotid bifurcation and less than 50% on the left. On 12/31/2024, the patient is resting comfortably in bed. No new complaints. Remains free of any chest pain. The patient remains on IV heparin. Hemodynamically stable. The plan is to proceed with coronary bypass surgery tomorrow. White cell is not 0.5 with a hemoglobin 15.4 and platelet count of 220. Electrolytes are within normal limits. BUN is 19 with creatinine 0.8. He remains on room air oxygen the patient using incentive spirometry. Pulse ox 94% on room air oxygen. No other significant events otherwise. On today's evaluation of 01/01/2025, the patient is on the stepdown cardiac unit. Sitting up in bed without any complaints. Alert and oriented x 3. Free of any chest pain. Awaiting coronary artery bypass surgery and this will be done by Dr. Shah tomorrow. Remains on room air oxygen using the incentive spirometer. He remains in a first-degree AV block and heart rate remains bradycardic. As such, the patient is not receiving any form of beta-blockers for now. The pa tient has no specific complaints. Remains on IV heparin. on 01/02/2025, the patient is being seen in the intensive care unit as the patient underwent four-vessel bypass surgery. Postop, the patient was brought in to the intensive care unit intubated on the mechanical ventilator. The patient currently sedated on propofol and patient is currently on 30 mcg/kg/min. The patient is assist-control mode of mechanical ventilation at rate of 12, tidal volume of 550, FiO2 of 100% with a PEEP of 5. Chest x-ray and blood gas are still pending for now. Meanwhile, immediately postop, the patient was found to have a cardiac index of 1.7 and the patient was started on Primacor and the most recent cardiac output is at 5 with an index of 2.6. Primacor is running at 0.3 mc /kg/min and the PA pressures are 39/17. The patient is currently on Primacor infusion augmented cardiac output and and the patient is on nitroglycerin drip at 5 mcg/min. Urine output is adequate. The patient is producing good urine output. Awaiting chest x-ray and blood gases. For now, the patient has a mediastinal and the left pleural chest tube and output is minimal and there is no evidence of any air leak from the chest tubes. 01/03/2025, the patient is postop day #1. The patient was weaned off the mechanical ventilator and the patient was extubated without any major difficulties. The patient was also taken off the Primacor and nitroglycerin drip. The patient is doing well for now. Hemodynamically stable. Urine output is being monitored. Using incentive spirometer. Chest x-ray shows no acute abnormalities. The patient continues to have a right pleural, mediastinal left pleural chest tube. Chest x-ray shows some atelectatic changes in the lung bases. NG tube has been removed. Orotracheal tubes were removed. Corwith-David catheter has been removed. Blood work shows a white cell count of 14 with a hemoglobin of 12 and a platelet count of 205. The sodium is at 138, potassium is at 4, BUN is 50 with a creatinine of 0.66. LFTs are normal. Awake alert and communicating. No other significant events overnight. No focal neurological deficits. On 01/04/2025, the patient is being seen for a follow-up. The patient is sitting up in a chair and the patient is calm and comfortable. Cardiac rhythm remains sinus. Hemodynamically stable. Denies having any chest pain. The mediastinal and the right pleural chest tube removed. Left chest tube chest tube is still in place. Chest x-ray shows no evidence of any pneumothorax and shows postoperative atelectatic changes bilaterally. The patient remains on aspirin and Plavix. The patient is also on Lopressor 50 mg p.o. twice daily, and Norvas c 5 mg p.o. daily. The patient remains on insulin drip and the patient will be transitioned to long-acting insulin utilizing Lantus. The blood work from today shows a white cell count of 16.7, hemoglobin of 11.5 and a platelet count of 203. The sodium is at 137, potassium 3.9, BUN is 20 with a creatinine of 0.7. LFTs are within normal limits. Blood sugars are being monitored. The patient is postop day #2. Patient was seen today on 01/05/2027, patient is now postoperative day #3, patient is doing well, his CABG x 3 was on 01/02, he is on 2 L nasal cannula, and does not seem to be in any distress. Patient is achieving about 1500 cc on his incentive spirometry. Chest x-ray showed mostly postoperative changes with cardiomegaly, WBC count is 13.8 hemoglobin is 11.5 electrolytes are normal renal profile is normal Seen today on 01/06/2027, patient is now postoperative day #4. Patient is on room air, continues to have paroxysmal atrial fibrillation, presently hemodynamically stable not requiring any inotropes or pressors, sitting in a recliner, remains on amiodarone, and he will be switched to oral amiodarone later today. Patient denies any shortness of breath denies any chest pain chest x-ray showed mostly postoperative changes and scattered pleural-parenchymal opacities. Objective - Vital Signs Vital signs: Vital Signs Temp 98.3 F 01/06/25 08:00 Pulse 93 01/06/25 10:00 Resp 22 01/06/25 10:00 BP 126/82 01/06/25 10:00 Pulse Ox 97 01/06/25 08:00 FiO2 50 01/02/25 16:39 Intake & Output 01/05/25 01/06/25 01/06/25 18:59 06:59 18:59 Intake Total 250 Output Total 1149 700 Balance -899 -700 Intake: Oral 250 Output: Urine 1075 700 Post Void Residual 74 Other: Voiding Method Urinal Urinal # Voids 1 # Bowel Movements 1 ABP, PAP, CO, CI - Last Documented Arterial Blood Pressure 129/40 Pulmonary Artery Pressure 33/13 Cardiac Output 4.2 Cardiac Index 2.2 - Exam CONSTITUTIONAL: Revealed 74-year-old white male in no distress, on room air RESPIRATORY: Diminished breath sounds at the bases, no crackles rhonchi or wheezes CARDIOVASCULAR: Distant S1-S2, no S3 gallop, no murmur Abdomen: Soft nontender No rebound no guarding Skin: No rashes Neurologic: Alert oriented x 3 no gross focal deficit Psychiatric: Normal mood affect and no mental status examination Musculoskeletal: No deformities no limitation range of motion Skin: No rashes - Labs CBC & Chem 7: 01/06/25 04:46 01/06/25 04:46 Labs: Abnormal Lab Results - Last 24 Hours (Table) 01/05/25 01/05/25 01/06/25 Range/Units 17:32 20:20 04:46 WBC 11.36 H (4.50-10.00) 10*3/uL RBC 3.67 L (4.40-5.60) 10*6/uL Hgb 11.4 L (13.0-17.0) g/dL Hct 34.4 L (39.6-50.0) % Immature Gran # 0.07 H (0.00-0.04) 10*3/uL Neutrophils # 8.54 H (1.80-7.70) 10*3/uL Monocytes # 1.14 H (0.20-1.00) 10*3/uL Eosinophils # 0.40 H (0.04-0.35) 10*3/uL Sodium (137-145) mmol/L BUN (9-20) mg/dL Glucose (74-99) mg/dL POC Glucose (mg/dL) 377 H 354 H (70-110) mg/dL 01/06/25 01/06/25 01/06/25 Range/Units 04:46 06:19 11:19 WBC (4.50-10.00) 10*3/uL RBC (4.40-5.60) 10*6/uL Hgb (13.0-17.0) g/dL Hct (39.6-50.0) % Immature Gran # (0.00-0.04) 10*3/uL Neutrophils # (1.80-7.70) 10*3/uL Monocytes # (0.20-1.00) 10*3/uL Eosinophils # (0.04-0.35) 10*3/uL Sodium 136 L (137-145) mmol/L BUN 29 H (9-20) mg/dL Glucose 222 H (74-99) mg/dL POC Glucose (mg/dL) 244 H 298 H (70-110) mg/dL Assessment and Plan Assessment: Impression: Multivessel coronary artery disease, status post three-vessel CABG postoperative day #4 Non-ST elevated myocardial infarction this admission History of psoriatic arthritis, on methotrexate Lifetime non-smoker History of restless leg syndrome Psoriatic arthritis, on methotrexate Benign prostatic hypertrophy GERD Lifetime non-smoker recommendation: Continue maximal medical therapy including beta-kailash. Aspirin Plavix and aspirin Continue Lasix as needed GI DVT prophylaxis Continue incentive spirometry Ambulate as tolerated Consider discharge planning in the next 24 hours Will continue to follow Time with Patient: Less than 30
--- NOTE | 2025-01-06 13:10 | P.PN ---
Subjective Progress Note Date: 01/06/25 patient 74-year-old gentleman past medical history significant for diabetes mellitus, hypertension who presented to the ER as a transfer from hospital in [place] for chest pain. Patient stated he was all right couple of weeks back when he started having intermittent shortness of breath and chest pressure, chest pressure was central location, nonradiating, no aggravating or relieving factor associated with chest pressure. Patient went to urgent care and was found to have elevated blood pressure and was referred to [facility] and was later transferred to [facility]. There is no complaint of shortness of breath. Patient denies any palpitation. There is no complaint of orthopnea or PND. Denies any nausea, vomiting abdominal pain. Patient denies any complaint of dizziness. There is no complaint of headache. Initial lab work done in the ER showed WBC 7.20, hemoglobin 16.4, D-dimer 0.24, sodium 141, potassium 3.7, BUN 14, creatinine 0.75, glucose 265, AST 67, ALT 105, troponin 0.085 EKG done in the ER showed heart rate of 56 , no ST segment elevation or depression seen, no T-wave inversions seen. Chest x-ray done in the ER showed no acute cardiopulmonary process Patient admitted to internal medicine service 12/29/2024 Patient is seen in follow-up this morning currently n.p.o. as patient is being evaluated by cardiology and will undergo cardiac catheterization today. Will await official report. Patient is afebrile with no reported chest pain at this time and denies shortness of breath. A.m. labs pending I will follow-up. Replace electrolytes per protocol 12/30/2024 Patient is seen in follow-up no acute overnight issues noted. 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 Patient is continued on heparin drip and is tentatively scheduled for CABG on 01/01/2025. Patient will be continued on telemetry mo nitoring. 01/01/2025 Patient is evaluated in follow-up in the medical floor. He is rescheduled to undergo coronary artery bypass grafting tomorrow on 01/02/2025. His blood glucose has been elevated and he is concerned that he has not been getting his Tuojeo, did let the patient know that we do not carry this medication and he has been getting Lantus 35 units in the morning and we will add a dose in the evening to improve his glycemic control before going for open heart surgery. Additonally patient has only been on sliding scale insulin and he does take 25 units of fast acting with breakfast and dinner and 10 units with lunch. He has no acute complaints at this time. He is evaluated ambulating in the room with family at the bedside. Potassium is better at 3.7. 01/02/2025 Patient currently n.p.o. in OR awaiting to undergo CABG. Will await official report and follow-up with the patient. 01/03. Patient seen and examined. Sitting upright in the chair. Patient still has chest tubes in. Stated he feels better. 01/04. Patient seen and examined. Patient had 2 chest tubes removed, still has 1 chest tube remaining. Blood sugars range between 100s to 200s. Patient still has some postsurgical pain at the surgery site 01/05. Patient seen and examined. Labs reviewed WBC 13.88, hemoglobin 9.5, platelet count 201, sodium 135, potassium 4.3, BUN 20, creatinine 0.75. Blood sugars elevated, switch Lantus to [address] surgery discontinued a left chest tube today. 01/06. Patient seen examined. Patient went to [facility] overnight. Currently on amiodarone drip. Patient blood sugars elevated, insulin dose was adjusted REVIEW OF SYSTEMS: CONSTITUTIONAL: No fever, no malaise,. CARDIOVASCULAR: No chest pain, no palpitations, no syncope. PULMONARY: No shortness of breath, no cough, GASTROINTESTINAL: No diarrhea, no nausea, no vomiting, no abdominal pain. NEUROLOGICAL: No headaches, no weakness, PHYSICAL EXAMINATION: GENERAL: The patient is alert and oriented x3, not in any acute distress. Well developed, well nourished. HEENT: Pupils are round and equally reacting to light. EOMI. CARDIOVASCULAR: S1 and S2 present. No murmurs, rubs, or gallops. Sternotomy surgical incision seen, PULMONARY: Chest is clear to auscultation, no wheezing or crackles. ABDOMEN: Soft, nontender, nondistended, normoactive bowel sounds. No palpable organomegaly. MUSCULOSKELETAL: No joint swelling or deformity. EXTREMITIES: No cyanosis, clubbing, or pedal edema. NEUROLOGICAL: Gross neurological examination did not reveal any focal deficits. SKIN: No rashes. Assessment and plan Acute coronary syndrome, status post cardiac catheterization 12/29/2024 revealing multivessel disease and scheduled for CABG today 01/02/[address] surgery Hypertension Diabetes mellitus type 2 uncontrolled with hyperglycemia, preop hemoglobin was 7.4 restless leg syndrome Hyperlipidemia Psoriatic arthritis Gastroesophageal reflux disease Monitor vital signs Monitor CBC Monitor CMP Continue telemetry monitoring status post four-vessel coronary artery bypass surgery Continue oxygen supplementation Aggressive bronchopulmonary hygiene continue chest tube management per CT surgery Continue aspirin, Plavix, Lipitor Currently on amiodarone drip Monitor blood sugar levels, continue Lantus increased to 15 units twice daily, continue sliding scale insulin Cardiac surgery following Pulmonology following Labs and medication were reviewed.. Continue same treatment. Continue with symptomatic treatment. Resume home medication. Monitor labs and vitals. DVT and GI prophylaxis. Further recommendations as per clinical course of the patient Dictation was produced using [employer] dictation software. please excuse any grammatical, word or spelling errors. Objective - Vital Signs Vital signs: Vital Signs Temp 98.3 F 01/06/25 08:00 Pulse 105 H 01/06/25 08:00 Resp 27 H 01/06/25 08:00 BP 117/77 01/06/25 08:00 Pulse Ox 97 01/06/25 08:00 FiO2 50 01/02/25 16:39 Intake & Output 01/05/25 01/06/25 01/06/25 18:59 06:59 18:59 Intake Total 250 Output Total 1149 700 Balance -899 -700 Intake: Oral 250 Output: Urine 1075 700 Post Void Residual 74 Other: Voiding Method Urinal Urinal # Voids 1 # Bowel Movements 1 ABP, PAP, CO, CI - Last Documented Arterial Blood Pressure 129/40 Pulmonary Artery Pressure 33/13 Cardiac Output 4.2 Cardiac Index 2.2 - Labs CBC & Chem 7: 01/06/25 04:46 01/06/25 04:46 Labs: Abnormal Lab Results - Last 24 Hours (Table) 01/05/25 01/05/25 01/05/25 Range/Units 11:29 17:32 20:20 WBC (4.50-10.00) 10*3/uL RBC (4.40-5.60) 10*6/uL Hgb (13.0-17.0) g/dL Hct (39.6-50.0) % Immature Gran # (0.00-0.04) 10*3/uL Neutrophils # (1.80-7.70) 10*3/uL Monocytes # (0.20-1.00) 10*3/uL Eosinophils # (0.04-0.35) 10*3/uL Sodium (137-145) mmol/L BUN (9-20) mg/dL Glucose (74-99) mg/dL POC Glucose (mg/dL) 340 H 377 H 354 H (70-110) mg/dL 01/06/25 01/06/25 01/06/25 Range/Units 04:46 04:46 06:19 WBC 11.36 H (4.50-10.00) 10*3/uL RBC 3.67 L (4.40-5.60) 10*6/uL Hgb 11.4 L (13.0-17.0) g/dL Hct 34.4 L (39.6-50.0) % Immature Gran # 0.07 H (0.00-0.04) 10*3/uL Neutrophils # 8.54 H (1.80-7.70) 10*3/uL Monocytes # 1.14 H (0.20-1.00) 10*3/uL Eosinophils # 0.40 H (0.04-0.35) 10*3/uL Sodium 136 L (137-145) mmol/L BUN 29 H (9-20) mg/dL Glucose 222 H (74-99) mg/dL POC Glucose (mg/dL) 244 H (70-110) mg/dL
[2025-01-06 13:20] LABS: Glucose,Whole Blood 259 mg/dL (70-110)
[2025-01-06 18:07] LABS: Glucose,Whole Blood 234 mg/dL (70-110)
[2025-01-06 19:46] LABS: Glucose,Whole Blood 205 mg/dL (70-110)
[2025-01-06] MEDS: INSULIN GLARGINE (LANTUS) 100 UNIT/ML SYR SQ SCH (20:25)
[2025-01-07 06:37] LABS: HCT 33.6 % (39.6-50.0); HGB 11.1 g/dL (13.0-17.0); MCH 30.6 pg (27.0-32.0); MCV 92.6 fL (80.0-97.0); Mean Platelet Volume 9.5 fL (9.5-12.2); Platelet Count 333 10*3/uL (140-440); RBC 3.63 10*6/uL (4.40-5.60); RDW 13.7 % (11.5-14.5); WBC 11.32 10*3/uL (4.50-10.00)
[2025-01-07] MEDS: BENZOCAINE/MENTHOL LOZENG 1 EACH LOZENGE MUCOUS MEM PRN (06:47)
[2025-01-07 06:49] LABS: African American GFR (CKD) >90 (>60 ml/min/1.73 sqM); Anion Gap 9 mmol/L; Blood Urea Nitrogen 28 mg/dL (9-20); Calcium 9.1 mg/dL (8.4-10.2); Carbon Dioxide 26 mmol/L (22-30); Chloride 104 mmol/L (98-107); Glucose 142 mg/dL (74-99); Magnesium 2.1 mg/dL (1.6-2.3); Non-African American GFR(CKD) 86 (>60 ml/min/1.73 sqM); Potassium 3.9 mmol/L (3.5-5.1); Sodium 139 mmol/L (137-145)
[2025-01-07 06:52] LABS: Glucose,Whole Blood 146 mg/dL (70-110)
--- NOTE | 2025-01-07 07:26 | XR ---
EXAMINATION TYPE: XR chest 2V DATE OF EXAM: 01/07/2025 6:39 AM COMPARISON: 01/06/2025 CLINICAL INDICATION: Male, 74 years old with history of post open heart: Shortness of breath TECHNIQUE: XR chest 2V views of the chest are obtained. FINDINGS: Scattered senescent parenchymal changes noted. Hyperinflation compatible with COPD. Postoperative scattered pleural parenchymal opacities persist essentially unchanged from prior study. Trace left-sided effusion. No sizable pneumothorax. Heart size is stable. Mediastinal structures are stable and grossly unremarkable. No evidence for hilar prominence. Degenerative changes dorsal spine. IMPRESSION: 1. Postoperative scattered pleural parenchymal opacities persist essentially unchanged from prior kam dy. Trace left-sided effusion. No sizable pneumothorax. [facility], , 01/07/2025 7:23 AM
--- NOTE | 2025-01-07 07:41 | P.PN ---
Subjective Progress Note Date: 01/07/25 Principal diagnosis: Multivessel coronary artery disease, non-ST elevated myocardial infarction this admission. History of hypertension, hyperlipidemia, diabetes mellitus type 2, right internal carotid artery stenosis, restless leg syndrome, psoriatic arthritis on methotrexate, benign prostatic hypertrophy, GERD, lifelong non- smoker POD #5 coronary artery bypass surgery, left internal mammary artery to the left anterior descending artery, left radial artery to the right coronary artery, saphenous vein graft to the first obtuse marginal branch, endoscopic left radial artery harvest, endoscopic right greater saphenous vein harvest, exclusion of the left atrial appendage with a 35 mm AtriClip, intraoperative transesophageal echocardiogram performed by anesthesia Paroxysmal atrial fibrillation, known common occurrence after open heart surgery The patient was seen and examined this morning sitting up in recliner in the intensive care unit in no acute distress, just got done ambulating all the way around the intensive care unit. Remains in controlled atrial fibrillation, hemodynamically stable. Patient complains of expected postsurgical pain which is controlled on current medication regimen, denies shortness of breath. Chest x-ray, labs reviewed. Patient has been ambulating in the hallway without difficulty. Transfer orders were placed 3 days ago for 3 S. cardiac stepdown unit, no bed available. Anticipates discharge to home with home care today. No other new concerns. Objective - Vital Signs Vital signs: Vital Signs Temp 98.3 F 01/07/25 04:00 Pulse 91 01/07/25 04:00 Resp 16 01/07/25 04:00 BP 115/89 01/07/25 04:00 Pulse Ox 95 01/07/25 04:00 FiO2 50 01/02/25 16:39 Intake & Output 01/06/25 01/07/25 01/07/25 18:59 06:59 18:59 Intake Total 250 Output Total 200 350 Balance -200 -100 Weight 85.9 kg Intake: Oral 250 Output: Urine 200 350 Other: Voiding Method Urinal Urinal # Voids 1 ABP, PAP, CO, CI - Last Documented Arterial Blood Pressure 129/40 Pulmonary Artery Pressure 33/13 Cardiac Output 4.2 Cardiac Index 2.2 - Exam CONSTITUTIONAL: Appears comfortable, cooperative, no acute distress RESPIRATORY: Lungs sounds diminished bilaterally. Respirations even, nonlabored. Currently on room air with oxygen saturation 97%. Able to achieve 2000 mL on incentive spirometry. Strong cough. CARDIOVASCULAR: S1, S2 present. Irregular rate and rhythm, controlled atrial fibrillation on telemetry. Sternum stable. Palpable peripheral pulses bilaterally. No edema present. No calf pain or tenderness noted. Heart hugger in place with patient demonstrating appropriate use. Antiembolism stockings, SCDs present. GASTROINTESTINAL: Abdomen soft, nontender, nondistended. Active bowel sounds present 4 quadrants. Tolerating diet. Positive home movement 01/05 GENITOURINARY: Continues to void INTEGUMENTARY: Skin is warm and dry with evidence of good perfusion. Anterior chest incision well approximated. Left radial artery harvest site as well as right lower extremity EVH site well approximated without redness or drainage. NEUROLOGIC: Cranial nerves II through XII intact MUSKULOSKELETAL: Able to move all extremities, strength equal bilaterally, gait normal PSYCHIATRIC: Alert and oriented to person place and time, appropriate affect, intact judgment and insight - Allied health notes Allied health notes reviewed: nursing - Labs CBC & Chem 7: 01/07/25 06:15 01/07/25 06:15 Labs: Abnormal Lab Results - Last 24 Hours (Table) 01/06/25 01/06/25 01/06/25 Range/Units 11:19 13:19 18:06 WBC (4.50-10.00) 10*3/uL RBC (4.40-5.60) 10*6/uL Hgb (13.0-17.0) g/dL Hct (39.6-50.0) % BUN (9-20) mg/dL Glucose (74-99) mg/dL POC Glucose (mg/dL) 298 H 259 H 234 H (70-110) mg/dL 01/06/25 01/07/25 01/07/25 Range/Units 19:45 06:15 06:15 WBC 11.32 H (4.50-10.00) 10*3/uL RBC 3.63 L (4.40-5.60) 10*6/uL Hgb 11.1 L (13.0-17.0) g/dL Hct 33.6 L (39.6-50.0) % BUN 28 H (9-20) mg/dL Glucose 142 H (74-99) mg/dL POC Glucose (mg/dL) 205 H (70-110) mg/dL 01/07/25 Range/Units 06:49 WBC (4.50-10.00) 10*3/uL RBC (4.40-5.60) 10*6/uL Hgb (13.0-17.0) g/dL Hct (39.6-50.0) % BUN (9-20) mg/dL Glucose (74-99) mg/dL POC Glucose (mg/dL) 146 H (70-110) mg/dL - Imaging and Cardiology Chest x-ray: report reviewed, image reviewed Assessment and Plan Assessment: Multivessel coronary artery disease, status post three-vessel CABG Non-ST elevated myocardial infarction this admission Paroxysmal atrial fibrillation, status post ligation of the left atrial appendage Hypertension Hyperlipidemia, treated, cholesterol 150, LDL 86, triglycerides 115 Right internal carotid artery stenosis 50 to 69% Diabetes mellitus type 2, current hemoglobin A1c 7.4% Restless leg syndrome Psoriatic arthritis, on methotrexate Benign prostatic hypertrophy GERD Lifetime non-smoker Plan: Continue to maximize medical therapy with low dose aspirin, statin, beta- kailash. Will increase beta-kailash therapy as tolerated Continue amiodarone, Eliquis Continue oral calcium channel kailash for radial artery spasm prophylaxis Encourage incentive spirometry use 10 times every hour while awake. Bronchodilators per pulmonology Will monitor daily labs and x-rays. Electrolyte replacement per protocol. No lasix today Increase activity, ambulate as tolerated. PT/OT/cardiac rehab following GI/DVT prophylaxis Pain control per current medication regimen Insulin management per internal medicine, patient needs tighter blood sugar control Continue to monitor and record strict accurate intake and output Daily weights Discharge planning in progress, anticipate discharge to home with home care this afternoon More recommendations to follow
[2025-01-07] MEDS: POTASSIUM CHLORIDE ER 20 MEQ TAB.ER PO SCH (08:37)
--- NOTE | 2025-01-07 10:55 | P.PN ---
Subjective Progress Note Date: 01/07/25 Principal diagnosis: Hospital course: Pleasant 74-year-old male with significant past medical history of diabetes type 2, psoriatic arthritis, restless leg syndrome, hypertension, hyperlipidemia who presented with elevated blood pressure. 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 He does not smoke, drinks rare alcohol, no drug use. He states he has been having high blood pressure and intermittent shortness of breath, worse over the past few weeks. Went to a walk-in clinic and BP was elevated 200's/80's. and referred to ER in [place] and ultimately transferred to [facility] for elevated trop 0.08. Troponins here 0.085, 0.081, 0.085, creat 0.69, D-dimer negative. BNP was 801. He did have the flu 1 month ago and was coughing more at that time. He states over the past few months he has been having more chest tightness with walking the dog and this is a change for him. He does not use salt. No prior cardiac work up. EKG does show sinus bradycardia with ST deviation and moderate T wave abnormalities. He is feeling better this morning. Denies any chest pain or pressure. No shortness of breath. 12/30 Patient seen and examined. Yesterday patient underwent cardiac catheterization which revealed multivessel CAD with heavily calcified 30 to 50% proximal LAD, mid LAD 95%, diagonal 1 100%, diagonal to 80%, OM 2 moderate caliber 99%, small caliber RCA 90% stenosis. Patient has been evaluated by cardiothoracic surgery and is scheduled for CABG on . Patient remains on a heparin drip. Blood pressure 153/74, heart rate 60, pulse ox 96% on room air. Echocardiogram reveals EF of 50 to 55% with mild anterior apical hypokinesis. Mild tricuspid regurgitation with no evidence of pulmonary hypertension. 12/31 Patient is scheduled for CABG tomorrow. Blood pressure readings are elevated with with blood pressure 167/76, heart rate is running in the 50s and 60s, pulse ox 96% on room air. 01/01 Patient seen and examined. Patient denies chest pain or pressure, no shortness of breath, no lightheadedness or dizziness. Blood pressure 146/76, heart rate in the 50s. Yesterday we added amlodipine. Patient's surgery has been delayed until [place]. Heparin drip has been discontinued and we will leave this off. 01/03/2025 Patient underwent CABG yesterday. Uneventful postoperative course so far., Doing well, coming along well, blood pressure borderline elevated, telemetry shows sinus rhythm no concerns of any arrhythmias at this time, continue to be on IV insulin drip 01/04/2025 Patient is seen and examined at bedside. He is coming along well Hemodynamically stable Appears euvolemic [place]-David catheter is out, chest tubes are out, ambulating in the unit, sinus rhythm telemetry, no reported arrhythmias. 01/05/25: Patient seen and examined at bedside today. He continues to be in the ICU. No new complaints today. Pulse 68 bpm, BP 150/68, SpO2 98% on 2 L oxygen via nasal cannula WBC 13.88, hemoglobin 11.5, sodium 135, potassium 4.3, BUN 26, creatinine 0.75 Chest x-ray obtained today shows scattered pleural-parenchymal opacities present throughout both lung amador, postsurgical changes of CABG, cardiomegaly 01/06/25: Patient evaluated at bedside today. Patient is doing well and denies any new complaints. Chest tube is removed. BP 127/71, P 82 bpm WBC 11.36, Hb 11, Creatinine 0.66, K 3.6 Chest x-ray shows scattered parenchymal opacities, left-sided chest tube has been removed without sizable pneumothorax, postop changes of CABG, sternotomy wires and mediastinal clips noted, left atrial clip in place 01/07/25: Patient seen and examined at beside today. Denies any new complaints. Vitals stable bp 115/89, Pulse 91 bpm wbc 11.32, hb stable 11.1, cr 0.81, K 3.9 Chest Xray shows Postoperative scattered pleural parenchymal opacities persist essentially unchanged from prior study, trace left-sided effusion, no sizable pneumothorax Review of systems: Pertinent positives and negatives as discussed in HPI, a complete review of systems was performed and all other systems are negative. Physical examination: Vital signs reviewed GENERAL: This is a 74-year-old male, not in acute distress HEENT: Head is atraumatic, normocephalic. LUNGS: CTA bilaterally, no wheezes, no rhonchi HEART: S1-S2 audible ABDOMEN: Soft, nontender EXTREMITIES: Trace edema Neuro: Alert, oritented, no focal deficits. Detailed neuro exam was not performed. Assessment: NSTEMI status post three-vessel CABG Atrial clip ligation Persistent post-op Atrial fibrillation Hypertension Hyperlipidemia Diabetes type 2 Plan: Continue aspirin statin beta-kailash Continue p.o. amlodipine, oral amiodarone 400 mg PO BID, Metoprolol 75 mg BID, Eliquis 5 mg PO BID, Farxiga 10 daily Monitor urine output electrolytes telemetry Supportive care Discharge planning in progress, anticipate discharge to home with home care this afternoon Dictation was produced using [employer] dictation software. please excuse any grammatical, word or spelling errors. Traci Calderon MD PGY-1 IM I have seen and evaluated the patient today. Discussed with the resident and agree with the residents finding and plan as documented in the resident's note. Objective - Vital Signs Vital signs: Vital Signs Temp 98.3 F 01/07/25 04:00 Pulse 91 01/07/25 08:34 Resp 16 01/07/25 08:34 BP 118/76 01/07/25 08:34 Pulse Ox 95 01/07/25 08:34 FiO2 50 01/02/25 16:39 Intake & Output 01/06/25 01/07/25 01/07/25 18:59 06:59 18:59 Intake Total 250 Output Total 200 350 Balance -200 -100 Weight 85.9 kg Intake: Oral 250 Output: Urine 200 350 Other: Voiding Method Urinal Urinal # Voids 1 ABP, PAP, CO, CI - Last Documented Arterial Blood Pressure 129/40 Pulmonary Artery Pressure 33/13 Cardiac Output 4.2 Cardiac Index 2.2 - Labs CBC & Chem 7: 01/07/25 06:15 01/07/25 06:15 Labs: Abnormal Lab Results - Last 24 Hours (Table) 01/06/25 01/06/25 01/06/25 Range/Units 11:19 13:19 18:06 WBC (4.50-10.00) 10*3/uL RBC (4.40-5.60) 10*6/uL Hgb (13.0-17.0) g/dL Hct (39.6-50.0) % BUN (9-20) mg/dL Glucose (74-99) mg/dL POC Glucose (mg/dL) 298 H 259 H 234 H (70-110) mg/dL 01/06/25 01/07/25 01/07/25 Range/Units 19:45 06:15 06:15 WBC 11.32 H (4.50-10.00) 10*3/uL RBC 3.63 L (4.40-5.60) 10*6/uL Hgb 11.1 L (13.0-17.0) g/dL Hct 33.6 L (39.6-50.0) % BUN 28 H (9-20) mg/dL Glucose 142 H (74-99) mg/dL POC Glucose (mg/dL) 205 H (70-110) mg/dL 01/07/25 Range/Units 06:49 WBC (4.50-10.00) 10*3/uL RBC (4.40-5.60) 10*6/uL Hgb (13.0-17.0) g/dL Hct (39.6-50.0) % BUN (9-20) mg/dL Glucose (74-99) mg/dL POC Glucose (mg/dL) 146 H (70-110) mg/dL
[2025-01-07 11:23] LABS: Glucose,Whole Blood 209 mg/dL (70-110)
--- NOTE | 2025-01-07 12:03 | P.PN ---
Subjective Progress Note Date: 01/07/25 Principal diagnosis: POD #5 coronary artery bypass surgery, left internal mammary artery to the left anterior descending artery, left radial artery to the right coronary artery, s aphenous vein graft to the first obtuse marginal branch, endoscopic left radial artery harvest, endoscopic right greater saphenous vein harvest, exclusion of the left atrial appendage with a 35 mm AtriClip, intraoperative transesophageal echocardiogram performed by anesthesia This is a 74-year-old male patient who presented to the emergency department with symptoms of exertional dyspnea and the patient was found to have elevated troponins. The patient ruled in for an acute non-ST segment elevation myocardial infarction. EKG showed sinus bradycardia with a heart rate of 56 and the patient had nonspecific T wave abnormalities. Chest x-ray showed no acute cardiopulmonary abnormalities. 2D echocardiogram showed a preserved LV function with an EF of around 50 to 55% without any significant valvular abnormalities. The patient underwent cardiac catheterization patient had a cath on 12/29/2024 and the cath showed a 30 to 50% stenosis of the proximal LAD, 95% stenosis of the mid LAD and 100% diagnosis to diagonal and 80% stenosis in a diagonal #2 and 99% stenosis of the obtuse marginal and 90% stenosis of the RCA. Subsequently, the patient was seen by cardiothoracic surgery and the patient is going to undergo cardiac bypass surgery. The patient is currently on IV heparin. Free o f any chest pain. Resting comfortably in bed. On room air oxygen. The patient is known to have diabetes mellitus type 2, hypertension hyperlipidemia and BPH along with acid reflux and psoriatic arthritis. He also has chronic restless leg syndrome. He is a lifetime non-smoker. He has a good performance and functional status. CAT scan of the chest was done on 12/29/2024 and it showed mild to moderate atherosclerotic plaques involving the aortic arch. No evidence of any aneurysm. EKG from this morning is showing sinus bradycardia with a heart rate of 57. T wave inversions are still present over the anterolateral and inferior leads. No ST segment elevations. The patient has a white cell count of 7.4 with a heme of 15.7 and platelet count of 202. Normal coagulation profile. Normal electrolytes. Normal renal function. Troponins peaked at 0.08. LFTs are normal. UA showing plus for glucose, hepatitis profile has been negative. Thyroid function tests were normal. Carotid ultrasound showed 50 to 69% stenosis on the right carotid bifurcation and less than 50% on the left. On 12/31/2024, the patient is resting comfortably in bed. No new complaints. Remains free of any chest pain. The patient remains on IV heparin. Hemodynamically stable. The plan is to proceed with coronary bypass surgery tomorrow. White cell is not 0.5 with a hemoglobin 15.4 and platelet count of 220. Electrolytes are within normal limits. BUN is 19 with creatinine 0.8. He remains on room air oxygen the patient using incentive spirometry. Pulse ox 94% on room air oxygen. No other significant events otherwise. On today's evaluation of 01/01/2025, the patient is on the stepdown cardiac unit. Sitting up in bed without any complaints. Alert and oriented x 3. Free of any chest pain. Awaiting coronary artery bypass surgery and this will be done by Dr. Shah tomorrow. Remains on room air oxygen using the incentive spirometer. He remains in a first-degree AV block and heart rate remains bradycardic. As such, the patient is not receiving any form of beta-blockers for now. The pa tient has no specific complaints. Remains on IV heparin. on 01/02/2025, the patient is being seen in the intensive care unit as the patient underwent four-vessel bypass surgery. Postop, the patient was brought in to the intensive care unit intubated on the mechanical ventilator. The patient currently sedated on propofol and patient is currently on 30 mcg/kg/min. The patient is assist-control mode of mechanical ventilation at rate of 12, tidal volume of 550, FiO2 of 100% with a PEEP of 5. Chest x-ray and blood gas are still pending for now. Meanwhile, immediately postop, the patient was found to have a cardiac index of 1.7 and the patient was started on Primacor and the most recent cardiac output is at 5 with an index of 2.6. Primacor is running at 0.3 mc /kg/min and the PA pressures are 39/17. The patient is currently on Primacor infusion augmented cardiac output and and the patient is on nitroglycerin drip at 5 mcg/min. Urine output is adequate. The patient is producing good urine output. Awaiting chest x-ray and blood gases. For now, the patient has a mediastinal and the left pleural chest tube and output is minimal and there is no evidence of any air leak from the chest tubes. 01/03/2025, the patient is postop day #1. The patient was weaned off the mechanical ventilator and the patient was extubated without any major difficulties. The patient was also taken off the Primacor and nitroglycerin drip. The patient is doing well for now. Hemodynamically stable. Urine output is being monitored. Using incentive spirometer. Chest x-ray shows no acute abnormalities. The patient continues to have a right pleural, mediastinal left pleural chest tube. Chest x-ray shows some atelectatic changes in the lung bases. NG tube has been removed. Orotracheal tubes were removed. Clifford-David catheter has been removed. Blood work shows a white cell count of 14 with a hemoglobin of 12 and a platelet count of 205. The sodium is at 138, potassium is at 4, BUN is 50 with a creatinine of 0.66. LFTs are normal. Awake alert and communicating. No other significant events overnight. No focal neurological deficits. On 01/04/2025, the patient is being seen for a follow-up. The patient is sitting up in a chair and the patient is calm and comfortable. Cardiac rhythm remains sinus. Hemodynamically stable. Denies having any chest pain. The mediastinal and the right pleural chest tube removed. Left chest tube chest tube is still in place. Chest x-ray shows no evidence of any pneumothorax and shows postoperative atelectatic changes bilaterally. The patient remains on aspirin and Plavix. The patient is also on Lopressor 50 mg p.o. twice daily, and Norvas c 5 mg p.o. daily. The patient remains on insulin drip and the patient will be transitioned to long-acting insulin utilizing Lantus. The blood work from today shows a white cell count of 16.7, hemoglobin of 11.5 and a platelet count of 203. The sodium is at 137, potassium 3.9, BUN is 20 with a creatinine of 0.7. LFTs are within normal limits. Blood sugars are being monitored. The patient is postop day #2. Patient was seen today on 01/05/2025, patient is now postoperative day #3, patient is doing well, his CABG x 3 was on 01/02, he is on 2 L nasal cannula, and does not seem to be in any distress. Patient is achieving about 1500 cc on his incentive spirometry. Chest x-ray showed mostly postoperative changes with cardiomegaly, WBC count is 13.8 hemoglobin is 11.5 electrolytes are normal renal profile is normal Seen today on 01/06/2025, patient is now postoperative day #4. Patient is on room air, continues to have paroxysmal atrial fibrillation, presently hemodynamically stable not requiring any inotropes or pressors, sitting in a recliner, remains on amiodarone, and he will be switched to oral amiodarone later today. Patient denies any shortness of breath denies any chest pain chest x-ray showed mostly postoperative changes and scattered pleural-parenchymal opacities. Patient was seen today on 01/07/2025, patient is now postoperative day #5, doing well, relatively asymptomatic on room air. Doing great with incentive spirometry, ambulating, all his lines and catheters have been removed. CBC is relatively normal electrolytes are normal renal profile is normal, chest x-ray showed mostly postoperative scattered pleural-parenchymal opacities no acute change. Objective - Vital Signs Vital signs: Vital Signs Temp 98.3 F 01/07/25 04:00 Pulse 96 01/07/25 11:50 Resp 16 01/07/25 08:34 BP 118/76 01/07/25 08:34 Pulse Ox 95 01/07/25 08:34 FiO2 50 01/02/25 16:39 Intake & Output 01/06/25 01/07/25 01/07/25 18:59 06:59 18:59 Intake Total 250 Output Total 200 350 Balance -200 -100 Weight 85.9 kg Intake: Oral 250 Output: Urine 200 350 Other: Voiding Method Urinal Urinal Urinal # Voids 1 ABP, PAP, CO, CI - Last Documented Arterial Blood Pressure 129/40 Pulmonary Artery Pressure 33/13 Cardiac Output 4.2 Cardiac Index 2.2 - Exam CONSTITUTIONAL: Revealed 74-year-old white male in no distress, on room air RESPIRATORY: Diminished breath sounds at the bases, no crackles rhonchi or wheezes CARDIOVASCULAR: Distant S1-S2, no S3 gallop, no murmur Abdomen: Soft nontender No rebound no guarding Skin: No rashes Neurologic: Alert oriented x 3 no gross focal deficit Psychiatric: Normal mood affect and no mental status examination Musculoskeletal: No deformities no limitation range of motion Skin: No rashes - Labs CBC & Chem 7: 01/07/25 06:15 01/07/25 06:15 Labs: Abnormal Lab Results - Last 24 Hours (Table) 01/06/25 01/06/25 01/06/25 Range/Units 13:19 18:06 19:45 WBC (4.50-10.00) 10*3/uL RBC (4.40-5.60) 10*6/uL Hgb (13.0-17.0) g/dL Hct (39.6-50.0) % BUN (9-20) mg/dL Glucose (74-99) mg/dL POC Glucose (mg/dL) 259 H 234 H 205 H (70-110) mg/dL 01/07/25 01/07/25 01/07/25 Range/Units 06:15 06:15 06:49 WBC 11.32 H (4.50-10.00) 10*3/uL RBC 3.63 L (4.40-5.60) 10*6/uL Hgb 11.1 L (13.0-17.0) g/dL Hct 33.6 L (39.6-50.0) % BUN 28 H (9-20) mg/dL Glucose 142 H (74-99) mg/dL POC Glucose (mg/dL) 146 H (70-110) mg/dL 01/07/25 Range/Units 11:22 WBC (4.50-10.00) 10*3/uL RBC (4.40-5.60) 10*6/uL Hgb (13.0-17.0) g/dL Hct (39.6-50.0) % BUN (9-20) mg/dL Glucose (74-99) mg/dL POC Glucose (mg/dL) 209 H (70-110) mg/dL Assessment and Plan Assessment: Impression: Multivessel coronary artery disease, status post three-vessel CABG postoperative day #5 Non-ST elevated myocardial infarction this admission History of psoriatic arthritis, on methotrexate Lifetime non-smoker History of restless leg syndrome Psoriatic arthritis, on methotrexate Benign prostatic hypertrophy GERD Lifetime non-smoker recommendation: Continue present supportive care measures Cleared for discharge today if cleared by other consultants Follow-up on outpatient basis Time with Patient: Less than 30
[2025-01-07] MEDS: amLODIPine 5 MG TAB PO SCH (12:58)
[2025-01-07 13:12] VITALS: BP 132/98; PULSE 80; RESP 97; TEMP 98.1
--- NOTE | 2025-01-07 13:18 | P.DS ---
Providers Date of admission: 12/27/24 21:43 Expected date of discharge: 01/07/25 Attending physician: Mathieu Shah Consults: 12/27/24 21:41 Consult Physician Routine Consulting Provider: Anna Cheng Consult Reason/Comments: cp Do you want consulting provider notified?: Yes 12/29/24 13:31 Consult Physician Routine Consulting Provider: Amari Palacios Consult Reason/Comments: re: CABG Do you want consulting provider notified?: Already Contacted 12/30/24 09:29 Consult Physician Routine Consulting Provider: Clementine Carrillo Consult Reason/Comments: Preop open heart Do you want consulting provider notified?: Already Contacted 01/01/25 10:02 Consult to Anesthesia Routine Consulting Provider: Anesthesia,Services Consult Reason/Comments: Cardiac Surgery Pre-Op 01/02/25 12:55 Consult Physician Routine Consulting Provider: Rafal Judd Consult Reason/Comments: insulin management Do you want consulting provider notified?: Already Contacted Primary care physician: Physician Nonstaff Hospital Course: FINAL DIAGNOSIS: Multivessel coronary artery disease Non-ST elevated myocardial infarction this admission Paroxysmal atrial fibrillation Hypertension Hyperlipidemia, treated, cholesterol 150, LDL 86, triglycerides 115 Right internal carotid artery stenosis 50 to 69% Diabetes mellitus type 2, current hemoglobin A1c 7.4% Restless leg syndrome Psoriatic arthritis, on methotrexate Benign prostatic hypertrophy GERD Lifetime non-smoker PRINCIPAL PROCEDURE: Coronary artery bypass surgery x 3 vessels, left internal mammary artery to the left anterior descending artery, left radial artery to the right coronary artery, saphenous vein graft to the first obtuse marginal branch Endoscopic left radial artery harvest Endoscopic right greater saphenous vein harvest Exclusion of the left atrial appendage with a 35 mm AtriClip Epiaortic ultrasound Graft flow measurements using the Medistim system Intraoperative transesophageal echocardiogram performed by anesthesia HISTORY OF PRESENT ILLNESS: This is a 74-year-old gentleman who follows outpatient with nurse practitioner Joanna Jackson for primary care. The patient presented to an urgent care center in [place] with complaints of shortness of breath, and chest tightness over the last 1 or 2 months with exertion. The urgent care transferred him to the hospital in [place] where he was found to have elevated troponins and was subsequently transferred here to [facility] emergency department. A twelve-lead EKG was completed which showed sinus bradycardia with a heart rate of 56 bpm and nonspecific T wave abnormality. A chest x-ray was completed which showed no acute cardiopulmonary disease/process. He was ruled in for non-STEMI and admitted for evaluation and treatment with consultation placed to cardiology. He underwent a transthoracic 2D echocardiogram normal left ventricular systolic function with ejection fraction 50 to 55%, mild tricuspid valve regurgitation, trace pulmonic valve regurgitation, no pericardial effusion and a normal size aortic root and proximal ascending aorta. He was recommended to undergo heart catheterization which was completed by Dr. Dewey revealing multivessel coronary artery disease with 30 to 50% stenosis to his proximal left anterior descending coronary artery, 95% stenosis to his mid left anterior descending coronary artery, 100% stenosis to his first diagonal coronary artery, 80% stenosis to his second diagonal coronary artery, 99% stenosis to his second obtuse marginal coronary artery, and 90% stenosis to his right coronary artery. Consultation was placed to Dr. Palacios from cardiothoracic surgery. He was recommended to undergo surgical myocardial revascularization. The usual perioperative course was discussed in detail with the patient and his family, all risks and benefits were explained, all questions were answered, and consent was obtained to proceed with surgery. The patient was kept inpatient due to the nature of his disease process. HOSPITAL COURSE: The patient was brought to the preoperative area 01/02/25, prepared in the usual fashion, and subsequently taken to the operating room where Dr. Shah performed triple-vessel coronary artery bypass surgery. Upon completion of surgery the patient was transferred to the cardiovascular intensive care unit where he was recovered and monitored hemodynamically. He was extubated, all lines, tubes, and drips were discontinued when appropriate, and transfer orders were placed for 3 S. cardiac stepdown unit, however there was no bed availability and the patient remained on ICU as a stepdown patient until discharge. He did exhibit paroxysmal atrial fibrillation which was treated with amiodarone and Lopressor along with Eliquis for anticoagulation. His oxygen was titrated down, he continued to work with physical and occupational therapy, he was tolerating oral diet, his pain was controlled, and he was ready to be discharged to home with [facility] on [facility] day #5. He received written and verbal instruction regarding his medications, activity restrictions, signs and symptoms requiring physician notification, and follow-up appointments. Patient Condition at Discharge: Stable Plan - Discharge Summary Discharge Rx Participant: No New Discharge Prescriptions: New Aspirin 81 mg PO DAILY #30 tab Metoprolol Tartrate [Lopressor] 75 mg PO BID #120 tab amLODIPine [Norvasc] 5 mg PO DAILY@1200 #30 tab Sennosides-Docusate Sodium [Senokot-S] 2 each PO HS PRN tab PRN Reason: Constipation Acetaminophen Tab [Tylenol] 1,000 mg PO Q6HR PRN tab PRN Reason: Fever And/ Or Pain Amiodarone [Cordarone] 400 mg PO BID #44 tab Apixaban [Eliquis] 5 mg PO BID #60 tab Atorvastatin [Lipitor] 40 mg PO DAILY #30 tab methocarbamoL [Robaxin] 500 mg PO QID PRN #120 tab PRN Reason: Muscle Pain Continue Dapagliflozin Propanediol [Dapagliflozin] 10 mg PO DAILY Omeprazole 20 mg PO BID Metoclopramide HCl [Reglan] 5 mg PO TID PRN PRN Reason: Nausea Insulin Aspart [NovoLOG Flexpen] 25 units SQ BID-W/MEALS rOPINIRole HCL [Requip] 0.5 mg PO DAILY rOPINIRole HCL [Requip] 1.5 mg PO HS metHOTREXate sodium [Methotrexate] 25 mg PO FR #0 Insulin Glargine,Hum.rec.anlog [Toujeo Solostar] 35 units SQ DAILY Turmeric Root Extract [Turmeric] 500 mg PO BID [place]-3/Dha/Epa/Fish Oil [[place]-3 Fish Oil 1,000 mg Sfgl] 1 cap PO HS Niacin (Inositol Niacinate) [Niacin 500 mg Capsule] 500 mg PO HS Multivit-Mins/Iron/Folic/Lycop [Centrum Men's Tablet] 1 tab PO DAILY Latanoprost [Latanoprost 0.005%] 1 drop BOTH EYES DAILY Gabapentin [Neurontin] 900 mg PO HS Fluticasone Nasal [place] [Flonase Nasal [place]] 1 spray EA NOSTRIL HS Insulin Aspart [NovoLOG Flexpen] 10 units SQ W/LUNCH PRN PRN Reason: if patient eats lunch traZODone HCL [Desyrel] 100 mg PO HS Discontinued Losartan [Cozaar] 25 mg PO DAILY Famotidine 20 mg PO W/SUPPER Discharge Medication List Dapagliflozin Propanediol [Dapagliflozin] 10 mg PO DAILY 12/28/24 [History] Fluticasone Nasal [place] [Flonase Nasal [place]] 1 spray EA NOSTRIL HS 12/28/24 [History] Gabapentin [Neurontin] 900 mg PO HS 12/28/24 [History] Insulin Aspart [NovoLOG Flexpen] 10 units SQ W/LUNCH PRN 12/28/24 [History] Insulin Aspart [NovoLOG Flexpen] 25 units SQ BID-W/MEALS 12/28/24 [History] Insulin Glargine,Hum.rec.anlog [[place]o Solostar] 35 units SQ DAILY 12/28/24 [History] Latanoprost [Latanoprost 0.005%] 1 drop BOTH EYES DAILY 12/28/24 [History] Metoclopramide HCl [Reglan] 5 mg PO TID PRN 12/28/24 [History] Multivit-Mins/Iron/Folic/Lycop [Centrum Men's Tablet] 1 tab PO DAILY 12/28/24 [History] Niacin (Inositol Niacinate) [Niacin 500 mg Capsule] 500 mg PO HS 12/28/24 [History] [place]-3/Dha/Epa/Fish Oil [[place]-3 Fish Oil 1,000 mg Sfgl] 1 cap PO HS 12/28/24 [History] Omeprazole 20 mg PO BID 12/28/24 [History] Turmeric Root Extract [Turmeric] 500 mg PO BID 12/28/24 [History] rOPINIRole HCL [Requip] 0.5 mg PO DAILY 12/29/24 [History] rOPINIRole HCL [Requip] 1.5 mg PO HS 12/29/24 [History] traZODone HCL [Desyrel] 100 mg PO HS 12/29/24 [History] Acetaminophen Tab [Tylenol] 1,000 mg PO Q6HR PRN tab 01/07/25 [Rx] Amiodarone [Cordarone] 400 mg PO BID #44 tab 01/07/25 [Rx] Apixaban [Eliquis] 5 mg PO BID #60 tab 01/07/25 [Rx] Aspirin 81 mg PO DAILY #30 tab 01/07/25 [Rx] Atorvastatin [Lipitor] 40 mg PO DAILY #30 tab 01/07/25 [Rx] Metoprolol Tartrate [Lopressor] 75 mg PO BID #120 tab 01/07/25 [Rx] Sennosides-Docusate Sodium [Senokot-S] 2 each PO HS PRN tab 01/07/25 [Rx] amLODIPine [Norvasc] 5 mg PO DAILY@1200 #30 tab 01/07/25 [Rx] metHOTREXate sodium [Methotrexate] 25 mg PO FR #0 01/07/25 [Rx] methocarbamoL [Robaxin] 500 mg PO QID PRN #120 tab 01/07/25 [Rx] Follow up Appointment(s)/Referral(s): Inna Solares MD [STAFF PHYSICIAN] - 02/03/25 8:45 am Shannon Banks NPC [Nurse Practitioner] - 01/13/25 (Will call you for phone follow-up to avoid having you drive so far. Please call for any needs ) Rehab Willy MENDES,Cardiac [NON-STAFF] - 4 Weeks (You will receive a phone call in approximately 4-6 weeks for evaluation for cardiac rehab) Stepan Dewey DO [STAFF PHYSICIAN] - 01/23/25 9:15 am Joanna Jackson NPC [REFERRING] - 01/15/25 2:00 pm () Mathieu Shah MD [STAFF PHYSICIAN] - 01/23/25 9:45 am [facility] [NON-STAFF] - (You should be seen by home care registered nurse the day after discharge, then 2-3 times per week until you start cardiac rehab. Physical and occupational therapy should visit at least once, may continue to visit if needed) Ambulatory/Diagnostic Orders: Complete Blood Count w/diff [LAB.AMB] Time Frame: 3 Days, Location: None Selected Comprehensive Metabolic Panel [LAB.AMB] Time Frame: 3 Days, Location: None Selected Activity/Diet/Wound Care/Special Instructions: DISCHARGE INSTRUCTIONS: 1. No driving for 4 weeks, or until physician gives their ok. 2. The patient should sleep in their own bed, no medical bed needed. 3. Stairs are not an issue. If the bedroom is upstairs, it is advised that the patient go up at night and down in the morning for the first week. Go slowly, using handrail and take 1 step at a time. 4. GEOVANNA hose are to be worn for 30 days post surgery or until physician discontinues. 5. Heart hugger is to be worn 100% of the time until physician discontinues.(except when showering) 6. No lifting, pushing, or pulling more than 10 pounds for 12 weeks. The physician will advise of any restriction changes. 7. The patient is expected to continue the prescribed walking program. 8. Continue pain control per as needed orders. 9. Continue with incentive spirometry and splinting/heart hugger until otherwise directed by the physician. 10. Must shower daily using liquid antibacterial soap 11. Routine sternal incision care. No powders, lotions, ointments on incisions. No dressings are necessary on incisions unless they are draining. Dermabond tape is to remain on sternal incision until surgeon follow-up. 12. Please call surgeon/TAPEMAN for temp greater than 101 F or purulent drainage from incisions. 13. You should weigh yourself daily, record and bring log with you to follow up appointments. 14. All prescriptions given by surgeon for 30 days. Refills need to be filled through inpatient nursing aide/primary care physician. 15. A Red armband has been placed on the patient. It should be worn for 30 days post discharge from surgery and will be removed by the cardiac surgeons. If an ER visit is necessary, please make sure the number on the Red armband is called before going to ER. 16. You have been referred to and are expected to begin Cardiac Rehab in approximately 4-6 weeks. 17. Quitting smoking is the most important step you can take to improve your health. For additional information and assistance to quit smoking, please call the [place] tobacco quit line (0-906-YDXT-NOW/ ) or online: [email or web address] HEALTH SERVICES TO PROVIDE: RN SKILLED HOME CARE SERVICES FOR POST-OP SURGICAL PATIENTS WITH THE FOLLOWING: Coronary Artery Bypass Surgery (CABG), Mitral Valve Replacement/Repair ( MVR), Aortic Valve Replacement/Repair (AVR) RN TO CONTINUE EDUCATION FROM ``ROAD TO A HEALTH HEART PATIENT EDUCATION MANUAL (GIVEN TO PATIENT IN THE HOSPITAL) MEDICATION RECONCILIATION WITH EDUCATION NEEDED ON FIRST HOME VISIT EMPHASIZE IMPORTANCE OF WEARING BREAST SUPPORT/HEART HUGGER ENCOURAGE USE OF INCENTIVE SPIROMETER 10 X EVERY HOUR WHILE AWAKE ENCOURAGE UTILIZATION OF LOWER EXTREMITY COMPRESSION STOCKINGS/GEOVANNA HOSE and ELEVATE LEGS ABOVE LEVEL OF HEART WHILE AT REST. ENCOURAGE AMBULATION 3-5x/day INCREASING TOLERATES, WHILE AVOIDING EXT REMES IN TEMPERATURE FREQUENCY: RN TO OPEN THE PATIENT WITHIN 24 HOURS OF DISCHARGE FROM THE HOSPITAL WITH TELEHEALTH INSTALLED AT [facility], RN TO VISIT 2-3 X A WEEK FOR 4 WEEKS ESTABLISHED BY PATIENT NEEDS. LABORATORY: CBC, CMP TO BE DRAWN ON THE THIRD DAY HOME, (RAN STAT) FAX RESULTS TO [phone]. TELEHEALTH PARAMETERS: WEIGHT: NOTIFY MD OF WEIGHT GAIN OF 2 LBS IN 24 HOURS OR 5 LBS IN ONE WEEK HR: NOTIFY MD OF HR <55 BPM OR HR>100 BPM BP: NOTIFY MD IF BP <90/55 OR BP>140/100 O2 SAT: NOTIFY MD IF PO2<93% ON ROOM AIR SEND TELEHEALTH REPORT TO EMERGENCY MEDICAL TECH AND CARDIOVASCULAR SURGEON THE FIRST WEEK OF CARE AND THEN BI-WEEKLY. PLEASE ADDITIONALLY COMMUNICATE ANY ABNORMALS AND NEW FINDINGS TO THE SURGEONS OFFICE. Discharge Disposition: HOME WITH HOME HEALTH SERVICES
[2025-01-10] MEDS ORDERED: AMIODARONE 200 MG TAB PO SCH (09:00)
--- NOTE | 2025-01-12 16:07 | CDI ---
Documentation Clarification Form Date: 01/12/2025 03:46:37 PM From: Shannan Gregg RN, CCDS Email: [email or web address] Admit Date: 12/27/2024 09:43:00 PM Patient Name: Marek Hill Visit Number: [id number] Discharge Date: 01/07/2025 03:19:00 PM ATTENTION: The Clinical Documentation Specialists (CDI) and [facility] Coding Staff appreciate your assistance in clarifying documentation. Please respond to the clarification below the line at the bottom and electronically sign. The CDI & [facility] Coding staff will review the response and follow-up if needed. Please note: Queries are made part of the Legal Health Record. If you have any questions, please contact the author of this message via ITS. Doctor Vlad Keith The patient had Increasing bibasilar opacities suggesting pulmonary edema versus infiltrates with trace bilateral pleural effusions noted on the 01/04 CXR. Based on this information and the findings below, is there an additional diagnosis that is clinically appropriate for this patient? Patient history/risk factors: A fib, HTN, and multivessel CAD. Admitted with NSTEMI, s/p 4-vessel CABG. Clinical Indicators: 01/04 IM: "Will give 20mg IVP Lasix today." 01/04 CXR: Increasing bibasilar opacities suggesting pulmonary edema versus infiltrates with trace bilateral pleural effusions. 01/05 Pulmonary: "Respiratory: Diminished breath sounds at the bases with minimal crackles." 01/04 RR: 34 Treatment: IV Lasix 20mg x1 on 01/04; IV Lasix 20mg x1 on 01/05; Incentive spirometry; serial CXR monitoring 01/02-01/07 Is there an additional diagnosis that is clinically appropriate for this patient? [ x] Acute Pulmonary Edema [ ] No additional diagnosis/Not clinically significant [ ] Unable to determine [ ] Other, please specify MTDD
--- NOTE | 2025-01-14 22:42 | P.PN ---
Subjective Progress Note Date: 01/07/25 History of present illness; patient 74-year-old gentleman past medical history significant for diabetes mellitus, hypertension who presented to the ER as a transfer from hospital in [place] for chest pain. Patient stated he was all right couple of weeks back when he started having intermittent shortness of breath and chest pressure, chest pressure was central location, nonradiating, no aggravating or relieving factor associated with chest pressure. Patient went to urgent care and was found to have elevated blood pressure and was referred to [facility] and was later transferred to [facility]. There is no complaint of shortness of breath. Patient denies any palpitation. There is no complaint of orthopnea or PND. Denies any nausea, vomiting abdominal pain. Patient denies any complaint of dizziness. There is no complaint of headache. Initial lab work done in the ER showed WBC 7.20, hemoglobin 16.4, D-dimer 0.24, sodium 141, potassium 3.7, BUN 14, creatinine 0.75, glucose 265, AST 67, ALT 105, troponin 0.085 EKG done in the ER showed heart rate of 56 , no ST segment elevation or depression seen, no T-wave inversions seen. Chest x-ray done in the ER showed no acute cardiopulmonary process Patient admitted to internal medicine service 12/29/2024 Patient is seen in follow-up this morning currently n.p.o. as patient is being evaluated by cardiology and will undergo cardiac catheterization today. Will await official report. Patient is afebrile with no reported chest pain at this time and denies shortness of breath. A.m. labs pending I will follow-up. Repla ce electrolytes per protocol 12/30/2024 Patient is seen in follow-up no acute overnight issues noted. 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 Patient is continued on heparin drip and is tentatively scheduled for CABG on 01/01/2025. Patient will be continued on telemetry monitoring. 12/31/2024 Patient is seen in follow-up today currently resting although easily arousable. Plan is for n.p.o. at midnight and tentatively scheduled for CABG on 01/01/2025. Patient will be brought to the ICU per cardio thoracic services postprocedure. Patient reports he takes Requip twice daily and requesting this to be resumed. Patient is afebrile denies chest pain or shortness of breath. Patient reports has been tolerating diet with no reported nausea or vomiting. Review of systems: Constitutional: reports of fatigue, no fever, or chills Cardiovascular: No reports of chest pain or palpitations Respiratory: No reports of shortness of breath or cough GI: No reports of nausea, vomiting, or diarrhea : No reports of dysuria or retention Neurovascular: No reports of weakness or numbness All medications have been reviewed PHYSICAL EXAMINATION: GENERAL: The patient is asleep although easily arousable, alert and oriented x3, not in any acute distress. Well developed, elderly appearing, thin built HEENT: Pupils are round and equally reacting to light. EOMI. No scleral icterus. No conjunctival pallor. Normocephalic, atraumatic. No pharyngeal erythema. No thyromegaly. CARDIOVASCULAR: S1 and S2 muffled PULMONARY: Chest is clear to auscultation, no wheezing or crackles. ABDOMEN: Soft, nontender, nondistended, normoactive bowel sounds. No palpable organomegaly. MUSCULOSKELETAL: No joint swelling or deformity. EXTREMITIES: No cyanosis, clubbing, or pedal edema. NEUROLOGICAL: Gross neurological examination did not reveal any focal deficits. SKIN: No rashes. Assessment: Acute coronary syndrome, status post cardiac catheterization 12/29/2024 revealing multivessel disease and scheduled for CABG 01/01/[address] surgery Hypertension Diabetes mellitus restless leg syndrome GI prophylaxis DVT prophylaxis Full code Plan: Patient is seen and evaluated this morning being followed by cardiology and underwent cardiac catheterization which was noted to have triple-vessel disease being scheduled for CABG with CT surgery on , 01/01/2025 Recommend repeat labs in the a.m. and replace electrolytes per protocol Continue monitoring Accu-Cheks AC and at bedtime and will adjust insulins accordingly Continue on heparin per cardiology Appropriate home medications have been reviewed and resumed The impression and plan of care has been dictated by Adry Hernandez, Nurse Practitioner as directed. Dr. Chaitanya MD I have performed a history and examination and MDM of this patient, discussed the same with the dictator, and agree with the dictator's assessment and plan as written ,documented as a scribe. Based on total visit time, I have performed more than 50% of the visit. patient 74-year-old gentleman past medical history significant for diabetes mellitus, hypertension who presented to the ER as a transfer from hospital in [place] for chest pain. Patient stated he was all right couple of weeks back when he started having intermittent shortness of breath and chest pressure, chest pressure was central location, nonradiating, no aggravating or relieving factor associated with chest pressure. Patient went to urgent care and was found to have elevated blood pressure and was referred to [facility] and was later transferred to [facility]. There is no complaint of shortness of breath. Patient denies any palpitation. There is no complaint of orthopnea or PND. Denies any nausea, vomiting abdominal pain. Patient denies any complaint of dizziness. There is no complaint of headache. Initial lab work done in the ER showed WBC 7.20, hemoglobin 16.4, D-dimer 0.24, sodium 141, potassium 3.7, BUN 14, creatinine 0.75, glucose 265, AST 67, ALT 105, troponin 0.085 EKG done in the ER showed heart rate of 56 , no ST segment elevation or depression seen, no T-wave inversions seen. Chest x-ray done in the ER showed no acute cardiopulmonary process Patient admitted to internal medicine service 12/29/2024 Patient is seen in follow-up this morning currently n.p.o. as patient is being evaluated by cardiology and will undergo cardiac catheterization today. Will aw ait official report. Patient is afebrile with no reported chest pain at this time and denies shortness of breath. A.m. labs pending I will follow-up. Replace electrolytes per protocol 12/30/2024 Patient is seen in follow-up no acute overnight issues noted. 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 Patient is continued on heparin drip and is tentatively scheduled for CABG on 01/01/2025. Patient will be continued on telemetry monitoring. 01/01/2025 Patient is evaluated in follow-up in the medical floor. He is rescheduled to undergo coronary artery bypass grafting tomorrow on 01/02/2025. His blood glucose has been elevated and he is concerned that he has not been getting his Tuojeo, did let the patient know that we do not carry this medication and he has been getting Lantus 35 units in the morning and we will add a dose in the even ing to improve his glycemic control before going for open heart surgery. Additonally patient has only been on sliding scale insulin and he does take 25 units of fast acting with breakfast and dinner and 10 units with lunch. He has no acute complaints at this time. He is evaluated ambulating in the room with family at the bedside. Potassium is better at 3.7. 01/02/2025 Patient currently n.p.o. in OR awaiting to undergo CABG. Will await official report and follow-up with the patient. 01/03. Patient seen and examined. Sitting upright in the chair. Patient still has chest tubes in. Stated he feels better. 01/04. Patient seen and examined. Patient had 2 chest tubes removed, still has 1 chest tube remaining. Blood sugars range between 100s to 200s. Patient still has some postsurgical pain at the surgery site 01/05. Patient seen and examined. Labs reviewed WBC 13.88, hemoglobin 9.5, pl atelet count 201, sodium 135, potassium 4.3, BUN 20, creatinine 0.75. Blood sugars elevated, switch Lantus to [address] surgery discontinued a left chest tube today. 01/06. Patient seen examined. Patient went to [facility] overnight. Currently on amiodarone drip. Patient blood sugars elevated, insulin dose was adjusted 01/07/2025 Patient is seen and evaluated in follow-up today has been cleared by cardiology with plans on CT surgery discharging today. Blood sugars are improved we will continue current regimen and encourage patient to watch closely and keep a diary of all readings for primary and other follow-ups. Patient was instructed to follow-up with his primary care provider on discharge and continue with frequent walking as tolerated. Continue monitoring sugars closely. REVIEW OF SYSTEMS: CONSTITUTIONAL: No fever, no malaise,. CARDIOVASCULAR: No chest pain, no palpitations, no syncope. PULMONARY: No shortness of breath, no cough, GASTROINTESTINAL: No diarrhea, no nausea, no vomiting, no abdominal pain. NEUROLOGICAL: No headaches, no weakness, PHYSICAL EXAMINATION: GENERAL: The patient is alert and oriented x3, not in any acute distress. Well developed, well nourished. HEENT: Pupils are round and equally reacting to light. EOMI. CARDIOVASCULAR: S1 and S2 present. No murmurs, rubs, or gallops. Sternotomy surgical incision seen, PULMONARY: Chest is clear to auscultation, no wheezing or crackles. ABDOMEN: Soft, nontender, nondistended, normoactive bowel sounds. No palpable organomegaly. MUSCULOSKELETAL: No joint swelling or deformity. EXTREMITIES: No cyanosis, clubbing, or pedal edema. NEUROLOGICAL: Gross neurological examination did not reveal any focal deficits. SKIN: No rashes. Assessment: Acute coronary syndrome, status post cardiac catheterization 12/29/2024 revealing multivessel disease and is status post CABG 01/02/[address] surgery Hypertension Diabetes mellitus type 2 uncontrolled with hyperglycemia, preop hemoglobin was 7.4 restless leg syndrome Hyperlipidemia Psoriatic arthritis Gastroesophageal reflux disease DVT prophylaxis GI prophylaxis Full code Plan: Patient reports he is being discharged today and reports to feeling well. CT surgery working on discharge planning and has help and support in the home. Home medications reviewed and resumed as appropriate Recommended and instructed patient to monitor blood sugars closely and keep a diary of all readings Encouraged increase activity as tolerated Continue incentive spirometer use at least 10 times every hour while awake Patient has been instructed to follow-up with primary care provider on discharge as well. Thank you kindly for this consultation. We will continue to follow with CT surgery during hospitalization. The impression and plan of care has been dictated by Adry Hernandez, Nurse Practitioner as directed. Dr. Chaitanya MD I have performed a history and examination and MDM of this patient, discussed the same with the dictator, and agree with the dictator's assessment and plan as written ,documented as a scribe. Based on total visit time, I have performed more than 50% of the visit. Objective - Vital Signs Vital signs: Vital Signs Temp 98.3 F 01/07/25 04:00 Pulse 96 01/07/25 11:50 Resp 16 01/07/25 08:34 BP 118/76 01/07/25 08:34 Pulse Ox 95 01/07/25 08:34 FiO2 50 01/02/25 16:39 Intake & Output 01/06/25 01/07/25 01/07/25 18:59 06:59 18:59 Intake Total 250 Output Total 200 350 Balance -200 -100 Weight 85.9 kg Intake: Oral 250 Output: Urine 200 350 Other: Voiding Method Urinal Urinal Urinal # Voids 1 ABP, PAP, CO, CI - Last Documented Arterial Blood Pressure 129/40 Pulmonary Artery Pressure 33/13 Cardiac Output 4.2 Cardiac Index 2.2 - Labs CBC & Chem 7: 01/07/25 06:15 01/07/25 06:15 Labs: Abnormal Lab Results - Last 24 Hours (Table) 01/06/25 01/06/25 01/06/25 Range/Units 13:19 18:06 19:45 WBC (4.50-10.00) 10*3/uL RBC (4.40-5.60) 10*6/uL Hgb (13.0-17.0) g/dL Hct (39.6-50.0) % BUN (9-20) mg/dL Glucose (74-99) mg/dL POC Glucose (mg/dL) 259 H 234 H 205 H (70-110) mg/dL 01/07/25 01/07/25 01/07/25 Range/Units 06:15 06:15 06:49 WBC 11.32 H (4.50-10.00) 10*3/uL RBC 3.63 L (4.40-5.60) 10*6/uL Hgb 11.1 L (13.0-17.0) g/dL Hct 33.6 L (39.6-50.0) % BUN 28 H (9-20) mg/dL Glucose 142 H (74-99) mg/dL POC Glucose (mg/dL) 146 H (70-110) mg/dL 01/07/25 Range/Units 11:22 WBC (4.50-10.00) 10*3/uL RBC (4.40-5.60) 10*6/uL Hgb (13.0-17.0) g/dL Hct (39.6-50.0) % BUN (9-20) mg/dL Glucose (74-99) mg/dL POC Glucose (mg/dL) 209 H (70-110) mg/dL
== END 2025-01-07 15:19 | disposition home health service (06) | DRG 233 ==
LOC: EC 21:32 → OBSVTOIN 21:43 → 6NMEDSUR 21:43 → 3SCARD 22:39 → 2SICU 01-02 08:51
PROVIDERS: ADMIT Surgery; ATTEND Surgery
PROC: 4A023N7 Measurement of Cardiac Sampling and Pressure, Left Heart, Percutaneous Approach (ICD-10-PCS; 2024-12-29)
PROC: B2111ZZ Fluoroscopy of Multiple Coronary Arteries using Low Osmolar Contrast (ICD-10-PCS; 2024-12-29)
PROC: 0210093 Bypass Coronary Artery, One Artery from Coronary Artery with Autologous Venous Tissue, Open Approach (ICD-10-PCS; 2025-01-02)
PROC: 06BP4ZZ Excision of Right Saphenous Vein, Percutaneous Endoscopic Approach (ICD-10-PCS; 2025-01-02)
PROC: 02L70CK Occlusion of Left Atrial Appendage with Extraluminal Device, Open Approach (ICD-10-PCS; 2025-01-02)
PROC: B24BZZ4 Ultrasonography of Heart with Aorta, Transesophageal (ICD-10-PCS; 2025-01-02)
PROC: 4A033BC Measurement of Arterial Pressure, Coronary, Percutaneous Approach (ICD-10-PCS; 2025-01-02)
PROC: 5A1221Z Performance of Cardiac Output, Continuous (ICD-10-PCS; 2025-01-02)
PROC: 02100Z9 Bypass Coronary Artery, One Artery from Left Internal Mammary, Open Approach (ICD-10-PCS; principal; 2025-01-02 08:00)
PROC: 02100A3 Bypass Coronary Artery, One Artery from Coronary Artery with Autologous Arterial Tissue, Open Approach (ICD-10-PCS; 2025-01-02 08:00)
PROC: 03BB4ZZ Excision of Right Radial Artery, Percutaneous Endoscopic Approach (ICD-10-PCS; 2025-01-02 08:00)
DX: I21.4 Non-ST elevation (NSTEMI) myocardial infarction (principal); J81.0 Acute pulmonary edema; E11.65 Type 2 diabetes mellitus with hyperglycemia; G25.81 Restless legs syndrome; E78.5 Hyperlipidemia, unspecified; I48.0 Paroxysmal atrial fibrillation; L40.50 Arthropathic psoriasis, unspecified; I65.21 Occlusion and stenosis of right carotid artery; I11.9 Hypertensive heart disease without heart failure; I70.0 Atherosclerosis of aorta; I07.1 Rheumatic tricuspid insufficiency; Z79.4 Long term (current) use of insulin; I25.10 Atherosclerotic heart disease of native coronary artery without angina pectoris; N40.0 Benign prostatic hyperplasia without lower urinary tract symptoms; K21.9 Gastro-esophageal reflux disease without esophagitis; I44.0 Atrioventricular block, first degree; R00.1 Bradycardia, unspecified; Z82.49 Family history of ischemic heart disease and other diseases of the circulatory system; Z79.899 Other long term (current) drug therapy
CPT/HCPCS: 71045; 71046; 71250; 80048; 80053; 80061; 80074; 81003; 82330; 82805; 83036; 83735; 84100; 84132; 84443; 84484; 85025; 85027; 85379; 85610; 85730; 86850; 86891; 86900; 86901; 86920; 87070; 93005; 93306; 93458; 93880; 93970; 94002; 94150; 94640; 96365; 96375; 99291